=== PATIENT | male | born 1935 | race African-American/Black ===

== ENCOUNTER 2016-12-24 14:57 | Inpatient (IN) | payer MEDICARE, MEDICAID ==
[~2016-12-24] VITALS: Ht 185.4 cm; Wt 68.0 kg
[~2016-12-24 14:57] MED LIST: ACETAMINOPHEN-1 EAC1 ORAL; ADVAIR 250/501 PUFFS INH; ATORVASTATIN CA20 MG ORAL; BACTRIM DS TAB1 EAC1 ORAL; CIPROFLOXACIN500 M2 ORAL; DIAZEPAM10 MG ORAL; GABAPENTIN300 MG ORAL; LEVEMIR FL100 UNIT/1 SUBQ; LEVEMIR100 UNIT/1 SUBQ; MUPIROCIN22 GM TOPIC; OSCAL D500 MG GT; PRAVASTATIN SOD10 M1 ORAL; PRAVASTATIN SOD20 M1 ORAL; PROSCAR5 MG ORAL; SINGULAIR10 MG ORAL; TAMSULOSIN HCL0.4 MG ORAL; TRAMADOL HCL50 MG ORAL; VALIUM10 MG ORAL
[2016-12-24] MEDS ORDERED: Bacitracin Oint UD TOPIC ONE ×2 (16:45)
[2016-12-24] MEDS ORDERED: Piperacillin/Tazobactam 3.375 GM in NS 110 ML IVPB ONE (16:45)
[2016-12-24] MEDS ORDERED: Zosyn 3.375gm inj ONE (17:04)
[2016-12-24 17:36] LABS: LYMPHOCYTES % (AUTO) 28.1 % (20.0-45.0); MEAN CORPUSCULAR HGB CONC 32.6 G/DL (32.0-36.0); MEAN CORPUSCULAR VOLUME 95 FL (80-99); MEAN PLATELET VOLUME 9.2 FL (6.5-10.1); NEUTROPHILS % (AUTO) 64.7 % (45.0-75.0); PLATELET COUNT 166 K/UL (150-450); RED BLOOD COUNT 5.15 M/UL (4.70-6.10); RED CELL DISTRIBUTION WIDTH 12.3 % (11.6-14.8); WHITE BLOOD COUNT 7.3 K/UL (4.8-10.8)
[2016-12-24 17:37] LABS: BASOPHILS % (AUTO) 0.9 % (0.0-2.0); MONOCYTES % (AUTO) 5.3 % (1.0-10.0)
[2016-12-24 17:43] LABS: PROTHROMBIN TIME 10.6 SEC (9.30-11.50)
[2016-12-24 18:30] VITALS: BP 110/62
[2016-12-24 19:16] LABS: ALANINE AMINOTRANSFERASE 13 U/L (3-41); ALBUMIN/GLOBULIN RATIO 1.1 (1.0-2.7); ANION GAP 16 (5-15); ASPARTATE AMINO TRANSFERASE 20 U/L (5-40); CALCIUM 9.7 mg/dL (8.6-10.2); CARBON DIOXIDE 28 mEQ/L (20-30); CHLORIDE 94 mEQ/L (98-107); CREATININE 1.5 mg/dL (0.7-1.2); HEMOLYSIS 3; POTASSIUM 4.5 mEQ/L (3.4-4.9); SODIUM 138 mEQ/L (135-145); TOTAL PROTEIN 8.3 g/dL (6.6-8.7)
[2016-12-24 19:52] LABS: APPEARANCE,URINE SLIGHTLY CLOUDY; KETONES,URINE 1+ (NEGATIVE); LEUKOCYTE ESTERASE ,URINE NEGATIVE (NEGATIVE); NITRITE,URINE NEGATIVE (NEGATIVE); PH,URINE 6 (4.5-8.0); PROTEIN,URINE 1+ (NEGATIVE); UROBILINOGEN,URINE NORMAL MG/DL (0.0-1.0)
[2016-12-24 20:03] LABS: RBC,URINE 0 /HPF (0 - 0); SQUAMOUS EPITHELIAL CELL,UR OCCASIONAL /LPF (NONE/OCC)
[2016-12-24 20:04] LABS: BACTERIA,URINE FEW /HPF; MUCUS,URINE MODERATE /LPF (NONE/OCC)
[2016-12-24 20:29] VITALS: BP 115/68
[2016-12-24] MEDS ORDERED: LORazepam Inj 2mg/ml 1ml IV PRN (20:30)
[2016-12-24] MEDS ORDERED: Mylanta II UD 30ml ORAL PRN (20:30)
[2016-12-24] MEDS ORDERED: Zolpidem 5mg tab ORAL PRN (20:30)
[2016-12-24] MEDS ORDERED: Miralax 17gm pkt ORAL PRN (20:30)
[2016-12-24] MEDS ORDERED: Morphine Sulfate 2mg/ml Inj IVP PRN (20:30)
[2016-12-24 20:57] VITALS: BP 129/74
[2016-12-24] MEDS ORDERED: Heparin 5000 units/ml inj SUBQ SCH (21:00)
[2016-12-24] MEDS: Tamsulosin 0.4mg cap ORAL SCH (21:05)
[2016-12-24] MEDS: NovoLOG Insulin Flexpen SUBQ SCH (21:06)
[2016-12-24] MEDS: Cefepime HCl 1 GM in D5W 55 ML IV SCH (21:27)
[2016-12-24] MEDS ORDERED: Haloperidol 5mg/ml Inj IM PRN (22:15)
[2016-12-24] MEDS ORDERED: Vancomycin 1gm/D5W 275ml IVPB SCH ×2 (23:00)
--- NOTE | 2016-12-24 23:34 | Emergency Room Report ---
History of Present Illness General Chief Complaint: Lower Extremity Injury Source: Patient Present Illness HPI Patient is an 81-year-old male who presented after having increased right lower extremity pain. Patient had recently injured his right foot. A patient is a diabetic. He had not been taking any of his medications. Patient had not been having any fever. He had prior history of some dementia. The patient states primary care physician is Dr. Givens Allergies: Coded Allergies: ASPIRIN (Unverified Allergy, Severe, Rash, 05/20/16) HEPARIN (Verified Allergy, Unknown, 12/24/16) Patient History Past Medical History: see triage record, DM Reviewed Nursing Documentation: PMH: Agreed, PSxH: Agreed Nursing Documentation-PMH Past Medical History: No History, Except For Hx Cardiac Problems: Yes Hx Hypertension: Yes Hx Pacemaker: No Hx Asthma: Yes Hx COPD: No Hx Diabetes: Yes Hx Cancer: No Hx Gastrointestinal Problems: No Hx Neurological Problems: Yes Hx Cerebrovascular Accident: No Hx Dementia: Yes Hx Seizures: No Hx Memory Loss: Yes Hx Dizziness: Yes Hx Syncope: Yes Review of Systems All Other Systems: negative except mentioned in HPI Physical Exam Vital Signs Date Time Temp Pulse Resp B/P Pulse Ox O2 Delivery O2 Flow Rate FiO2 12/24/16 14:48 98.4 80 14 114/62 98 Room Air Sp02 EP Interpretation: reviewed, normal General Appearance: normal inspection, well appearing, no apparent distress, alert, GCS 15 Head: atraumatic ENT: normal ENT inspection, hearing grossly normal, normal voice Neck: normal inspection, full range of motion, supple, no bony tend Respiratory: normal inspection, lungs clear, normal breath sounds, no respiratory distress, no retraction, no wheezing Cardiovascular #1: regular rate, rhythm, no edema Gastrointestinal: normal inspection, normal bowel sounds, non tender, soft, no guarding, no hernia Genitourinary: no CVA tenderness Musculoskeletal: normal inspection, back normal, normal range of motion Neurologic: normal inspection, alert, responsive, speech normal Psychiatric: normal inspection, judgement/insight normal, mood/affect normal Skin: no rash, other - ulceration to right 2nd toe, tinea to right foot. Medical Decision Making Diagnostic Impression: Primary Impression: Uncontrolled diabetes mellitus Additional Impressions: Dementia Foot ulcer, right ER Course Patient is 81-year-old male presented after increased right foot pain. Differential diagnosis included but was not limited to fracture, contusion, vascular insufficiency, aortic aneurysm, cellulitis. Because of complexity of patient's case laboratory testing and imaging studies were ordered. The patient was noted to have a history of dementia. Blood sugar was noted to be elevated approximately 400. EKG interpreted by me shows sinus rhythm with a rate of [address] or T wave changes. The patient was given subcutaneous insulin. Patient was empirically given IV antibiotics. Right foot x-ray 3 views interpreted by me showed degenerative changes with possible fracture of the fourth phalanx. There is no evident soft tissue air. The patient was given Risperdal 2 mg because of marked agitation. He subsequently had some improvement. Dr. Arian Givens was contacted for inpatient management Labs Test 12/24/16 17:08 12/24/16 18:18 12/24/16 19:38 White Blood Count 7.3 K/UL (4.8-10.8) Red Blood Count 5.15 M/UL (4.70-6.10) Hemoglobin 16.0 G/DL (14.2-18.0) Hematocrit 49.0 % (42.0-52.0) Mean Corpuscular Volume 95 FL (80-99) Mean Corpuscular Hemoglobin 31.0 PG (27.0-31.0) Mean Corpuscular Hemoglobin Concent 32.6 G/DL (32.0-36.0) Red Cell Distribution Width 12.3 % (11.6-14.8) Platelet Count 166 K/UL (150-450) Mean Platelet Volume 9.2 FL (6.5-10.1) Neutrophils (%) (Auto) 64.7 % (45.0-75.0) Lymphocytes (%) (Auto) 28.1 % (20.0-45.0) Monocytes (%) (Auto) 5.3 % (1.0-10.0) Eosinophils (%) (Auto) 1.0 % (0.0-3.0) Basophils (%) (Auto) 0.9 % (0.0-2.0) Prothrombin Time 10.6 SEC (9.30-11.50) Prothromb Time International Ratio 1.0 (0.9-1.1) Activated Partial Thromboplast Time 25 SEC (23-33) Sodium Level 138 mEQ/L (135-145) Potassium Level 4.5 mEQ/L (3.4-4.9) Chloride Level 94 mEQ/L (98-107) Carbon Dioxide Level 28 mEQ/L (20-30) Anion Gap 16 (5-15) Blood Urea Nitrogen 21 mg/dL (7-23) Creatinine 1.5 mg/dL (0.7-1.2) Estimat Glomerular Filtration Rate mL/min (>60) Glucose Level 435 mg/dL (74-106) Calcium Level 9.7 mg/dL (8.6-10.2) Total Bilirubin 0.3 mg/dL (0.0-1.2) Aspartate Amino Transf (AST/SGOT) 20 U/L (5-40) Alanine Aminotransferase (ALT/SGPT) 13 U/L (3-41) Alkaline Phosphatase 100 U/L (40-129) Total Protein 8.3 g/dL (6.6-8.7) Albumin 4.4 g/dL (3.5-5.2) Globulin 3.9 g/dL Albumin/Globulin Ratio 1.1 (1.0-2.7) Urine Color Pale yellow Urine Appearance Slightly cloudy Urine pH 6 (4.5-8.0) Urine Specific [place] 1.010 (1.005-1.035) Urine Protein 1+ (NEGATIVE) Urine Glucose (UA) 4+ (NEGATIVE) Urine Ketones 1+ (NEGATIVE) Urine Occult Blood Negative (NEGATIVE) Urine Nitrite Negative (NEGATIVE) Urine Bilirubin Negative (NEGATIVE) Urine Urobilinogen Normal MG/DL (0.0-1.0) Urine Leukocyte Esterase Negative (NEGATIVE) Urine RBC 0 /HPF (0 - 0) Urine WBC 2-4 /HPF (0 - 0) Urine Squamous Epithelial Cells Occasional /LPF Urine Bacteria Few /HPF (NONE) Urine Mucus Moderate /LPF (NONE/OCC) Last Vital Signs Date Time Temp Pulse Resp B/P Pulse Ox O2 Delivery O2 Flow Rate FiO2 12/24/16 20:57 97.7 89 16 129/74 99 Room Air Status: improved Disposition: ADMITTED INPATIENT Condition: Stable Referrals: NOT CHOSEN IPA/,REFERRING (PCP) Ronald Gresham Dec 24, 2016 23:34
[2016-12-25 04:00] VITALS: BP 117/66
[2016-12-25] MEDS: NovoLOG Insulin Flexpen SUBQ SCH ×4 (06:08→21:35)
[2016-12-25 07:04] LABS: BASOPHILS % (AUTO) 0.8 % (0.0-2.0); EOSINOPHILS % (AUTO) 2.1 % (0.0-3.0); LYMPHOCYTES % (AUTO) 40.4 % (20.0-45.0); MEAN CORPUSCULAR HEMOGLOBIN 31.5 PG (27.0-31.0); MEAN CORPUSCULAR HGB CONC 33.5 G/DL (32.0-36.0); MEAN CORPUSCULAR VOLUME 94 FL (80-99); MEAN PLATELET VOLUME 10.8 FL (6.5-10.1); MONOCYTES % (AUTO) 7.5 % (1.0-10.0); NEUTROPHILS % (AUTO) 49.1 % (45.0-75.0); PLATELET COUNT 150 K/UL (150-450); RED BLOOD COUNT 4.24 M/UL (4.70-6.10); WHITE BLOOD COUNT 6.7 K/UL (4.8-10.8)
[2016-12-25 07:14] LABS: HEMOGLOBIN A1C 13.4 % (< 6.0)
[2016-12-25 07:28] LABS: ALANINE AMINOTRANSFERASE 9 U/L (3-41); ALBUMIN/GLOBULIN RATIO 1.1 (1.0-2.7); ANION GAP 17 (5-15); ASPARTATE AMINO TRANSFERASE 17 U/L (5-40); CALCIUM 9.2 mg/dL (8.6-10.2); CARBON DIOXIDE 25 mEQ/L (20-30); CHLORIDE 99 mEQ/L (98-107); CHOLESTEROL 208 mg/dL (< 200); CHOLESTEROL/HDL RATIO 5.1 (3.3-4.4); CREATININE 1.3 mg/dL (0.7-1.2); HEMOLYSIS 3; LDL CHOLESTEROL (CALC.) 146 mg/dL (60-99); POTASSIUM 3.7 mEQ/L (3.4-4.9); SODIUM 141 mEQ/L (135-145)
[2016-12-25 08:00] VITALS: BP 127/73
--- NOTE | 2016-12-25 10:01 | Cardiology Report ---
APPROVED REPORT EKG Measurement Heart [id number] Normal sinus rhythm Left anterior fascicular block Septal infarct, age undetermined Abnormal ECG
[2016-12-25] MEDS: Cefepime HCl 1 GM in D5W 55 ML IV SCH ×2 (10:37→21:19)
--- NOTE | 2016-12-25 11:08 | Diagnostic Imaging Report ---
Indication: Pain Comparison: None Findings: 3 views of the right foot were obtained. Hallux valgus and degenerative changes of the first MTP joint are present. Bones are osteopenic. No obvious fracture identified. Hammertoes noted. Plantar calcaneal spur noted. Impression: Degenerative changes as described above
[2016-12-25 12:00] VITALS: BP 124/75
--- NOTE | 2016-12-25 12:09 | Wound Care Consultation ---
Wound Assessment Wound Assessment : Wound Present on Admission: Yes New Wound: No Status Change of Wound: No Wound Location Body Site Modif: right Wound Location Body Site: toe - 2nd and 3rd Wound Type: traumatic injury Estrada Test: Does not Estrada Wound Thickness: Full Thickness Wound Drainage Description: Serosanguineous Wound Drainage Amount: Scant Wound Drainage Odor: None/Absent Tissue Surrounding Wound: Erythemic Wound General Appearance: Reddened Wound Comment #1 Right 2nd and 3rd toe traumatic injury with open wound. Pt diabetic and toe nails are thick and long on both feet. #2 Dry and flaky skin on both feet. Recommendation -Cleanse with saline pat dry apply Adaptic cover with 4x4 wrap with kerlix daily and PRN soiled/dislodged -Government Affairs Director consult -Turn and reposition -Keep clean and moist with A&D ointment for dryness on both feet -Optimize nutrition -Offload both heels -Assess and f/u with tetryl wringer operator or attending MD for any changes STEPHANIE BONILLA RN Dec 25, 2016 12:09
[2016-12-25] MEDS ORDERED: D5 1/2NS 1000ml IV ONE (15:00)
--- NOTE | 2016-12-25 15:12 | Consultation ---
Consult Note Consult Note ID CONSULT: Dict# [id number] Assessment/Plan ASSESSMENT: 81 y/o male with: // Right 2nd toe ulcer r/o osteomyelitis - XR: Hallux valgus and degenerative changes of the first MTP joint are present. Bones are osteopenic. No obvious fracture identified. Hammertoes noted. 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 Mass emanating exophytically from versus adjacent to posterior wall of urinary bladder, nonspecific, unchanged. Diagnostic possibilities include exophytic extension of urinary bladder mass, bladder diverticulum, adjacent adenopathy. Right renal upper pole mass apparently mildly increased in size // DM2 - HbA1c 13.4% // Medical noncompliance // Dementia // No ABX allergies // Full Code PLAN: - continue empiric IV vancomycin, cefepime d# 1 - check wound culture, ESR, CRP - monitor CBC, temperatures - monitor BMP - wound care Thanks! Will follow KANCHAN QUIGLEY Dec 25, 2016 15:12
[2016-12-25 16:00] VITALS: BP 146/77
--- NOTE | 2016-12-25 16:02 | Consultation ---
Consult Note Consult Note Patient is a poor historian. He states that he has really long toenails and does not recall the last time they were trimmed. The right 2nd toe has been painful. He does not recall how long this has been going on for. No nausea, vomiting, fevers, or chills. He does not wear shoes and only uses sandals. Assessment/Plan Assessment: - Onychogryphosis - Onycholysis of the right 2nd toe - Diabetic neuropathy - Poorly controlled diabetes Plan: - Removed the right 2nd toenail. Apply topical antibiotic ointment and bandaid for 2 weeks - Debrided the remainder of the toenails - Discussed diabetic foot care and the importance daily foot examination, pedal hygiene, and appropriate shoes - Okay to discharge from podiatry standpoint Nicolás Ibarra DPM Dec 25, 2016 16:02
--- NOTE | 2016-12-25 17:11 | History & Physical ---
History and Physical History & Physicial Dictated for Int Med-Dr Givens no. [id number]. TAMMY SAGE Dec 25, 2016 17:11
--- NOTE | 2016-12-25 17:50 | Consultation ---
History of Present Illness General Date patient seen: Dec 15, 2016 Chief Complaint: Lower Extremity Injury Referring physician: Dr Hester Reason for Consultation: Dyspnea Hx Asthma and lower extremity injury Present Illness HPI Patient is a 81 y/o gentleman with pmhx COPD heavy tobacco use, asthma, DM, HTN , a recent lower extremity injury which is worsening in swelling and pain. Patient reported difficulty with breathing the patients hospitalist asked me to evaluate. Doppler of the lower extremity has been requested to evaluate for any thrombotic event in the lower extremity in the context of multiple virchow triad risk factors including heavy tobacco smoking and recent injury. Patient will also be given breathing treatment as needed for SOB. Allergies: Coded Allergies: ASPIRIN (Unverified Allergy, Severe, Rash, 05/20/16) HEPARIN (Verified Allergy, Unknown, 12/24/16) Medication History Scheduled Atorvastatin Calcium* (Lipitor*), 5 MG ORAL BEDTIME, (Reported) Calcium Carbonate (Oyster Shell Calcium-Vit D Tab), 500 MG GT TID Diazepam* (Diazepam*), 10 MG ORAL HS, (Reported) Finasteride* (Proscar*), 5 MG ORAL DAILY Gabapentin* (Gabapentin*), 300 MG ORAL THREE TIMES A DAY, (Reported) Insulin Aspart (Novolog), SQ AC+HS, (Reported) Insulin Aspart* (Novolog*), 8 SUBQ BEFORE MEALS, (Reported) Insulin Detemir (Levemir), 40 UNITS SUBQ BEFORE BREAKFAST Insulin Detemir (Levemir), 20 SUBQ DAILY, (Reported) Montelukast Sodium* (Singulair*), 10 MG ORAL DAILY, (Reported) Montelukast Sodium* (Singulair*), 10 MG ORAL DAILY, (Reported) Pravastatin Sod* (Pravastatin Sod*), 10 MG ORAL BEDTIME, (Reported) Tamsulosin Hcl (Tamsulosin Hcl*), 0.4 MG ORAL BEDTIME Tamsulosin Hcl (Tamsulosin Hcl*), 0.4 MG ORAL BEDTIME, (Reported) Trimethoprim/Sulfamethoxazole (Bactrim Ds Tablet), 1 TAB ORAL BID, (Reported) Scheduled PRN Acetaminophen (Tylenol), 650 MG ORAL Q4HR PRN for Fever/Headache/Mild Pain, ( Reported) Acetaminophen With Codeine (T#3) (Tylenol #3 Tab*), 1 TAB ORAL Q6HR PRN for For Pain, (Reported) Al Hydroxide/mg Hydroxide (Mag-Al Plus Suspension), 30 ML GT Q4HR PRN for Constipation, (Reported) Fluticasone/Salmeterol (Advair 250-50 Diskus), 1 PUFF INH DAILY PRN for Shortness of Breath, (Reported) Lorazepam* (Ativan*), 0.5 MG ORAL Q4HR PRN for For Anxiety, (Reported) Ondansetron (Zofran), 4 MG ORAL Q6H PRN for Nausea & Vomiting, (Reported) Polyethylene Glycol 3350* (Miralax*), 17 GM ORAL DAILY PRN for Constipation, ( Reported) Zolpidem Tartrate* (Ambien*), 5 MG ORAL BEDTIME PRN for Insomnia, (Reported) Patient History Healthcare decision maker Resuscitation status Full Code Advanced Directive on File Past Medical/Surgical History Past Medical/Surgical History: (1) COPD exacerbation (2) Acute cystitis (3) Chest wall contusion (4) Altered mental status (5) Hypertension (6) Alzheimer's dementia (7) Injury of lower extremity Review of Systems Respiratory: Reports: cough, shortness of breath, wheezing Musculoskeletal: Reports: joint pain, muscle pain, muscle stiffness Skin: Reports: change in color, change in hair/nails, dryness, lesions, rash Physical Exam General Appearance: no apparent distress Lines, tubes and drains: peripheral HEENT: normocephalic, atraumatic, PERRL Neck: non-tender, normal alignment Respiratory/Chest: chest wall non-tender, decreased breath sounds, expiratory wheezing Breasts: no masses Cardiovascular/Chest: normal peripheral pulses, normal rate, regular rhythm, no JVD Abdomen: normal bowel sounds, non tender, soft, no organomegaly Genitourinary/Rectal: normal genital exam, normal rectal exam Extremities: calf tenderness, inflammation, moderate edema, pitting - right lower extremity 2nd/3rd metatarsal phalangeal digit open wound and traumatic eccymosis Skin Exam: palled, other 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, no motor/sensory deficits Last 24 Hour Vital Signs Date Time Temp Pulse Resp B/P Pulse Ox O2 Delivery O2 Flow Rate FiO2 12/25/16 16:00 97.7 75 18 146/77 96 Room Air 12/25/16 12:00 96.8 95 124/75 100 Room Air 12/25/16 08:00 96.4 98 19 127/73 99 Room Air 12/25/16 04:00 97.5 83 20 117/66 95 Room Air 12/24/16 20:57 97.7 89 16 129/74 99 Room Air 12/24/16 20:30 98.4 78 14 110/62 98 Room Air 12/24/16 20:29 98.4 76 15 115/68 99 Room Air 12/24/16 18:30 98.4 78 14 110/62 98 Room Air Intake and Output 12/24/16 12/25/16 19:00 07:00 Intake Total 110 ml Output Total 300 ml Balance -190 ml IV Total 110 ml Output Urine Total 300 ml # Voids 1 1 Laboratory Tests Test 12/24/16 18:18 12/24/16 19:38 12/25/16 05:30 Sodium Level 138 mEQ/L (135-145) 141 mEQ/L (135-145) Potassium Level 4.5 mEQ/L (3.4-4.9) 3.7 mEQ/L (3.4-4.9) Chloride Level 94 mEQ/L (98-107) L 99 mEQ/L (98-107) Carbon Dioxide Level 28 mEQ/L (20-30) 25 mEQ/L (20-30) Anion Gap 16 (5-15) H 17 (5-15) H Blood Urea Nitrogen 21 mg/dL (7-23) 22 mg/dL (7-23) Creatinine 1.5 mg/dL (0.7-1.2) H 1.3 mg/dL (0.7-1.2) H Estimat Glomerular Filtration Rate mL/min (>60) mL/min (>60) Glucose Level 435 mg/dL (74-106) H 174 mg/dL (74-106) #H Calcium Level 9.7 mg/dL (8.6-10.2) 9.2 mg/dL (8.6-10.2) Total Bilirubin 0.3 mg/dL (0.0-1.2) 0.5 mg/dL (0.0-1.2) Aspartate Amino Transf (AST/SGOT) 20 U/L (5-40) 17 U/L (5-40) Alanine Aminotransferase (ALT/SGPT) 13 U/L (3-41) 9 U/L (3-41) Alkaline Phosphatase 100 U/L (40-129) 78 U/L (40-129) Total Protein 8.3 g/dL (6.6-8.7) 7.0 g/dL (6.6-8.7) Albumin 4.4 g/dL (3.5-5.2) 3.7 g/dL (3.5-5.2) Globulin 3.9 g/dL 3.3 g/dL Albumin/Globulin Ratio 1.1 (1.0-2.7) 1.1 (1.0-2.7) Urine Color Pale yellow Urine Appearance Slightly cloudy Urine pH 6 (4.5-8.0) Urine Specific [place] 1.010 (1.005-1.035) Urine Protein 1+ (NEGATIVE) H Urine Glucose (UA) 4+ (NEGATIVE) H Urine Ketones 1+ (NEGATIVE) H Urine Occult Blood Negative (NEGATIVE) Urine Nitrite Negative (NEGATIVE) Urine Bilirubin Negative (NEGATIVE) Urine Urobilinogen Normal MG/DL (0.0-1.0) Urine Leukocyte Esterase Negative (NEGATIVE) Urine RBC 0 /HPF (0 - 0) Urine WBC 2-4 /HPF (0 - 0) Urine Squamous Epithelial Cells Occasional /LPF Urine Bacteria Few /HPF (NONE) Urine Mucus Moderate /LPF (NONE/OCC) H White Blood Count 6.7 K/UL (4.8-10.8) Red Blood Count 4.24 M/UL (4.70-6.10) L Hemoglobin 13.3 G/DL (14.2-18.0) L Hematocrit 39.8 % (42.0-52.0) L Mean Corpuscular Volume 94 FL (80-99) Mean Corpuscular Hemoglobin 31.5 PG (27.0-31.0) H Mean Corpuscular Hemoglobin Concent 33.5 G/DL (32.0-36.0) Red Cell Distribution Width 12.0 % (11.6-14.8) Platelet Count 150 K/UL (150-450) Mean Platelet Volume 10.8 FL (6.5-10.1) H Neutrophils (%) (Auto) 49.1 % (45.0-75.0) Lymphocytes (%) (Auto) 40.4 % (20.0-45.0) Monocytes (%) (Auto) 7.5 % (1.0-10.0) Eosinophils (%) (Auto) 2.1 % (0.0-3.0) Basophils (%) (Auto) 0.8 % (0.0-2.0) Hemoglobin A1c 13.4 % (< 6.0) H Triglycerides Level 103 mg/dL (< 150) Cholesterol Level 208 mg/dL (< 200) H LDL Cholesterol 146 mg/dL (60-99) H HDL Cholesterol 41 mg/dL (> 60) Cholesterol/HDL Ratio 5.1 (3.3-4.4) H Thyroid Stimulating Hormone (TSH) 2.500 uIU/mL (0.300-4.500) Height (Feet): 6 Height (Inches): 1.00 Weight (Pounds): 150 Medications Current Medications Medications (Trade) Dose Ordered Sig/Eric Route PRN Reason Start Time Stop Time Status Last Admin Dose Admin Acetaminophen (Tylenol) 650 mg Q4H PRN ORAL fever 12/24/16 20:30 01/23/17 20:29 Al Hydroxide/Mg Hydroxide (Mylanta II) 30 ml Q6H PRN ORAL dyspepsia 12/24/16 20:30 01/23/17 20:29 Atorvastatin Calcium (Lipitor) 5 mg BEDTIME ORAL 12/24/16 21:00 01/23/17 20:59 12/24/16 21:05 Cefepime HCl/ Dextrose (Maxipime/D5W) 55 ml @ 110 mls/hr Q12H IV 12/24/16 22:00 12/31/16 21:59 12/25/16 10:37 Dextrose (Dextrose 50%) STAT PRN IV Hypoglycemia 12/24/16 20:30 01/23/17 20:29 Finasteride (Proscar) 5 mg DAILY ORAL 12/25/16 09:00 01/24/17 08:59 12/25/16 10:36 Haloperidol Lactate (Haldol) 5 mg Q4H PRN IM Agitation 12/24/16 22:15 01/23/17 22:14 Insulin Aspart BEFORE MEALS AND HS SUBQ 12/24/16 21:00 01/23/17 20:59 12/25/16 16:43 Lorazepam (Ativan 2mg/ml 1ml) 0.5 mg Q4H PRN IV For Anxiety 12/24/16 20:30 12/31/16 20:29 Morphine Sulfate (Morphine Sulfate) 1 mg EVERY 4 HOURS PRN IVP For Pain 12/24/16 20:30 12/31/16 20:29 Ondansetron HCl (Zofran) 4 mg Q6H PRN IVP Nausea & Vomiting 12/24/16 20:30 01/23/17 20:29 Polyethylene Glycol (Miralax) 17 gm HSPRN PRN ORAL Constipation 12/24/16 20:30 01/23/17 20:29 Tamsulosin HCl (Flomax) 0.4 mg BEDTIME ORAL 12/24/16 21:00 01/23/17 20:59 12/24/16 21:05 Vancomycin HCl 1 ea 1 ea DAILY PRN MISC Per rx protocol 12/24/16 20:30 01/23/17 20:29 Vancomycin HCl/ Dextrose (Vancomycin/D5W) 275 ml @ 183.708 mls/hr Q24H IVPB 12/24/16 23:00 12/29/16 22:59 12/24/16 22:36 Vitamin A/Vitamin D (A & D Oint) 1 applic EVERY 12 HOURS TOPIC 12/25/16 21:00 01/24/17 20:59 Zolpidem Tartrate (Ambien) 5 mg HSPRN PRN ORAL Insomnia 12/24/16 20:30 01/23/17 20:29 Assessment/Plan Status: stable, progressing Assessment/Plan Assessment Asthma acute excacerbation COPD acute excacerbation Heavy Tobacco Use Dyspnea Right Lower extremity 2nd/3rd metatarsal phlanageal injury traumatic with open wound DM uncontrolled HTN Plan Breathing Tx as needed for SOB Doppler lower extremity Multiple risk factors for thrombosis Smoking cessation Supplemental O2 Wound care BLUE HUNTLEY Dec 25, 2016 17:50
--- NOTE | 2016-12-25 17:58 | History and Physical Report ---
DATE OF ADMISSION: 12/24/[address] Givens. CHIEF COMPLAINT: The patient is an 81-year-old -Congolese male, who presents with chief complaint of right foot pain. HISTORY OF PRESENT ILLNESS: The patient states he stubbed his toe on a boulder three days ago. The patient states he injured his toe nail. The patient states the toenail appears to have become infected. The patient has a history of diabetes. The patient presented to [facility]. The patient is admitted for cellulitis versus osteomyelitis of the right great toe. REVIEW OF SYSTEMS: Constitutional: The patient denies weight loss or weight gain. The patient denies fevers or chills. HEENT: The patient denies ear or throat pain. The patient denies headache. Cardiovascular: The patient denies palpitation or chest pain. Chest: The patient denies wheezes or shortness of breath. Abdominal: The patient denies nausea, vomiting, or constipation. Genitourinary: The patient denies dysuria or increased frequency of urination. Neuromuscular: The patient denies seizures or generalized weakness. PAST MEDICAL HISTORY: Significant for, 1. Type 2 diabetes. 2. Alzheimer's dementia. 3. Hydronephrosis of the right kidney. 4. History of bladder tumor. 5. History of benign prostatic hypertrophy. 6. Hyperlipidemia. PAST SURGICAL HISTORY: Significant for, 1. Inguinal hernia repair. 2. Transurethral resection of prostate. CURRENT MEDICATIONS: 1. Lipitor 5 mg one tablet p.o. at bedtime. 2. Calcium carbonate 500 mg one tablet p.o. three times daily. 3. Valium 10 mg one tablet p.o. at bedtime. 4. Finasteride 5 mg one tablet p.o. daily. 5. Advair 250/50 mcg one puff p.o. twice daily. 6. Gabapentin 300 mg one tablet p.o. three times daily. 7. Levemir 40 units subcutaneously q.a.m. 8. Singulair 10 mg one tablet p.o. daily. 9. Flomax 0.4 mg one tablet p.o. at bedtime. ALLERGIES: To aspirin and heparin. SOCIAL HISTORY: The patient is single and lives with his adult daughter. The patient denies current tobacco use. The patient admits to previous heavy tobacco use. The patient denies alcohol use. PHYSICAL EXAMINATION: VITAL SIGNS: Temperature 98.4, respirations 14, pulse 78, and blood pressure 110/62. GENERAL: The patient is a well-developed, well-nourished, -Congolese male, in no apparent distress. HEENT: Eyes, pupils are equal and responsive to light and accommodation. Extraocular movements are intact. NECK: Supple without lymphadenopathy. CHEST: Lungs are clear to auscultation bilaterally without wheezes or rales. CARDIOVASCULAR: Regular rhythm and rate. S1 and S2 are normal without murmurs, rubs, or gallops. ABDOMEN: Soft, nontender, and nondistended. Positive bowel sounds. No evidence of hepatosplenomegaly. Currently, no rebound or guarding noted. EXTREMITIES: Negative for clubbing, cyanosis, or edema. The right first toe is bandaged. There appears to be some discharge noted. RECTAL/GENITAL: Refused. NEUROLOGIC: Cranial nerves II through XII are grossly intact without focal deficits. Motor strength is 5/5 bilaterally. Deep tendon reflexes are 2+ plantar. LABORATORY STUDIES: WBC 7.3, hemoglobin 16, hematocrit 49, and platelets 166,000. Sodium 138, potassium 4.5, chloride 94, CO2 28, BUN 29, creatinine 1.5, and glucose elevated at 435. ASSESSMENT: This is an 81-year-old -Cong[place]ese male, 1. Right great toe cellulitis. 2. Diabetes type 2. 3. Alzheimer's dementia. 4. Benign prostatic hypertrophy. 5. Right hydronephrosis. 6. Hypercholesterolemia. TREATMENT: 1. Right great toe cellulitis. A podiatry consultation was obtained with with Dr. Swan. An x-ray of the right foot is pending. The patient may require an MRI to rule out osteomyelitis. The patient has been started empirically on vancomycin and cefepime. 2. Diabetes type 2. Continue Levemir as above. A NovoLog sliding scale has been instituted. 3. Alzheimer's dementia. 4. Benign prostatic hypertrophy, status post transurethral resection of prostate. 5. Right hydronephrosis. 6. Hypercholesterolemia. Continue Lipitor as above. Bruce Hester M.D. DR: THELMA JOB#: [id number] CC:
[2016-12-25 20:00] VITALS: BP 134/78
[2016-12-25] MEDS: Vitamin A&D Oint 2oz Tube TOPIC SCH (21:00)
[2016-12-25] MEDS: Tamsulosin 0.4mg cap ORAL SCH (21:18)
[2016-12-26] MEDS: Vancomycin 1gm/D5W 275ml IVPB SCH ×2 (00:08)
--- NOTE | 2016-12-26 03:18 | Consultation ---
DATE OF CONSULTATION: 12/25/2016 INFECTIOUS DISEASE CONSULTATION REQUESTING PHYSICIAN: Arian Givens M.D. REASON FOR CONSULTATION: Foot ulcer. HISTORY OF PRESENT ILLNESS: This is an 81-year-old uncontrolled diabetic demented male, admitted on 12/24/2016 for right foot ulcer that involved his right second toe. An x-ray shows no fracture or osteomyelitis. He is afebrile without leukocytosis. He has been started on empiric IV vancomycin and cefepime and ID now consulted to assist in management. PAST MEDICAL HISTORY: 1. Hyperlipidemia. 2. BPH. 3. Uncontrolled diabetes. 4. Dementia. 5. Peripheral arterial disease. 6. Bladder cancer. MEDICATIONS: 1. IV vancomycin day #1. 2. IV cefepime day #1. 3. Proscar. 4. Lipitor. 5. Flomax. ALLERGIES: 1. Aspirin. 2. Subcutaneous heparin. SOCIAL HISTORY: The patient is noncompliant. FAMILY HISTORY: Noncontributory. REVIEW OF SYSTEMS: Unreliable. PHYSICAL EXAMINATION: GENERAL: No apparent distress. Nontoxic appearing. VITAL SIGNS: Maximum temperature 98.4 degrees, blood pressure 127/73, heart rate 98, respiratory rate 19 and saturating 99% on room air. CARDIOVASCULAR: Regular rate and rhythm. No murmurs. PULMONARY: Clear to auscultation bilaterally. ABDOMEN: Bowel sounds present. Soft, nondistended, and nontender. EXTREMITIES: No edema. Right second toe ulcer with pustular drainage. Hammertoes and ingrown toenails. LABORATORY AND DIAGNOSTIC DATA: White blood cell count 6.7 with a normal differential, hemoglobin 13.3, platelets 150,000. Sodium 141, potassium 3.7, chloride 99, bicarbonate 25, BUN 22, and creatinine 1.3. Hemoglobin A1c 13.4%. Liver function tests within normal limits. Urinalysis negative. Microbiology, none. Imaging, 1. Right foot x-ray with hallux valgus and degenerative changes of the first metatarsophalangeal joint are present. Bones are osteopenic. No obvious fracture identified. Hammertoes noted. Plantar calcaneal spur noted. 2. On 12/25/2016, the arterial and venous Dopplers negative for DVT. Severe rest ischemia. Please refer to full report for full details. ASSESSMENT: 1. Right second toe ulcer, rule out osteomyelitis. X-ray as above. 2. Afebrile without leukocytosis. 3. Peripheral arterial disease with severe rest ischemia on arterial Doppler. 4. Chronic kidney disease, stage 3. 5. Bladder cancer. 6. Diabetes type 2 with hemoglobin A1c of 13.4%. 7. Medical noncompliance. 8. Dementia. 9. No antibiotic allergies. 10. Full Code. PLAN: 1. Continue empiric IV vancomycin and cefepime day #1. 2. Check wound culture, ESR and CRP. 3. Monitor CBC and temperatures. 4. Monitor BMP. 5. Wound care. Thank you. We will follow. Eric Fernandez M.D. DR: SERAFIN JOB#: [id number] CC: Kiearn Montejo M.D. Arash Alborzi, M.D
[2016-12-26 04:16] VITALS: BP 138/77
--- NOTE | 2016-12-26 04:58 | Consultation ---
DATE OF CONSULTATION: CONSULTING SPECIALTY: Podiatry. CONSULTING PHYSICIAN: Nicolás Ibarra D.P.M. covering for Gentry Swan D.P.M. REASON FOR CONSULTATION: Right foot ulcer. HISTORY OF PRESENT ILLNESS: This is an 81-year-old male. He is a poor historian. He states that it has been a really long since his toenails were trimmed. The right second toe has been painful. He does not recall how long this has been going on for. He has not been treating it. No reports of nausea, vomiting, fevers, or chills. PAST MEDICAL HISTORY: Diabetes, dementia, Alzheimer disease, hypertension, benign prostatic hypertrophy, and hypercholesterolemia. MEDICATIONS: Antibiotics include vancomycin and cefepime. Please refer to the chart for all medications. ALLERGIES: Aspirin and heparin. SOCIAL HISTORY: The patient denies tobacco, alcohol, or illicit drug use. FAMILY HISTORY: Noncontributory. PHYSICAL EXAMINATION: VITAL SIGNS: Temperature 97.7 degrees, pulse 89, respiratory rate 16, blood pressure 129/74, and pulse oximetry is 99% on room air. DERMATOLOGICAL: Thick, discolored, and very elongated toenails x10. Right second toenail is loosely adhered to the nail bed. There is a wound beneath toenail. No purulence or malodor is noted. Mild surrounding erythema and edema. VASCULAR: Pedal pulses are difficult to palpate. NEUROLOGIC: Decreased sensation to light touch bilaterally LABORATORY DATA: White blood cells 6.7, red blood cells 4.24, hemoglobin 13.3, hematocrit 39.8, platelets are 160,000, and neutrophils are 49.1. Sodium 141, potassium 3.7, chloride 99, CO2 75, anion gap of 17, BUN 22, and creatinine 1.3. Hemoglobin A1c is 13.4. ASSESSMENT: 1. Onychogryphosis. 2. Onycholysis of the right second toe. 3. Poorly controlled diabetes. 4. Diabetic neuropathy. PLAN: 1. Right 2nd toenail nail avulsion was performed. Apply topical antibiotic ointment and band-aid for two weeks. 2. Debrided the remainder of the toenails without complications. 3. Discussed diabetic footcare and importance. 4. Daily foot examination pedal hygiene and appropriate shoe. 5. Okay to discharge from Podiatry standpoint. Thank you for the consultation. Nicolás Ibarra DPM DR: JOHN JOB#: [id number] CC: RAUL
[2016-12-26 05:29] LABS: BASOPHILS % (AUTO) 0.9 % (0.0-2.0); EOSINOPHILS % (AUTO) 2.5 % (0.0-3.0); MEAN CORPUSCULAR HEMOGLOBIN 31.1 PG (27.0-31.0); MEAN CORPUSCULAR VOLUME 94 FL (80-99); MONOCYTES % (AUTO) 6.7 % (1.0-10.0); NEUTROPHILS % (AUTO) 48.9 % (45.0-75.0); PLATELET COUNT 155 K/UL (150-450); RED BLOOD COUNT 4.24 M/UL (4.70-6.10); RED CELL DISTRIBUTION WIDTH 11.9 % (11.6-14.8); WHITE BLOOD COUNT 6.7 K/UL (4.8-10.8)
[2016-12-26 05:48] LABS: ANION GAP 15 (5-15); CALCIUM 9.4 mg/dL (8.6-10.2); CARBON DIOXIDE 24 mEQ/L (20-30); CHLORIDE 98 mEQ/L (98-107); CREATININE 1.2 mg/dL (0.7-1.2); HEMOLYSIS 3; SODIUM 137 mEQ/L (135-145)
[2016-12-26] MEDS: NovoLOG Insulin Flexpen SUBQ SCH ×4 (06:05→21:05)
[2016-12-26 08:30] VITALS: BP 123/66
[2016-12-26] MEDS: Cefepime HCl 1 GM in D5W 55 ML IV SCH ×2 (11:08→21:03)
[2016-12-26] MEDS: Vitamin A&D Oint 2oz Tube TOPIC SCH ×2 (11:08→21:03)
[2016-12-26 13:07] VITALS: BP 107/70
--- NOTE | 2016-12-26 15:08 | Infectious Diseases Prog Note ---
Assessment/Plan Assessment/Plan ASSESSMENT: 81 y/o male with: // Right 2nd toe ulcer - WCx NGTD - SP toenail clipping 12/25 - XR: Hallux valgus and degenerative changes of the first MTP joint are present. Bones are osteopenic. No obvious fracture identified. Hammertoes noted. 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 Mass emanating exophytically from versus adjacent to posterior wall of urinary bladder, nonspecific, unchanged. Diagnostic possibilities include exophytic extension of urinary bladder mass, bladder diverticulum, adjacent adenopathy. Right renal upper pole mass apparently mildly increased in size // DM2 - HbA1c 13.4% // Medical noncompliance // Dementia // No ABX allergies // Full Code PLAN: - ok to DC on PO bactrim x7d from ID standpoint. Will continue empiric IV vancomycin, cefepime d# 2 while still inpt pending cultures - f/u wound culture - monitor CBC, temperatures - monitor BMP - wound care Subjective Allergies: Coded Allergies: ASPIRIN (Unverified Allergy, Severe, Rash, 05/20/16) HEPARIN (Verified Allergy, Unknown, 12/24/16) Subjective remains afebrile toenails cut Objective Vital Signs Last 24 Hour Vital Signs Date Time Temp Pulse Resp B/P Pulse Ox O2 Delivery O2 Flow Rate FiO2 12/26/16 13:07 98.1 20 107/70 94 Room Air 12/26/16 08:30 97.3 69 18 123/66 96 Room Air 12/26/16 04:16 97.7 82 20 138/77 95 Room Air 12/25/16 20:00 97.7 83 20 134/78 98 Room Air 12/25/16 16:00 97.7 75 18 146/77 96 Room Air Height (Feet): 6 Height (Inches): 1.00 Weight (Pounds): 150 General Appearance: no acute distress Respiratory/Chest: no respiratory distress Cardiovascular: normal rate, regular rhythm Abdomen: normal bowel sounds, soft, non tender, non distended Microbiology Date/Time Source Procedure Growth Status 2/20/17 19:45 Foot Right Gram Stain Pending Resulted 12/25/16 19:45 Foot Right Wound Culture - Preliminary NO GROWTH AFTER 24 HOURS Resulted Laboratory Tests Test 12/26/16 04:05 White Blood Count 6.7 K/UL (4.8-10.8) Red Blood Count 4.24 M/UL (4.70-6.10) L Hemoglobin 13.2 G/DL (14.2-18.0) L Hematocrit 40.0 % (42.0-52.0) L Mean Corpuscular Volume 94 FL (80-99) Mean Corpuscular Hemoglobin 31.1 PG (27.0-31.0) H Mean Corpuscular Hemoglobin Concent 33.0 G/DL (32.0-36.0) Red Cell Distribution Width 11.9 % (11.6-14.8) Platelet Count 155 K/UL (150-450) Mean Platelet Volume 10.0 FL (6.5-10.1) Neutrophils (%) (Auto) 48.9 % (45.0-75.0) Lymphocytes (%) (Auto) 41.0 % (20.0-45.0) Monocytes (%) (Auto) 6.7 % (1.0-10.0) Eosinophils (%) (Auto) 2.5 % (0.0-3.0) Basophils (%) (Auto) 0.9 % (0.0-2.0) Erythrocyte Sedimentation Rate 26 MM/HR (0-20) H Sodium Level 137 mEQ/L (135-145) Potassium Level 4.0 mEQ/L (3.4-4.9) Chloride Level 98 mEQ/L (98-107) Carbon Dioxide Level 24 mEQ/L (20-30) Anion Gap 15 (5-15) Blood Urea Nitrogen 18 mg/dL (7-23) Creatinine 1.2 mg/dL (0.7-1.2) Estimat Glomerular Filtration Rate mL/min (>60) Glucose Level 179 mg/dL (74-106) H Calcium Level 9.4 mg/dL (8.6-10.2) C-Reactive Protein, Quantitative < 0.3 mg/dL (< 0.5) Current Medications Medications (Trade) Dose Ordered Sig/Eric Route PRN Reason Start Time Stop Time Status Last Admin Dose Admin Acetaminophen (Tylenol) 650 mg Q4H PRN ORAL fever 12/24/16 20:30 01/23/17 20:29 Al Hydroxide/Mg Hydroxide (Mylanta II) 30 ml Q6H PRN ORAL dyspepsia 12/24/16 20:30 01/23/17 20:29 Atorvastatin Calcium (Lipitor) 5 mg BEDTIME ORAL 12/24/16 21:00 01/23/17 20:59 12/25/16 21:18 Cefepime HCl/ Dextrose (Maxipime/D5W) 55 ml @ 110 mls/hr Q12H IV 12/24/16 22:00 12/31/16 21:59 12/26/16 11:08 Dextrose (Dextrose 50%) STAT PRN IV Hypoglycemia 12/24/16 20:30 01/23/17 20:29 Finasteride (Proscar) 5 mg DAILY ORAL 12/25/16 09:00 01/24/17 08:59 12/26/16 11:06 Haloperidol Lactate (Haldol) 5 mg Q4H PRN IM Agitation 12/24/16 22:15 01/23/17 22:14 Insulin Aspart (NovoLOG) BEFORE MEALS AND HS SUBQ 12/24/16 21:00 01/23/17 20:59 12/26/16 12:30 Lorazepam (Ativan 2mg/ml 1ml) 0.5 mg Q4H PRN IV For Anxiety 12/24/16 20:30 12/31/16 20:29 Morphine Sulfate (Morphine Sulfate) 1 mg EVERY 4 HOURS PRN IVP For Pain 12/24/16 20:30 12/31/16 20:29 Ondansetron HCl (Zofran) 4 mg Q6H PRN IVP Nausea & Vomiting 12/24/16 20:30 01/23/17 20:29 Polyethylene Glycol (Miralax) 17 gm HSPRN PRN ORAL Constipation 12/24/16 20:30 01/23/17 20:29 Tamsulosin HCl (Flomax) 0.4 mg BEDTIME ORAL 12/24/16 21:00 01/23/17 20:59 12/25/16 21:18 Vancomycin HCl 1 ea 1 ea DAILY PRN MISC Per rx protocol 12/24/16 20:30 01/23/17 20:29 Vancomycin HCl/ Dextrose (Vancomycin/D5W) 275 ml @ 183.708 mls/hr Q24H IVPB 12/26/16 00:00 12/31/16 00:00 12/26/16 00:08 Vitamin A/Vitamin D 1 applic 1 applic EVERY 12 HOURS TOPIC 12/25/16 21:00 01/24/17 20:59 12/26/16 11:08 Zolpidem Tartrate (Ambien) 5 mg HSPRN PRN ORAL Insomnia 12/24/16 20:30 01/23/17 20:29 12/25/16 21:18 KANCHAN QUIGLEY Dec 26, 2016 15:08
--- NOTE | 2016-12-26 15:38 | Internal Med Progress Note ---
Subjective Date of Service: Dec 26, 2016 Physician Name Tammy Sage Attending Physician Arian Givens MD Current Medications Medications (Trade) Dose Ordered Sig/Eric Route PRN Reason Start Time Stop Time Status Last Admin Dose Admin Acetaminophen (Tylenol) 650 mg Q4H PRN ORAL fever 12/24/16 20:30 01/23/17 20:29 Al Hydroxide/Mg Hydroxide (Mylanta II) 30 ml Q6H PRN ORAL dyspepsia 12/24/16 20:30 01/23/17 20:29 Atorvastatin Calcium (Lipitor) 5 mg BEDTIME ORAL 12/24/16 21:00 01/23/17 20:59 12/25/16 21:18 Cefepime HCl/ Dextrose (Maxipime/D5W) 55 ml @ 110 mls/hr Q12H IV 12/24/16 22:00 12/31/16 21:59 12/26/16 11:08 Dextrose (Dextrose 50%) STAT PRN IV Hypoglycemia 12/24/16 20:30 01/23/17 20:29 Finasteride (Proscar) 5 mg DAILY ORAL 12/25/16 09:00 01/24/17 08:59 12/26/16 11:06 Haloperidol Lactate (Haldol) 5 mg Q4H PRN IM Agitation 12/24/16 22:15 01/23/17 22:14 Insulin Aspart (NovoLOG) BEFORE MEALS AND HS SUBQ 12/24/16 21:00 01/23/17 20:59 12/26/16 12:30 Lorazepam (Ativan 2mg/ml 1ml) 0.5 mg Q4H PRN IV For Anxiety 12/24/16 20:30 12/31/16 20:29 Morphine Sulfate (Morphine Sulfate) 1 mg EVERY 4 HOURS PRN IVP For Pain 12/24/16 20:30 12/31/16 20:29 Ondansetron HCl (Zofran) 4 mg Q6H PRN IVP Nausea & Vomiting 12/24/16 20:30 01/23/17 20:29 Polyethylene Glycol (Miralax) 17 gm HSPRN PRN ORAL Constipation 12/24/16 20:30 01/23/17 20:29 Tamsulosin HCl (Flomax) 0.4 mg BEDTIME ORAL 12/24/16 21:00 01/23/17 20:59 12/25/16 21:18 Vancomycin HCl 1 ea 1 ea DAILY PRN MISC Per rx protocol 12/24/16 20:30 01/23/17 20:29 Vancomycin HCl/ Dextrose (Vancomycin/D5W) 275 ml @ 183.708 mls/hr Q24H IVPB 12/26/16 00:00 12/31/16 00:00 12/26/16 00:08 Vitamin A/Vitamin D 1 applic 1 applic EVERY 12 HOURS TOPIC 12/25/16 21:00 01/24/17 20:59 12/26/16 11:08 Zolpidem Tartrate (Ambien) 5 mg HSPRN PRN ORAL Insomnia 12/24/16 20:30 01/23/17 20:29 12/25/16 21:18 Allergies: Coded Allergies: ASPIRIN (Unverified Allergy, Severe, Rash, 05/20/16) HEPARIN (Verified Allergy, Unknown, 12/24/16) ROS Limited/Unobtainable: No Constitutional: Reports: no symptoms HEENT: Reports: no symptoms Cardiovascular: Reports: no symptoms Respiratory: Reports: no symptoms Gastrointestinal/Abdominal: Reports: no symptoms Genitourinary: Reports: no symptoms Neurologic/Psychiatric: Reports: no symptoms Subjective 81 YO M admitted with left great toe cellulitis. Cover for Int Jay-Dr Givens. Objective Last Vital Signs Date Time Temp Pulse Resp B/P Pulse Ox O2 Delivery O2 Flow Rate FiO2 12/26/16 13:07 98.1 20 107/70 94 Room Air 12/26/16 08:30 69 General Appearance: WD/WN, no apparent distress, alert EENT: PERRL/EOMI, normal ENT inspection, TMs normal Neck: non-tender, normal alignment, supple, normal inspection Cardiovascular: normal peripheral pulses, normal rate, regular rhythm, no gallop/murmur, no JVD Respiratory/Chest: chest wall non-tender, lungs clear, normal breath sounds, no respiratory distress, no accessory muscle use Abdomen: normal bowel sounds, non tender, soft, no organomegaly, no mass Extremities: normal range of motion, non-tender 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7 % (1.0-10.0) Eosinophils (%) (Auto) 2.5 % (0.0-3.0) Basophils (%) (Auto) 0.9 % (0.0-2.0) Erythrocyte Sedimentation Rate 26 MM/HR (0-20) H Sodium Level 137 mEQ/L (135-145) Potassium Level 4.0 mEQ/L (3.4-4.9) Chloride Level 98 mEQ/L (98-107) Carbon Dioxide Level 24 mEQ/L (20-30) Anion Gap 15 (5-15) Blood Urea Nitrogen 18 mg/dL (7-23) Creatinine 1.2 mg/dL (0.7-1.2) Estimat Glomerular Filtration Rate mL/min (>60) Glucose Level 179 mg/dL (74-106) H Calcium Level 9.4 mg/dL (8.6-10.2) C-Reactive Protein, Quantitative < 0.3 mg/dL (< 0.5) Microbiology Date/Time Source Procedure Growth Status 12/25/16 19:45 Foot Right Gram Stain Pending Resulted 12/25/16 19:45 Foot Right Wound Culture - Preliminary NO GROWTH AFTER 24 HOURS Resulted Intake and Output 12/25/16 12/26/16 19:00 07:00 Intake Total 480 ml 330.000 ml Output Total 275 ml Balance 205 ml 330.000 ml Intake Oral 480 ml IV Total 330.000 ml Output Urine Total 275 ml # Voids 4 Assessment/Plan Problem List: (1) Hydronephrosis of right kidney (2) Cellulitis Assessment & Plan: Right great toe. Cont IV cefepime and vanco. See Podiatry note. (3) Diabetes Assessment & Plan: Cont humalog slidiing scale. (4) Alzheimer's dementia (5) BPH (benign prostatic hypertrophy) Assessment & Plan: Cont flomax (6) Hypercholesteremia Status: progressing Assessment/Plan Discharge planning: residential facility TAMMY SAGE Dec 26, 2016 15:37
[2016-12-26 16:00] VITALS: BP 112/53
[2016-12-26 20:00] VITALS: BP 115/62
[2016-12-26] MEDS: Tamsulosin 0.4mg cap ORAL SCH (21:03)
--- NOTE | 2016-12-26 22:39 | Pulmonology Progress Note ---
Assessment/Plan Assessment/Plan Assessment/Plan Status: stable, progressing Assessment/Plan Assessment Asthma acute excacerbation COPD acute excacerbation Heavy Tobacco Use Dyspnea Right Lower extremity 2nd/3rd metatarsal phlanageal injury traumatic with open wound DM uncontrolled HTN Plan Breathing Tx as needed for SOB Doppler lower extremity Multiple risk factors for thrombosis Smoking cessation Supplemental O2 Wound care Subjective ROS Limited/Unobtainable: No Respiratory: Reports: dry cough, dyspnea at rest, shortness of breath, wheezing Musculoskeletal: Reports: pain, stiffness, swelling Allergies: Coded Allergies: ASPIRIN (Unverified Allergy, Severe, Rash, 05/20/16) HEPARIN (Verified Allergy, Unknown, 12/24/16) Objective Last 24 Hour Vital Signs Date Time Temp Pulse Resp B/P Pulse Ox O2 Delivery O2 Flow Rate FiO2 12/26/16 20:00 97.9 66 20 115/62 96 Room Air 12/26/16 16:00 97.9 91 20 112/53 97 Room Air 12/26/16 13:07 98.1 20 107/70 94 Room Air 12/26/16 08:30 97.3 69 18 123/66 96 Room Air 12/26/16 04:16 97.7 82 20 138/77 95 Room Air Intake and Output 12/25/16 12/26/16 19:00 07:00 Intake Total 480 ml 330.000 ml Output Total 275 ml Balance 205 ml 330.000 ml Intake Oral 480 ml IV Total 330.000 ml Output Urine Total 275 ml # Voids 4 General Appearance: no acute distress HEENT: normocephalic, atraumatic, anicteric, PERRL Respiratory/Chest: chest wall non-tender, decreased breath sounds, accessory muscle use, rhonchi Cardiovascular: normal peripheral pulses, normal rate, regular rhythm, no JVD Abdomen: normal bowel sounds, soft, non tender, no organomegaly, non distended Genitourinary: normal external genitalia Skin: rash, lesions, ulcers Neurologic/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, no motor/sensory deficits Microbiology Date/Time Source Procedure Growth Status 12/25/16 19:45 Foot Right Gram Stain Pending Resulted 12/25/16 19:45 Foot Right Wound Culture - Preliminary NO GROWTH AFTER 24 HOURS Resulted Laboratory Tests 12/26/16 04:05: White Blood Count 6.7, Red Blood Count 4.24L, Hemoglobin 13.2L, Hematocrit 40.0L , Mean Corpuscular Volume 94, Mean Corpuscular Hemoglobin 31.1H, Mean Corpuscular Hemoglobin Concent 33.0, Red Cell Distribution Width 11.9, Platelet Count 155, Mean Platelet Volume 10.0, Neutrophils (%) (Auto) 48.9, Lymphocytes ( %) (Auto) 41.0, Monocytes (%) (Auto) 6.7, Eosinophils (%) (Auto) 2.5, Basophils (%) (Auto) 0.9, Erythrocyte Sedimentation Rate 26H, Sodium Level 137, Potassium Level 4.0, Chloride Level 98, Carbon Dioxide Level 24, Anion Gap 15, Blood Urea Nitrogen 18, Creatinine 1.2, Estimat Glomerular Filtration Rate , Glucose Level 179H, Calcium Level 9.4, C-Reactive Protein, Quantitative < 0.3 Current Medications Medications (Trade) Dose Ordered Sig/Eric Route PRN Reason Start Time Stop Time Status Last Admin Dose Admin Acetaminophen (Tylenol) 650 mg Q4H PRN ORAL fever 12/24/16 20:30 01/23/17 20:29 Al Hydroxide/Mg Hydroxide (Mylanta II) 30 ml Q6H PRN ORAL dyspepsia 12/24/16 20:30 01/23/17 20:29 Atorvastatin Calcium (Lipitor) 5 mg BEDTIME ORAL 12/24/16 21:00 01/23/17 20:59 12/26/16 21:03 Cefepime HCl/ Dextrose (Maxipime/D5W) 55 ml @ 110 mls/hr Q12H IV 12/24/16 22:00 12/31/16 21:59 12/26/16 21:03 Dextrose (Dextrose 50%) STAT PRN IV Hypoglycemia 12/24/16 20:30 01/23/17 20:29 Finasteride (Proscar) 5 mg DAILY ORAL 12/25/16 09:00 01/24/17 08:59 12/26/16 11:06 Haloperidol Lactate (Haldol) 5 mg Q4H PRN IM Agitation 12/24/16 22:15 01/23/17 22:14 12/26/16 22:05 Insulin Aspart (NovoLOG) BEFORE MEALS AND HS SUBQ 12/24/16 21:00 01/23/17 20:59 12/26/16 21:05 Lorazepam (Ativan 2mg/ml 1ml) 0.5 mg Q4H PRN IV For Anxiety 12/24/16 20:30 12/31/16 20:29 Morphine Sulfate (Morphine Sulfate) 1 mg EVERY 4 HOURS PRN IVP For Pain 12/24/16 20:30 12/31/16 20:29 Ondansetron HCl (Zofran) 4 mg Q6H PRN IVP Nausea & Vomiting 12/24/16 20:30 01/23/17 20:29 Polyethylene Glycol (Miralax) 17 gm HSPRN PRN ORAL Constipation 12/24/16 20:30 01/23/17 20:29 Tamsulosin HCl (Flomax) 0.4 mg BEDTIME ORAL 12/24/16 21:00 01/23/17 20:59 12/26/16 21:03 Vancomycin HCl 1 ea 1 ea DAILY PRN MISC Per rx protocol 12/24/16 20:30 01/23/17 20:29 Vancomycin HCl/ Dextrose (Vancomycin/D5W) 275 ml @ 183.708 mls/hr Q24H IVPB 12/26/16 00:00 12/31/16 00:00 12/26/16 00:08 Vitamin A/Vitamin D 1 applic 1 applic EVERY 12 HOURS TOPIC 12/25/16 21:00 01/24/17 20:59 12/26/16 21:03 Zolpidem Tartrate (Ambien) 5 mg HSPRN PRN ORAL Insomnia 12/24/16 20:30 01/23/17 20:29 12/25/16 21:18 BLUE HUNTLEY Dec 26, 2016 22:39
[2016-12-26 23:29] VITALS: BP 101/60
[2016-12-27] MEDS: Vancomycin 1gm/D5W 275ml IVPB SCH ×2 (00:13)
[2016-12-27 04:00] VITALS: BP 150/66
[2016-12-27] MEDS: NovoLOG Insulin Flexpen SUBQ SCH ×6 (06:09→22:31)
[2016-12-27 06:49] LABS: BASOPHILS % (AUTO) 1.2 % (0.0-2.0); EOSINOPHILS % (AUTO) 3.5 % (0.0-3.0); LYMPHOCYTES % (AUTO) 44.3 % (20.0-45.0); MEAN CORPUSCULAR HEMOGLOBIN 31.2 PG (27.0-31.0); MEAN CORPUSCULAR HGB CONC 32.3 G/DL (32.0-36.0); MEAN CORPUSCULAR VOLUME 97 FL (80-99); MEAN PLATELET VOLUME 9.9 FL (6.5-10.1); MONOCYTES % (AUTO) 8.1 % (1.0-10.0); NEUTROPHILS % (AUTO) 42.9 % (45.0-75.0); PLATELET COUNT 140 K/UL (150-450); RED BLOOD COUNT 3.78 M/UL (4.70-6.10); RED CELL DISTRIBUTION WIDTH 12.1 % (11.6-14.8); WHITE BLOOD COUNT 5.3 K/UL (4.8-10.8)
[2016-12-27 07:27] LABS: ANION GAP 12 (5-15); CALCIUM 8.8 mg/dL (8.6-10.2); CARBON DIOXIDE 26 mEQ/L (20-30); CHLORIDE 97 mEQ/L (98-107); CREATININE 1.4 mg/dL (0.7-1.2); HEMOLYSIS 3; POTASSIUM 4.6 mEQ/L (3.4-4.9); SODIUM 135 mEQ/L (135-145)
[2016-12-27 08:01] VITALS: BP 120/73
[2016-12-27] MEDS: Cefepime HCl 1 GM in D5W 55 ML IV SCH ×2 (10:08→22:20)
[2016-12-27] MEDS: Vitamin A&D Oint 2oz Tube TOPIC SCH ×2 (10:08→22:20)
[2016-12-27] MEDS: Levemir Flexpen SUBQ SCH (10:13)
[2016-12-27 12:00] VITALS: BP 144/80
--- NOTE | 2016-12-27 13:34 | Internal Med Progress Note ---
Subjective Date of Service: Dec 27, 2016 Physician Name Bruce Sage Attending Physician Arian Givens MD Current Medications Medications (Trade) Dose Ordered Sig/Eric Route PRN Reason Start Time Stop Time Status Last Admin Dose Admin Acetaminophen (Tylenol) 650 mg Q4H PRN ORAL fever 12/24/16 20:30 01/23/17 20:29 Al Hydroxide/Mg Hydroxide (Mylanta II) 30 ml Q6H PRN ORAL dyspepsia 12/24/16 20:30 01/23/17 20:29 Atorvastatin Calcium (Lipitor) 5 mg BEDTIME ORAL 12/24/16 21:00 01/23/17 20:59 12/26/16 21:03 Cefepime HCl/ Dextrose (Maxipime/D5W) 55 ml @ 110 mls/hr Q12H IV 12/24/16 22:00 12/31/16 21:59 12/27/16 10:08 Dextrose (Dextrose 50%) STAT PRN IV Hypoglycemia 12/24/16 20:30 01/23/17 20:29 Finasteride (Proscar) 5 mg DAILY ORAL 12/25/16 09:00 01/24/17 08:59 12/27/16 10:09 Haloperidol Lactate (Haldol) 5 mg Q4H PRN IM Agitation 12/24/16 22:15 01/23/17 22:14 12/26/16 22:05 Insulin Aspart (NovoLOG) BEFORE MEALS AND HS SUBQ 12/24/16 21:00 01/23/17 20:59 12/27/16 12:03 Insulin Aspart (NovoLOG) 8 units NOVOTIAC SUBQ 12/27/16 11:50 01/26/17 11:49 12/27/16 12:02 Insulin Detemir (Levemir) 20 units DAILY SUBQ 12/27/16 10:00 01/26/17 09:59 12/27/16 10:13 Lorazepam (Ativan 2mg/ml 1ml) 0.5 mg Q4H PRN IV For Anxiety 12/24/16 20:30 12/31/16 20:29 Morphine Sulfate (Morphine Sulfate) 1 mg EVERY 4 HOURS PRN IVP For Pain 12/24/16 20:30 12/31/16 20:29 Ondansetron HCl (Zofran) 4 mg Q6H PRN IVP Nausea & Vomiting 12/24/16 20:30 01/23/17 20:29 Polyethylene Glycol (Miralax) 17 gm HSPRN PRN ORAL Constipation 12/24/16 20:30 01/23/17 20:29 Tamsulosin HCl (Flomax) 0.4 mg BEDTIME ORAL 12/24/16 21:00 01/23/17 20:59 12/26/16 21:03 Vancomycin HCl 1 ea 1 ea DAILY PRN MISC Per rx protocol 12/24/16 20:30 01/23/17 20:29 Vancomycin HCl/ Dextrose (Vancomycin/D5W) 275 ml @ 183.708 mls/hr Q24H IVPB 12/26/16 00:00 12/31/16 00:00 12/27/16 00:13 Vitamin A/Vitamin D 1 applic 1 applic EVERY 12 HOURS TOPIC 12/25/16 21:00 01/24/17 20:59 12/27/16 10:08 Zolpidem Tartrate (Ambien) 5 mg HSPRN PRN ORAL Insomnia 12/24/16 20:30 01/23/17 20:29 12/25/16 21:18 Allergies: Coded Allergies: ASPIRIN (Unverified Allergy, Severe, Rash, 05/20/16) HEPARIN (Verified Allergy, Unknown, 12/24/16) ROS Limited/Unobtainable: No Constitutional: Reports: no symptoms HEENT: Reports: no symptoms Cardiovascular: Reports: no symptoms Respiratory: Reports: no symptoms Gastrointestinal/Abdominal: Reports: no symptoms Genitourinary: Reports: no symptoms Neurologic/Psychiatric: Reports: no symptoms Subjective 81 YO M admitted with right great toe cellulitis. Cover for Int Med-Dr Givens. Objective Last Vital Signs Date Time Temp Pulse Resp B/P Pulse Ox O2 Delivery O2 Flow Rate FiO2 12/27/16 12:00 97.7 84 19 144/80 94 Room Air Laboratory Tests Test 12/27/16 04:45 White Blood Count 5.3 K/UL (4.8-10.8) Red Blood Count 3.78 M/UL (4.70-6.10) L Hemoglobin 11.8 G/DL (14.2-18.0) L Hematocrit 36.6 % (42.0-52.0) L Mean Corpuscular Volume 97 FL (80-99) Mean Corpuscular Hemoglobin 31.2 PG (27.0-31.0) H Mean Corpuscular Hemoglobin Concent 32.3 G/DL (32.0-36.0) Red Cell Distribution Width 12.1 % (11.6-14.8) Platelet Count 140 K/UL (150-450) L Mean Platelet Volume 9.9 FL (6.5-10.1) Neutrophils (%) (Auto) 42.9 % (45.0-75.0) L Lymphocytes (%) (Auto) 44.3 % (20.0-45.0) Monocytes (%) (Auto) 8.1 % (1.0-10.0) Eosinophils (%) (Auto) 3.5 % (0.0-3.0) H Basophils (%) (Auto) 1.2 % (0.0-2.0) Sodium Level 135 mEQ/L (135-145) Potassium Level 4.6 mEQ/L (3.4-4.9) Chloride Level 97 mEQ/L (98-107) L Carbon Dioxide Level 26 mEQ/L (20-30) Anion Gap 12 (5-15) Blood Urea Nitrogen 26 mg/dL (7-23) H Creatinine 1.4 mg/dL (0.7-1.2) H Estimat Glomerular Filtration Rate mL/min (>60) Glucose Level 543 mg/dL (74-106) #*H Calcium Level 8.8 mg/dL (8.6-10.2) Microbiology Date/Time Source Procedure Growth Status 12/25/16 19:45 Foot Right Gram Stain - Final Resulted 12/25/16 19:45 Foot Right Wound Culture - Preliminary NO GROWTH AFTER 48 HOURS Resulted Intake and Output 12/26/16 12/27/16 19:00 07:00 Intake Total 630 ml 250 ml Output Total 1300 ml Balance 630 ml -1050 ml Intake Oral 630 ml 250 ml Output Urine Total 1300 ml # Voids 3 # Bowel Movements 1 Objective General Appearance: WD/WN, no apparent distress, alert EENT: PERRL/EOMI, normal ENT inspection, TMs normal Neck: non-tender, normal alignment, supple, normal inspection Cardiovascular: normal peripheral pulses, normal rate, regular rhythm, no gallop/murmur, no JVD Respiratory/Chest: chest wall non-tender, lungs clear, normal breath sounds, no respiratory distress, no accessory muscle use Abdomen: normal bowel sounds, non tender, soft, no organomegaly, no mass Extremities: normal range of motion, non-tender. 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 Cont IV cefepime and vanco. See Podiatry note. (3) Diabetes Assessment & Plan: Uncontrolled. Cont humalog slidiing scale and levemir. (4) Alzheimer's dementia (5) BPH (benign prostatic hypertrophy) Assessment & Plan: Cont flomax (6) Hypercholesteremia Status: progressing Assessment/Plan Discharge planning: correction facility BRUCE SAGE Dec 27, 2016 13:34
--- NOTE | 2016-12-27 14:27 | Infectious Diseases Prog Note ---
Assessment/Plan Assessment/Plan ASSESSMENT: 81 y/o male with: // Right 2nd toe ulcer - WCx NGTD - SP toenail clipping 12/25 - XR: Hallux valgus and degenerative changes of the first MTP joint are present. Bones are osteopenic. No obvious fracture identified. Hammertoes noted. 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 Mass emanating exophytically from versus adjacent to posterior wall of urinary bladder, nonspecific, unchanged. Diagnostic possibilities include exophytic extension of urinary bladder mass, bladder diverticulum, adjacent adenopathy. Right renal upper pole mass apparently mildly increased in size // DM2 - HbA1c 13.4% // Medical noncompliance // Dementia // No ABX allergies // Full Code PLAN: - ok to DC on PO bactrim x6d from ID standpoint. Will continue empiric IV vancomycin, cefepime d# 3 while still inpt pending cultures - f/u wound culture - monitor CBC, temperatures - monitor BMP - wound care Subjective Allergies: Coded Allergies: ASPIRIN (Unverified Allergy, Severe, Rash, 05/20/16) HEPARIN (Verified Allergy, Unknown, 12/24/16) Subjective remains afebrile DC planning ongoing Objective Vital Signs Last 24 Hour Vital Signs Date Time Temp Pulse Resp B/P Pulse Ox O2 Delivery O2 Flow Rate FiO2 12/27/16 12:00 97.7 84 19 144/80 94 Room Air 12/27/16 08:01 97.0 94 20 120/73 96 Room Air 12/27/16 04:00 97.0 77 18 150/66 96 Room Air 12/26/16 23:29 97.5 83 18 101/60 98 Room Air 12/26/16 20:00 97.9 66 20 115/62 96 Room Air 12/26/16 16:00 97.9 91 20 112/53 97 Room Air Height (Feet): 6 Height (Inches): 1.00 Weight (Pounds): 150 General Appearance: no acute distress Respiratory/Chest: no respiratory distress Cardiovascular: normal rate, regular rhythm Abdomen: normal bowel sounds, soft, non tender, non distended Microbiology Date/Time Source Procedure Growth Status 12/25/16 19:45 Foot Right Gram Stain - Final Resulted 12/25/16 19:45 Foot Right Wound Culture - Preliminary NO GROWTH AFTER 48 HOURS Resulted Laboratory Tests Test 12/27/16 04:45 White Blood Count 5.3 K/UL (4.8-10.8) Red Blood Count 3.78 M/UL (4.70-6.10) L Hemoglobin 11.8 G/DL (14.2-18.0) L Hematocrit 36.6 % (42.0-52.0) L Mean Corpuscular Volume 97 FL (80-99) Mean Corpuscular Hemoglobin 31.2 PG (27.0-31.0) H Mean Corpuscular Hemoglobin Concent 32.3 G/DL (32.0-36.0) Red Cell Distribution Width 12.1 % (11.6-14.8) Platelet Count 140 K/UL (150-450) L Mean Platelet Volume 9.9 FL (6.5-10.1) Neutrophils (%) (Auto) 42.9 % (45.0-75.0) L Lymphocytes (%) (Auto) 44.3 % (20.0-45.0) Monocytes (%) (Auto) 8.1 % (1.0-10.0) Eosinophils (%) (Auto) 3.5 % (0.0-3.0) H Basophils (%) (Auto) 1.2 % (0.0-2.0) Sodium Level 135 mEQ/L (135-145) Potassium Level 4.6 mEQ/L (3.4-4.9) Chloride Level 97 mEQ/L (98-107) L Carbon Dioxide Level 26 mEQ/L (20-30) Anion Gap 12 (5-15) Blood Urea Nitrogen 26 mg/dL (7-23) H Creatinine 1.4 mg/dL (0.7-1.2) H Estimat Glomerular Filtration Rate mL/min (>60) Glucose Level 543 mg/dL (74-106) #*H Calcium Level 8.8 mg/dL (8.6-10.2) Current Medications Medications (Trade) Dose Ordered Sig/Eric Route PRN Reason Start Time Stop Time Status Last Admin Dose Admin Acetaminophen (Tylenol) 650 mg Q4H PRN ORAL fever 12/24/16 20:30 01/23/17 20:29 Al Hydroxide/Mg Hydroxide (Mylanta II) 30 ml Q6H PRN ORAL dyspepsia 12/24/16 20:30 01/23/17 20:29 Atorvastatin Calcium (Lipitor) 5 mg BEDTIME ORAL 12/24/16 21:00 01/23/17 20:59 12/26/16 21:03 Cefepime HCl/ Dextrose (Maxipime/D5W) 55 ml @ 110 mls/hr Q12H IV 12/24/16 22:00 12/31/16 21:59 12/27/16 10:08 Dextrose (Dextrose 50%) STAT PRN IV Hypoglycemia 12/24/16 20:30 01/23/17 20:29 Finasteride (Proscar) 5 mg DAILY ORAL 12/25/16 09:00 01/24/17 08:59 12/27/16 10:09 Haloperidol Lactate (Haldol) 5 mg Q4H PRN IM Agitation 12/24/16 22:15 01/23/17 22:14 12/26/16 22:05 Insulin Aspart (NovoLOG) BEFORE MEALS AND HS SUBQ 12/24/16 21:00 01/23/17 20:59 12/27/16 12:03 Insulin Aspart (NovoLOG) 8 units NOVOTIAC SUBQ 12/27/16 11:50 01/26/17 11:49 12/27/16 12:02 Insulin Detemir (Levemir) 20 units DAILY SUBQ 12/27/16 10:00 01/26/17 09:59 12/27/16 10:13 Lorazepam (Ativan 2mg/ml 1ml) 0.5 mg Q4H PRN IV For Anxiety 12/24/16 20:30 12/31/16 20:29 Morphine Sulfate (Morphine Sulfate) 1 mg EVERY 4 HOURS PRN IVP For Pain 12/24/16 20:30 12/31/16 20:29 Ondansetron HCl (Zofran) 4 mg Q6H PRN IVP Nausea & Vomiting 12/24/16 20:30 01/23/17 20:29 Polyethylene Glycol (Miralax) 17 gm HSPRN PRN ORAL Constipation 12/24/16 20:30 01/23/17 20:29 Tamsulosin HCl (Flomax) 0.4 mg BEDTIME ORAL 12/24/16 21:00 01/23/17 20:59 12/26/16 21:03 Vancomycin HCl 1 ea 1 ea DAILY PRN MISC Per rx protocol 12/24/16 20:30 01/23/17 20:29 Vancomycin HCl/ Dextrose (Vancomycin/D5W) 275 ml @ 183.708 mls/hr Q24H IVPB 12/26/16 00:00 12/31/16 00:00 12/27/16 00:13 Vitamin A/Vitamin D 1 applic 1 applic EVERY 12 HOURS TOPIC 12/25/16 21:00 01/24/17 20:59 12/27/16 10:08 Zolpidem Tartrate (Ambien) 5 mg HSPRN PRN ORAL Insomnia 12/24/16 20:30 01/23/17 20:29 12/25/16 21:18 KANCHAN QUIGLEY Dec 27, 2016 14:27
[2016-12-27 16:07] VITALS: BP 139/67
[2016-12-27 20:00] VITALS: BP 136/66
--- NOTE | 2016-12-27 21:25 | Pulmonology Progress Note ---
Assessment/Plan Assessment/Plan Assessment/Plan Status: stable, progressing Assessment/Plan Assessment Asthma acute excacerbation COPD acute excacerbation Heavy Tobacco Use Dyspnea Right Lower extremity 2nd/3rd metatarsal phlanageal injury traumatic with open wound DM uncontrolled HTN Plan Breathing Tx as needed for SOB Doppler lower extremity Multiple risk factors for thrombosis Smoking cessation Supplemental O2 Wound care Subjective ROS Limited/Unobtainable: Yes Respiratory: Reports: dry cough, dyspnea at rest, wheezing Neurologic: Reports: confusion, weakness Allergies: Coded Allergies: ASPIRIN (Unverified Allergy, Severe, Rash, 05/20/16) HEPARIN (Verified Allergy, Unknown, 12/24/16) Objective Last 24 Hour Vital Signs Date Time Temp Pulse Resp B/P Pulse Ox O2 Delivery O2 Flow Rate FiO2 12/27/16 20:00 97.6 64 20 136/66 98 Room Air 12/27/16 16:07 97.7 62 20 139/67 97 Room Air 12/27/16 12:00 97.7 84 19 144/80 94 Room Air 12/27/16 08:01 97.0 94 20 120/73 96 Room Air 12/27/16 04:00 97.0 77 18 150/66 96 Room Air 12/26/16 23:29 97.5 83 18 101/60 98 Room Air Intake and Output 12/26/16 12/27/16 19:00 07:00 Intake Total 630 ml 250 ml Output Total 1300 ml Balance 630 ml -1050 ml Intake Oral 630 ml 250 ml Output Urine Total 1300 ml # Voids 3 # Bowel Movements 1 General Appearance: no acute distress HEENT: normocephalic, atraumatic, PERRL Respiratory/Chest: chest wall non-tender, decreased breath sounds, accessory muscle use, rhonchi, expiratory wheezing Cardiovascular: normal peripheral pulses, normal rate, regular rhythm, no JVD Abdomen: normal bowel sounds, soft, non tender, no organomegaly Genitourinary: normal external genitalia Extremities: no cyanosis Skin: rash, lesions 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, responsive, disoriented Microbiology Date/Time Source Procedure Growth Status 12/25/16 19:45 Foot Right Gram Stain - Final Resulted 12/25/16 19:45 Foot Right Wound Culture - Preliminary NO GROWTH AFTER 48 HOURS Resulted Laboratory Tests 12/27/16 04:45: White Blood Count 5.3, Red Blood Count 3.78L, Hemoglobin 11.8L, Hematocrit 36.6L , Mean Corpuscular Volume 97, Mean Corpuscular Hemoglobin 31.2H, Mean Corpuscular Hemoglobin Concent 32.3, Red Cell Distribution Width 12.1, Platelet Count 140L, Mean Platelet Volume 9.9, Neutrophils (%) (Auto) 42.9L, Lymphocytes (%) (Auto) 44.3, Monocytes (%) (Auto) 8.1, Eosinophils (%) (Auto) 3.5H, Basophils (%) (Auto) 1.2, Sodium Level 135, Potassium Level 4.6, Chloride Level 97L, Carbon Dioxide Level 26, Anion Gap 12, Blood Urea Nitrogen 26H, Creatinine 1.4H, Estimat Glomerular Filtration Rate , Glucose Level 543#*H, Calcium Level 8.8 Current Medications Medications (Trade) Dose Ordered Sig/Eric Route PRN Reason Start Time Stop Time Status Last Admin Dose Admin Acetaminophen (Tylenol) 650 mg Q4H PRN ORAL fever 12/24/16 20:30 01/23/17 20:29 Al Hydroxide/Mg Hydroxide (Mylanta II) 30 ml Q6H PRN ORAL dyspepsia 12/24/16 20:30 01/23/17 20:29 Atorvastatin Calcium (Lipitor) 5 mg BEDTIME ORAL 12/24/16 21:00 01/23/17 20:59 12/26/16 21:03 Cefepime HCl/ Dextrose (Maxipime/D5W) 55 ml @ 110 mls/hr Q12H IV 12/24/16 22:00 12/31/16 21:59 12/27/16 10:08 Dextrose (Dextrose 50%) STAT PRN IV Hypoglycemia 12/24/16 20:30 01/23/17 20:29 Finasteride (Proscar) 5 mg DAILY ORAL 12/25/16 09:00 01/24/17 08:59 12/27/16 10:09 Haloperidol Lactate (Haldol) 5 mg Q4H PRN IM Agitation 12/24/16 22:15 01/23/17 22:14 12/26/16 22:05 Insulin Aspart (NovoLOG) BEFORE MEALS AND HS SUBQ 12/24/16 21:00 01/23/17 20:59 12/27/16 17:07 Insulin Aspart (NovoLOG) 8 units NOVOTIAC SUBQ 12/27/16 11:50 01/26/17 11:49 12/27/16 17:03 Insulin Detemir (Levemir) 20 units DAILY SUBQ 12/27/16 10:00 01/26/17 09:59 12/27/16 10:13 Lorazepam (Ativan 2mg/ml 1ml) 0.5 mg Q4H PRN IV For Anxiety 12/24/16 20:30 12/31/16 20:29 Morphine Sulfate (Morphine Sulfate) 1 mg EVERY 4 HOURS PRN IVP For Pain 12/24/16 20:30 12/31/16 20:29 Ondansetron HCl (Zofran) 4 mg Q6H PRN IVP Nausea & Vomiting 12/24/16 20:30 01/23/17 20:29 Polyethylene Glycol (Miralax) 17 gm HSPRN PRN ORAL Constipation 12/24/16 20:30 01/23/17 20:29 Tamsulosin HCl (Flomax) 0.4 mg BEDTIME ORAL 12/24/16 21:00 01/23/17 20:59 12/26/16 21:03 Vancomycin HCl 1 ea 1 ea DAILY PRN MISC Per rx protocol 12/24/16 20:30 01/23/17 20:29 Vancomycin HCl/ Dextrose (Vancomycin/D5W) 275 ml @ 183.708 mls/hr Q24H IVPB 12/26/16 00:00 12/31/16 00:00 12/27/16 00:13 Vitamin A/Vitamin D 1 applic 1 applic EVERY 12 HOURS TOPIC 12/25/16 21:00 01/24/17 20:59 12/27/16 10:08 Zolpidem Tartrate (Ambien) 5 mg HSPRN PRN ORAL Insomnia 12/24/16 20:30 01/23/17 20:29 12/25/16 21:18 BLUE HUNTLEY Dec 27, 2016 21:25
[2016-12-27] MEDS: Tamsulosin 0.4mg cap ORAL SCH (22:19)
[2016-12-28] VITALS: BP 129/63
[2016-12-28] MEDS ORDERED: Vancomycin 1gm/D5W 275ml IVPB SCH ×4 (00:30)
[2016-12-28] MEDS ORDERED: Vancomycin 750mg/D5W 275ml IVPB SCH ×2 (01:00)
[2016-12-28 04:00] VITALS: BP 134/76
[2016-12-28] MEDS: NovoLOG Insulin Flexpen SUBQ SCH ×4 (06:17→11:43)
[2016-12-28 07:08] LABS: BASOPHILS % (AUTO) 0.9 % (0.0-2.0); EOSINOPHILS % (AUTO) 2.6 % (0.0-3.0); LYMPHOCYTES % (AUTO) 39.5 % (20.0-45.0); MEAN CORPUSCULAR HEMOGLOBIN 31.4 PG (27.0-31.0); MEAN CORPUSCULAR HGB CONC 32.9 G/DL (32.0-36.0); MEAN CORPUSCULAR VOLUME 95 FL (80-99); PLATELET COUNT 142 K/UL (150-450); RED BLOOD COUNT 3.91 M/UL (4.70-6.10); WHITE BLOOD COUNT 6.3 K/UL (4.8-10.8)
[2016-12-28 07:25] LABS: ANION GAP 16 (5-15); CALCIUM 9.5 mg/dL (8.6-10.2); CARBON DIOXIDE 27 mEQ/L (20-30); CHLORIDE 96 mEQ/L (98-107); CREATININE 1.3 mg/dL (0.7-1.2); HEMOLYSIS 3; POTASSIUM 4.2 mEQ/L (3.4-4.9); SODIUM 139 mEQ/L (135-145)
[2016-12-28] MEDS: Vitamin A&D Oint 2oz Tube TOPIC SCH (08:36)
[2016-12-28] MEDS: Levemir Flexpen SUBQ SCH (08:51)
[2016-12-28] MEDS: Cefepime HCl 1 GM in D5W 55 ML IV SCH (08:53)
[2016-12-28 09:00] VITALS: BP 132/74
[2016-12-28] MEDS ORDERED: ATORVASTATIN CA10 MG ORAL (10:42)
[2016-12-28] MEDS ORDERED: LEVEMIR100 UNIT/1 SUBQ (10:45)
[2016-12-28] MEDS ORDERED: NOVOLOG100 UNIT/5 SQ (10:47)
[2016-12-28] MEDS ORDERED: NOVOLOG100 UNIT/3 SUBQ (10:51)
[2016-12-28] MEDS ORDERED: ATIVAN0.5 MG ORAL (10:52)
[2016-12-28] MEDS ORDERED: ZOFRAN4 M1 ORAL (10:52)
[2016-12-28] MEDS ORDERED: MIRALAX17 G2 ORAL (10:53)
[2016-12-28] MEDS ORDERED: AMBIEN5 MG ORAL (10:55)
[2016-12-28] MEDS ORDERED: MYLANTA II30 ML GT (11:00)
[2016-12-28] MEDS ORDERED: TYLENOL325 MG ORAL (11:02)
[2016-12-28] MEDS ORDERED: BACTRIM-DS1 EA ORAL (12:32)
[2016-12-28] MEDS ORDERED: NS 550ML IV ONE (12:40)
--- NOTE | 2016-12-29 10:20 | Discharge Summary ---
Discharge Summary Hospital Course Date of Admission Dec 24, 2016 at 17:00 Date of Discharge Dec 28, 2016 at 12:41 Admitting Diagnosis right foot infection (needs sitter) JOSE Rodriguez is a 81 year old male who was admitted on Dec 24, 2016 at 17:00 for Right Foot Infection Hospital Course [id number] Discharge Discharge Disposition Patient was discharged to SNF/Subacute Facility(03) Discharge Diagnoses: Martha Bautista NP Dec 29, 2016 10:20
--- NOTE | 2016-12-30 01:08 | Discharge Summary 2 SIG ---
DATE OF ADMISSION: 12/24/2016 DATE OF DISCHARGE: 12/28/2016 CONSULTANTS: 1. Hanh Shelby M.D. 2. Eric Fernandez M.D. 3. Marco RiosPGood. BRIEF HOSPITAL COURSE: The patient is an 81-year-old male, who presented to ED complaining of right foot pain. He stated that he injured his toe nail and toenail appeared to become infected. He has history of diabetes mellitus. The patient was admitted for cellulitis and possible osteomyelitis of the right great toe. X-ray of the foot showed degenerative changes. No fractures; with hammertoes. Dr. Fernandez was consulted and was started on vancomycin and cefepime. Foot x-ray was negative for osteomyelitis. CRP was normal. Wound culture did not isolate any growth. Dr. Ibarra removed the right second toenail and advised wound care consisting of topical antibiotic for two weeks. He also debrided the remainder of the toenails. He was given education on diabetic foot care and importance of daily foot examination, pedal hygiene, and appropriate footwear. He was continued on his [facility] medications. Hemoglobin A1c was 13.4. Blood sugars were monitored with insulin sliding scale. Wound culture was negative. The patient was discharged [facility] to [facility]. FINAL DIAGNOSES: 1. Right toe cellulitis. 2. Right second toe ulcer status post removal of nail. 3. Status post debridement of all toenails. 4. Severe peripheral arterial disease. 5. Acute renal failure on chronic kidney disease stage 3. 6. High-grade papillary urothelial bladder cancer status post transurethral resection of bladder tumor in 2013. 7. Diabetes mellitus, out of control. 8. Medical noncompliance. 9. Dementia. 10. Benign prostatic hypertrophy. 11. Hypercholesterolemia. 12. Hydronephrosis of the right kidney. Arian Givens M.D. I have been assigned to dictate discharge summary on this account and I was not involved in the patient's management. Martha Bautista N.P. DR: LYNNE JOB#: [id number] CC: RAUL
--- NOTE | 2017-01-10 09:46 | Diagnostic Imaging Report ---
APPROVED REPORT CPT Code: 31706 Symptoms Comments: Pain RIGHT LEG: Common femoral artery waveform analysis is within normal limits at rest. Color flow duplex sonography reveals an occlusion in the mid to distal femoral artery. Reconstitution is noted distally at the level of the adductor canal. The popliteal artery and tibioperoneal trunk were patent. The posterior, and anterior arteries are also patent. Doppler tibial artery waveform analysis is monophasic, consistent with severe ischemia at rest. The dorsalis pedis tibial artery was not visualized due to bandages. LEFT LEG: Common femoral artery waveform analysis is within normal limits at rest. Color flow duplex sonography reveals an occlusion in the mid to distal femoral artery. Reconstitution is noted distally at the level of the adductor canal. The popliteal artery and tibioperoneal trunk were patent. The posterior, anterior, and dorsalis pedis tibial arteries are also patent. Doppler tibial artery waveform analysis is monophasic, consistent with moderate ischemia at rest. KEATON Rea was notified of abnormal results at 1200 hours.
--- NOTE | 2017-01-10 09:46 | Diagnostic Imaging Report ---
APPROVED REPORT CPT Code: 19398 Present Symptoms Comments: R/O DVT BILATERAL: Imaging reveals a patent deep venous system bilaterally. There is no evidence of thrombus within the femoral, popliteal or tibial segments. The greater saphenous veins are also within normal limits. Doppler indicates normal spontaneous flow within these segments.
== END 2016-12-28 12:41 | DRG 593 ==
LOC: EDBD 14:57 → EMR 16:43 → 4W 17:00 → EDBEDREQ 17:01
PROC: 0HBRXZZ Excision of Toe Nail, External Approach (ICD-10-PCS; principal; 2016-12-25)
PROC: 0HTRXZZ Resection of Toe Nail, External Approach (ICD-10-PCS; principal; 2016-12-25)
DX: L97.519 Non-pressure chronic ulcer of other part of right foot with unspecified severity (principal); N17.9 Acute kidney failure, unspecified; E11.40 Type 2 diabetes mellitus with diabetic neuropathy, unspecified; E11.65 Type 2 diabetes mellitus with hyperglycemia; N13.30 Unspecified hydronephrosis; L03.031 Cellulitis of right toe; I12.9 Hypertensive chronic kidney disease with stage 1 through stage 4 chronic kidney disease, or unspecified chronic kidney disease; C67.9 Malignant neoplasm of bladder, unspecified; N18.3 Chronic kidney disease, stage 3 (moderate); Z91.14 Patient's other noncompliance with medication regimen; Z88.6 Allergy status to analgesic agent; Z88.8 Allergy status to other drugs, medicaments and biological substances; G30.9 Alzheimer's disease, unspecified; F02.80 Dementia in other diseases classified elsewhere, unspecified severity, without behavioral disturbance, psychotic disturbance, mood disturbance, and anxiety; N40.0 Benign prostatic hyperplasia without lower urinary tract symptoms; E78.00 Pure hypercholesterolemia, unspecified; L60.2 Onychogryphosis; L60.1 Onycholysis; S99.921A Unspecified injury of right foot, initial encounter; W22.8XXA Striking against or struck by other objects, initial encounter; I73.9 Peripheral vascular disease, unspecified; M85.871 Other specified disorders of bone density and structure, right ankle and foot
CPT/HCPCS: 36415; 80048; 80053; 80061; 80202; 81001; 82962; 83036; 84443; 85025; 85610; 85651; 85730; 86140; 87070; 87205; 93005; 93925; 93970; J1815; S5561

== ENCOUNTER 2017-02-27 09:57 | Inpatient (IN) | payer MEDICARE, MEDICAID ==
[~2017-02-27] VITALS: Ht 160 cm; Wt 78.5 kg
[~2017-02-27 09:57] MED LIST changes: +AMBIEN5 MG ORAL; +ATIVAN0.5 MG ORAL; +ATORVASTATIN CA10 MG ORAL; +BACTRIM-DS1 EA ORAL; +MIRALAX17 G2 ORAL; +MYLANTA II30 ML PO; +NOVOLOG100 UNIT/3 SUBQ; +NOVOLOG100 UNIT/5 SQ; +TYLENOL325 MG ORAL; +ZOFRAN4 M1 ORAL
[2017-02-27 10:06] VITALS: BP 137/73
[2017-02-27 10:58] LABS: BASOPHILS % (AUTO) 1.2 % (0.0-2.0); EOSINOPHILS % (AUTO) 2.1 % (0.0-3.0); LYMPHOCYTES % (AUTO) 25.2 % (20.0-45.0); MEAN CORPUSCULAR HEMOGLOBIN 30.5 PG (27.0-31.0); MEAN CORPUSCULAR HGB CONC 31.2 G/DL (32.0-36.0); MEAN CORPUSCULAR VOLUME 98 FL (80-99); MEAN PLATELET VOLUME 8.8 FL (6.5-10.1); MONOCYTES % (AUTO) 4.3 % (1.0-10.0); NEUTROPHILS % (AUTO) 67.2 % (45.0-75.0); PLATELET COUNT 161 K/UL (150-450); RED BLOOD COUNT 4.71 M/UL (4.70-6.10); WHITE BLOOD COUNT 7.7 K/UL (4.8-10.8)
[2017-02-27 11:07] LABS: ALANINE AMINOTRANSFERASE 8 U/L (3-41); ALBUMIN/GLOBULIN RATIO 0.7 (1.0-2.7); ANION GAP 14 (5-15); ASPARTATE AMINO TRANSFERASE 23 U/L (5-40); CALCIUM 9.4 mg/dL (8.6-10.2); CARBON DIOXIDE 24 mEQ/L (20-30); CHLORIDE 102 mEQ/L (98-107); CREATININE 1.2 mg/dL (0.7-1.2); HEMOLYSIS 126; POTASSIUM 4.6 mEQ/L (3.4-4.9); SODIUM 140 mEQ/L (135-145); TOTAL PROTEIN 8.4 g/dL (6.6-8.7)
--- NOTE | 2017-02-27 11:30 | Emergency Room Report ---
History of Present Illness General Chief Complaint: General Complaint Source: Patient Present Illness HPI This patient is brought in by EMS. He is well-known to [facility]. His a history of dementia medication noncompliance. EMS reports they were called to his home because his daughter states he has been refusing to take his diabetes medications the patient himself has no complaints. There were no other reported complaints. The patient was leaving for home. Patient denies fever, chest pain, shortness of breath, abdominal pain or recent illness. Allergies: Coded Allergies: ASPIRIN (Unverified Allergy, Severe, Rash, 05/20/16) HEPARIN (Verified Allergy, Unknown, 12/24/16) Patient History Past Medical History: see triage record, DM, HTN, asthma, GERD, dementia, renal disease Social History: Denies: alcohol use, drug use, smoking Reviewed Nursing Documentation: PMH: Agreed, PSxH: Agreed Nursing Documentation-PMH Past Medical History: No History, Except For Hx Cardiac Problems: Yes Hx Hypertension: Yes Hx Pacemaker: No Hx Asthma: Yes Hx COPD: No Hx Diabetes: Yes Hx Cancer: No Hx Gastrointestinal Problems: No Hx Cerebrovascular Accident: No Hx Dementia: Yes Hx Seizures: No Hx Memory Loss: Yes Hx Dizziness: Yes Hx Syncope: Yes Review of Systems All Other Systems: negative except mentioned in HPI Physical Exam Vital Signs Date Time Temp Pulse Resp B/P Pulse Ox O2 Delivery O2 Flow Rate FiO2 02/27/17 09:48 98.8 72 16 137/73 99 Room Air Sp02 EP Interpretation: reviewed, normal General Appearance: no apparent distress, alert, GCS 15, non-toxic Head: normocephalic, atraumatic Eyes: bilateral eye PERRL, bilateral eye normal inspection ENT: hearing grossly normal, normal pharynx, no angioedema, normal voice Neck: full range of motion, supple/symm/no masses Respiratory: chest non-tender, lungs clear, normal breath sounds, speaking full sentences Cardiovascular #1: regular rate, rhythm, no edema Gastrointestinal: normal bowel sounds, non tender, soft, non-distended, no guarding, no rebound Rectal: deferred Musculoskeletal: gait/station normal, normal range of motion Neurologic: alert, oriented x3, responsive, motor strength/tone normal, sensory intact, speech normal Psychiatric: judgement/insight normal, mood/affect normal, no suicidal/ homicidal ideation Skin: normal color, no rash, warm/dry, well hydrated Medical Decision Making Diagnostic Impression: Primary Impression: Diabetes Additional Impression: Alzheimer's dementia ER Course Patient presents at the request of his daughter because he refuses to take his diabetes medications. Patient has no complaints. Laboratory workup is benign. The patient's blood sugar is 170. Patient is at his baseline mental status. He is able to ambulate and articulate his desires. At this time, I didn't identify an emergency medical condition. The patient does live with his daughter. The patient is discharged home at his request. The patient was taken home by the [facility]. Labs Test 02/27/17 10:43 White Blood Count 7.7 K/UL (4.8-10.8) Red Blood Count 4.71 M/UL (4.70-6.10) Hemoglobin 14.4 G/DL (14.2-18.0) Hematocrit 46.2 % (42.0-52.0) Mean Corpuscular Volume 98 FL (80-99) Mean Corpuscular Hemoglobin 30.5 PG (27.0-31.0) Mean Corpuscular Hemoglobin Concent 31.2 G/DL (32.0-36.0) Red Cell Distribution Width 13.0 % (11.6-14.8) Platelet Count 161 K/UL (150-450) Mean Platelet Volume 8.8 FL (6.5-10.1) Neutrophils (%) (Auto) 67.2 % (45.0-75.0) Lymphocytes (%) (Auto) 25.2 % (20.0-45.0) Monocytes (%) (Auto) 4.3 % (1.0-10.0) Eosinophils (%) (Auto) 2.1 % (0.0-3.0) Basophils (%) (Auto) 1.2 % (0.0-2.0) Sodium Level 140 mEQ/L (135-145) Potassium Level 4.6 mEQ/L (3.4-4.9) Chloride Level 102 mEQ/L (98-107) Carbon Dioxide Level 24 mEQ/L (20-30) Anion Gap 14 (5-15) Blood Urea Nitrogen 16 mg/dL (7-23) Creatinine 1.2 mg/dL (0.7-1.2) Estimat Glomerular Filtration Rate mL/min (>60) Glucose Level 178 mg/dL (74-106) Calcium Level 9.4 mg/dL (8.6-10.2) Total Bilirubin 0.3 mg/dL (0.0-1.2) Aspartate Amino Transf (AST/SGOT) 23 U/L (5-40) Alanine Aminotransferase (ALT/SGPT) 8 U/L (3-41) Alkaline Phosphatase 78 U/L (40-129) Total Protein 8.4 g/dL (6.6-8.7) Albumin 3.7 g/dL (3.5-5.2) Globulin 4.7 g/dL Albumin/Globulin Ratio 0.7 (1.0-2.7) Last Vital Signs Date Time Temp Pulse Resp B/P Pulse Ox O2 Delivery O2 Flow Rate FiO2 02/27/17 10:06 98.8 16 137/73 99 Room Air 02/27/17 09:48 72 Disposition: HOME, SELF-CARE Condition: Improved Referrals: Arian Givens MD (PCP) SONIYA CARO D.O. Feb 27, 2017 11:30
[2017-02-27] MEDS ORDERED: Haloperidol 5mg/ml Inj IM ONE (14:15)
[2017-02-27 14:23] VITALS: BP 139/66
[2017-02-27] MEDS ORDERED: Miralax 17gm pkt ORAL PRN (15:30)
[2017-02-27] MEDS ORDERED: Mylanta II UD 30ml ORAL PRN (15:30)
[2017-02-27] MEDS ORDERED: DuoNeb 0.5-3(2.5)mg/3ml neb HHN PRN (15:30)
[2017-02-27] MEDS ORDERED: Nitroglycerin Subl 0.4mg tab (Bottle Of 25) SL PRN (15:30)
[2017-02-27] MEDS ORDERED: LORazepam 0.5mg tab ORAL PRN (15:30)
[2017-02-27] MEDS ORDERED: Morphine Sulfate 2mg/ml Inj IVP PRN (15:30)
[2017-02-27 16:00] VITALS: BP 123/65
[2017-02-27] MEDS ORDERED: Calcium Carbonate 500mg w/Vit D 200iu tab GT SCH (18:00)
[2017-02-27] MEDS ORDERED: UNOBMED ×3 (18:40→18:42)
[2017-02-27] MEDS: NovoLOG Insulin Flexpen SUBQ SCH (21:00)
[2017-02-27] MEDS: Tamsulosin 0.4mg cap ORAL SCH (21:00)
[2017-02-28] MEDS: NovoLOG Insulin Flexpen SUBQ SCH ×4 (06:30→21:00)
[2017-02-28 08:00] VITALS: BP 124/53
[2017-02-28] MEDS: Calcium Carbonate 500mg w/Vit D 200iu tab ORAL SCH ×3 (08:41→17:47)
[2017-02-28 11:49] LABS: BASOPHILS % (AUTO) 0.6 % (0.0-2.0); EOSINOPHILS % (AUTO) 2.1 % (0.0-3.0); LYMPHOCYTES % (AUTO) 28.7 % (20.0-45.0); MEAN CORPUSCULAR HEMOGLOBIN 30.8 PG (27.0-31.0); MEAN CORPUSCULAR HGB CONC 31.7 G/DL (32.0-36.0); MEAN CORPUSCULAR VOLUME 97 FL (80-99); MEAN PLATELET VOLUME 8.9 FL (6.5-10.1); MONOCYTES % (AUTO) 6.8 % (1.0-10.0); NEUTROPHILS % (AUTO) 61.9 % (45.0-75.0); PLATELET COUNT 188 K/UL (150-450); RED BLOOD COUNT 3.73 M/UL (4.70-6.10); RED CELL DISTRIBUTION WIDTH 12.9 % (11.6-14.8); WHITE BLOOD COUNT 5.4 K/UL (4.8-10.8)
[2017-02-28 11:55] LABS: ALANINE AMINOTRANSFERASE 7 U/L (3-41); ALBUMIN/GLOBULIN RATIO 0.8 (1.0-2.7); ANION GAP 13 (5-15); ASPARTATE AMINO TRANSFERASE 20 U/L (5-40); CALCIUM 8.7 mg/dL (8.6-10.2); CARBON DIOXIDE 24 mEQ/L (20-30); CHLORIDE 103 mEQ/L (98-107); CHOLESTEROL 129 mg/dL (< 200); HEMOLYSIS 2; LDL CHOLESTEROL (CALC.) 73 mg/dL (60-99); POTASSIUM 3.7 mEQ/L (3.4-4.9); SODIUM 140 mEQ/L (135-145); TOTAL PROTEIN 6.7 g/dL (6.6-8.7)
[2017-02-28 12:00] VITALS: BP 132/71
[2017-02-28 12:09] LABS: HEMOGLOBIN A1C 8.4 % (< 6.0)
[2017-02-28 16:00] VITALS: BP 129/79
--- NOTE | 2017-02-28 17:21 | Consultation ---
History of Present Illness General Date patient seen: Feb 28, 2017 Chief Complaint: General Complaint Referring physician: Dr. Hester Reason for Consultation: Inpatinet management Present Illness HPI 81 year old male with PMHx of HTN, DM, Dementia brought in by EMS because apparently he has been refusing to take his diabetes medications the patient himself has no complaints. The daughter is unable to take care of him at home at this point. . Allergies: Coded Allergies: ASPIRIN (Unverified Allergy, Severe, Rash, 05/20/16) HEPARIN (Verified Allergy, Unknown, 12/24/16) Medication History Scheduled Atorvastatin Calcium* (Lipitor*), 5 MG ORAL BEDTIME, (Reported) Calcium Carbonate (Oyster Shell Calcium-Vit D Tab), 500 MG GT TID Diazepam* (Diazepam*), 10 MG ORAL HS, (Reported) Finasteride* (Proscar*), 5 MG ORAL DAILY Gabapentin* (Gabapentin*), 300 MG ORAL THREE TIMES A DAY, (Reported) Insulin Aspart (Novolog), SQ AC+HS, (Reported) Insulin Aspart* (Novolog*), 8 SUBQ BEFORE MEALS, (Reported) Insulin Detemir (Levemir), 40 UNITS SUBQ BEFORE BREAKFAST Insulin Detemir (Levemir), 20 SUBQ DAILY, (Reported) Montelukast Sodium* (Singulair*), 10 MG ORAL DAILY, (Reported) Montelukast Sodium* (Singulair*), 10 MG ORAL DAILY, (Reported) Pravastatin Sod* (Pravastatin Sod*), 10 MG ORAL BEDTIME, (Reported) Tamsulosin Hcl (Tamsulosin Hcl*), 0.4 MG ORAL BEDTIME Tamsulosin Hcl (Tamsulosin Hcl*), 0.4 MG ORAL BEDTIME, (Reported) Trimethoprim/Sulfamethoxazole (Bactrim Ds Tablet), 1 TAB ORAL BID, (Reported) Scheduled PRN Acetaminophen (Tylenol), 650 MG ORAL Q4HR PRN for Fever/Headache/Mild Pain, ( Reported) Acetaminophen With Codeine (T#3) (Tylenol #3 Tab*), 1 TAB ORAL Q6HR PRN for For Pain, (Reported) Al Hydroxide/mg Hydroxide (Mag-Al Plus Suspension), 30 ML GT Q4HR PRN for Constipation, (Reported) Fluticasone/Salmeterol (Advair 250-50 Diskus), 1 PUFF INH DAILY PRN for Shortness of Breath, (Reported) Lorazepam* (Ativan*), 0.5 MG ORAL Q4HR PRN for For Anxiety, (Reported) Ondansetron (Zofran), 4 MG ORAL Q6H PRN for Nausea & Vomiting, (Reported) Polyethylene Glycol 3350* (Miralax*), 17 GM ORAL DAILY PRN for Constipation, ( Reported) Zolpidem Tartrate* (Ambien*), 5 MG ORAL BEDTIME PRN for Insomnia, (Reported) Miscellaneous Medications Unable to Obtain Medications (Unable To Obtain Meds), (Reported) Patient History Healthcare decision maker Resuscitation status Full Code Advanced Directive on File Past Medical/Surgical History Past Medical/Surgical History: (1) Diabetes (2) Alzheimer's dementia (3) Hypertension Review of Systems All Other Systems: negative except mentioned in HPI Physical Exam General Appearance: WD/WN Lines, tubes and drains: peripheral HEENT: normocephalic, atraumatic Neck: non-tender, normal alignment, supple, limited range of motion Respiratory/Chest: lungs clear, normal breath sounds Cardiovascular/Chest: normal peripheral pulses, normal rate, regular rhythm Abdomen: normal bowel sounds Genitourinary/Rectal: normal genital exam, normal rectal exam Extremities: normal range of motion, non-tender Last 24 Hour Vital Signs Date Time Temp Pulse Resp B/P Pulse Ox O2 Delivery O2 Flow Rate FiO2 02/28/17 16:00 97.2 56 20 129/79 97 Room Air 02/28/17 12:00 97.7 57 20 132/71 95 Room Air 02/28/17 08:00 97.3 57 20 124/53 96 Room Air 02/27/17 20:08 98.8 73 16 123/65 100 Room Air Intake and Output 02/27/17 02/28/17 19:00 07:00 Intake Total 850 ml Balance 850 ml Intake IV Total 850 ml # Voids 2 Laboratory Tests Test 02/28/17 11:30 White Blood Count 5.4 K/UL (4.8-10.8) Red Blood Count 3.73 M/UL (4.70-6.10) L Hemoglobin 11.5 G/DL (14.2-18.0) L Hematocrit 36.2 % (42.0-52.0) L Mean Corpuscular Volume 97 FL (80-99) Mean Corpuscular Hemoglobin 30.8 PG (27.0-31.0) Mean Corpuscular Hemoglobin Concent 31.7 G/DL (32.0-36.0) L Red Cell Distribution Width 12.9 % (11.6-14.8) Platelet Count 188 K/UL (150-450) Mean Platelet Volume 8.9 FL (6.5-10.1) Neutrophils (%) (Auto) 61.9 % (45.0-75.0) Lymphocytes (%) (Auto) 28.7 % (20.0-45.0) Monocytes (%) (Auto) 6.8 % (1.0-10.0) Eosinophils (%) (Auto) 2.1 % (0.0-3.0) Basophils (%) (Auto) 0.6 % (0.0-2.0) Sodium Level 140 mEQ/L (135-145) Potassium Level 3.7 mEQ/L (3.4-4.9) Chloride Level 103 mEQ/L (98-107) Carbon Dioxide Level 24 mEQ/L (20-30) Anion Gap 13 (5-15) Blood Urea Nitrogen 11 mg/dL (7-23) Creatinine 1.0 mg/dL (0.7-1.2) Estimat Glomerular Filtration Rate mL/min (>60) Glucose Level 186 mg/dL (74-106) H Hemoglobin A1c 8.4 % (< 6.0) H Calcium Level 8.7 mg/dL (8.6-10.2) Total Bilirubin 0.3 mg/dL (0.0-1.2) Aspartate Amino Transf (AST/SGOT) 20 U/L (5-40) Alanine Aminotransferase (ALT/SGPT) 7 U/L (3-41) Alkaline Phosphatase 64 U/L (40-129) Total Protein 6.7 g/dL (6.6-8.7) Albumin 3.1 g/dL (3.5-5.2) L Globulin 3.6 g/dL Albumin/Globulin Ratio 0.8 (1.0-2.7) L Triglycerides Level 63 mg/dL (< 150) Cholesterol Level 129 mg/dL (< 200) LDL Cholesterol 73 mg/dL (60-99) HDL Cholesterol 43 mg/dL (> 60) Cholesterol/HDL Ratio 3.0 (3.3-4.4) L Thyroid Stimulating Hormone (TSH) 1.440 uIU/mL (0.300-4.500) Height (Feet): 5 Height (Inches): 3.00 Weight (Pounds): 173 Medications Current Medications Medications (Trade) Dose Ordered Sig/Eric Route PRN Reason Start Time Stop Time Status Last Admin Dose Admin Acetaminophen (Tylenol) 650 mg Q4H PRN ORAL fever 02/27/17 15:30 03/29/17 15:29 Al Hydroxide/Mg Hydroxide (Mylanta II) 30 ml Q6H PRN ORAL dyspepsia 02/27/17 15:30 03/29/17 15:29 Albuterol/ Ipratropium (DuoNeb 0.5-3(2.5)mg/3ml) 3 ml Q4H PRN HHN Shortness of Breath 02/27/17 15:30 03/04/17 15:29 Atorvastatin Calcium (Lipitor) 5 mg BEDTIME ORAL 02/27/17 21:00 03/29/17 20:59 Calcium Carbonate (OsCal D) 1 tab TID ORAL 02/28/17 09:00 03/30/17 08:59 02/28/17 13:24 Clonidine HCl (Catapres) 0.1 mg Q4H PRN ORAL sbp more than 160 02/27/17 15:30 03/29/17 15:29 Dextrose (Dextrose 50%) STAT PRN IV Hypoglycemia 02/27/17 15:30 03/29/17 15:29 Finasteride (Proscar) 5 mg DAILY ORAL 02/28/17 09:00 03/30/17 08:59 02/28/17 08:42 Gabapentin (Neurontin) 300 mg THREE TIMES A DAY ORAL 02/27/17 18:00 03/29/17 17:59 02/28/17 13:24 Insulin Aspart (NovoLOG) BEFORE MEALS AND HS SUBQ 02/27/17 21:00 03/29/17 20:59 02/28/17 13:25 Lorazepam (Ativan) 0.5 mg Q4H PRN ORAL For Anxiety 02/27/17 15:30 03/06/17 15:29 Morphine Sulfate (Morphine Sulfate) 2 mg Q4H PRN IVP severe pain 7-10 02/27/17 15:30 03/06/17 15:29 Nitroglycerin (Ntg) 0.4 mg Q5M X 3 DOSES PRN SL Prn Chest Pain 02/27/17 15:30 03/29/17 15:29 Ondansetron HCl (Zofran) 4 mg Q6H PRN IVP Nausea & Vomiting 02/27/17 15:30 03/29/17 15:29 Polyethylene Glycol (Miralax) 17 gm HSPRN PRN ORAL Constipation 02/27/17 15:30 03/29/17 15:29 Sodium Chloride (Sodium Chloride 1000ml bag) 1,000 ml @ 100 mls/hr Q10H IVLG 02/27/17 20:00 03/29/17 19:59 02/28/17 16:28 Tamsulosin HCl 0.4 mg 0.4 mg BEDTIME ORAL 02/27/17 21:00 03/29/17 20:59 Temazepam (Restoril) 15 mg HSPRN PRN ORAL Insomnia 02/27/17 15:30 03/06/17 15:29 Assessment/Plan Problem List: (1) Altered mental status ICD Codes: R41.82 - Altered mental status, unspecified SNOMED: 992874441 (2) Alzheimer's dementia ICD Codes: G30.9 - Alzheimer's disease, unspecified SNOMED: 67940811 (3) Diabetes ICD Codes: E11.9 - Type 2 diabetes mellitus without complications SNOMED: 48132746 Assessment/Plan social service consult sliding scale psych evaluation monitor bp dvt prophylaxis BLUE HUNTLEY Feb 28, 2017 17:21
--- NOTE | 2017-02-28 18:55 | History & Physical ---
History and Physical History & Physicial Dictated for Int Med-Dr Givens no. [id number]. TAMMY SAGE Feb 28, 2017 18:55
--- NOTE | 2017-02-28 20:11 | Pulmonology Progress Note ---
Assessment/Plan Problems: (1) Altered mental status (2) Hypertension (3) Diabetes (4) Alzheimer's dementia (5) Chest wall contusion Assessment/Plan sitter at bed site psych evaluation sliding Subjective ROS Limited/Unobtainable: Yes Constitutional: Reports: anorexia, fatigue Respiratory: Reports: dyspnea at rest, dyspnea on exertion, shortness of breath , wheezing Neurologic: Reports: confusion, weakness Allergies: Coded Allergies: ASPIRIN (Unverified Allergy, Severe, Rash, 05/20/16) HEPARIN (Verified Allergy, Unknown, 12/24/16) Objective Last 24 Hour Vital Signs Date Time Temp Pulse Resp B/P Pulse Ox O2 Delivery O2 Flow Rate FiO2 02/28/17 19:22 56 20 Room Air 02/28/17 16:00 97.2 56 20 129/79 97 Room Air 02/28/17 12:00 97.7 57 20 132/71 95 Room Air 02/28/17 08:00 97.3 57 20 124/53 96 Room Air 02/27/17 20:08 98.8 73 16 123/65 100 Room Air Intake and Output 02/27/17 02/28/17 19:00 07:00 Intake Total 850 ml Balance 850 ml IV Total 850 ml # Voids 2 General Appearance: no acute distress HEENT: normocephalic, atraumatic, PERRL Respiratory/Chest: chest wall non-tender, decreased breath sounds, expiratory wheezing Cardiovascular: normal peripheral pulses, normal rate, regular rhythm, no JVD Abdomen: normal bowel sounds, soft, non tender, no organomegaly, non distended , no mass Genitourinary: normal external genitalia Extremities: no cyanosis Skin: no rash, no lesions Neurologic/Psychiatric: 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 placement 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 grossly normal, responsive, disoriented Musculoskeletal: atrophy Laboratory Tests 02/28/17 11:30: White Blood Count 5.4, Red Blood Count 3.73L, Hemoglobin 11.5L, Hematocrit 36.2L , Mean Corpuscular Volume 97, Mean Corpuscular Hemoglobin 30.8, Mean Corpuscular Hemoglobin Concent 31.7L, Red Cell Distribution Width 12.9, Platelet Count 188, Mean Platelet Volume 8.9, Neutrophils (%) (Auto) 61.9, Lymphocytes (%) (Auto) 28.7, Monocytes (%) (Auto) 6.8, Eosinophils (%) (Auto) 2.1, Basophils (%) (Auto) 0.6, Sodium Level 140, Potassium Level 3.7, Chloride Level 103, Carbon Dioxide Level 24, Anion Gap 13, Blood Urea Nitrogen 11, Creatinine 1.0, Estimat Glomerular Filtration Rate , Glucose Level 186H, Hemoglobin A1c 8.4H, Calcium Level 8.7, Total Bilirubin 0.3, Aspartate Amino Transf (AST/SGOT) 20, Alanine Aminotransferase (ALT/SGPT) 7, Alkaline Phosphatase 64, Total Protein 6.7, Albumin 3.1L, Globulin 3.6, Albumin/Globulin Ratio 0.8L, Triglycerides Level 63, Cholesterol Level 129, LDL Cholesterol 73, HDL Cholesterol 43, Cholesterol/HDL Ratio 3.0L, Thyroid Stimulating Hormone (TSH ) 1.440 Current Medications Medications (Trade) Dose Ordered Sig/Eric Route PRN Reason Start Time Stop Time Status Last Admin Dose Admin Acetaminophen (Tylenol) 650 mg Q4H PRN ORAL fever 02/27/17 15:30 03/29/17 15:29 Al Hydroxide/Mg Hydroxide (Mylanta II) 30 ml Q6H PRN ORAL dyspepsia 02/27/17 15:30 03/29/17 15:29 Albuterol/ Ipratropium (DuoNeb 0.5-3(2.5)mg/3ml) 3 ml Q4H PRN HHN Shortness of Breath 02/27/17 15:30 03/04/17 15:29 Atorvastatin Calcium (Lipitor) 5 mg BEDTIME ORAL 02/27/17 21:00 03/29/17 20:59 Calcium Carbonate (OsCal D) 1 tab TID ORAL 02/28/17 09:00 03/30/17 08:59 02/28/17 17:47 Clonidine HCl (Catapres) 0.1 mg Q4H PRN ORAL sbp more than 160 02/27/17 15:30 03/29/17 15:29 Dextrose (Dextrose 50%) STAT PRN IV Hypoglycemia 02/27/17 15:30 03/29/17 15:29 Finasteride (Proscar) 5 mg DAILY ORAL 02/28/17 09:00 03/30/17 08:59 02/28/17 08:42 Gabapentin (Neurontin) 300 mg THREE TIMES A DAY ORAL 02/27/17 18:00 03/29/17 17:59 02/28/17 17:47 Insulin Aspart (NovoLOG) BEFORE MEALS AND HS SUBQ 02/27/17 21:00 03/29/17 20:59 02/28/17 13:25 Lorazepam (Ativan) 0.5 mg Q4H PRN ORAL For Anxiety 02/27/17 15:30 03/06/17 15:29 Morphine Sulfate (Morphine Sulfate) 2 mg Q4H PRN IVP severe pain 7-10 02/27/17 15:30 03/06/17 15:29 Nitroglycerin (Ntg) 0.4 mg Q5M X 3 DOSES PRN SL Prn Chest Pain 02/27/17 15:30 03/29/17 15:29 Ondansetron HCl (Zofran) 4 mg Q6H PRN IVP Nausea & Vomiting 02/27/17 15:30 03/29/17 15:29 Polyethylene Glycol (Miralax) 17 gm HSPRN PRN ORAL Constipation 02/27/17 15:30 03/29/17 15:29 Sodium Chloride (Sodium Chloride 1000ml bag) 1,000 ml @ 100 mls/hr Q10H IVLG 02/27/17 20:00 03/29/17 19:59 02/28/17 16:28 Tamsulosin HCl 0.4 mg 0.4 mg BEDTIME ORAL 02/27/17 21:00 03/29/17 20:59 Temazepam (Restoril) 15 mg HSPRN PRN ORAL Insomnia 02/27/17 15:30 03/06/17 15:29 BLUE HUNTLEY Feb 28, 2017 20:11
[2017-02-28] MEDS: Tamsulosin 0.4mg cap ORAL SCH (22:00)
--- NOTE | 2017-03-01 00:08 | History and Physical Report ---
DATE OF ADMISSION: 02/28/2017 CHIEF COMPLAINT: The patient is an 81-year-old male, presents with chief complaint of altered mental status. HISTORY OF PRESENT ILLNESS: The patient was admitted to [facility] from 12/24/2016 to 12/28/2016. The patient had a right first toe cellulitis. The patient was treated with antibiotics and discharged home with his daughter. The patient was brought in last evening to [facility]. The patient's daughter states that the patient has been refusing his medications. The patient's workup was essentially within normal limits. The patient's daughter refused to take the patient home. The patient was admitted for altered mental status and for placement purposes. PAST MEDICAL HISTORY: Significant for: 1. Right first toe cellulitis as above. 2. Type 2 diabetes. 3. Alzheimer's dementia. 4. Hydronephrosis of the right kidney. 5. History of bladder tumor. 6. History of benign prostatic hypertrophy. 7. Hypercholesterolemia. PAST SURGICAL HISTORY: 1. Significant for inguinal hernia repair. 2. Transurethral resection of the prostate. CURRENT MEDICATIONS: 1. Tylenol No. 3, one tablet p.o. q.6 h. p.r.n. pain. 2. Lipitor 10 mg one tablet p.o. at bedtime. 3. Calcium carbonate 500 mg one tablet p.o. three times daily. 4. Valium 10 mg one tablet p.o. at bedtime. 5. Proscar 5 mg one tablet p.o. daily. 6. Advair 250/50 mcg one puff twice daily. 7. Gabapentin 300 mg one tablet p.o. three times daily. 8. NovoLog sliding scale, 8 units subcutaneously before meals. 9. Levemir 20 units subcutaneously at bedtime. 10. Ativan 0.5 mg one tablet p.o. q.4 h. p.r.n. 11. Singulair 10 mg one tablet p.o. daily. 12. Flomax 0.4 mg one tablet p.o. at bedtime. 13. Ambien 5 mg one tablet p.o. at bedtime. ALLERGIES: Aspirin and heparin. SOCIAL HISTORY: The patient lives with his adult daughter. The patient denies tobacco use currently. The patient previously smoked heavily, according to the daughter. The patient denies alcohol use. REVIEW OF SYSTEMS: Unable to assess secondary to the patient's mental status. PHYSICAL EXAMINATION: VITAL SIGNS: Temperature is 98.8 degrees, respirations 16, pulse 73, and blood pressure 120/65. GENERAL: The patient is a well-developed and well-nourished male, who is nonverbal at this time. HEENT: Eyes, pupils are equal and responsive to light and accommodation. Extraocular movements are intact. NECK: Supple. No lymphadenopathy. CHEST: Lungs are clear to auscultation bilaterally without wheezes or rales. CARDIOVASCULAR: Regular rhythm and rate. S1 and S2. No murmurs, rubs, or gallops. ABDOMEN: Soft, nontender, and nondistended. Positive bowel sounds. No evidence of hepatosplenomegaly. Currently no rebound or guarding noted. EXTREMITIES: Negative for clubbing, cyanosis, or edema. RECTAL: Refused. GENITALIA: Refused. NEUROLOGIC: Cranial nerves II through XII are grossly intact without focal deficits. Motor strength is 5/5 bilaterally. Deep tendon reflexes are 2+ plantar. LABORATORY STUDIES: WBC is 7.7, hemoglobin 14.4, hematocrit 46.2, and platelets 161,000. Sodium is 140, potassium 4.6, chloride 102, CO2 24, BUN 16, creatinine 1.2, and glucose 178. ASSESSMENT: This is an 81-year-old male: 1. Altered mental status. 2. Diabetes type 2. 3. Alzheimer's dementia. 4. Hydronephrosis of right kidney. 5. Benign prostatic hypertrophy. 6. Hypercholesterolemia. 7. History of bladder tumor. TREATMENT: 1. Altered mental status. This may be secondary to urinary tract infection. Urinalysis was not performed in the emergency room. Urinalysis and culture and sensitivity pending. A chest x-ray is pending. Altered mental status may be secondary to sepsis. 2. Diabetes type 2. Continue NovoLog sliding scale and Levemir as above. 3. Alzheimer's dementia. 4. Hydronephrosis of right kidney. 5. Benign prostatic hypertrophy. Continue Flomax and Proscar as above. 6. Hypercholesterolemia. Continue Lipitor as above. Bruce Hester M.D. DR: Munir JOB#: [id number] CC:
[2017-03-01 04:00] VITALS: BP 144/76
[2017-03-01] MEDS: NovoLOG Insulin Flexpen SUBQ SCH ×4 (06:41→21:41)
[2017-03-01 07:34] LABS: BASOPHILS % (AUTO) 0.3 % (0.0-2.0); EOSINOPHILS % (AUTO) 2.1 % (0.0-3.0); LYMPHOCYTES % (AUTO) 27.8 % (20.0-45.0); MEAN CORPUSCULAR HEMOGLOBIN 31.2 PG (27.0-31.0); MEAN CORPUSCULAR VOLUME 97 FL (80-99); MEAN PLATELET VOLUME 8.8 FL (6.5-10.1); PLATELET COUNT 201 K/UL (150-450); RED BLOOD COUNT 4.06 M/UL (4.70-6.10); RED CELL DISTRIBUTION WIDTH 12.5 % (11.6-14.8); WHITE BLOOD COUNT 6.5 K/UL (4.8-10.8)
[2017-03-01 07:39] LABS: ANION GAP 14 (5-15); CALCIUM 9.3 mg/dL (8.6-10.2); CARBON DIOXIDE 25 mEQ/L (20-30); CHLORIDE 104 mEQ/L (98-107); CREATININE 1.3 mg/dL (0.7-1.2); HEMOLYSIS 1; POTASSIUM 3.9 mEQ/L (3.4-4.9); SODIUM 143 mEQ/L (135-145)
[2017-03-01 07:58] VITALS: BP 134/76
[2017-03-01] MEDS: Calcium Carbonate 500mg w/Vit D 200iu tab ORAL SCH ×3 (08:39→18:48)
[2017-03-01 11:28] VITALS: BP 144/75
--- NOTE | 2017-03-01 13:42 | Neurology Progress Note ---
Interim History Interim History ROS Limited/Unobtainable: Yes Objective Physical Exam Last Vital Signs Date Time Temp Pulse Resp B/P Pulse Ox O2 Delivery O2 Flow Rate FiO2 03/01/17 11:28 97.9 66 15 144/75 96 Room Air Laboratory Tests Test 03/01/17 05:40 White Blood Count 6.5 K/UL (4.8-10.8) Red Blood Count 4.06 M/UL (4.70-6.10) L Hemoglobin 12.7 G/DL (14.2-18.0) L Hematocrit 39.6 % (42.0-52.0) L Mean Corpuscular Volume 97 FL (80-99) Mean Corpuscular Hemoglobin 31.2 PG (27.0-31.0) H Mean Corpuscular Hemoglobin Concent 32.0 G/DL (32.0-36.0) Red Cell Distribution Width 12.5 % (11.6-14.8) Platelet Count 201 K/UL (150-450) Mean Platelet Volume 8.8 FL (6.5-10.1) Neutrophils (%) (Auto) 63.0 % (45.0-75.0) Lymphocytes (%) (Auto) 27.8 % (20.0-45.0) Monocytes (%) (Auto) 7.0 % (1.0-10.0) Eosinophils (%) (Auto) 2.1 % (0.0-3.0) Basophils (%) (Auto) 0.3 % (0.0-2.0) Sodium Level 143 mEQ/L (135-145) Potassium Level 3.9 mEQ/L (3.4-4.9) Chloride Level 104 mEQ/L (98-107) Carbon Dioxide Level 25 mEQ/L (20-30) Anion Gap 14 (5-15) Blood Urea Nitrogen 10 mg/dL (7-23) Creatinine 1.3 mg/dL (0.7-1.2) H Estimat Glomerular Filtration Rate mL/min (>60) Glucose Level 229 mg/dL (74-106) H Calcium Level 9.3 mg/dL (8.6-10.2) Impression/Recommendations Problems: (1) Alzheimer's dementia Status: unchanged Recommendations #[id number] I[facility] GOLD Mar 01, 2017 13:42
[2017-03-01] MEDS ORDERED: RisperiDONE 0.25mg tab ORAL PRN (13:45)
--- NOTE | 2017-03-01 15:03 | Pulmonology Progress Note ---
Assessment/Plan Problems: (1) Altered mental status (2) Hypertension (3) Diabetes (4) Alzheimer's dementia (5) Chest wall contusion Assessment/Plan sitter at bed site psych evaluation sliding no new complains Subjective ROS Limited/Unobtainable: No Constitutional: Reports: no symptoms HEENT: Repors: no symptoms Respiratory: Reports: no symptoms Cardiovascular: Reports: no symptoms Allergies: Coded Allergies: ASPIRIN (Unverified Allergy, Severe, Rash, 05/20/16) HEPARIN (Verified Allergy, Unknown, 12/24/16) Objective Last 24 Hour Vital Signs Date Time Temp Pulse Resp B/P Pulse Ox O2 Delivery O2 Flow Rate FiO2 03/01/17 11:28 97.9 66 15 144/75 96 Room Air 03/01/17 08:01 74 18 Room Air 03/01/17 07:58 98.6 63 14 134/76 96 Room Air 03/01/17 04:00 97.5 63 18 144/76 94 Room Air 02/28/17 19:22 56 20 Room Air 02/28/17 16:00 97.2 56 20 129/79 97 Room Air Intake and Output 02/28/17 03/01/17 19:00 07:00 Intake Total 1120 ml 1180 ml Balance 1120 ml 1180 ml Intake Oral 220 ml 480 ml IV Total 900 ml 700 ml # Voids 6 6 # Bowel Movements 1 General Appearance: WD/WN HEENT: normocephalic, atraumatic Respiratory/Chest: chest wall non-tender, normal breath sounds Cardiovascular: normal peripheral pulses, normal rate Abdomen: normal bowel sounds, soft, non tender Genitourinary: normal external genitalia Extremities: no cyanosis Skin: no rash Neurologic/Psychiatric: 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 tutor II-XII grossly normal, no motor/sensory deficits Laboratory Tests 03/01/17 05:40: White Blood Count 6.5, Red Blood Count 4.06L, Hemoglobin 12.7L, Hematocrit 39.6L , Mean Corpuscular Volume 97, Mean Corpuscular Hemoglobin 31.2H, Mean Corpuscular Hemoglobin Concent 32.0, Red Cell Distribution Width 12.5, Platelet Count 201, Mean Platelet Volume 8.8, Neutrophils (%) (Auto) 63.0, Lymphocytes (% ) (Auto) 27.8, Monocytes (%) (Auto) 7.0, Eosinophils (%) (Auto) 2.1, Basophils ( %) (Auto) 0.3, Sodium Level 143, Potassium Level 3.9, Chloride Level 104, Carbon Dioxide Level 25, Anion Gap 14, Blood Urea Nitrogen 10, Creatinine 1.3H, Estimat Glomerular Filtration Rate , Glucose Level 229H, Calcium Level 9.3 Current Medications Medications (Trade) Dose Ordered Sig/Eric Route PRN Reason Start Time Stop Time Status Last Admin Dose Admin Acetaminophen (Tylenol) 650 mg Q4H PRN ORAL fever 02/27/17 15:30 03/29/17 15:29 Al Hydroxide/Mg Hydroxide (Mylanta II) 30 ml Q6H PRN ORAL dyspepsia 02/27/17 15:30 03/29/17 15:29 Albuterol/ Ipratropium (DuoNeb 0.5-3(2.5)mg/3ml) 3 ml Q4H PRN HHN Shortness of Breath 02/27/17 15:30 03/04/17 15:29 Calcium Carbonate (OsCal D) 1 tab TID ORAL 02/28/17 09:00 03/30/17 08:59 03/01/17 12:25 Clonidine HCl (Catapres) 0.1 mg Q4H PRN ORAL sbp more than 160 02/27/17 15:30 03/29/17 15:29 Dextrose (Dextrose 50%) STAT PRN IV Hypoglycemia 02/27/17 15:30 03/29/17 15:29 Donepezil HCl (Aricept) 5 mg QHS ORAL 03/01/17 21:00 03/31/17 20:59 Finasteride (Proscar) 5 mg DAILY ORAL 02/28/17 09:00 03/30/17 08:59 03/01/17 08:39 Gabapentin (Neurontin) 300 mg THREE TIMES A DAY ORAL 02/27/17 18:00 03/29/17 17:59 03/01/17 12:25 Insulin Aspart (NovoLOG) BEFORE MEALS AND HS SUBQ 02/27/17 21:00 03/29/17 20:59 03/01/17 12:21 Nitroglycerin (Ntg) 0.4 mg Q5M X 3 DOSES PRN SL Prn Chest Pain 02/27/17 15:30 03/29/17 15:29 Ondansetron HCl (Zofran) 4 mg Q6H PRN IVP Nausea & Vomiting 02/27/17 15:30 03/29/17 15:29 Polyethylene Glycol (Miralax) 17 gm HSPRN PRN ORAL Constipation 02/27/17 15:30 03/29/17 15:29 Risperidone (RisperDAL) 0.25 mg BID PRN ORAL agitation 03/01/17 13:45 03/31/17 13:44 Sodium Chloride (Sodium Chloride 1000ml bag) 1,000 ml @ 100 mls/hr Q10H IVLG 02/27/17 20:00 03/29/17 19:59 03/01/17 12:26 Tamsulosin HCl 0.4 mg 0.4 mg BEDTIME ORAL 02/27/17 21:00 03/29/17 20:59 02/28/17 22:00 Temazepam (Restoril) 15 mg HSPRN PRN ORAL Insomnia 02/27/17 15:30 03/06/17 15:29 Valproic Acid (Depakene) 125 mg Q12HR ORAL 03/01/17 14:00 03/31/17 13:59 BLUE HUNTLEY Mar 01, 2017 15:03
[2017-03-01] MEDS: Valproic Acid 250mg/5ml Liquid ORAL SCH ×2 (15:36→21:33)
[2017-03-01 15:49] VITALS: BP 148/81
--- NOTE | 2017-03-01 15:59 | Internal Med Progress Note ---
Subjective Date of Service: Mar 01, 2017 Physician Name Bruce Sage Attending Physician Arian Givens MD Current Medications Medications (Trade) Dose Ordered Sig/Eric Route PRN Reason Start Time Stop Time Status Last Admin Dose Admin Acetaminophen (Tylenol) 650 mg Q4H PRN ORAL fever 02/27/17 15:30 03/29/17 15:29 Al Hydroxide/Mg Hydroxide (Mylanta II) 30 ml Q6H PRN ORAL dyspepsia 02/27/17 15:30 03/29/17 15:29 Albuterol/ Ipratropium (DuoNeb 0.5-3(2.5)mg/3ml) 3 ml Q4H PRN HHN Shortness of Breath 02/27/17 15:30 03/04/17 15:29 Calcium Carbonate (OsCal D) 1 tab TID ORAL 02/28/17 09:00 03/30/17 08:59 03/01/17 12:25 Clonidine HCl (Catapres) 0.1 mg Q4H PRN ORAL sbp more than 160 02/27/17 15:30 03/29/17 15:29 Dextrose (Dextrose 50%) STAT PRN IV Hypoglycemia 02/27/17 15:30 03/29/17 15:29 Donepezil HCl (Aricept) 5 mg QHS ORAL 03/01/17 21:00 03/31/17 20:59 Finasteride (Proscar) 5 mg DAILY ORAL 02/28/17 09:00 03/30/17 08:59 03/01/17 08:39 Gabapentin (Neurontin) 300 mg THREE TIMES A DAY ORAL 02/27/17 18:00 03/29/17 17:59 03/01/17 12:25 Insulin Aspart (NovoLOG) BEFORE MEALS AND HS SUBQ 02/27/17 21:00 03/29/17 20:59 03/01/17 12:21 Nitroglycerin (Ntg) 0.4 mg Q5M X 3 DOSES PRN SL Prn Chest Pain 02/27/17 15:30 03/29/17 15:29 Ondansetron HCl (Zofran) 4 mg Q6H PRN IVP Nausea & Vomiting 02/27/17 15:30 03/29/17 15:29 Polyethylene Glycol (Miralax) 17 gm HSPRN PRN ORAL Constipation 02/27/17 15:30 03/29/17 15:29 Risperidone (RisperDAL) 0.25 mg BID PRN ORAL agitation 03/01/17 13:45 03/31/17 13:44 Sodium Chloride (Sodium Chloride 1000ml bag) 1,000 ml @ 100 mls/hr Q10H IVLG 02/27/17 20:00 03/29/17 19:59 03/01/17 12:26 Tamsulosin HCl 0.4 mg 0.4 mg BEDTIME ORAL 02/27/17 21:00 03/29/17 20:59 02/28/17 22:00 Temazepam (Restoril) 15 mg HSPRN PRN ORAL Insomnia 02/27/17 15:30 03/06/17 15:29 Valproic Acid (Depakene) 125 mg Q12HR ORAL 03/01/17 14:00 03/31/17 13:59 03/01/17 15:36 Allergies: Coded Allergies: ASPIRIN (Unverified Allergy, Severe, Rash, 05/20/16) HEPARIN (Verified Allergy, Unknown, 12/24/16) ROS Limited/Unobtainable: Yes Subjective 81 YO M admitted with altered mental status. Cover for Int Med Dr Givens. Await psychiatry consult. Refusing meds Objective Last Vital Signs Date Time Temp Pulse Resp B/P Pulse Ox O2 Delivery O2 Flow Rate FiO2 03/01/17 15:49 97.5 65 15 148/81 99 Room Air Laboratory Tests Test 03/01/17 05:40 White Blood Count 6.5 K/UL (4.8-10.8) Red Blood Count 4.06 M/UL (4.70-6.10) L Hemoglobin 12.7 G/DL (14.2-18.0) L Hematocrit 39.6 % (42.0-52.0) L Mean Corpuscular Volume 97 FL (80-99) Mean Corpuscular Hemoglobin 31.2 PG (27.0-31.0) H Mean Corpuscular Hemoglobin Concent 32.0 G/DL (32.0-36.0) Red Cell Distribution Width 12.5 % (11.6-14.8) Platelet Count 201 K/UL (150-450) Mean Platelet Volume 8.8 FL (6.5-10.1) Neutrophils (%) (Auto) 63.0 % (45.0-75.0) Lymphocytes (%) (Auto) 27.8 % (20.0-45.0) Monocytes (%) (Auto) 7.0 % (1.0-10.0) Eosinophils (%) (Auto) 2.1 % (0.0-3.0) Basophils (%) (Auto) 0.3 % (0.0-2.0) Sodium Level 143 mEQ/L (135-145) Potassium Level 3.9 mEQ/L (3.4-4.9) Chloride Level 104 mEQ/L (98-107) Carbon Dioxide Level 25 mEQ/L (20-30) Anion Gap 14 (5-15) Blood Urea Nitrogen 10 mg/dL (7-23) Creatinine 1.3 mg/dL (0.7-1.2) H Estimat Glomerular Filtration Rate mL/min (>60) Glucose Level 229 mg/dL (74-106) H Calcium Level 9.3 mg/dL (8.6-10.2) Intake and Output 02/28/17 03/01/17 19:00 07:00 Intake Total 1120 ml 1180 ml Balance 1120 ml 1180 ml Intake Oral 220 ml 480 ml IV Total 900 ml 700 ml # Voids 6 6 # Bowel Movements 1 Objective General: alert, cooperative, no distress, appears stated age Head: normocephalic, without obvious abnormality, atraumatic Eyes: conjunctivae/corneas clear. PERRL, EOM's intact Throat: lips, mucosa, and tongue normal. MMM Neck: supple, symmetrical, trachea midline, and no JVD Lungs: clear to auscultation bilaterally Heart: regular rate and rhythm, S1, S2 normal, no murmur, click, rub or gallop Abdomen: soft, non-tender, non-distended, bowel sounds normal; no masses or organomegaly Extremities: extremities normal, atraumatic, no cyanosis or edema Pulses: 2+ and symmetric Skin: skin color, texture, turgor normal; no rashes or lesions Neurologic: grossly normal, no focal deficits Assessment/Plan Problem List: (1) Diabetes mellitus type II, uncontrolled Assessment & Plan: Continue novolog sliding scale. (2) Altered mental status Assessment & Plan: acute encephalopathy vs psychosis (3) Alzheimer's dementia Assessment & Plan: Cont aricept. (4) BPH (benign prostatic hypertrophy) Assessment & Plan: Cont flomax (5) Hydronephrosis of right kidney (6) Hypercholesteremia (7) Psychosis Assessment & Plan: Continue depakote and risperdal. Refusing meds. Await Psych consult. Status: not improved BRUCE SAGE Mar 01, 2017 15:59
--- NOTE | 2017-03-01 19:38 | Consultation ---
DATE OF CONSULTATION: 03/01/2017 NEUROLOGICAL CONSULTATION CONSULTING PHYSICIAN: Norberto Gautam M.D. REQUESTING PHYSICIAN: Arian Givens M.D. HISTORY OF PRESENT ILLNESS: The patient is an 81-year-old man, seen in neurological consultation to evaluate a progressive mental status changes. The patient was initially brought to this hospital due to medication noncompliance especially diabetic treatment. The patient also described being unable to keep at home, he would get out of the home with a risk of getting lost. Upon arrival to the hospital, his vital signs were stable. Blood pressure 137/72 and temperature 98.3 degrees. His initial laboratory work included normal CBC studies, chemistry panel was unremarkable except blood sugar 178, normal TSH, unremarkable lipid panel, and hemoglobin A1C 8.4. 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 Arterial duplex of lower extremities described an occlusion of right mid to distal femoral artery and a plaque occlusion in mid to distal femoral arteries. His venous duplex of both lower extremities revealed patent deep vein system bilaterally. Since admission till present, there was no evidence of improvement noted. The patient is stable. His family at this time refused to take him back due to difficulty taking care of him at home. technical services assistant was requested and neuro consult was requested to evaluate and to properly place this patient. Following current admission, the patient's treatment included Tylenol, Lipitor, calcium, Valium 10 mg at bedtime, Proscar, Advair, gabapentin 300 mg t.i.d., insulin, Ativan p.r.n., Singulair, Zofran, MiraLAX, atorvastatin 10 mg at bedtime, tamsulosin, and zolpidem. PAST MEDICAL HISTORY: The patient has a history of benign prostatic hypertrophy, kidney hydronephrosis, recurrent urinary tract infection, cystitis, decreased hearing, type 2 diabetes, Alzheimer dementia, bladder tumor, hyperlipidemia, status post transurethral resection of prostate, and history of inguinal hernia repair. ALLERGIES: Aspirin and heparin. SOCIAL HISTORY: The patient lives with his adult daughter. He was previously a resident. Previously, heavy smoker, but no alcohol and no drug abuse. No smoking lately. REVIEW OF SYMPTOMS: This was limited due to the patient's status, who was denying having pain or discomfort. PHYSICAL EXAMINATION: GENERAL: This is a well-developed and well-nourished man, not in acute distress, sitting in a chair. VITAL SIGNS: His vital signs now are stable. He is afebrile. Blood pressure 144/75. HEENT: Head normocephalic. There is no evidence of trauma. Eyes, ears, and throat are clear. MUSCULOSKELETAL: Unremarkable. No deformities. Peripheral pulses 1+ symmetric. MENTAL STATUS: The patient is alert and oriented to his name, but not age. He gives incomplete address. He is a very poor historian. He was able to recall 0/3 words in 1 and 10 minutes. Poor serial 7. Unable to name the present of [place] current. During examination, the patient is easily getting angry and somewhat aggressive when examined his reflexes. MOTOR EXAMINATION: Normal muscle tone. Able to lift arms and legs against the gravity. Deep tendon reflexes 2+ bilaterally and symmetric. Plantar responses flexor. No pathological responses. SENSORY EXAM: Withdrawing to pin all limbs. Gait, reportedly stable. He was ambulating with some assistance to the bathroom and back. He is urinary incontinent, now with the pampers. Good appetite. IMPRESSION: 1. Senile dementia, probably vascular component, progressive. 2. Diabetes type 2, insulin dependent. 3. Hyperlipidemia. 4. . DISCUSSION: The patient presents with advanced form of dementia, probably senile, but in presence of extensive cerebrovascular disease with multiple lacunar strokes, vascular component is also noted. The patient is maintained on polypharmacy, which may contribute to behavioral abnormalities, special use of benzodiazepines, which will be discontinued. The patient has a normal liver function. I will be able to place the patient on Depakote 125 mg b.i.d., takes him off statins, but continue with a mild sedation, and start on Aricept 5 mg daily. The patient will need a supervised environment as he presents with some danger to himself by getting lost and especially confused. The patient is prone to have sundown confusions as well. We will maintain on p.r.n. Risperdal 0.5 mg at bedtime as necessary. Thank you for allowing me to see this interesting patient in neurological consultation. Norberto Gabby Gautam DR: FRANCISCO JOB#: [id number] CC:
[2017-03-01 20:00] VITALS: BP 133/66
[2017-03-01] MEDS: Tamsulosin 0.4mg cap ORAL SCH (21:33)
[2017-03-01] MEDS: Donepezil 5mg Tab ORAL SCH (21:34)
[2017-03-02 04:00] VITALS: BP 144/76
[2017-03-02] MEDS: NovoLOG Insulin Flexpen SUBQ SCH ×4 (06:27→22:42)
[2017-03-02 07:27] LABS: BASOPHILS % (AUTO) 0.4 % (0.0-2.0); EOSINOPHILS % (AUTO) 2.5 % (0.0-3.0); LYMPHOCYTES % (AUTO) 30.4 % (20.0-45.0); MEAN CORPUSCULAR HEMOGLOBIN 30.8 PG (27.0-31.0); MEAN CORPUSCULAR HGB CONC 32.3 G/DL (32.0-36.0); MEAN CORPUSCULAR VOLUME 96 FL (80-99); MEAN PLATELET VOLUME 8.4 FL (6.5-10.1); MONOCYTES % (AUTO) 8.1 % (1.0-10.0); NEUTROPHILS % (AUTO) 58.6 % (45.0-75.0); PLATELET COUNT 165 K/UL (150-450); RED BLOOD COUNT 3.43 M/UL (4.70-6.10); RED CELL DISTRIBUTION WIDTH 12.3 % (11.6-14.8); WHITE BLOOD COUNT 6.1 K/UL (4.8-10.8)
[2017-03-02 07:50] VITALS: BP 144/78
--- NOTE | 2017-03-02 07:53 | Pulmonology Progress Note ---
Assessment/Plan Assessment/Plan ASSESSMENT AMS 2 to Acute encephalopathy on chronic dementia Alzheimer dementia with behavioral changes DM OOC HTN BPH Noncompliance Anemia PLAN OF CARE MS floor IVF psych eval SS for placement BP management with Clonidine prn, monitor closely, may need routine anti-HTN BS management with SS of insulin, [id number] not at goal DVT prophylaxis O2 HHN prn Pain management bowel regimen neuro eval noted continue Aricept , added Depakote - per neuro mild sedation prn, Risperdal prn sitter at bedside for safety monitor HH, if further trend down, anemia workup need placement case discussed and evaluated by supervising physician Subjective Allergies: Coded Allergies: ASPIRIN (Unverified Allergy, Severe, Rash, 05/20/16) HEPARIN (Verified Allergy, Unknown, 12/24/16) Subjective denies chest pain, SOB, appears to be confused no signs of respiratory distress, on RA pulse ox stable Objective Last 24 Hour Vital Signs Date Time Temp Pulse Resp B/P Pulse Ox O2 Delivery O2 Flow Rate FiO2 03/02/17 04:00 98.4 75 20 144/76 96 Room Air 03/01/17 20:00 98.1 71 20 133/66 97 Room Air 03/01/17 19:47 65 18 Room Air 03/01/17 15:49 97.5 65 15 148/81 99 Room Air 03/01/17 11:28 97.9 66 15 144/75 96 Room Air 03/01/17 08:01 74 18 Room Air 03/01/17 07:58 98.6 63 14 134/76 96 Room Air Intake and Output 03/01/17 03/02/17 19:00 07:00 Intake Total 1300 ml 1000 ml Balance 1300 ml 1000 ml Intake Oral 1300 ml 1000 ml # Voids 3 4 # Bowel Movements 1 General Appearance: no acute distress, other - awake, alert, responsive, confused and forgetful HEENT: normocephalic, atraumatic, anicteric, mucous membranes moist Respiratory/Chest: lungs clear - with moderate air entry , no respiratory distress, no accessory muscle use Cardiovascular: normal rate, regular rhythm, no JVD Abdomen: normal bowel sounds, soft, non tender, non distended Genitourinary: normal external genitalia Extremities: no edema, pedal pulses normal Skin: other - multiple brown color lesions over the back Neurologic/Psychiatric: alert, oriented x 3 - confused Musculoskeletal: normal muscle bulk Laboratory Tests 03/02/17 05:55: White Blood Count 6.1, Red Blood Count 3.43L, Hemoglobin 10.6L, Hematocrit 32.8L , Mean Corpuscular Volume 96, Mean Corpuscular Hemoglobin 30.8, Mean Corpuscular Hemoglobin Concent 32.3, Red Cell Distribution Width 12.3, Platelet Count 165, Mean Platelet Volume 8.4, Neutrophils (%) (Auto) 58.6, Lymphocytes (% ) (Auto) 30.4, Monocytes (%) (Auto) 8.1, Eosinophils (%) (Auto) 2.5, Basophils ( %) (Auto) 0.4, Sodium Level [Pending], Potassium Level [Pending], Chloride Level [Pending], Carbon Dioxide Level [Pending], Blood Urea Nitrogen [Pending], Creatinine [Pending], Estimat Glomerular Filtration Rate [Pending], Glucose Level [Pending], Calcium Level [Pending] Current Medications Medications (Trade) Dose Ordered Sig/Eric Route PRN Reason Start Time Stop Time Status Last Admin Dose Admin Acetaminophen (Tylenol) 650 mg Q4H PRN ORAL fever 02/27/17 15:30 03/29/17 15:29 Al Hydroxide/Mg Hydroxide (Mylanta II) 30 ml Q6H PRN ORAL dyspepsia 02/27/17 15:30 03/29/17 15:29 Albuterol/ Ipratropium (DuoNeb 0.5-3(2.5)mg/3ml) 3 ml Q4H PRN HHN Shortness of Breath 02/27/17 15:30 03/04/17 15:29 Calcium Carbonate (OsCal D) 1 tab TID ORAL 02/28/17 09:00 03/30/17 08:59 03/01/17 18:48 Clonidine HCl (Catapres) 0.1 mg Q4H PRN ORAL sbp more than 160 02/27/17 15:30 03/29/17 15:29 Dextrose (Dextrose 50%) STAT PRN IV Hypoglycemia 02/27/17 15:30 03/29/17 15:29 Donepezil HCl (Aricept) 5 mg QHS ORAL 03/01/17 21:00 03/31/17 20:59 03/01/17 21:34 Finasteride (Proscar) 5 mg DAILY ORAL 02/28/17 09:00 03/30/17 08:59 03/01/17 08:39 Gabapentin (Neurontin) 300 mg THREE TIMES A DAY ORAL 02/27/17 18:00 03/29/17 17:59 03/01/17 18:45 Insulin Aspart (NovoLOG) BEFORE MEALS AND HS SUBQ 02/27/17 21:00 03/29/17 20:59 03/02/17 06:27 Nitroglycerin (Ntg) 0.4 mg Q5M X 3 DOSES PRN SL Prn Chest Pain 02/27/17 15:30 03/29/17 15:29 Ondansetron HCl (Zofran) 4 mg Q6H PRN IVP Nausea & Vomiting 02/27/17 15:30 03/29/17 15:29 Polyethylene Glycol (Miralax) 17 gm HSPRN PRN ORAL Constipation 02/27/17 15:30 03/29/17 15:29 Risperidone (RisperDAL) 0.25 mg BID PRN ORAL agitation 03/01/17 13:45 03/31/17 13:44 Tamsulosin HCl (Flomax) 0.4 mg BEDTIME ORAL 02/27/17 21:00 03/29/17 20:59 03/01/17 21:33 Temazepam (Restoril) 15 mg HSPRN PRN ORAL Insomnia 02/27/17 15:30 03/06/17 15:29 Valproic Acid (Depakene) 125 mg Q12HR ORAL 03/01/17 14:00 03/31/17 13:59 03/01/17 21:33 Xander RobisonDiamante del castillo NP Mar 02, 2017 07:53
[2017-03-02 08:32] LABS: ANION GAP 16 (5-15); CALCIUM 8.8 mg/dL (8.6-10.2); CARBON DIOXIDE 24 mEQ/L (20-30); CHLORIDE 99 mEQ/L (98-107); CREATININE 1.2 mg/dL (0.7-1.2); HEMOLYSIS 1; POTASSIUM 3.8 mEQ/L (3.4-4.9); SODIUM 139 mEQ/L (135-145)
[2017-03-02] MEDS: Valproic Acid 250mg/5ml Liquid ORAL SCH ×2 (09:46→20:51)
[2017-03-02] MEDS: Calcium Carbonate 500mg w/Vit D 200iu tab ORAL SCH ×3 (09:46→17:23)
[2017-03-02 11:34] VITALS: BP 150/84
[2017-03-02 15:38] VITALS: BP 158/75
--- NOTE | 2017-03-02 17:23 | Internal Med Progress Note ---
Subjective Date of Service: Mar 02, 2017 Physician Name Burce Sage Attending Physician Arian Givens MD Current Medications Medications (Trade) Dose Ordered Sig/Eric Route PRN Reason Start Time Stop Time Status Last Admin Dose Admin Acetaminophen (Tylenol) 650 mg Q4H PRN ORAL fever 02/27/17 15:30 03/29/17 15:29 Al Hydroxide/Mg Hydroxide (Mylanta II) 30 ml Q6H PRN ORAL dyspepsia 02/27/17 15:30 03/29/17 15:29 Albuterol/ Ipratropium (DuoNeb 0.5-3(2.5)mg/3ml) 3 ml Q4H PRN HHN Shortness of Breath 02/27/17 15:30 03/04/17 15:29 Calcium Carbonate (OsCal D) 1 tab TID ORAL 02/28/17 09:00 03/30/17 08:59 03/02/17 12:31 Clonidine HCl (Catapres) 0.1 mg Q4H PRN ORAL sbp more than 160 02/27/17 15:30 03/29/17 15:29 Dextrose (Dextrose 50%) STAT PRN IV Hypoglycemia 02/27/17 15:30 03/29/17 15:29 Donepezil HCl (Aricept) 5 mg QHS ORAL 03/01/17 21:00 03/31/17 20:59 03/01/17 21:34 Finasteride (Proscar) 5 mg DAILY ORAL 02/28/17 09:00 03/30/17 08:59 03/02/17 09:46 Gabapentin (Neurontin) 300 mg THREE TIMES A DAY ORAL 02/27/17 18:00 03/29/17 17:59 03/02/17 12:29 Insulin Aspart (NovoLOG) BEFORE MEALS AND HS SUBQ 02/27/17 21:00 03/29/17 20:59 03/02/17 12:30 Nitroglycerin (Ntg) 0.4 mg Q5M X 3 DOSES PRN SL Prn Chest Pain 02/27/17 15:30 03/29/17 15:29 Ondansetron HCl (Zofran) 4 mg Q6H PRN IVP Nausea & Vomiting 02/27/17 15:30 03/29/17 15:29 Polyethylene Glycol (Miralax) 17 gm HSPRN PRN ORAL Constipation 4/25/17 15:30 03/29/17 15:29 Risperidone (RisperDAL) 0.25 mg BID PRN ORAL agitation 03/01/17 13:45 03/31/17 13:44 Tamsulosin HCl (Flomax) 0.4 mg BEDTIME ORAL 02/27/17 21:00 03/29/17 20:59 03/01/17 21:33 Temazepam (Restoril) 15 mg HSPRN PRN ORAL Insomnia 02/27/17 15:30 03/06/17 15:29 Valproic Acid (Depakene) 125 mg Q12HR ORAL 03/01/17 14:00 03/31/17 13:59 03/02/17 09:46 Allergies: Coded Allergies: ASPIRIN (Unverified Allergy, Severe, Rash, 05/20/16) HEPARIN (Verified Allergy, Unknown, 12/24/16) ROS Limited/Unobtainable: Yes Subjective 81 YO M admitted with altered mental status. Cover for Int Med Dr Givens. Await psychiatry consult. Refusing meds Objective Last Vital Signs Date Time Temp Pulse Resp B/P Pulse Ox O2 Delivery O2 Flow Rate FiO2 03/02/17 15:38 97.3 65 23 158/75 97 Room Air Laboratory Tests Test 03/02/17 05:55 White Blood Count 6.1 K/UL (4.8-10.8) Red Blood Count 3.43 M/UL (4.70-6.10) L Hemoglobin 10.6 G/DL (14.2-18.0) L Hematocrit 32.8 % (42.0-52.0) L Mean Corpuscular Volume 96 FL (80-99) Mean Corpuscular Hemoglobin 30.8 PG (27.0-31.0) Mean Corpuscular Hemoglobin Concent 32.3 G/DL (32.0-36.0) Red Cell Distribution Width 12.3 % (11.6-14.8) Platelet Count 165 K/UL (150-450) Mean Platelet Volume 8.4 FL (6.5-10.1) Neutrophils (%) (Auto) 58.6 % (45.0-75.0) Lymphocytes (%) (Auto) 30.4 % (20.0-45.0) Monocytes (%) (Auto) 8.1 % (1.0-10.0) Eosinophils (%) (Auto) 2.5 % (0.0-3.0) Basophils (%) (Auto) 0.4 % (0.0-2.0) Sodium Level 139 mEQ/L (135-145) Potassium Level 3.8 mEQ/L (3.4-4.9) Chloride Level 99 mEQ/L (98-107) Carbon Dioxide Level 24 mEQ/L (20-30) Anion Gap 16 (5-15) H Blood Urea Nitrogen 11 mg/dL (7-23) Creatinine 1.2 mg/dL (0.7-1.2) Estimat Glomerular Filtration Rate mL/min (>60) Glucose Level 251 mg/dL (74-106) H Calcium Level 8.8 mg/dL (8.6-10.2) Microbiology Date/Time Source Procedure Growth Status 03/01/17 05:00 Urine,Clean Catch Urine Culture - Preliminary NO GROWTH AFTER 24 HOURS Resulted Intake and Output 03/01/17 03/02/17 19:00 07:00 Intake Total 1300 ml 1000 ml Balance 1300 ml 1000 ml Intake Oral 1300 ml 1000 ml # Voids 3 4 # Bowel Movements 1 Objective General: alert, cooperative, no distress, appears stated age Head: normocephalic, without obvious abnormality, atraumatic Eyes: conjunctivae/corneas clear. PERRL, EOM's intact Throat: lips, mucosa, and tongue normal. MMM Neck: supple, symmetrical, trachea midline, and no JVD Lungs: clear to auscultation bilaterally Heart: regular rate and rhythm, S1, S2 normal, no murmur, click, rub or gallop Abdomen: soft, non-tender, non-distended, bowel sounds normal; no masses or organomegaly Extremities: extremities normal, atraumatic, no cyanosis or edema Pulses: 2+ and symmetric Skin: skin color, texture, turgor normal; no rashes or lesions Neurologic: grossly normal, no focal deficits Assessment/Plan Problem List: (1) Diabetes mellitus type II, uncontrolled Assessment & Plan: Continue novolog sliding scale. (2) Altered mental status Assessment & Plan: acute encephalopathy vs psychosis (3) Alzheimer's dementia Assessment & Plan: See neuro note. Cont aricept. (4) BPH (benign prostatic hypertrophy) Assessment & Plan: Cont flomax (5) Hydronephrosis of right kidney (6) Hypercholesteremia (7) Psychosis Assessment & Plan: Continue depakote and risperdal. Refusing meds. Await Psych consult. Status: progressing BRUCE SAGE Mar 02, 2017 17:23
[2017-03-02 19:06] LABS: APPEARANCE,URINE CLEAR; KETONES,URINE NEGATIVE (NEGATIVE); LEUKOCYTE ESTERASE ,URINE NEGATIVE (NEGATIVE); NITRITE,URINE NEGATIVE (NEGATIVE); PH,URINE 6.5 (4.5-8.0); PROTEIN,URINE NEGATIVE (NEGATIVE); UROBILINOGEN,URINE NORMAL MG/DL (0.0-1.0)
[2017-03-02 20:00] VITALS: BP 131/64
[2017-03-02] MEDS: Donepezil 5mg Tab ORAL SCH (20:51)
[2017-03-02] MEDS: Tamsulosin 0.4mg cap ORAL SCH (20:51)
[2017-03-03 00:23] VITALS: BP 145/78
[2017-03-03 04:30] VITALS: BP 135/70
[2017-03-03] MEDS: NovoLOG Insulin Flexpen SUBQ SCH ×4 (07:02→20:54)
[2017-03-03 08:00] VITALS: BP 150/72
[2017-03-03 08:10] LABS: BASOPHILS % (AUTO) 0.5 % (0.0-2.0); EOSINOPHILS % (AUTO) 3.4 % (0.0-3.0); LYMPHOCYTES % (AUTO) 43.9 % (20.0-45.0); MEAN CORPUSCULAR HEMOGLOBIN 30.8 PG (27.0-31.0); MEAN CORPUSCULAR HGB CONC 32.2 G/DL (32.0-36.0); MEAN CORPUSCULAR VOLUME 95 FL (80-99); MONOCYTES % (AUTO) 8.1 % (1.0-10.0); NEUTROPHILS % (AUTO) 44.1 % (45.0-75.0); PLATELET COUNT 177 K/UL (150-450); RED CELL DISTRIBUTION WIDTH 12.5 % (11.6-14.8); WHITE BLOOD COUNT 4.8 K/UL (4.8-10.8)
[2017-03-03 08:35] LABS: ANION GAP 14 (5-15); CALCIUM 9.7 mg/dL (8.6-10.2); CARBON DIOXIDE 26 mEQ/L (20-30); CHLORIDE 104 mEQ/L (98-107); CREATININE 1.1 mg/dL (0.7-1.2); HEMOLYSIS 1; SODIUM 144 mEQ/L (135-145)
--- NOTE | 2017-03-03 09:27 | General Progress Note ---
Assessment/Plan Problem List: (1) Altered mental status ICD Codes: R41.82 - Altered mental status, unspecified SNOMED: 907193011 (2) Hypertension ICD Codes: I10 - Essential (primary) hypertension SNOMED: 77840616 (3) Diabetes mellitus type II, uncontrolled ICD Codes: E11.65 - Type 2 diabetes mellitus with hyperglycemia SNOMED: 39880967, 743285497 (4) Hypercholesteremia ICD Codes: E78.0 - Pure hypercholesterolemia SNOMED: 24770789 Assessment/Plan glucose values are stable w/o Levemir continue Novolog sliding scale ac / hs Subjective ROS Limited/Unobtainable: Yes Allergies: Coded Allergies: ASPIRIN (Unverified Allergy, Severe, Rash, 05/20/16) HEPARIN (Verified Allergy, Unknown, 12/24/16) Subjective admitted with AMS glucose values are stable sitter at bedside Objective Last 24 Hour Vital Signs Date Time Temp Pulse Resp B/P Pulse Ox O2 Delivery O2 Flow Rate FiO2 03/03/17 08:00 97.9 69 21 150/72 96 Room Air 03/03/17 04:30 97.5 72 18 135/70 98 Room Air 03/03/17 00:23 97.7 63 18 145/78 98 Room Air 03/02/17 20:00 97.5 75 18 131/64 98 Room Air 03/02/17 18:46 60 18 Room Air 03/02/17 15:38 97.3 65 23 158/75 97 Room Air 03/02/17 11:34 97.9 63 21 150/84 95 Room Air Intake and Output 03/02/17 03/03/17 19:00 07:00 Intake Total 960 ml 100 ml Balance 960 ml 100 ml Intake Oral 960 ml Other 100 ml # Voids 1 5 # Bowel Movements 1 Laboratory Tests 03/02/17 17:50: Urine Color Pale yellow, Urine Appearance Clear, Urine pH 6.5, Urine Specific [place] 1.010, Urine Protein Negative, Urine Glucose (UA) 4+H, Urine Ketones Negative, Urine Occult Blood Negative, Urine Nitrite Negative, Urine Bilirubin Negative, Urine Urobilinogen Normal, Urine Leukocyte Esterase Negative 03/03/17 06:34: White Blood Count 4.8, Red Blood Count 3.70L, Hemoglobin 11.4L, Hematocrit 35.3L , Mean Corpuscular Volume 95, Mean Corpuscular Hemoglobin 30.8, Mean Corpuscular Hemoglobin Concent 32.2, Red Cell Distribution Width 12.5, Platelet Count 177, Mean Platelet Volume 8.0, Neutrophils (%) (Auto) 44.1L, Lymphocytes ( %) (Auto) 43.9, Monocytes (%) (Auto) 8.1, Eosinophils (%) (Auto) 3.4H, Basophils (%) (Auto) 0.5, Sodium Level 144, Potassium Level 4.0, Chloride Level 104, Carbon Dioxide Level 26, Anion Gap 14, Blood Urea Nitrogen 9, Creatinine 1.1, Estimat Glomerular Filtration Rate , Glucose Level 200H, Calcium Level 9.7 Height (Feet): 5 Height (Inches): 3.00 Weight (Pounds): 173 General Appearance: no apparent distress Neck: normal alignment Cardiovascular: normal rate Respiratory/Chest: lungs clear Abdomen: normal bowel sounds Edema: no edema noted Arm (L), no edema noted Arm (R), no edema noted Leg (L), no edema noted Leg (R), no edema noted Pedal (L), no edema noted Pedal (R), no edema noted Generalized Objective Current Medications Medications (Trade) Dose Ordered Sig/Eric Route PRN Reason Start Time Stop Time Status Last Admin Dose Admin Acetaminophen (Tylenol) 650 mg Q4H PRN ORAL fever 02/27/17 15:30 03/29/17 15:29 Al Hydroxide/Mg Hydroxide (Mylanta II) 30 ml Q6H PRN ORAL dyspepsia 02/27/17 15:30 03/29/17 15:29 Albuterol/ Ipratropium (DuoNeb 0.5-3(2.5)mg/3ml) 3 ml Q4H PRN HHN Shortness of Breath 02/27/17 15:30 03/04/17 15:29 Calcium Carbonate (OsCal D) 1 tab TID ORAL 02/28/17 09:00 03/30/17 08:59 03/02/17 17:23 Clonidine HCl (Catapres) 0.1 mg Q4H PRN ORAL sbp more than 160 02/27/17 15:30 03/29/17 15:29 Dextrose (Dextrose 50%) STAT PRN IV Hypoglycemia 02/27/17 15:30 03/29/17 15:29 Donepezil HCl (Aricept) 5 mg QHS ORAL 03/01/17 21:00 03/31/17 20:59 03/02/17 20:51 Finasteride (Proscar) 5 mg DAILY ORAL 02/28/17 09:00 03/30/17 08:59 03/02/17 09:46 Gabapentin (Neurontin) 300 mg THREE TIMES A DAY ORAL 02/27/17 18:00 03/29/17 17:59 03/02/17 17:23 Insulin Aspart (NovoLOG) BEFORE MEALS AND HS SUBQ 02/27/17 21:00 03/29/17 20:59 03/03/17 07:02 Nitroglycerin (Ntg) 0.4 mg Q5M X 3 DOSES PRN SL Prn Chest Pain 02/27/17 15:30 03/29/17 15:29 Ondansetron HCl (Zofran) 4 mg Q6H PRN IVP Nausea & Vomiting 02/27/17 15:30 03/29/17 15:29 Polyethylene Glycol (Miralax) 17 gm HSPRN PRN ORAL Constipation 02/27/17 15:30 03/29/17 15:29 Risperidone (RisperDAL) 1 mg BEDTIME ORAL 03/02/17 21:00 04/01/17 20:59 03/02/17 20:51 Tamsulosin HCl (Flomax) 0.4 mg BEDTIME ORAL 02/27/17 21:00 03/29/17 20:59 03/02/17 20:51 Temazepam (Restoril) 15 mg HSPRN PRN ORAL Insomnia 02/27/17 15:30 03/06/17 15:29 Valproic Acid (Depakene) 125 mg Q12HR ORAL 03/01/17 14:00 03/31/17 13:59 03/02/17 20:51 Item Value Date Time Bedside Blood Glucose 197 mg/dl H 03/03/17 0702 Bedside Blood Glucose 197 mg/dl H 03/03/17 0650 Bedside Blood Glucose 157 mg/dl H 03/02/17 2242 Bedside Blood Glucose 227 mg/dl H 03/02/17 1724 Bedside Blood Glucose 191 mg/dl H 03/02/17 1230 FRANCISCO COOPER Mar 03, 2017 09:27
[2017-03-03] MEDS: Valproic Acid 250mg/5ml Liquid ORAL SCH ×2 (09:31→20:52)
[2017-03-03] MEDS: Calcium Carbonate 500mg w/Vit D 200iu tab ORAL SCH ×3 (09:31→17:52)
[2017-03-03] MEDS ORDERED: NS 275ml ONE (09:46)
[2017-03-03] MEDS ORDERED: Tubing IV Secondary IV ONE (09:46)
--- NOTE | 2017-03-03 10:40 | Pulmonology Progress Note ---
Assessment/Plan Assessment/Plan ASSESSMENT AMS 2 to Acute encephalopathy on chronic dementia Alzheimer dementia with behavioral changes DM OOC HTN BPH Noncompliance Anemia PLAN OF CARE MS floor IVF psych eval SS for placement BP management with Clonidine prn, monitor closely, may need routine anti-HTN BS management with SS of insulin, [id number] not at goal endo consult appreciated DVT prophylaxis O2 HHN prn Pain management bowel regimen neuro eval noted continue Aricept , added Depakote - per neuro mild sedation prn, Risperdal prn sitter at bedside for safety monitor HH, if further trend down, anemia workup need placement case discussed and evaluated by supervising physician Subjective Allergies: Coded Allergies: ASPIRIN (Unverified Allergy, Severe, Rash, 05/20/16) HEPARIN (Verified Allergy, Unknown, 12/24/16) Subjective denies chest pain, SOB, appears to be confused no signs of respiratory distress, on RA pulse ox stable sitter at the bedside Objective Last 24 Hour Vital Signs Date Time Temp Pulse Resp B/P Pulse Ox O2 Delivery O2 Flow Rate FiO2 03/03/17 08:00 97.9 69 21 150/72 96 Room Air 03/03/17 04:30 97.5 72 18 135/70 98 Room Air 03/03/17 00:23 97.7 63 18 145/78 98 Room Air 03/02/17 20:00 97.5 75 18 131/64 98 Room Air 03/02/17 18:46 60 18 Room Air 03/02/17 15:38 97.3 65 23 158/75 97 Room Air 03/02/17 11:34 97.9 63 21 150/84 95 Room Air Intake and Output 03/02/17 03/03/17 19:00 07:00 Intake Total 960 ml 100 ml Balance 960 ml 100 ml Intake Oral 960 ml Other 100 ml # Voids 1 5 # Bowel Movements 1 Objective General Appearance: no acute distress, other - awake, alert, responsive, confused and forgetful HEENT: normocephalic, atraumatic, anicteric, mucous membranes moist Respiratory/Chest: lungs clear - with moderate air entry , no respiratory distress, no accessory muscle use Cardiovascular: normal rate, regular rhythm, no JVD Abdomen: normal bowel sounds, soft, non tender, non distended Genitourinary: normal external genitalia Extremities: no edema, pedal pulses normal Skin: other - multiple brown color lesions over the back Neurologic/Psychiatric: alert, oriented x 3 - confused Microbiology Date/Time Source Procedure Growth Status 03/01/17 05:00 Urine,Clean Catch Urine Culture - Final NO GROWTH AFTER 48 HOURS Complete Laboratory Tests 03/02/17 17:50: Urine Color Pale yellow, Urine Appearance Clear, Urine pH 6.5, Urine Specific [place] 1.010, Urine Protein Negative, Urine Glucose (UA) 4+H, Urine Ketones Negative, Urine Occult Blood Negative, Urine Nitrite Negative, Urine Bilirubin Negative, Urine Urobilinogen Normal, Urine Leukocyte Esterase Negative 03/03/17 06:34: White Blood Count 4.8, Red Blood Count 3.70L, Hemoglobin 11.4L, Hematocrit 35.3L , Mean Corpuscular Volume 95, Mean Corpuscular Hemoglobin 30.8, Mean Corpuscular Hemoglobin Concent 32.2, Red Cell Distribution Width 12.5, Platelet Count 177, Mean Platelet Volume 8.0, Neutrophils (%) (Auto) 44.1L, Lymphocytes ( %) (Auto) 43.9, Monocytes (%) (Auto) 8.1, Eosinophils (%) (Auto) 3.4H, Basophils (%) (Auto) 0.5, Sodium Level 144, Potassium Level 4.0, Chloride Level 104, Carbon Dioxide Level 26, Anion Gap 14, Blood Urea Nitrogen 9, Creatinine 1.1, Estimat Glomerular Filtration Rate , Glucose Level 200H, Calcium Level 9.7 Current Medications Medications (Trade) Dose Ordered Sig/Eric Route PRN Reason Start Time Stop Time Status Last Admin Dose Admin Acetaminophen (Tylenol) 650 mg Q4H PRN ORAL fever 02/27/17 15:30 03/29/17 15:29 Al Hydroxide/Mg Hydroxide (Mylanta II) 30 ml Q6H PRN ORAL dyspepsia 02/27/17 15:30 03/29/17 15:29 Albuterol/ Ipratropium (DuoNeb 0.5-3(2.5)mg/3ml) 3 ml Q4H PRN HHN Shortness of Breath 02/27/17 15:30 03/04/17 15:29 Calcium Carbonate (OsCal D) 1 tab TID ORAL 02/28/17 09:00 03/30/17 08:59 4/29/17 09:31 Clonidine HCl (Catapres) 0.1 mg Q4H PRN ORAL sbp more than 160 02/27/17 15:30 03/29/17 15:29 Dextrose (Dextrose 50%) STAT PRN IV Hypoglycemia 02/27/17 15:30 03/29/17 15:29 Donepezil HCl (Aricept) 5 mg QHS ORAL 03/01/17 21:00 03/31/17 20:59 03/02/17 20:51 Finasteride (Proscar) 5 mg DAILY ORAL 02/28/17 09:00 03/30/17 08:59 03/03/17 09:31 Gabapentin (Neurontin) 300 mg THREE TIMES A DAY ORAL 02/27/17 18:00 03/29/17 17:59 03/03/17 09:31 Insulin Aspart (NovoLOG) BEFORE MEALS AND HS SUBQ 02/27/17 21:00 03/29/17 20:59 03/03/17 07:02 Nitroglycerin (Ntg) 0.4 mg Q5M X 3 DOSES PRN SL Prn Chest Pain 02/27/17 15:30 03/29/17 15:29 Ondansetron HCl (Zofran) 4 mg Q6H PRN IVP Nausea & Vomiting 02/27/17 15:30 03/29/17 15:29 Polyethylene Glycol (Miralax) 17 gm HSPRN PRN ORAL Constipation 02/27/17 15:30 03/29/17 15:29 Risperidone (RisperDAL) 1 mg BEDTIME ORAL 03/02/17 21:00 04/01/17 20:59 03/02/17 20:51 Tamsulosin HCl (Flomax) 0.4 mg BEDTIME ORAL 02/27/17 21:00 03/29/17 20:59 03/02/17 20:51 Temazepam (Restoril) 15 mg HSPRN PRN ORAL Insomnia 02/27/17 15:30 03/06/17 15:29 Valproic Acid (Depakene) 125 mg Q12HR ORAL 03/01/17 14:00 03/31/17 13:59 03/03/17 09:31 Xander RobisonDiamante del castillo NP Mar 03, 2017 10:40
[2017-03-03 11:41] VITALS: BP 151/81
[2017-03-03 15:40] VITALS: BP 145/70
--- NOTE | 2017-03-03 17:16 | Internal Med Progress Note ---
Subjective Date of Service: Mar 03, 2017 Physician Name Bruce Sage Attending Physician Arian Givens MD Current Medications Medications (Trade) Dose Ordered Sig/Eric Route PRN Reason Start Time Stop Time Status Last Admin Dose Admin Acetaminophen (Tylenol) 650 mg Q4H PRN ORAL fever 02/27/17 15:30 03/29/17 15:29 Al Hydroxide/Mg Hydroxide (Mylanta II) 30 ml Q6H PRN ORAL dyspepsia 02/27/17 15:30 03/29/17 15:29 Albuterol/ Ipratropium (DuoNeb 0.5-3(2.5)mg/3ml) 3 ml Q4H PRN HHN Shortness of Breath 02/27/17 15:30 03/04/17 15:29 Calcium Carbonate (OsCal D) 1 tab TID ORAL 02/28/17 09:00 03/30/17 08:59 03/03/17 13:46 Clonidine HCl (Catapres) 0.1 mg Q4H PRN ORAL sbp more than 160 02/27/17 15:30 03/29/17 15:29 Dextrose (Dextrose 50%) STAT PRN IV Hypoglycemia 02/27/17 15:30 03/29/17 15:29 Donepezil HCl (Aricept) 5 mg QHS ORAL 03/01/17 21:00 03/31/17 20:59 03/02/17 20:51 Finasteride (Proscar) 5 mg DAILY ORAL 02/28/17 09:00 03/30/17 08:59 03/03/17 09:31 Gabapentin (Neurontin) 300 mg THREE TIMES A DAY ORAL 02/27/17 18:00 03/29/17 17:59 03/03/17 13:46 Insulin Aspart (NovoLOG) BEFORE MEALS AND HS SUBQ 02/27/17 21:00 03/29/17 20:59 03/03/17 16:45 Nitroglycerin (Ntg) 0.4 mg Q5M X 3 DOSES PRN SL Prn Chest Pain 02/27/17 15:30 03/29/17 15:29 Ondansetron HCl (Zofran) 4 mg Q6H PRN IVP Nausea & Vomiting 02/27/17 15:30 03/29/17 15:29 Polyethylene Glycol (Miralax) 17 gm HSPRN PRN ORAL Constipation 4/25/17 15:30 03/29/17 15:29 Risperidone (RisperDAL) 1 mg BEDTIME ORAL 03/02/17 21:00 04/01/17 20:59 03/02/17 20:51 Tamsulosin HCl (Flomax) 0.4 mg BEDTIME ORAL 02/27/17 21:00 03/29/17 20:59 03/02/17 20:51 Temazepam (Restoril) 15 mg HSPRN PRN ORAL Insomnia 02/27/17 15:30 03/06/17 15:29 Valproic Acid (Depakene) 125 mg Q12HR ORAL 03/01/17 14:00 03/31/17 13:59 03/03/17 09:31 Allergies: Coded Allergies: ASPIRIN (Unverified Allergy, Severe, Rash, 05/20/16) HEPARIN (Verified Allergy, Unknown, 12/24/16) ROS Limited/Unobtainable: No Constitutional: Reports: no symptoms HEENT: Reports: no symptoms Cardiovascular: Reports: no symptoms Respiratory: Reports: no symptoms Gastrointestinal/Abdominal: Reports: no symptoms Genitourinary: Reports: no symptoms Neurologic/Psychiatric: Reports: no symptoms Subjective 81 YO M admitted with altered mental status. Cover for Int Med Dr Givens. Await psychiatry consult. Refusing meds. Accepted at [facility] Objective Last Vital Signs Date Time Temp Pulse Resp B/P Pulse Ox O2 Delivery O2 Flow Rate FiO2 03/03/17 15:40 98.6 70 22 145/70 95 Room Air Laboratory Tests Test 03/02/17 17:50 03/03/17 06:34 Urine Color Pale yellow Urine Appearance Clear Urine pH 6.5 (4.5-8.0) Urine Specific [place] 1.010 (1.005-1.035) Urine Protein Negative (NEGATIVE) Urine Glucose (UA) 4+ (NEGATIVE) H Urine Ketones Negative (NEGATIVE) Urine Occult Blood Negative (NEGATIVE) Urine Nitrite Negative (NEGATIVE) Urine Bilirubin Negative (NEGATIVE) Urine Urobilinogen Normal MG/DL (0.0-1.0) Urine Leukocyte Esterase Negative (NEGATIVE) White Blood Count 4.8 K/UL (4.8-10.8) Red Blood Count 3.70 M/UL (4.70-6.10) L Hemoglobin 11.4 G/DL (14.2-18.0) L Hematocrit 35.3 % (42.0-52.0) L Mean Corpuscular Volume 95 FL (80-99) Mean Corpuscular Hemoglobin 30.8 PG (27.0-31.0) Mean Corpuscular Hemoglobin Concent 32.2 G/DL (32.0-36.0) Red Cell Distribution Width 12.5 % (11.6-14.8) Platelet Count 177 K/UL (150-450) Mean Platelet Volume 8.0 FL (6.5-10.1) Neutrophils (%) (Auto) 44.1 % (45.0-75.0) L Lymphocytes (%) (Auto) 43.9 % (20.0-45.0) Monocytes (%) (Auto) 8.1 % (1.0-10.0) Eosinophils (%) (Auto) 3.4 % (0.0-3.0) H Basophils (%) (Auto) 0.5 % (0.0-2.0) Sodium Level 144 mEQ/L (135-145) Potassium Level 4.0 mEQ/L (3.4-4.9) Chloride Level 104 mEQ/L (98-107) Carbon Dioxide Level 26 mEQ/L (20-30) Anion Gap 14 (5-15) Blood Urea Nitrogen 9 mg/dL (7-23) Creatinine 1.1 mg/dL (0.7-1.2) Estimat Glomerular Filtration Rate mL/min (>60) Glucose Level 200 mg/dL (74-106) H Calcium Level 9.7 mg/dL (8.6-10.2) Microbiology Date/Time Source Procedure Growth Status 03/01/17 05:00 Urine,Clean Catch Urine Culture - Final NO GROWTH AFTER 48 HOURS Complete Intake and Output 03/02/17 03/03/17 19:00 07:00 Intake Total 960 ml 100 ml Balance 960 ml 100 ml Intake Oral 960 ml Other 100 ml # Voids 1 5 # Bowel Movements 1 Objective General: alert, cooperative, no distress, appears stated age Head: normocephalic, without obvious abnormality, atraumatic Eyes: conjunctivae/corneas clear. PERRL, EOM's intact Throat: lips, mucosa, and tongue normal. MMM Neck: supple, symmetrical, trachea midline, and no JVD Lungs: clear to auscultation bilaterally Heart: regular rate and rhythm, S1, S2 normal, no murmur, click, rub or gallop Abdomen: soft, non-tender, non-distended, bowel sounds normal; no masses or organomegaly Extremities: extremities normal, atraumatic, no cyanosis or edema Pulses: 2+ and symmetric Skin: skin color, texture, turgor normal; no rashes or lesions Neurologic: grossly normal, no focal deficits Assessment/Plan Problem List: (1) Diabetes mellitus type II, uncontrolled Assessment & Plan: See endocrinology note. Continue novolog sliding scale. (2) Altered mental status Assessment & Plan: acute encephalopathy vs psychosis (3) Alzheimer's dementia Assessment & Plan: See neuro note. Cont aricept. (4) BPH (benign prostatic hypertrophy) Assessment & Plan: Cont flomax (5) Hydronephrosis of right kidney (6) Hypercholesteremia (7) Psychosis Assessment & Plan: Continue depakote and risperdal. Refusing meds. Await Psych consult. Status: progressing BRUCE SAGE Mar 03, 2017 17:16
[2017-03-03 20:00] VITALS: BP 158/83
[2017-03-03] MEDS: Tamsulosin 0.4mg cap ORAL SCH (20:53)
[2017-03-03] MEDS: Donepezil 5mg Tab ORAL SCH (20:53)
--- NOTE | 2017-03-03 22:48 | Progress Note ---
DATE: 03/03/2017 SUBJECTIVE: The patient's mental condition is unchanged since previous encounter. He continues to be slightly sedated today. Continues to be illogical and uncooperative with examination specifically when I ask for the date and time. Compliant with medication. MENTAL STATUS EXAMINATION: The patient is alert and oriented times self. Mood is irritable. Affect is constricted. Congruent mood. Thought process is tangential. Thought content, positive for delusions. Memory concentration and attention is impaired. Insight and judgement is impaired. ASSESSMENT: 1. Dementia. 2. Psychosis. PLAN: 1. The patient will be continued on risperidone. 2. Provide the patient with supportive therapy and reality orientation. Shantel Le M.D. DR: RODOLFO JOB#: [id number] CC:
--- NOTE | 2017-03-04 01:18 | Consultation ---
DATE OF CONSULTATION: HISTORY OF PRESENT ILLNESS: This is an 81-year-old male with a history of dementia and multiple medical problems, who has been admitted to the hospital for medical stabilization. Psychiatry was consulted. The patient was agitated and uncooperative. During the evaluation, the patient was uncooperative with antidepressant. He was paranoid. He stated that he is not "crazy" to speak to me. PAST PSYCHIATRIC HISTORY: He has been treated with antipsychotics in the past and diagnosed with dementia. PAST MEDICAL HISTORY: Significant for acute renal failure, hematuria, diabetes mellitus, hypercholesterolemia, BPH, hypertension, COPD, cystitis, cellulitis and UTI. ALLERGIES: To aspirin and heparin. SUBSTANCE ABUSE HISTORY: No history of illicit drug use or alcohol. SOCIAL HISTORY: The patient lives with daughter. He used to be a smoker. MENTAL STATUS EXAMINATION: Alert and oriented times self. Mood is irritable. Affect is constricted. Congruent mood. Thought process is tangential. Thought content, positive for paranoid ideation. Cognition is impaired. Insight and judgement is impaired. ASSESSMENT: Hartsel I Psychotic disorder and dementia. Hartsel II Deferred. Hart[place] III As above. Hart[place] IV Low Hartsel V Global assessment of functioning is 20. PLAN: 1. We will start the patient on risperidone 1 mg p.o. q.h.s. 2. Provide the patient with supportive therapy and reality orientation. Shantel Le M.D. DR: RODOLFO JOB#: [id number] CC:
[2017-03-04] MEDS: NovoLOG Insulin Flexpen SUBQ SCH ×3 (06:11→17:25)
[2017-03-04 08:00] VITALS: BP 154/69
[2017-03-04 08:00] LABS: BASOPHILS % (AUTO) 0.5 % (0.0-2.0); LYMPHOCYTES % (AUTO) 34.6 % (20.0-45.0); MEAN CORPUSCULAR HEMOGLOBIN 31.1 PG (27.0-31.0); MEAN CORPUSCULAR HGB CONC 32.6 G/DL (32.0-36.0); MEAN CORPUSCULAR VOLUME 96 FL (80-99); MEAN PLATELET VOLUME 8.2 FL (6.5-10.1); MONOCYTES % (AUTO) 7.5 % (1.0-10.0); NEUTROPHILS % (AUTO) 55.4 % (45.0-75.0); PLATELET COUNT 199 K/UL (150-450); RED BLOOD COUNT 4.21 M/UL (4.70-6.10); RED CELL DISTRIBUTION WIDTH 12.5 % (11.6-14.8); WHITE BLOOD COUNT 6.8 K/UL (4.8-10.8)
[2017-03-04 08:04] LABS: ANION GAP 15 (5-15); CALCIUM 10.1 mg/dL (8.6-10.2); CARBON DIOXIDE 29 mEQ/L (20-30); CHLORIDE 96 mEQ/L (98-107); CREATININE 1.2 mg/dL (0.7-1.2); HEMOLYSIS 1; POTASSIUM 3.6 mEQ/L (3.4-4.9); SODIUM 140 mEQ/L (135-145)
--- NOTE | 2017-03-04 08:54 | General Progress Note ---
Assessment/Plan Problem List: (1) Altered mental status ICD Codes: R41.82 - Altered mental status, unspecified SNOMED: 291726708 (2) Hypertension ICD Codes: I10 - Essential (primary) hypertension SNOMED: 13267703 (3) Diabetes mellitus type II, uncontrolled ICD Codes: E11.65 - Type 2 diabetes mellitus with hyperglycemia SNOMED: 46098945, 942708458 (4) Hypercholesteremia ICD Codes: E78.0 - Pure hypercholesterolemia SNOMED: 88916394 Assessment/Plan meal time glucose is elevated add Starlix 60 mg ac tid continue Novolog sliding scale ac / hs Subjective ROS Limited/Unobtainable: Yes Allergies: Coded Allergies: ASPIRIN (Unverified Allergy, Severe, Rash, 05/20/16) HEPARIN (Verified Allergy, Unknown, 12/24/16) Subjective events noted Objective Last 24 Hour Vital Signs Date Time Temp Pulse Resp B/P Pulse Ox O2 Delivery O2 Flow Rate FiO2 03/03/17 20:00 97.2 74 20 158/83 97 Room Air 03/03/17 19:30 70 18 Room Air 21 03/03/17 15:40 98.6 70 22 145/70 95 Room Air 03/03/17 12:00 76 18 Room Air 03/03/17 11:41 97.7 76 24 151/81 96 Room Air Intake and Output 03/03/17 03/04/17 19:00 07:00 Intake Total 960 ml 260 ml Balance 960 ml 260 ml Intake Oral 960 ml 260 ml # Voids 6 1 Laboratory Tests 03/04/17 06:50: White Blood Count 6.8, Red Blood Count 4.21L, Hemoglobin 13.1L, Hematocrit 40.2L , Mean Corpuscular Volume 96, Mean Corpuscular Hemoglobin 31.1H, Mean Corpuscular Hemoglobin Concent 32.6, Red Cell Distribution Width 12.5, Platelet Count 199, Mean Platelet Volume 8.2, Neutrophils (%) (Auto) 55.4, Lymphocytes (% ) (Auto) 34.6, Monocytes (%) (Auto) 7.5, Eosinophils (%) (Auto) 2.0, Basophils ( %) (Auto) 0.5, Sodium Level 140, Potassium Level 3.6, Chloride Level 96L, Carbon Dioxide Level 29, Anion Gap 15, Blood Urea Nitrogen 14, Creatinine 1.2, Estimat Glomerular Filtration Rate , Glucose Level 199H, Calcium Level 10.1 Height (Feet): 5 Height (Inches): 3.00 Weight (Pounds): 173 General Appearance: no apparent distress Neck: non-tender Cardiovascular: normal peripheral pulses Respiratory/Chest: chest wall non-tender Abdomen: normal bowel sounds Objective Current Medications Medications (Trade) Dose Ordered Sig/Eric Route PRN Reason Start Time Stop Time Status Last Admin Dose Admin Acetaminophen (Tylenol) 650 mg Q4H PRN ORAL fever 02/27/17 15:30 03/29/17 15:29 Al Hydroxide/Mg Hydroxide (Mylanta II) 30 ml Q6H PRN ORAL dyspepsia 02/27/17 15:30 03/29/17 15:29 Albuterol/ Ipratropium (DuoNeb 0.5-3(2.5)mg/3ml) 3 ml Q4H PRN HHN Shortness of Breath 02/27/17 15:30 03/04/17 15:29 Calcium Carbonate (OsCal D) 1 tab TID ORAL 02/28/17 09:00 03/30/17 08:59 03/03/17 17:52 Clonidine HCl (Catapres) 0.1 mg Q4H PRN ORAL sbp more than 160 02/27/17 15:30 03/29/17 15:29 Dextrose (Dextrose 50%) STAT PRN IV Hypoglycemia 02/27/17 15:30 03/29/17 15:29 Donepezil HCl (Aricept) 5 mg QHS ORAL 03/01/17 21:00 03/31/17 20:59 03/03/17 20:53 Finasteride (Proscar) 5 mg DAILY ORAL 02/28/17 09:00 03/30/17 08:59 03/03/17 09:31 Gabapentin (Neurontin) 300 mg THREE TIMES A DAY ORAL 02/27/17 18:00 03/29/17 17:59 03/03/17 17:52 Insulin Aspart (NovoLOG) BEFORE MEALS AND HS SUBQ 02/27/17 21:00 03/29/17 20:59 03/04/17 06:11 Nitroglycerin (Ntg) 0.4 mg Q5M X 3 DOSES PRN SL Prn Chest Pain 02/27/17 15:30 03/29/17 15:29 Ondansetron HCl (Zofran) 4 mg Q6H PRN IVP Nausea & Vomiting 02/27/17 15:30 03/29/17 15:29 Polyethylene Glycol (Miralax) 17 gm HSPRN PRN ORAL Constipation 02/27/17 15:30 03/29/17 15:29 Risperidone (RisperDAL) 1 mg BEDTIME ORAL 03/02/17 21:00 04/01/17 20:59 03/03/17 20:52 Tamsulosin HCl (Flomax) 0.4 mg BEDTIME ORAL 02/27/17 21:00 03/29/17 20:59 03/03/17 20:53 Temazepam (Restoril) 15 mg HSPRN PRN ORAL Insomnia 02/27/17 15:30 03/06/17 15:29 Valproic Acid (Depakene) 125 mg Q12HR ORAL 03/01/17 14:00 03/31/17 13:59 03/03/17 20:52 Item Value Date Time Bedside Blood Glucose 136 mg/dl H 03/04/17 0630 Bedside Blood Glucose 146 mg/dl H 03/03/17 2100 Bedside Blood Glucose 272 mg/dl H 03/03/17 1645 Bedside Blood Glucose 291 mg/dl H 03/03/17 1218 Bedside Blood Glucose 197 mg/dl H 03/03/17 0702 FRANCISCO COOPER Mar 04, 2017 08:54
[2017-03-04] MEDS: Calcium Carbonate 500mg w/Vit D 200iu tab ORAL SCH ×3 (09:30→17:22)
[2017-03-04] MEDS: Valproic Acid 250mg/5ml Liquid ORAL SCH (09:31)
[2017-03-04 12:27] VITALS: BP 159/90
--- NOTE | 2017-03-04 13:17 | Pulmonology Progress Note ---
Assessment/Plan Assessment/Plan ASSESSMENT AMS 2 to Acute encephalopathy on chronic dementia Alzheimer dementia with behavioral changes DM OOC HTN BPH Noncompliance Anemia PLAN OF CARE MS floor IVF psych eval SS for placement BP management with Clonidine prn, monitor closely, may need routine anti-HTN BS management with SS of insulin, CiV5s-3.4 not at goal endo consult appreciated DVT prophylaxis O2 HHN prn Pain management bowel regimen neuro eval noted continue Aricept , added Depakote - per neuro mild sedation prn, Risperdal prn sitter at bedside for safety monitor HH, if further trend down, anemia workup need placement m ready for dc when placement found and secured case discussed and evaluated by supervising physician Subjective Allergies: Coded Allergies: ASPIRIN (Unverified Allergy, Severe, Rash, 05/20/16) HEPARIN (Verified Allergy, Unknown, 12/24/16) Subjective denies chest pain, SOB, confused no signs of respiratory distress, on RA pulse ox stable sitter at the bedside Objective Last 24 Hour Vital Signs Date Time Temp Pulse Resp B/P Pulse Ox O2 Delivery O2 Flow Rate FiO2 03/04/17 12:27 97.5 101 20 159/90 99 Room Air 03/04/17 08:00 97.2 70 15 154/69 95 Nasal Cannula 03/04/17 07:05 62 18 Room Air 03/03/17 20:00 97.2 74 20 158/83 97 Room Air 03/03/17 19:30 70 18 Room Air 21 03/03/17 15:40 98.6 70 22 145/70 95 Room Air Intake and Output 03/03/17 03/04/17 19:00 07:00 Intake Total 960 ml 260 ml Balance 960 ml 260 ml Intake Oral 960 ml 260 ml # Voids 6 1 Objective General Appearance: no acute distress, other - awake, alert, responsive, confused and forgetful HEENT: normocephalic, atraumatic, anicteric, mucous membranes moist Respiratory/Chest: lungs clear - with moderate air entry , no respiratory distress, no accessory muscle use Cardiovascular: normal rate, regular rhythm, no JVD Abdomen: normal bowel sounds, soft, non tender, non distended Genitourinary: normal external genitalia Extremities: no edema, pedal pulses normal Skin: other - multiple brown color lesions over the back Neurologic/Psychiatric: alert, oriented x 3 - confused Laboratory Tests 03/04/17 06:50: White Blood Count 6.8, Red Blood Count 4.21L, Hemoglobin 13.1L, Hematocrit 40.2L , Mean Corpuscular Volume 96, Mean Corpuscular Hemoglobin 31.1H, Mean Corpuscular Hemoglobin Concent 32.6, Red Cell Distribution Width 12.5, Platelet Count 199, Mean Platelet Volume 8.2, Neutrophils (%) (Auto) 55.4, Lymphocytes (% ) (Auto) 34.6, Monocytes (%) (Auto) 7.5, Eosinophils (%) (Auto) 2.0, Basophils ( %) (Auto) 0.5, Sodium Level 140, Potassium Level 3.6, Chloride Level 96L, Carbon Dioxide Level 29, Anion Gap 15, Blood Urea Nitrogen 14, Creatinine 1.2, Estimat Glomerular Filtration Rate , Glucose Level 199H, Calcium Level 10.1 Current Medications Medications (Trade) Dose Ordered Sig/Eric Route PRN Reason Start Time Stop Time Status Last Admin Dose Admin Acetaminophen (Tylenol) 650 mg Q4H PRN ORAL fever 02/27/17 15:30 03/29/17 15:29 Al Hydroxide/Mg Hydroxide (Mylanta II) 30 ml Q6H PRN ORAL dyspepsia 02/27/17 15:30 03/29/17 15:29 Albuterol/ Ipratropium (DuoNeb 0.5-3(2.5)mg/3ml) 3 ml Q4H PRN HHN Shortness of Breath 02/27/17 15:30 03/04/17 15:29 Calcium Carbonate (OsCal D) 1 tab TID ORAL 02/28/17 09:00 03/30/17 08:59 03/04/17 12:40 Clonidine HCl (Catapres) 0.1 mg Q4H PRN ORAL sbp more than 160 02/27/17 15:30 03/29/17 15:29 Dextrose (Dextrose 50%) STAT PRN IV Hypoglycemia 02/27/17 15:30 03/29/17 15:29 Donepezil HCl (Aricept) 5 mg QHS ORAL 03/01/17 21:00 03/31/17 20:59 03/03/17 20:53 Finasteride (Proscar) 5 mg DAILY ORAL 02/28/17 09:00 03/30/17 08:59 03/04/17 09:30 Gabapentin (Neurontin) 300 mg THREE TIMES A DAY ORAL 02/27/17 18:00 03/29/17 17:59 03/04/17 12:40 Insulin Aspart (NovoLOG) BEFORE MEALS AND HS SUBQ 02/27/17 21:00 03/29/17 20:59 03/04/17 12:44 Nitroglycerin (Ntg) 0.4 mg Q5M X 3 DOSES PRN SL Prn Chest Pain 02/27/17 15:30 03/29/17 15:29 Ondansetron HCl (Zofran) 4 mg Q6H PRN IVP Nausea & Vomiting 02/27/17 15:30 03/29/17 15:29 Polyethylene Glycol (Miralax) 17 gm HSPRN PRN ORAL Constipation 02/27/17 15:30 03/29/17 15:29 Risperidone (RisperDAL) 1 mg BEDTIME ORAL 03/02/17 21:00 04/01/17 20:59 03/03/17 20:52 Tamsulosin HCl (Flomax) 0.4 mg BEDTIME ORAL 02/27/17 21:00 03/29/17 20:59 03/03/17 20:53 Temazepam (Restoril) 15 mg HSPRN PRN ORAL Insomnia 02/27/17 15:30 03/06/17 15:29 Valproic Acid (Depakene) 125 mg Q12HR ORAL 03/01/17 14:00 03/31/17 13:59 03/04/17 09:31 Xander BailonWmchealth)Diamante NP Mar 04, 2017 13:17
--- NOTE | 2017-03-04 14:20 | Internal Med Progress Note ---
Subjective Date of Service: Mar 04, 2017 Physician Name Bruce Sage Attending Physician Arian Givens MD Current Medications Medications (Trade) Dose Ordered Sig/Eric Route PRN Reason Start Time Stop Time Status Last Admin Dose Admin Acetaminophen (Tylenol) 650 mg Q4H PRN ORAL fever 02/27/17 15:30 03/29/17 15:29 Al Hydroxide/Mg Hydroxide (Mylanta II) 30 ml Q6H PRN ORAL dyspepsia 02/27/17 15:30 03/29/17 15:29 Albuterol/ Ipratropium (DuoNeb 0.5-3(2.5)mg/3ml) 3 ml Q4H PRN HHN Shortness of Breath 02/27/17 15:30 03/04/17 15:29 Calcium Carbonate (OsCal D) 1 tab TID ORAL 02/28/17 09:00 03/30/17 08:59 03/04/17 12:40 Clonidine HCl (Catapres) 0.1 mg Q4H PRN ORAL sbp more than 160 02/27/17 15:30 03/29/17 15:29 Dextrose (Dextrose 50%) STAT PRN IV Hypoglycemia 02/27/17 15:30 03/29/17 15:29 Donepezil HCl (Aricept) 5 mg QHS ORAL 03/01/17 21:00 03/31/17 20:59 03/03/17 20:53 Finasteride (Proscar) 5 mg DAILY ORAL 02/28/17 09:00 03/30/17 08:59 03/04/17 09:30 Gabapentin (Neurontin) 300 mg THREE TIMES A DAY ORAL 02/27/17 18:00 03/29/17 17:59 03/04/17 12:40 Insulin Aspart (NovoLOG) BEFORE MEALS AND HS SUBQ 02/27/17 21:00 03/29/17 20:59 03/04/17 12:44 Nitroglycerin (Ntg) 0.4 mg Q5M X 3 DOSES PRN SL Prn Chest Pain 02/27/17 15:30 03/29/17 15:29 Ondansetron HCl (Zofran) 4 mg Q6H PRN IVP Nausea & Vomiting 02/27/17 15:30 03/29/17 15:29 Polyethylene Glycol (Miralax) 17 gm HSPRN PRN ORAL Constipation 4/25/17 15:30 03/29/17 15:29 Risperidone (RisperDAL) 1 mg BEDTIME ORAL 03/02/17 21:00 04/01/17 20:59 03/03/17 20:52 Tamsulosin HCl (Flomax) 0.4 mg BEDTIME ORAL 02/27/17 21:00 03/29/17 20:59 03/03/17 20:53 Temazepam (Restoril) 15 mg HSPRN PRN ORAL Insomnia 02/27/17 15:30 03/06/17 15:29 Valproic Acid (Depakene) 125 mg Q12HR ORAL 03/01/17 14:00 03/31/17 13:59 03/04/17 09:31 Allergies: Coded Allergies: ASPIRIN (Unverified Allergy, Severe, Rash, 05/20/16) HEPARIN (Verified Allergy, Unknown, 12/24/16) ROS Limited/Unobtainable: No Constitutional: Reports: no symptoms HEENT: Reports: no symptoms Cardiovascular: Reports: no symptoms Respiratory: Reports: no symptoms Gastrointestinal/Abdominal: Reports: no symptoms Genitourinary: Reports: no symptoms Neurologic/Psychiatric: Reports: no symptoms Subjective 81 YO M admitted with altered mental status. Cover for Int Med Dr Givens. Refusing meds. [facility] Objective Last Vital Signs Date Time Temp Pulse Resp B/P Pulse Ox O2 Delivery O2 Flow Rate FiO2 03/04/17 12:27 97.5 101 20 159/90 99 Room Air 03/03/17 19:30 21 Laboratory Tests Test 03/04/17 06:50 White Blood Count 6.8 K/UL (4.8-10.8) Red Blood Count 4.21 M/UL (4.70-6.10) L Hemoglobin 13.1 G/DL (14.2-18.0) L Hematocrit 40.2 % (42.0-52.0) L Mean Corpuscular Volume 96 FL (80-99) Mean Corpuscular Hemoglobin 31.1 PG (27.0-31.0) H Mean Corpuscular Hemoglobin Concent 32.6 G/DL (32.0-36.0) Red Cell Distribution Width 12.5 % (11.6-14.8) Platelet Count 199 K/UL (150-450) Mean Platelet Volume 8.2 FL (6.5-10.1) Neutrophils (%) (Auto) 55.4 % (45.0-75.0) Lymphocytes (%) (Auto) 34.6 % (20.0-45.0) Monocytes (%) (Auto) 7.5 % (1.0-10.0) Eosinophils (%) (Auto) 2.0 % (0.0-3.0) Basophils (%) (Auto) 0.5 % (0.0-2.0) Sodium Level 140 mEQ/L (135-145) Potassium Level 3.6 mEQ/L (3.4-4.9) Chloride Level 96 mEQ/L (98-107) L Carbon Dioxide Level 29 mEQ/L (20-30) Anion Gap 15 (5-15) Blood Urea Nitrogen 14 mg/dL (7-23) Creatinine 1.2 mg/dL (0.7-1.2) Estimat Glomerular Filtration Rate mL/min (>60) Glucose Level 199 mg/dL (74-106) H Calcium Level 10.1 mg/dL (8.6-10.2) Intake and Output 03/03/17 03/04/17 19:00 07:00 Intake Total 960 ml 260 ml Balance 960 ml 260 ml Intake Oral 960 ml 260 ml # Voids 6 1 Objective General: alert, cooperative, no distress, appears stated age Head: normocephalic, without obvious abnormality, atraumatic Eyes: conjunctivae/corneas clear. PERRL, EOM's intact Throat: lips, mucosa, and tongue normal. MMM Neck: supple, symmetrical, trachea midline, and no JVD Lungs: clear to auscultation bilaterally Heart: regular rate and rhythm, S1, S2 normal, no murmur, click, rub or gallop Abdomen: soft, non-tender, non-distended, bowel sounds normal; no masses or organomegaly Extremities: extremities normal, atraumatic, no cyanosis or edema Pulses: 2+ and symmetric Skin: skin color, texture, turgor normal; no rashes or lesions Neurologic: grossly normal, no focal deficits Assessment/Plan Problem List: (1) Diabetes mellitus type II, uncontrolled Assessment & Plan: See endocrinology note. Continue novolog sliding scale. (2) Altered mental status Assessment & Plan: acute encephalopathy vs psychosis (3) Alzheimer's dementia Assessment & Plan: See neuro note. Cont aricept. (4) BPH (benign prostatic hypertrophy) Assessment & Plan: Cont flomax (5) Hydronephrosis of right kidney (6) Hypercholesteremia (7) Psychosis Assessment & Plan: Continue depakote and risperdal. Refusing meds. Await Psych consult. Status: progressing BRUCE SAGE Mar 04, 2017 14:20
[2017-03-04 15:22] VITALS: BP 111/69
[2017-03-04] MEDS ORDERED: DUONEB 0.5-3(2.53 ML HHN (15:34)
[2017-03-04] MEDS ORDERED: NITROGLYCERIN0.4 MG SL (15:35)
[2017-03-04] MEDS ORDERED: RISPERDAL1 MG PO (15:36)
[2017-03-04] MEDS ORDERED: TEMAZEPAM15 MG ORAL (15:37)
[2017-03-04] MEDS ORDERED: VALPROIC ACID250 MG PO (15:37)
[2017-03-04] MEDS ORDERED: CATAPRES0.1 MG ORAL (15:38)
[2017-03-04] MEDS ORDERED: DONEPEZIL HCL5 MG ORAL (15:40)
[2017-03-04] MEDS ORDERED: STARLIX60 MG ORAL (15:46)
--- NOTE | 2017-03-06 12:47 | Discharge Summary ---
Discharge Summary Hospital Course Date of Admission Feb 27, 2017 at 14:19 Date of Discharge Mar 04, 2017 at 19:00 Admitting Diagnosis gravely disabled HPI Al Rodriguez is a 81 year old male who was admitted on Feb 27, 2017 at 14:19 for General complaint Hospital Course dc summary #[id number] Discharge Medications Continued Medications: Acetaminophen (Tylenol) 325 Mg Tablet 650 MG ORAL Q4HR PRN for Fever/Headache/Mild Pain, #30 TAB 0 Refills Al Hydroxide/mg Hydroxide (Mag-Al Plus Suspension) 30 Ml Oral.susp 30 ML PO Q4HR PRN for Constipation, ML Calcium Carbonate (Oyster Shell Calcium-Vit D Tab) 500 Mg Tab 500 MG GT TID, #30 TAB Clonidine Hcl* (Catapres*) 0.1 Mg Tablet 0.1 MG ORAL EVERY 4 HOURS PRN for For High Blood Pressure, TAB Donepezil Hcl* (Donepezil Hcl*) 5 Mg Tablet 5 MG ORAL QHS, TAB Finasteride* (Proscar*) 5 Mg Tablet 5 MG ORAL DAILY, #30 TAB 0 Refills Gabapentin* (Gabapentin*) 300 Mg Capsule 300 MG ORAL THREE TIMES A DAY, CAP 0 Refills Insulin Aspart (Novolog) 100 Unit/1 Ml Vial SQ AC+HS Ipratropium/Albuterol Sulfate (DuoNeb 0.5-3(2.5)mg/3ml) 3 Ml Ampul.neb 3 ML HHN Q4HR PRN for Shortness of Breath, EA Nateglinide* (Starlix*) 60 Mg Tablet 60 MG ORAL THREE TIMES A DAY, TAB Ondansetron (Zofran) 4 Mg Tablet 4 MG ORAL Q6H PRN for Nausea & Vomiting, TAB Polyethylene Glycol 3350* (Miralax*) 17 Gm Powd.pack 17 GM ORAL DAILY PRN for Constipation, PACKET Risperidone* (Risperdal*) 1 Mg Tablet 1 MG PO QHS, TAB Tamsulosin Hcl (Tamsulosin Hcl*) 0.4 Mg Cap.er.24h 0.4 MG ORAL BEDTIME for 30 Days, CAP Temazepam (Temazepam*) 15 Mg Capsule 15 MG ORAL BEDTIME PRN for Per rx protocol, #30 CAP 0 Refills Valproic Acid (Valproic Acid) 250 Mg Capsule 125 MG PO Q12HR, CAP Discharge Condition Upon Discharge: stable Discharge Disposition Patient was discharged to SNF Discharge Diagnoses: Terrell ([facility]),Diamante OTERO March 06, 2017 12:47
--- NOTE | 2017-03-07 03:48 | Discharge Summary 2 SIG ---
DATE OF ADMISSION: 02/27/2017 DATE OF DISCHARGE: 03/04/2017 REASON FOR ADMISSION: 81-year-old male was brought to emergency room by paramedics. The patient has a history of underlying Alzheimer dementia and noncompliance with his medication. According to it applications analyst report, the daughter stated that she was refusing to take his diabetes medication, unable to take care for himself, and noncompliant. The patient denied fever, chest pain, shortness of breath, abdominal pain, or recent illness. Workup in the emergency room revealed stable vital signs. No leukocytosis. Hemoglobin and hematocrit were stable. Electrolytes stable. The daughter was refusing to take the patient back home. The patient is gravely disabled. He had severe dementia and unable to care for himself. The patient was confused and easily agitated. Given that the patient did not have any safe place to go and the daughter refused to let him come home, the patient was admitted for social reasons to be placed in the facility. ADMITTING DIAGNOSES: 1. Altered mental status secondary to acute on chronic encephalopathy. 2. Progressive Alzheimer dementia. 3. Diabetes mellitus type 2. 4. Hypertension. HOSPITAL COURSE: The patient was admitted to Med/Surg floor. The patient started on the IV fluids. Psychiatric evaluation and Neurology evaluation were requested. Acute altered mental status likely secondary to acute on chronic encephalopathy. According to neurologist, the patient had progressive senile dementia likely with some vascular component. The patient started on Aricept and Depakote as per Neurology. Psychiatry seen and evaluated the patient. The patient was started on risperidone as needed. Psychiatrist recommended to provide support and reality orientation. According to neurologist, the patient needs supervised environment. Patient with danger to himself due to severe dementia and high likelihood of getting lost if left alone. Sitter provided while the patient was in the hospital. Blood pressure was managed with clonidine on as-needed basis, was stable. Blood sugar was managed with sliding scale of insulin. Hemoglobin A1c -8.4 is not at goal , probably likely to noncompliance. Circular Saw Operator followed the patient. Started the patient on Starlix in addition to sliding scale of insulin. DVT prophylaxis provided. Supplemental oxygen and pulmonary toilet provided as needed. Pulse oximetry stable on the room air. The bowel regimen instituted. Pain management provided. Hemoglobin and hematocrit remained on the baseline, no trend down. No evidence of urinary retention, continue present regimen for BPH. Placement was found and secured at the senior care facility. The patient was stable for discharge. Social service filed papers with adult protective services regarding daughter refusal to take her father back home. DISCHARGE DIAGNOSES: 1. Altered mental status secondary to acute encephalopathy and chronic dementia. 2. Alzheimer dementia with behavioral changes. 3. Diabetes mellitus, out of control , type 2. 4. Hypertension. 5. Benign prostatic hypertrophy. 6. Noncompliance. 7. Anemia. DISCHARGE MEDICATIONS: See medication reconciliation list. DISCHARGE INSTRUCTIONS: [facility] . Follow up with medical doctor at the facility. Arian Givens M.D. [facility]Long [facility] HospitalM[facility] N.PEd DR: Jared JOB#: [id number] CC: RAUL
== END 2017-03-04 19:00 | DRG 56 ==
LOC: EDBD 09:57 → EMR 10:09 → 4E 14:19 → EDBEDREQ 20:28 → 4E 20:38
DX: G30.8 Other Alzheimer's disease (principal); G93.40 Encephalopathy, unspecified; E11.65 Type 2 diabetes mellitus with hyperglycemia; F02.81 Dementia in other diseases classified elsewhere, unspecified severity, with behavioral disturbance; J45.901 Unspecified asthma with (acute) exacerbation; N13.30 Unspecified hydronephrosis; J98.11 Atelectasis; D64.9 Anemia, unspecified; N40.0 Benign prostatic hyperplasia without lower urinary tract symptoms; E78.00 Pure hypercholesterolemia, unspecified; Z91.14 Patient's other noncompliance with medication regimen; G30.1 Alzheimer's disease with late onset; I10 Essential (primary) hypertension
CPT/HCPCS: 36415; 80048; 80053; 80061; 81003; 82962; 83036; 84443; 85025; 87086; 94664; J1815; J7620

== ENCOUNTER 2017-09-11 00:04 | Inpatient (IN) | payer MEDICARE, MEDICAID ==
[~2017-09-11] VITALS: Ht 177.8 cm; Wt 61.2 kg
[2017-09-11] VITALS (7 sets, daily range): BP systolic 101–119; BP diastolic 53–100
[~2017-09-11 00:04] MED LIST changes: +CATAPRES0.1 MG ORAL; +DONEPEZIL HCL5 MG ORAL; +DUONEB 0.5-3(2.53 ML HHN; +NITROGLYCERIN0.4 MG SL; +RISPERDAL1 MG PO; +STARLIX60 MG ORAL; +TEMAZEPAM15 MG ORAL; +UNOBMED; +VALPROIC ACID250 MG PO
[2017-09-11 00:47] LABS: BASOPHILS % (AUTO) 0.7 % (0.0-2.0); EOSINOPHILS % (AUTO) 0.2 % (0.0-3.0); LYMPHOCYTES % (AUTO) 11.3 % (20.0-45.0); MEAN CORPUSCULAR HGB CONC 32.1 G/DL (32.0-36.0); MEAN CORPUSCULAR VOLUME 97 FL (80-99); MEAN PLATELET VOLUME 7.6 FL (6.5-10.1); MONOCYTES % (AUTO) 9.6 % (1.0-10.0); NEUTROPHILS % (AUTO) 78.1 % (45.0-75.0); PLATELET COUNT 225 K/UL (150-450); RED CELL DISTRIBUTION WIDTH 12.7 % (11.6-14.8); WHITE BLOOD COUNT 9.8 K/UL (4.8-10.8)
[2017-09-11 01:02] LABS: ALANINE AMINOTRANSFERASE 20 U/L (12-78); ALBUMIN/GLOBULIN RATIO 0.6 (1.0-2.7); ANION GAP 11 mmol/L (5-15); ASPARTATE AMINO TRANSFERASE 73 U/L (15-37); CARBON DIOXIDE 30 MMOL/L (21-32); CHLORIDE 103 MMOL/L (98-107); CREATININE 2.3 MG/DL (0.55-1.30); LIPASE 54 U/L (73-393); POTASSIUM 3.1 MMOL/L (3.5-5.1); SODIUM 144 MMOL/L (136-145); TOTAL PROTEIN 8.1 G/DL (6.4-8.2)
[2017-09-11 01:07] LABS: APPEARANCE,URINE CLEAR; KETONES,URINE NEGATIVE (NEGATIVE); LEUKOCYTE ESTERASE ,URINE NEGATIVE (NEGATIVE); NITRITE,URINE NEGATIVE (NEGATIVE); PH,URINE 5 (4.5-8.0); PROTEIN,URINE 2+ (NEGATIVE); UROBILINOGEN,URINE NORMAL MG/DL (0.0-1.0)
[2017-09-11 01:23] LABS: BACTERIA,URINE FEW /HPF; ICTOTEST NEGATIVE; SQUAMOUS EPITHELIAL CELL,UR FEW /LPF (NONE/OCC); WBC,URINE 0-2 /HPF (0 - 0)
[2017-09-11 01:24] LABS: AMORPHOUS SEDIMENT,UR MANY /LPF
[2017-09-11] MEDS ORDERED: Dextrose 10%/0.9% SOD CHL 1,000 ML IV SCH (02:00)
--- NOTE | 2017-09-11 02:25 | Emergency Room Report ---
History of Present Illness General Chief Complaint: Altered Level of Consciousness Source: Patient, Family Member Present Illness HPI Is an 82-year-old male with a history insulin-dependent diabetes, taking liver mirror in the morning. He presents with chief complaint altered mental status with low blood sugar. Per his , he's been eating small amount of food but keep vomiting. His been ongoing for 2 days. No diarrhea. She appear to be complaining of abdominal pain in the lower caught that area. No fever or chills. No chest pain. Since his been back from the [facility] in May she is noted that he's been losing weight. Loss about 20 pounds. Allergies: Coded Allergies: ASPIRIN (Unverified Allergy, Severe, Rash, 05/20/16) HEPARIN (Verified Allergy, Unknown, 12/24/16) Patient History Past Medical History: see triage record, old chart reviewed, DM, dementia Past Surgical History: other Pertinent Family History: none Social History: Denies: smoking Immunizations: other Reviewed Nursing Documentation: PMH: Agreed, PSxH: Agreed Nursing Documentation-PMH Hx Cardiac Problems: Yes Hx Hypertension: Yes Hx Pacemaker: No Hx Asthma: Yes Hx COPD: No Hx Diabetes: Yes Hx Gastrointestinal Problems: Yes Hx Neurological Problems: Yes Hx Cerebrovascular Accident: No Hx Dementia: Yes Hx Seizures: No Hx Memory Loss: Yes Hx Dizziness: Yes Hx Syncope: Yes Review of Systems Constitutional: Reports: weakness Eye: Denies: eye pain, blurred vision ENT: Denies: ear pain, nose congestion, throat swelling Respiratory: Denies: cough, shortness of breath Cardiovascular: Denies: chest pain, palpitations Gastrointestinal: Denies: abdominal pain, diarrhea, nausea, vomiting Musculoskeletal: Denies: back pain, joint pain Skin: Denies: rash Neurological: Denies: headache, numbness Endocrine: Denies: increased thirst, increased urine Hematologic/Lymphatic: Denies: easy bruising All Other Systems: negative except mentioned in HPI Physical Exam Vital Signs Date Time Temp Pulse Resp B/P (MAP) Pulse Ox O2 Delivery O2 Flow Rate FiO2 09/10/17 23:54 98.6 98 18 142/88 99 Room Air vitals normal Sp02 EP Interpretation: reviewed, normal General Appearance: no apparent distress, alert, thin Head: normocephalic, atraumatic Eyes: bilateral eye PERRL, bilateral eye EOMI ENT: hearing grossly normal, normal pharynx Neck: full range of motion, supple, no meningismus Respiratory: chest non-tender, lungs clear, normal breath sounds Cardiovascular #1: regular rate, rhythm, no murmur Gastrointestinal: normal bowel sounds, no mass, no organomegaly, no bruit, non- distended, tenderness - Lower quadrants Musculoskeletal: back normal, gait/station normal, normal range of motion Psychiatric: mood/affect normal Skin: warm/dry Medical Decision Making Diagnostic Impression: Primary Impression: ARF (acute renal failure) Qualified Codes: N17.9 - Acute kidney failure, unspecified Additional Impressions: Hypoglycemia due to insulin SBO (small bowel obstruction) Dehydration Pelvic mass in male Proteinuria Qualified Codes: R80.9 - Proteinuria, unspecified ER Course Patient presents with hypoglycemia do to long-acting insulin. He is unable to eat because of small bowel obstruction causing vomiting. He received D50 here and placed on D10 normal saline drip. Creatinine is elevated compared to last time he was here. His weight loss is concerning for neoplastic process. Neoplastic process the cause of his obstruction also. Patient will be emitted for further workup. Lab Results Impression labs with elevated BUN/creatinine EKG Diagnostic Results Rate: normal Rhythm: NSR ST Segments: no acute changes Rhythm Strip Diag. Results Rhythm Strip Time: 02:24 EP Interpretation: yes Rate: 85 Rhythm: NSR, no PVC's, no ectopy CT/MRI/US Diagnostic Results CT/MRI/US Diagnostic Results : Imaging Test Ordered: CT abdomen and pelvis Impression Read by radiologist. Small bowel obstruction. Unknown physician to multiple soft tissue density throughout the peritoneal cavity and omentum. Suspicious for metastatic disease. Last Vital Signs Date Time Temp Pulse Resp B/P (MAP) Pulse Ox O2 Delivery O2 Flow Rate FiO2 09/11/17 00:28 98.6 109 16 101/68 97 Room Air Status: improved Disposition: ADMITTED INPATIENT Condition: Serious Referrals: Arian Givens MD (PCP) KUSHAL MCKEON M.D. Sep 11, 2017 02:25
[2017-09-11] MEDS ORDERED: Mylanta II UD 30ml ORAL PRN (05:45)
[2017-09-11] MEDS ORDERED: LORazepam Inj 2mg/ml 1ml IV PRN (05:45)
[2017-09-11] MEDS ORDERED: Zolpidem 5mg tab ORAL PRN (05:45)
[2017-09-11] MEDS ORDERED: Miralax 17gm pkt ORAL PRN (05:45)
[2017-09-11] MEDS ORDERED: D5 1/2NS w/KCl 20mEq 1,000 ML IV SCH (06:00)
[2017-09-11] MEDS: NovoLOG Insulin Flexpen SUBQ SCH ×4 (07:30→23:50)
--- NOTE | 2017-09-11 09:11 | Diagnostic Imaging Report ---
Indication: Abdominal pain Technique: Continuous helical transaxial imaging of the abdomen and pelvis was obtained from the lung bases to the pubic symphysis. No intravenous contrast was administered. Coronal 2-D reformats were also obtained. Total Dose length Product (DLP): [address] Dose Index Volume (CTDIvol): 0.15, 13.68 mGy Comparison: 05/30/15 Findings: Multiple, moderately dilated loops of small bowel are demonstrated within the abdomen suspicious for bowel obstruction. Difficult to identify a transition. There is no free air. There is small amount of free fluid. The omentum is diffusely abnormal with areas of masslike nodularity and adenopathy. Retroperitoneal adenopathy also noted. Findings are suspicious for carcinomatosis. Exam is limited in that there was no oral or excuse contrast given. Reticular densities are demonstrated at the lung bases consistent with atelectasis. Solid organ evaluation is significantly limited on this study. There is the suggestion of a cyst in the upper pole the right kidney measuring about 2 cm. There is no hydronephrosis. There is no adrenal mass. No splenomegaly seen. The gallbladder is grossly unremarkable. There is moderate retention of fecal material within the colon. There is a approximately a 4.5 cm fusiform aneurysm of the lower the bones are diffusely osteopenic. Moderate degenerative changes of the lumbar spine are demonstrated. Bilateral pars interarticularis defects demonstrated at L5. Moderate facet hypertrophy noted. Grade 1 anterolisthesis L4 on 5 noted. Moderate disc disease at this level. Impression: A moderately distended small bowel. No obvious transition identified. However the findings are suspicious for bowel obstruction. Evaluation is limited on this study done without IV or oral contrast. Suspicion of carcinomatosis with omental nodularity and lymphadenopathy in the mesentery and retroperitoneum. Basilar atelectasis Moderate stool retention. 4.5 cm fusiform aneurysm of the abdominal aorta. Spondylosis and degenerative changes of lumbar spine. L5 spondylolysis. Grade 1 spondylolisthesis L5 on S1. Renal hypodensity on the right. Cyst versus solid lesion. [facility] has communicated the preliminary results to the Emergency Department. Their findings are largely concordant with this report. The CT scanner at [facility] is accredited by the [employer] [place] [employer] and the scans are performed using dose optimization techniques as appropriate to a performed exam including Automatic Exposure control.
--- NOTE | 2017-09-11 09:43 | Consultation ---
History of Present Illness General Date patient seen: Sep 11, 2017 Chief Complaint: Altered Level of Consciousness Reason for Consultation: inpatient management Present Illness HPI 82-year-old male with a history of prostate cancer, dementia insulin-dependent diabetes presented with chief complaint altered mental status with low blood sugar. He has been eating small amount of food but keep vomiting for 2 days. He appeared to be complaining of abdominal pain in the lower caught that area. He christian been losing weight about [address] of abdomen showed SBO with "carcinomatosis with omental nodularity and lymphadenopathy in the mesentery and retroperitoneum." Pt was found to be in renal failure and admitted to telemetry for further evaluation. Allergies: Coded Allergies: ASPIRIN (Unverified Allergy, Severe, Rash, 05/20/16) HEPARIN (Verified Allergy, Unknown, 12/24/16) Medication History Scheduled Atorvastatin Calcium* (Lipitor*), 5 MG ORAL BEDTIME, (Reported) Calcium Carbonate (Oyster Shell Calcium-Vit D Tab), 500 MG GT TID Diazepam* (Diazepam*), 10 MG ORAL HS, (Reported) Donepezil Hcl* (Donepezil Hcl*), 5 MG ORAL QHS, (Reported) Finasteride* (Proscar*), 5 MG ORAL DAILY Gabapentin* (Gabapentin*), 300 MG ORAL THREE TIMES A DAY, (Reported) Insulin Aspart (Novolog), SQ AC+HS, (Reported) Insulin Aspart* (Novolog*), 8 SUBQ BEFORE MEALS, (Reported) Insulin Detemir (Levemir), 40 UNITS SUBQ BEFORE BREAKFAST Insulin Detemir (Levemir), 20 SUBQ DAILY, (Reported) Montelukast Sodium* (Singulair*), 10 MG ORAL DAILY, (Reported) Montelukast Sodium* (Singulair*), 10 MG ORAL DAILY, (Reported) Nateglinide* (Starlix*), 60 MG ORAL THREE TIMES A DAY, (Reported) Pravastatin Sod* (Pravastatin Sod*), 10 MG ORAL BEDTIME, (Reported) Risperidone* (Risperdal*), 1 MG PO QHS, (Reported) Tamsulosin Hcl (Tamsulosin Hcl*), 0.4 MG ORAL BEDTIME Tamsulosin Hcl (Tamsulosin Hcl*), 0.4 MG ORAL BEDTIME, (Reported) Trimethoprim/Sulfamethoxazole (Bactrim Ds Tablet), 1 TAB ORAL BID, (Reported) Valproic Acid (Valproic Acid), 125 MG PO Q12HR, (Reported) Scheduled PRN Acetaminophen (Tylenol), 650 MG ORAL Q4HR PRN for Fever/Headache/Mild Pain, ( Reported) Acetaminophen With Codeine (T#3) (Tylenol #3 Tab*), 1 TAB ORAL Q6HR PRN for For Pain, (Reported) Al Hydroxide/mg Hydroxide (Mag-Al Plus Suspension), 30 ML PO Q4HR PRN for Constipation, (Reported) Clonidine Hcl* (Catapres*), 0.1 MG ORAL EVERY 4 HOURS PRN for For High Blood Pressure, (Reported) Fluticasone/Salmeterol (Advair 250-50 Diskus), 1 PUFF INH DAILY PRN for Shortness of Breath, (Reported) Ipratropium/Albuterol Sulfate (DuoNeb 0.5-3(2.5)mg/3ml), 3 ML HHN Q4HR PRN for Shortness of Breath, (Reported) Lorazepam* (Ativan*), 0.5 MG ORAL Q4HR PRN for For Anxiety, (Reported) Ondansetron (Zofran), 4 MG ORAL Q6H PRN for Nausea & Vomiting, (Reported) Polyethylene Glycol 3350* (Miralax*), 17 GM ORAL DAILY PRN for Constipation, ( Reported) Temazepam (Temazepam*), 15 MG ORAL BEDTIME PRN for Per rx protocol, (Reported) Zolpidem Tartrate* (Ambien*), 5 MG ORAL BEDTIME PRN for Insomnia, (Reported) Miscellaneous Medications Nitroglycerin (Nitroglycerin), 0.4 MG SL, (Reported) Unable to Obtain Medications (Unable To Obtain Meds), (Reported) Patient History Healthcare decision maker Resuscitation status Full Code Advanced Directive on File Past Medical/Surgical History Past Medical/Surgical History: (1) Diabetes mellitus type II, uncontrolled (2) BPH (benign prostatic hypertrophy) (3) Diabetes (4) Alzheimer's dementia Review of Systems All Other Systems: negative except mentioned in HPI Physical Exam General Appearance: cachetic Lines, tubes and drains: peripheral HEENT: normocephalic, atraumatic Neck: non-tender, normal alignment Respiratory/Chest: chest wall non-tender, lungs clear Cardiovascular/Chest: normal peripheral pulses, normal rate Abdomen: normal bowel sounds, non tender Genitourinary/Rectal: normal genital exam Last 24 Hour Vital Signs Date Time Temp Pulse Resp B/P (MAP) Pulse Ox O2 Delivery O2 Flow Rate FiO2 09/11/17 08:41 97.0 95 20 103/53 100 Room Air 09/11/17 04:00 100 09/11/17 03:45 98.0 97 20 116/71 98 Room Air 09/11/17 03:28 98.6 106 16 112/100 97 Room Air 09/11/17 03:01 98.6 106 16 112/100 97 Room Air 09/11/17 00:28 98.6 109 16 101/68 97 Room Air 09/10/17 23:54 98.6 98 18 142/88 99 Room Air Laboratory Tests Test 09/11/17 00:15 09/11/17 00:51 White Blood Count 9.8 K/UL (4.8-10.8) Red Blood Count 4.20 M/UL (4.70-6.10) L Hemoglobin 13.0 G/DL (14.2-18.0) L Hematocrit 40.5 % (42.0-52.0) L Mean Corpuscular Volume 97 FL (80-99) Mean Corpuscular Hemoglobin 31.0 PG (27.0-31.0) Mean Corpuscular Hemoglobin Concent 32.1 G/DL (32.0-36.0) Red Cell Distribution Width 12.7 % (11.6-14.8) Platelet Count 225 K/UL (150-450) Mean Platelet Volume 7.6 FL (6.5-10.1) Neutrophils (%) (Auto) 78.1 % (45.0-75.0) H Lymphocytes (%) (Auto) 11.3 % (20.0-45.0) L Monocytes (%) (Auto) 9.6 % (1.0-10.0) Eosinophils (%) (Auto) 0.2 % (0.0-3.0) Basophils (%) (Auto) 0.7 % (0.0-2.0) Sodium Level 144 MMOL/L (136-145) Potassium Level 3.1 MMOL/L (3.5-5.1) L Chloride Level 103 MMOL/L (98-107) Carbon Dioxide Level 30 MMOL/L (21-32) Anion Gap 11 mmol/L (5-15) Blood Urea Nitrogen 66 mg/dL (7-18) H Creatinine 2.3 MG/DL (0.55-1.30) H Estimat Glomerular Filtration Rate mL/min (>60) Glucose Level 116 MG/DL (74-106) H Calcium Level 9.0 MG/DL (8.5-10.1) Total Bilirubin 0.3 MG/DL (0.2-1.0) Aspartate Amino Transf (AST/SGOT) 73 U/L (15-37) H Alanine Aminotransferase (ALT/SGPT) 20 U/L (12-78) Alkaline Phosphatase 101 U/L (46-116) Total Protein 8.1 G/DL (6.4-8.2) Albumin 3.0 G/DL (3.4-5.0) L Globulin 5.1 g/dL Albumin/Globulin Ratio 0.6 (1.0-2.7) L Lipase 54 U/L (73-393) L Urine Color Yellow Urine Appearance Clear Urine pH 5 (4.5-8.0) Urine Specific [place] 1.020 (1.005-1.035) Urine Protein 2+ (NEGATIVE) H Urine Glucose (UA) Negative (NEGATIVE) Urine Ketones Negative (NEGATIVE) Urine Occult Blood 2+ (NEGATIVE) H Urine Nitrite Negative (NEGATIVE) Urine Bilirubin 1+ (NEGATIVE) H Urine Ictotest Negative Urine Urobilinogen Normal MG/DL (0.0-1.0) Urine Leukocyte Esterase Negative (NEGATIVE) Urine RBC 2-4 /HPF (0 - 0) H Urine WBC 0-2 /HPF (0 - 0) Urine Squamous Epithelial Cells Few /LPF (NONE/OCC) Urine Amorphous Sediment Many /LPF (NONE) H Urine Bacteria Few /HPF (NONE) Height (Feet): 5 Height (Inches): 10.00 Weight (Pounds): 135 Medications Current Medications Medications (Trade) Dose Ordered Sig/Eric Route PRN Reason Start Time Stop Time Status Last Admin Dose Admin Acetaminophen (Tylenol) 650 mg Q4H PRN ORAL fever 09/11/17 05:45 10/11/17 05:44 Al Hydroxide/Mg Hydroxide (Mylanta II) 30 ml Q6H PRN ORAL dyspepsia 09/11/17 05:45 10/11/17 05:44 Atorvastatin Calcium (Lipitor) 5 mg BEDTIME ORAL 09/11/17 21:00 10/11/17 20:59 Clonidine HCl (Catapres) 0.1 mg EVERY 4 HOURS PRN ORAL For High Blood Pressure 09/11/17 05:45 10/11/17 05:44 Dextrose 1,000 ml @ 100 mls/hr Q10H IV 09/11/17 09:30 10/11/17 09:29 Dextrose (Dextrose 50%) STAT PRN IV Hypoglycemia 09/11/17 05:45 10/11/17 05:44 09/11/17 07:47 Donepezil HCl (Aricept) 5 mg QHS ORAL 09/11/17 21:00 10/11/17 20:59 Finasteride (Proscar) 5 mg DAILY ORAL 09/11/17 09:00 10/11/17 08:59 Insulin Aspart (NovoLOG) BEFORE MEALS AND HS SUBQ 09/11/17 06:30 10/11/17 06:29 Lorazepam (Ativan 2mg/ml 1ml) 0.5 mg Q4H PRN IV For Anxiety 09/11/17 05:45 09/18/17 05:44 Ondansetron HCl (Zofran) 4 mg Q6H PRN IVP Nausea & Vomiting 09/11/17 05:45 10/11/17 05:44 Polyethylene Glycol (Miralax) 17 gm HSPRN PRN ORAL Constipation 09/11/17 05:45 10/11/17 05:44 Risperidone (RisperDAL) 1 mg QHS ORAL 09/11/17 21:00 10/11/17 20:59 Tamsulosin HCl (Flomax) 0.4 mg BEDTIME ORAL 09/11/17 21:00 10/11/17 20:59 Valproic Acid (Depakene) 125 mg Q12HR ORAL 09/11/17 09:00 10/11/17 08:59 UNV Zolpidem Tartrate (Ambien) 5 mg HSPRN PRN ORAL Insomnia 09/11/17 05:45 09/18/17 05:44 Assessment/Plan Problem List: (1) Acute encephalopathy ICD Codes: G93.40 - Encephalopathy, unspecified SNOMED: 9421100 (2) Small bowel obstruction ICD Codes: K56.609 - Unspecified intestinal obstruction, unspecified as to partial versus complete obstruction SNOMED: 015956218 (3) 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
[2017-09-11] MEDS: Dextrose 10% 1,000 ML IV SCH ×3 (10:09→19:30)
[2017-09-11 10:17] LABS: LACTATE DEHYDROGENASE 607 U/L (81-234)
[2017-09-11 10:18] LABS: URIC ACID 10.1 MG/DL (2.6-7.2)
--- NOTE | 2017-09-11 10:48 | Diagnostic Imaging Report ---
Indication: Abdominal pain Comparison: None Single view of the abdomen obtained Findings: There are dilated loops of small bowel demonstrated throughout the abdomen. There is a nasogastric tube which is in good position. Impression: Nasogastric tube in the position Please refer to the CT report
[2017-09-11 10:59] LABS: INR 1.2 (0.9-1.1); PROTHROMBIN TIME 12.3 SEC (9.30-11.50)
[2017-09-11 11:06] LABS: BAND NEUTROPHILS % (MANUAL) 10 % (0-8); BASOPHILS % (MANUAL) 0 % (0-2); EOSINOPHILS % (MANUAL) 1 % (0-3); LYMPHOCYTES % (MANUAL) 10 % (20-45); NEUTROPHILS % (MANUAL) 70 % (45-75); PLATELET ESTIMATE ADEQUATE; PLATELET MORPHOLOGY NORMAL; TOTAL CELLS COUNTED 100
--- NOTE | 2017-09-11 11:06 | GI Initial Consult Note ---
Katerin Main N.PEd 09/11/17 1106: History of Present Illness General Date patient seen: Sep 11, 2017 Time patient seen: 11:04 Reason for Hospitalization: Altered Level of Consciousness Referring physician: JANESSA WASHBURN Reason for Consultation: VOMITING Present Illness HPI Is an 82-year-old male with a history insulin-dependent diabetes, taking liver mirror in the morning. He presents with chief complaint altered mental status with low blood sugar. Per his , he's been eating small amount of food but keep vomiting. His been ongoing for 2 days. No diarrhea. She appear to be complaining of abdominal pain in the lower caught that area. No fever or chills. No chest pain. Since his been back from the alf in May she is noted that he's been losing weight. Loss about 20 pounds. GI consulted for vomiting. HPI as noted above. ROS limited, pt seen on floor awake alert NAD with no active s/sx of N/V/D. Pt had NGT, self extubated and calm at this time. Patient presents today with possible SBO, suspicion of carcinomatosis in the mesentery and retroperitoneum, and mod stool retention via CT AP. 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 Unknown history of endoscopic/colonoscopy. Home Meds Active Scripts Calcium Carbonate (Oyster Shell Calcium-Vit D Tab) 500 Mg Tab, 500 MG GT TID, # 30 TAB Prov:NATHALIE MOTTA M.D. 10/07/14 Tamsulosin Hcl (TAMSULOSIN HCL*) 0.4 Mg Cap.er.24h, 0.4 MG ORAL BEDTIME for 30 Days, CAP Prov:NATHALIE MOTTA M.D. 10/07/14 Insulin Detemir (LEVEMIR) 100 Unit/1 Ml Vial, 40 UNITS SUBQ BEFORE BREAKFAST, # 30 VIAL Prov:NATHALIE MOTTA M.D. 10/07/14 Finasteride* (PROSCAR*) 5 Mg Tablet, 5 MG ORAL DAILY, #30 TAB 0 Refills Prov:NATHALIE MOTTA M.D. 10/07/14 Reported Medications Nateglinide* (STARLIX*) 60 Mg Tablet, 60 MG ORAL THREE TIMES A DAY, TAB 03/04/17 Donepezil Hcl* (DONEPEZIL HCL*) 5 Mg Tablet, 5 MG ORAL QHS, TAB 03/04/17 Clonidine Hcl* (CATAPRES*) 0.1 Mg Tablet, 0.1 MG ORAL EVERY 4 HOURS Y for For High Blood Pressure, TAB 03/04/17 Valproic Acid (VALPROIC ACID) 250 Mg Capsule, 125 MG PO Q12HR, CAP 03/04/17 Temazepam (TEMAZEPAM*) 15 Mg Capsule, 15 MG ORAL BEDTIME Y for Per rx protocol, #30 CAP 0 Refills 03/04/17 Risperidone* (RISPERDAL*) 1 Mg Tablet, 1 MG PO QHS, TAB 03/04/17 Nitroglycerin (NITROGLYCERIN) 0.4 Mg Tab.subl, 0.4 MG SL, TAB 03/04/17 Ipratropium/Albuterol Sulfate (DuoNeb 0.5-3(2.5)mg/3ml) 3 Ml Ampul.neb, 3 ML HHN Q4HR Y for Shortness of Breath, EA 03/04/17 Unable to Obtain Medications (UNABLE TO OBTAIN MEDS) 1 Ea Ea 02/27/17 Trimethoprim/Sulfamethoxazole (Bactrim Ds Tablet) 1 Each Tablet, 1 TAB ORAL BID for 6 Days, TAB 12/28/16 Acetaminophen (Tylenol) 325 Mg Tablet, 650 MG ORAL Q4HR Y for Fever/Headache/ Mild Pain, #30 TAB 0 Refills 12/28/16 Al Hydroxide/mg Hydroxide (Mag-Al Plus Suspension) 30 Ml Oral.susp, 30 ML PO Q4HR Y for Constipation, ML 12/28/16 Zolpidem Tartrate* (AMBIEN*) 5 Mg Tablet, 5 MG ORAL BEDTIME Y for Insomnia, TAB 12/28/16 Polyethylene Glycol 3350* (MIRALAX*) 17 Gm Powd.pack, 17 GM ORAL DAILY Y for Constipation, PACKET 12/28/16 Ondansetron (Zofran) 4 Mg Tablet, 4 MG ORAL Q6H Y for Nausea & Vomiting, TAB 12/28/16 Lorazepam* (ATIVAN*) 0.5 Mg Tablet, 0.5 MG ORAL Q4HR Y for For Anxiety, TAB 12/28/16 Insulin Aspart* (NOVOLOG*) 100 Unit/1 Ml Insuln.pen, 8 SUBQ BEFORE MEALS, #1 EA 0 Refills 12/28/16 Insulin Aspart (NOVOLOG) 100 Unit/1 Ml Vial, SQ AC+HS 12/28/16 Insulin Detemir (LEVEMIR) 100 Unit/1 Ml Vial, 20 SUBQ DAILY, VIAL 12/28/16 Atorvastatin Calcium* (LIPITOR*) 10 Mg Tablet, 5 MG ORAL BEDTIME, TAB 12/28/16 Tamsulosin Hcl (TAMSULOSIN HCL*) 0.4 Mg Cap.er.24h, 0.4 MG ORAL BEDTIME, CAP 05/20/16 Montelukast Sodium* (SINGULAIR*) 10 Mg Tablet, 10 MG ORAL DAILY, TAB 05/20/16 Acetaminophen With Codeine (T#3) (TYLENOL #3 TAB*) Y Tab, 1 TAB ORAL Q6HR Y for For Pain, TAB 05/20/16 Diazepam* (DIAZEPAM*) 10 Mg Tablet, 10 MG ORAL HS, TAB 0 Refills 09/20/15 Fluticasone/Salmeterol (Advair 250-50 Diskus) 1 Puffs Puffs, 1 PUFF INH DAILY Y for Shortness of Breath, EA 02/21/14 Montelukast Sodium* (SINGULAIR*) 10 Mg Tablet, 10 MG ORAL DAILY, TAB 02/21/14 Gabapentin* (GABAPENTIN*) 300 Mg Capsule, 300 MG ORAL THREE TIMES A DAY, CAP 0 Refills 02/21/14 Pravastatin Sod* (PRAVASTATIN SOD*) 20 Mg Tablet, 10 MG ORAL BEDTIME, TAB 02/21/14 Med list reviewed/reconciled: Yes Allergies: Coded Allergies: ASPIRIN (Unverified Allergy, Severe, Rash, 05/20/16) HEPARIN (Verified Allergy, Unknown, 12/24/16) Patient History Limited by: medical condition History Provided By: Medical Record PMH Narrative Past Medical History: see triage record, old chart reviewed, DM, dementia Past Surgical History: other Pertinent Family History: none Social History: Denies: smoking Immunizations: other Reviewed Nursing Documentation: PMH: Agreed, PSxH: Agreed Nursing Documentation-PMH Hx Cardiac Problems: Yes Hx Hypertension: Yes Hx Pacemaker: No Hx Asthma: Yes Hx COPD: No Hx Diabetes: Yes Hx Gastrointestinal Problems: Yes Hx Neurological Problems: Yes Hx Cerebrovascular Accident: No Hx Dementia: Yes Hx Seizures: No Hx Memory Loss: Yes Hx Dizziness: Yes Hx Syncope: Yes Review of Systems All Other Systems: limited Physical Exam Vital Signs Date Time Temp Pulse Resp B/P (MAP) Pulse Ox O2 Delivery O2 Flow Rate FiO2 09/10/17 23:54 98.6 98 18 142/88 99 Room Air Sp02 EP Interpretation: reviewed, normal Labs Laboratory Tests Test 09/11/17 00:15 09/11/17 00:51 09/11/17 09:00 09/11/17 10:25 White Blood Count 9.8 K/UL (4.8-10.8) Red Blood Count 4.20 M/UL (4.70-6.10) L Hemoglobin 13.0 G/DL (14.2-18.0) L Hematocrit 40.5 % (42.0-52.0) L Mean Corpuscular Volume 97 FL (80-99) Mean Corpuscular Hemoglobin 31.0 PG (27.0-31.0) Mean Corpuscular Hemoglobin Concent 32.1 G/DL (32.0-36.0) Red Cell Distribution Width 12.7 % (11.6-14.8) Platelet Count 225 K/UL (150-450) Mean Platelet Volume 7.6 FL (6.5-10.1) Neutrophils (%) (Auto) 78.1 % (45.0-75.0) H Lymphocytes (%) (Auto) 11.3 % (20.0-45.0) L Monocytes (%) (Auto) 9.6 % (1.0-10.0) Eosinophils (%) (Auto) 0.2 % (0.0-3.0) Basophils (%) (Auto) 0.7 % (0.0-2.0) Neutrophils % (Manual) Pending Lymphocytes % (Manual) Pending Platelet Estimate Pending Platelet Morphology Pending Sodium Level 144 MMOL/L (136-145) Potassium Level 3.1 MMOL/L (3.5-5.1) L Chloride Level 103 MMOL/L (98-107) Carbon Dioxide Level 30 MMOL/L (21-32) Anion Gap 11 mmol/L (5-15) Blood Urea Nitrogen 66 mg/dL (7-18) H Creatinine 2.3 MG/DL (0.55-1.30) H Estimat Glomerular Filtration Rate mL/min (>60) Glucose Level 116 MG/DL (74-106) H Calcium Level 9.0 MG/DL (8.5-10.1) Total Bilirubin 0.3 MG/DL (0.2-1.0) Aspartate Amino Transf (AST/SGOT) 73 U/L (15-37) H Alanine Aminotransferase (ALT/SGPT) 20 U/L (12-78) Alkaline Phosphatase 101 U/L (46-116) Total Protein 8.1 G/DL (6.4-8.2) Albumin 3.0 G/DL (3.4-5.0) L Globulin 5.1 g/dL Albumin/Globulin Ratio 0.6 (1.0-2.7) L Lipase 54 U/L (73-393) L Urine Color Yellow Urine Appearance Clear Urine pH 5 (4.5-8.0) Urine Specific [place] 1.020 (1.005-1.035) Urine Protein 2+ (NEGATIVE) H Urine Glucose (UA) Negative (NEGATIVE) Urine Ketones Negative (NEGATIVE) Urine Occult Blood 2+ (NEGATIVE) H Urine Nitrite Negative (NEGATIVE) Urine Bilirubin 1+ (NEGATIVE) H Urine Ictotest Negative Urine Urobilinogen Normal MG/DL (0.0-1.0) Urine Leukocyte Esterase Negative (NEGATIVE) Urine RBC 2-4 /HPF (0 - 0) H Urine WBC 0-2 /HPF (0 - 0) Urine Squamous Epithelial Cells Few /LPF (NONE/OCC) Urine Amorphous Sediment Many /LPF (NONE) H Urine Bacteria Few /HPF (NONE) Erythrocyte Sedimentation Rate Pending Reticulocyte Count Pending Uric Acid 10.1 MG/DL (2.6-7.2) H Iron Level Pending Unsaturated Iron Binding Pending Lactate Dehydrogenase 607 U/L (81-234) H Total Creatine Kinase 348 U/L (26-308) H Vitamin B12 Level Pending Folate Pending Prothrombin Time 12.3 SEC (9.30-11.50) H Prothromb Time International Ratio 1.2 (0.9-1.1) H Activated Partial Thromboplast Time 30 SEC (23-33) Free Prostate Specific Antigen Pending Percent Free Prostate Specific Ag Pending Prostate Specific Antigen Total Pending General Appearance: alert, thin Head: normocephalic EENT: PERRL/EOMI, normal ENT inspection Neck: supple Respiratory: normal breath sounds, no respiratory distress Cardiovascular: normal rate Gastrointestinal: normal inspection, non tender, soft, non-distended, other - hypoactive Rectal: deferred Genitourinary: deferred Neurologic: alert, responsive Skin: normal inspection, normal color, no rash, warm/dry, palpation normal, well hydrated Lymphatic: normal inspection, no adenopathy Current Medications Current Medications Medications (Trade) Dose Ordered Sig/Eric Route PRN Reason Start Time Stop Time Status Last Admin Dose Admin Acetaminophen (Tylenol) 650 mg Q4H PRN ORAL fever 09/11/17 05:45 10/11/17 05:44 Al Hydroxide/Mg Hydroxide (Mylanta II) 30 ml Q6H PRN ORAL dyspepsia 09/11/17 05:45 10/11/17 05:44 Atorvastatin Calcium (Lipitor) 5 mg BEDTIME ORAL 09/11/17 21:00 10/11/17 20:59 Clonidine HCl (Catapres) 0.1 mg EVERY 4 HOURS PRN ORAL For High Blood Pressure 09/11/17 05:45 10/11/17 05:44 Dextrose 1,000 ml @ 100 mls/hr Q10H IV 09/11/17 09:30 10/11/17 09:29 09/11/17 10:09 Dextrose (Dextrose 50%) STAT PRN IV Hypoglycemia 09/11/17 05:45 10/11/17 05:44 09/11/17 07:47 Donepezil HCl (Aricept) 5 mg QHS ORAL 09/11/17 21:00 10/11/17 20:59 Finasteride (Proscar) 5 mg DAILY ORAL 09/11/17 09:00 10/11/17 08:59 Insulin Aspart (NovoLOG) BEFORE MEALS AND HS SUBQ 09/11/17 06:30 10/11/17 06:29 Lorazepam (Ativan 2mg/ml 1ml) 0.5 mg Q4H PRN IV For Anxiety 09/11/17 05:45 09/18/17 05:44 Ondansetron HCl (Zofran) 4 mg Q6H PRN IVP Nausea & Vomiting 09/11/17 05:45 10/11/17 05:44 Polyethylene Glycol (Miralax) 17 gm HSPRN PRN ORAL Constipation 09/11/17 05:45 10/11/17 05:44 Risperidone (RisperDAL) 1 mg QHS ORAL 09/11/17 21:00 10/11/17 20:59 Tamsulosin HCl (Flomax) 0.4 mg BEDTIME ORAL 09/11/17 21:00 10/11/17 20:59 Valproic Acid (Depakene) 125 mg Q12HR ORAL 09/11/17 09:00 10/11/17 08:59 UNV Zolpidem Tartrate (Ambien) 5 mg HSPRN PRN ORAL Insomnia 09/11/17 05:45 09/18/17 05:44 GI: Plan Problems: (1) Small bowel obstruction (2) 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 Roberts. Thank you for this patient referral, we will follow. JOSE ROBERTS 09/14/17 1005: History of Present Illness General Reason for Hospitalization: Altered Level of Consciousness Present Illness Home Meds Active Scripts Calcium Carbonate (Oyster Shell Calcium-Vit D Tab) 500 Mg Tab, 500 MG GT TID, # 30 TAB Prov:NATHALIE MOTTA M.D. 10/07/14 Tamsulosin Hcl (TAMSULOSIN HCL*) 0.4 Mg Cap.er.24h, 0.4 MG ORAL BEDTIME for 30 Days, CAP Prov:NATHALIE MOTTA M.D. 10/07/14 Insulin Detemir (LEVEMIR) 100 Unit/1 Ml Vial, 40 UNITS SUBQ BEFORE BREAKFAST, # 30 VIAL Prov:NATHALIE MOTTA M.D. 10/07/14 Finasteride* (PROSCAR*) 5 Mg Tablet, 5 MG ORAL DAILY, #30 TAB 0 Refills Prov:NATHALIE MOTTA M.D. 10/07/14 Reported Medications Nateglinide* (STARLIX*) 60 Mg Tablet, 60 MG ORAL THREE TIMES A DAY, TAB 4/30/17 Donepezil Hcl* (DONEPEZIL HCL*) 5 Mg Tablet, 5 MG ORAL QHS, TAB 03/04/17 Clonidine Hcl* (CATAPRES*) 0.1 Mg Tablet, 0.1 MG ORAL EVERY 4 HOURS Y for For High Blood Pressure, TAB 03/04/17 Valproic Acid (VALPROIC ACID) 250 Mg Capsule, 125 MG PO Q12HR, CAP 03/04/17 Temazepam (TEMAZEPAM*) 15 Mg Capsule, 15 MG ORAL BEDTIME Y for Per rx protocol, #30 CAP 0 Refills 03/04/17 Risperidone* (RISPERDAL*) 1 Mg Tablet, 1 MG PO QHS, TAB 03/04/17 Nitroglycerin (NITROGLYCERIN) 0.4 Mg Tab.subl, 0.4 MG SL, TAB 03/04/17 Ipratropium/Albuterol Sulfate (DuoNeb 0.5-3(2.5)mg/3ml) 3 Ml Ampul.neb, 3 ML HHN Q4HR Y for Shortness of Breath, EA 03/04/17 Unable to Obtain Medications (UNABLE TO OBTAIN MEDS) 1 Ea Ea 02/27/17 Trimethoprim/Sulfamethoxazole (Bactrim Ds Tablet) 1 Each Tablet, 1 TAB ORAL BID for 6 Days, TAB 12/28/16 Acetaminophen (Tylenol) 325 Mg Tablet, 650 MG ORAL Q4HR Y for Fever/Headache/ Mild Pain, #30 TAB 0 Refills 12/28/16 Al Hydroxide/mg Hydroxide (Mag-Al Plus Suspension) 30 Ml Oral.susp, 30 ML PO Q4HR Y for Constipation, ML 12/28/16 Zolpidem Tartrate* (AMBIEN*) 5 Mg Tablet, 5 MG ORAL BEDTIME Y for Insomnia, TAB 12/28/16 Polyethylene Glycol 3350* (MIRALAX*) 17 Gm Powd.pack, 17 GM ORAL DAILY Y for Constipation, PACKET 12/28/16 Ondansetron (Zofran) 4 Mg Tablet, 4 MG ORAL Q6H Y for Nausea & Vomiting, TAB 12/28/16 Lorazepam* (ATIVAN*) 0.5 Mg Tablet, 0.5 MG ORAL Q4HR Y for For Anxiety, TAB 12/28/16 Insulin Aspart* (NOVOLOG*) 100 Unit/1 Ml Insuln.pen, 8 SUBQ BEFORE MEALS, #1 EA 0 Refills 12/28/16 Insulin Aspart (NOVOLOG) 100 Unit/1 Ml Vial, SQ AC+HS 12/28/16 Insulin Detemir (LEVEMIR) 100 Unit/1 Ml Vial, 20 SUBQ DAILY, VIAL 12/28/16 Atorvastatin Calcium* (LIPITOR*) 10 Mg Tablet, 5 MG ORAL BEDTIME, TAB 12/28/16 Tamsulosin Hcl (TAMSULOSIN HCL*) 0.4 Mg Cap.er.24h, 0.4 MG ORAL BEDTIME, CAP 05/20/16 Montelukast Sodium* (SINGULAIR*) 10 Mg Tablet, 10 MG ORAL DAILY, TAB 05/20/16 Acetaminophen With Codeine (T#3) (TYLENOL #3 TAB*) Y Tab, 1 TAB ORAL Q6HR Y for For Pain, TAB 05/20/16 Diazepam* (DIAZEPAM*) 10 Mg Tablet, 10 MG ORAL HS, TAB 0 Refills 09/20/15 Fluticasone/Salmeterol (Advair 250-50 Diskus) 1 Puffs Puffs, 1 PUFF INH DAILY Y for Shortness of Breath, EA 02/21/14 Montelukast Sodium* (SINGULAIR*) 10 Mg Tablet, 10 MG ORAL DAILY, TAB 02/21/14 Gabapentin* (GABAPENTIN*) 300 Mg Capsule, 300 MG ORAL THREE TIMES A DAY, CAP 0 Refills 02/21/14 Pravastatin Sod* (PRAVASTATIN SOD*) 20 Mg Tablet, 10 MG ORAL BEDTIME, TAB 02/21/14 Allergies: Coded Allergies: ASPIRIN (Unverified Allergy, Severe, Rash, 05/20/16) HEPARIN (Verified Allergy, Unknown, 12/24/16) GI: Plan Plan The patient was seen and examined at bedside and all new and available data was reviewed in the patients chart. I agree with the above findings, impression and plan. (Patient seen earlier today. Signature stamp does not reflect patient encounter time.). - MD Etelvina Campo,[facility] Jose N.PEd Sep 11, 2017 11:06 JOSE ROBERTS Sep 14, 2017 10:05
--- NOTE | 2017-09-11 11:06 | Wound Care Consultation ---
Wound Assessment Wound Assessment #1: Wound Number: 1 Wound Present on Admission: Yes New Wound: No Status Change of Wound: No Wound Location Body Site Modif: right, lateral Wound Location Body Site: heel Wound Type: scar - full thickness scar tissue , seems to have history of wound at site. Estrada Test: Does not Estrada Wound Thickness: Full Thickness Wound Length: 3.0 Wound Width: 4.0 Percent of Wound Braddock/Red: 100 Other Colors Identified: right heel noted 4.0cmx4.0cm brown hyperpigmentation. Wound Drainage Amount: None Wound Drainage Odor: None/Absent Tissue Surrounding Wound: Intact - with red and brown hyperpigmentation. Wound Assessment #2: Wound Number: 2 Wound Present on Admission: Yes New Wound: No Status Change of Wound: No Wound Location Body Site Modif: right, medial Wound Location Body Site: knee Wound Type: other - redness Estrada Test: Does not Estrada Wound Length: 3.0 Wound Width: 3.0 Percent of Wound Braddock/Red: 100 Wound Drainage Amount: None Wound Drainage Odor: None/Absent Tissue Surrounding Wound: Erythemic Wound General Appearance: Reddened Wound Assessment #3: Wound Number: 3 Wound Present on Admission: Yes New Wound: No Status Change of Wound: No Wound Location Body Site Modif: right Wound Location Body Site: elbow Wound Type: pressure ulcer Estrada Test: Does not Estrada Pressure Ulcer Stage: II Wound Thickness: Partial Thickness Wound Length: 1.0 Wound Width: 1.0 Wound Depth: 0.1 Percent of Wound Braddock/Red: 100 Wound Drainage Description: Serosanguineous Wound Drainage Amount: Moderate Wound Drainage Odor: None/Absent Tissue Surrounding Wound: Erythemic Wound General Appearance: Reddened, Draining Wound Assessment #4: Wound Number: 4 Wound Present on Admission: Yes New Wound: No Status Change of Wound: No Wound Location Body Site Modif: mid Wound Location Body Site: sacral Wound Type: pressure ulcer Estrada Test: Does not Estrada Pressure Ulcer Stage: II - with full thickness scar tissue to surrounding area. Wound Thickness: Partial Thickness Wound Length: 3.0 Wound Width: 1.0 Wound Depth: 0.1 Percent of Wound Braddock/Red: 100 Other Colors Identified: surrounding tissue noted aminata in color. Wound Drainage Amount: None Wound Drainage Odor: None/Absent Tissue Surrounding Wound: Macerated - erythemic Wound General Appearance: Reddened Wound Assessment #5: Wound Number: 5 Wound Present on Admission: Yes New Wound: No Status Change of Wound: No Wound Location Body Site: sacral Wound Type: pressure ulcer Estrada Test: Does not Estrada Pressure Ulcer Stage: Deep Tissue Injury - suspected Wound Thickness: Full Thickness Wound Length: 8.0 Wound Width: 8.0 Wound Depth: utd Percent of Wound Purple/Maroon: 100 Wound Drainage Amount: None Wound Drainage Odor: None/Absent Tissue Surrounding Wound: Erythemic Wound General Appearance: Reddened - maroon Wound Assessment #6: Wound Number: 6 Wound Present on Admission: Yes New Wound: No Status Change of Wound: No Wound Location Body Site Modif: left, dorsal - aspect Wound Location Body Site: foot Wound Type: pressure ulcer Estrada Test: Does not Estrada Pressure Ulcer Stage: Deep Tissue Injury Wound Thickness: Full Thickness Wound Length: 1.0 Wound Width: 2.5 Wound Depth: utd Percent of Wound Purple/Maroon: 100 Wound Drainage Amount: None Wound Drainage Odor: None/Absent Tissue Surrounding Wound: Erythemic Wound General Appearance: Reddened Wound Assessment #7: Wound Number: 7 Wound Present on Admission: Yes New Wound: No Status Change of Wound: No Wound Location Body Site Modif: left, lateral Wound Location Body Site: malleolus/ankle Wound Type: pressure ulcer Estrada Test: Does not Estrada Pressure Ulcer Stage: Deep Tissue Injury - suspected. Wound Thickness: Full Thickness Wound Length: 1.0 Wound Width: 1.0 Wound Depth: utd Percent of Wound Purple/Maroon: 100 Wound Drainage Amount: None Wound Drainage Odor: None/Absent Tissue Surrounding Wound: Erythemic Wound General Appearance: Reddened Wound Assessment #8: Wound Number: 8 Wound Present on Admission: Yes New Wound: No Status Change of Wound: No Wound Location Body Site Modif: left Wound Location Body Site: heel Wound Type: pressure ulcer Estrada Test: Does not Estrada Pressure Ulcer Stage: Deep Tissue Injury - suspected Wound Thickness: Full Thickness Wound Length: 4.0 Wound Width: 4.0 Wound Depth: utd Percent of Wound Braddock/Red: 50 Percent of Wound Purple/Maroon: 50 Wound Drainage Amount: None Wound Drainage Odor: None/Absent Tissue Surrounding Wound: Erythemic Wound General Appearance: Reddened Wound Comment #1 Right lateral heel full thickness scar tissue, surrounding tissue to heel brown hyperpigmentation in color. #2 Right medial knee redness. #3 Right elbow stage 2 pressure ulcer. #4 Mid Sacral pressure ulcer appearing stage 2 , surrounding skin with full thickness scar tissue,possible history of deeper wound. #5 Sacral Deep tissue injury. #6 Left Dorsal Aspect of foot Deep tissue injury. #7 Left lateral malleolus Deep tissue injury. #8 Left heel Suspected Deep tissue injury. Recommendation. -Local wound care as ordered. -Turn and reposition. -Keep clean and dry. -Optimize nutrition. -Avoid shear and friction. -Offload heels and feet. -Apply heel protectors. -Apply Low air loss SPR mattress for wound and skin management. -Assess and notify for any changes of condition. DWAYNE LUCERO Sep 11, 2017 11:06
[2017-09-11 11:07] LABS: IRON 38 ug/dL (50-175); TOTAL IRON BINDING CAPACITY 186 ug/dL (250-450)
[2017-09-11 11:08] LABS: ERYTHROCYTE SEDIMENTATION RATE 67 MM/HR (0-30)
[2017-09-11] MEDS ORDERED: Fleet's Mineral Oil Enema RECTAL ONE (11:30)
[2017-09-11 11:36] LABS: RETICULOCYTE COUNT 0.8 % (0.0-2.0)
[2017-09-11 11:39] LABS: PATH BLOOD SMEAR/OMC SENT TO PATHOLOGIST
[2017-09-11] MEDS: Valproic Acid 250mg/5ml Liquid ORAL SCH ×2 (12:00→21:17)
--- NOTE | 2017-09-11 13:56 | Consultation ---
History of Present Illness General Date patient seen: Sep 11, 2017 Chief Complaint: Altered Level of Consciousness Referring physician: JANESSA WASHBURN Reason for Consultation: VOMITING Present Illness HPI 82 year old male with history of metastatic bladder cancer diagnosed in 2013 after cystoscopy for hematuria. presented recently with low blood surgery, fatigue, nausea and emesis. on admission had CT scan in ED which demonstrated dilated small bowel loops without transition point and densities concerning for carcinomatosis. surgery called to evaluate. patient had NG tube in ED which he later pulled out. no significant output from NG tube reported from time it was in. patient is somewhat cooperative but at times decides he does not want to speak or communicate. he is a very very poor historian and states that everything with him is great. cannot recall last BM or flatus. denies abdominal pain. denies nausea or emesis. Allergies: Coded Allergies: ASPIRIN (Unverified Allergy, Severe, Rash, 05/20/16) HEPARIN (Verified Allergy, Unknown, 12/24/16) Medication History Scheduled Atorvastatin Calcium* (Lipitor*), 5 MG ORAL BEDTIME, (Reported) Calcium Carbonate (Oyster Shell Calcium-Vit D Tab), 500 MG GT TID Diazepam* (Diazepam*), 10 MG ORAL HS, (Reported) Donepezil Hcl* (Donepezil Hcl*), 5 MG ORAL QHS, (Reported) Finasteride* (Proscar*), 5 MG ORAL DAILY Gabapentin* (Gabapentin*), 300 MG ORAL THREE TIMES A DAY, (Reported) Insulin Aspart (Novolog), SQ AC+HS, (Reported) Insulin Aspart* (Novolog*), 8 SUBQ BEFORE MEALS, (Reported) Insulin Detemir (Levemir), 40 UNITS SUBQ BEFORE BREAKFAST Insulin Detemir (Levemir), 20 SUBQ DAILY, (Reported) Montelukast Sodium* (Singulair*), 10 MG ORAL DAILY, (Reported) Montelukast Sodium* (Singulair*), 10 MG ORAL DAILY, (Reported) Nateglinide* (Starlix*), 60 MG ORAL THREE TIMES A DAY, (Reported) Pravastatin Sod* (Pravastatin Sod*), 10 MG ORAL BEDTIME, (Reported) Risperidone* (Risperdal*), 1 MG PO QHS, (Reported) Tamsulosin Hcl (Tamsulosin Hcl*), 0.4 MG ORAL BEDTIME Tamsulosin Hcl (Tamsulosin Hcl*), 0.4 MG ORAL BEDTIME, (Reported) Trimethoprim/Sulfamethoxazole (Bactrim Ds Tablet), 1 TAB ORAL BID, (Reported) Valproic Acid (Valproic Acid), 125 MG PO Q12HR, (Reported) Scheduled PRN Acetaminophen (Tylenol), 650 MG ORAL Q4HR PRN for Fever/Headache/Mild Pain, ( Reported) Acetaminophen With Codeine (T#3) (Tylenol #3 Tab*), 1 TAB ORAL Q6HR PRN for For Pain, (Reported) Al Hydroxide/mg Hydroxide (Mag-Al Plus Suspension), 30 ML PO Q4HR PRN for Constipation, (Reported) Clonidine Hcl* (Catapres*), 0.1 MG ORAL EVERY 4 HOURS PRN for For High Blood Pressure, (Reported) Fluticasone/Salmeterol (Advair 250-50 Diskus), 1 PUFF INH DAILY PRN for Shortness of Breath, (Reported) Ipratropium/Albuterol Sulfate (DuoNeb 0.5-3(2.5)mg/3ml), 3 ML HHN Q4HR PRN for Shortness of Breath, (Reported) Lorazepam* (Ativan*), 0.5 MG ORAL Q4HR PRN for For Anxiety, (Reported) Ondansetron (Zofran), 4 MG ORAL Q6H PRN for Nausea & Vomiting, (Reported) Polyethylene Glycol 3350* (Miralax*), 17 GM ORAL DAILY PRN for Constipation, ( Reported) Temazepam (Temazepam*), 15 MG ORAL BEDTIME PRN for Per rx protocol, (Reported) Zolpidem Tartrate* (Ambien*), 5 MG ORAL BEDTIME PRN for Insomnia, (Reported) Miscellaneous Medications Nitroglycerin (Nitroglycerin), 0.4 MG SL, (Reported) Unable to Obtain Medications (Unable To Obtain Meds), (Reported) Patient History Limited by: medical condition History Provided By: Medical Record Healthcare decision maker Resuscitation status Full Code Advanced Directive on File Past Medical/Surgical History Past Medical/Surgical History: (1) Hematuria (2) Dizziness (3) Hematuria (4) ARF (acute renal failure) (5) Diabetes with ulcer of heel (6) Encephalopathy (7) Bladder tumor (8) UTI (urinary tract infection) (9) Injury of lower extremity (10) Cellulitis (11) Acute cystitis (12) COPD exacerbation (13) Altered mental status (14) Hypertension (15) Chest wall contusion (16) Hypercholesteremia (17) Hydronephrosis of right kidney (18) Psychosis (19) Dehydration (20) Proteinuria (21) SBO (small bowel obstruction) (22) Pelvic mass in male (23) BPH (benign prostatic hypertrophy) (24) Diabetes (25) Diabetes mellitus type II, uncontrolled (26) Alzheimer's dementia (27) ARF (acute renal failure) (28) Acute encephalopathy (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 (30) Small bowel obstruction (31) ARF (acute renal failure) (32) Hypoglycemia due to insulin Review of Systems All Other Systems: negative except mentioned in HPI ROS Narrative n/a Physical Exam General Appearance: no apparent distress, alert Lines, tubes and drains: peripheral HEENT: mucous membranes moist Neck: normal inspection Respiratory/Chest: normal breath sounds, no respiratory distress, no accessory muscle use Cardiovascular/Chest: normal peripheral pulses, normal rate, regular rhythm Abdomen: normal bowel sounds, non tender, soft, distended Genitourinary/Rectal: other - patient refused rectal exam Extremities: normal inspection Skin Exam: normal pigmentation Neurologic: alert, responsive Last 24 Hour Vital Signs Date Time Temp Pulse Resp B/P (MAP) Pulse Ox O2 Delivery O2 Flow Rate FiO2 09/11/17 12:00 100 09/11/17 11:57 97.0 92 20 116/63 99 Room Air 09/11/17 08:41 97.0 95 20 103/53 100 Room Air 09/11/17 04:00 100 09/11/17 03:45 98.0 97 20 116/71 98 Room Air 09/11/17 03:28 98.6 106 16 112/100 97 Room Air 09/11/17 03:01 98.6 106 16 112/100 97 Room Air 09/11/17 00:28 98.6 109 16 101/68 97 Room Air 09/10/17 23:54 98.6 98 18 142/88 99 Room Air Laboratory Tests Test 09/11/17 00:15 09/11/17 00:51 09/11/17 09:00 09/11/17 10:25 White Blood Count 9.8 K/UL (4.8-10.8) Red Blood Count 4.20 M/UL (4.70-6.10) L Hemoglobin 13.0 G/DL (14.2-18.0) L Hematocrit 40.5 % (42.0-52.0) L Mean Corpuscular Volume 97 FL (80-99) Mean Corpuscular Hemoglobin 31.0 PG (27.0-31.0) Mean Corpuscular Hemoglobin Concent 32.1 G/DL (32.0-36.0) Red Cell Distribution Width 12.7 % (11.6-14.8) Platelet Count 225 K/UL (150-450) Mean Platelet Volume 7.6 FL (6.5-10.1) Neutrophils (%) (Auto) 78.1 % (45.0-75.0) H Lymphocytes (%) (Auto) 11.3 % (20.0-45.0) L Monocytes (%) (Auto) 9.6 % (1.0-10.0) Eosinophils (%) (Auto) 0.2 % (0.0-3.0) Basophils (%) (Auto) 0.7 % (0.0-2.0) Differential Total Cells Counted 100 Neutrophils % (Manual) 70 % (45-75) Lymphocytes % (Manual) 10 % (20-45) L Monocytes % (Manual) 9 % (1-10) Eosinophils % (Manual) 1 % (0-3) Basophils % (Manual) 0 % (0-2) Band Neutrophils 10 % (0-8) H Platelet Estimate Adequate Platelet Morphology Normal Red Blood Cell Morphology Normal Sodium Level 144 MMOL/L (136-145) Potassium Level 3.1 MMOL/L (3.5-5.1) L Chloride Level 103 MMOL/L (98-107) Carbon Dioxide Level 30 MMOL/L (21-32) Anion Gap 11 mmol/L (5-15) Blood Urea Nitrogen 66 mg/dL (7-18) H Creatinine 2.3 MG/DL (0.55-1.30) H Estimat Glomerular Filtration Rate mL/min (>60) Glucose Level 116 MG/DL (74-106) H Calcium Level 9.0 MG/DL (8.5-10.1) Total Bilirubin 0.3 MG/DL (0.2-1.0) Aspartate Amino Transf (AST/SGOT) 73 U/L (15-37) H Alanine Aminotransferase (ALT/SGPT) 20 U/L (12-78) Alkaline Phosphatase 101 U/L (46-116) Total Protein 8.1 G/DL (6.4-8.2) Albumin 3.0 G/DL (3.4-5.0) L Globulin 5.1 g/dL Albumin/Globulin Ratio 0.6 (1.0-2.7) L Lipase 54 U/L (73-393) L Urine Color Yellow Urine Appearance Clear Urine pH 5 (4.5-8.0) Urine Specific [place] 1.020 (1.005-1.035) Urine Protein 2+ (NEGATIVE) H Urine Glucose (UA) Negative (NEGATIVE) Urine Ketones Negative (NEGATIVE) Urine Occult Blood 2+ (NEGATIVE) H Urine Nitrite Negative (NEGATIVE) Urine Bilirubin 1+ (NEGATIVE) H Urine Ictotest Negative Urine Urobilinogen Normal MG/DL (0.0-1.0) Urine Leukocyte Esterase Negative (NEGATIVE) Urine RBC 2-4 /HPF (0 - 0) H Urine WBC 0-2 /HPF (0 - 0) Urine Squamous Epithelial Cells Few /LPF (NONE/OCC) Urine Amorphous Sediment Many /LPF (NONE) H Urine Bacteria Few /HPF (NONE) Erythrocyte Sedimentation Rate 67 MM/HR (0-30) H Reticulocyte Count 0.8 % (0.0-2.0) Uric Acid 10.1 MG/DL (2.6-7.2) H Iron Level 38 ug/dL (50-175) L Total Iron Binding Capacity 186 ug/dL (250-450) L Percent Iron Saturation 20 % (15-50) Unsaturated Iron Binding 148 ug/dL (112-346) Lactate Dehydrogenase 607 U/L (81-234) H Total Creatine Kinase 348 U/L (26-308) H Vitamin B12 Level 493 PG/ML (193-986) Folate 19.0 NG/ML (3.1-17.5) H Prothrombin Time 12.3 SEC (9.30-11.50) H Prothromb Time International Ratio 1.2 (0.9-1.1) H Activated Partial Thromboplast Time 30 SEC (23-33) Free Prostate Specific Antigen Pending Percent Free Prostate Specific Ag Pending Prostate Specific Antigen Total Pending Height (Feet): 5 Height (Inches): 10.00 Weight (Pounds): 135 Medications Current Medications Medications (Trade) Dose Ordered Sig/Eric Route PRN Reason Start Time Stop Time Status Last Admin Dose Admin Acetaminophen (Tylenol) 650 mg Q4H PRN ORAL fever 09/11/17 05:45 10/11/17 05:44 Al Hydroxide/Mg Hydroxide (Mylanta II) 30 ml Q6H PRN ORAL dyspepsia 09/11/17 05:45 10/11/17 05:44 Atorvastatin Calcium (Lipitor) 5 mg BEDTIME ORAL 09/11/17 21:00 10/11/17 20:59 Clonidine HCl (Catapres) 0.1 mg EVERY 4 HOURS PRN ORAL For High Blood Pressure 09/11/17 05:45 10/11/17 05:44 Dextrose 1,000 ml @ 100 mls/hr Q10H IV 09/11/17 09:30 10/11/17 09:29 09/11/17 10:09 Dextrose (Dextrose 50%) STAT PRN IV Hypoglycemia 09/11/17 05:45 10/11/17 05:44 09/11/17 13:35 Donepezil HCl (Aricept) 5 mg QHS ORAL 09/11/17 21:00 10/11/17 20:59 Finasteride (Proscar) 5 mg DAILY ORAL 09/11/17 09:00 10/11/17 08:59 Insulin Aspart (NovoLOG) BEFORE MEALS AND HS SUBQ 09/11/17 06:30 10/11/17 06:29 Lorazepam (Ativan 2mg/ml 1ml) 0.5 mg Q4H PRN IV For Anxiety 09/11/17 05:45 09/18/17 05:44 Ondansetron HCl (Zofran) 4 mg Q6H PRN IVP Nausea & Vomiting 09/11/17 05:45 10/11/17 05:44 Polyethylene Glycol (Miralax) 17 gm HSPRN PRN ORAL Constipation 09/11/17 05:45 10/11/17 05:44 Risperidone (RisperDAL) 1 mg QHS ORAL 09/11/17 21:00 10/11/17 20:59 Tamsulosin HCl (Flomax) 0.4 mg BEDTIME ORAL 09/11/17 21:00 10/11/17 20:59 Valproic Acid (Depakene) 125 mg Q12HR ORAL 09/11/17 12:00 10/11/17 11:59 Zolpidem Tartrate (Ambien) 5 mg HSPRN PRN ORAL Insomnia 09/11/17 05:45 09/18/17 05:44 Assessment/Plan Problem List: (1) Small bowel obstruction Assessment & Plan: 82M with metastatic bladder cancer and possible carcinomatosis with possible sbo. CT demonstrates dilated bowel loops but no transition point. on ct colon full of stool. on exam distended but non tender. rectal exam refused. -NPO for now -IV fluids -can hold off on NG tube for now given patient removed, no significant output when in, and denies nausea. -given enema for now. -will monitor for now. CT findings noted but given no transition point may just be baseline. no acute surgery planned. if condition worsens may need surgery but if does have metastatic bladder cancer might consider hospice. -AM KUAdama. ICD Codes: K56.609 - Unspecified intestinal obstruction, unspecified as to partial versus complete obstruction SNOMED: [id number] Status: stable Juan Hernández Sep 11, 2017 13:56
[2017-09-11] MEDS ORDERED: Fleet's Enema 133ml RECTAL ONE (14:00)
[2017-09-11] MEDS: SandoSTATIN 50mcg Inj SUBQ SCH ×2 (14:16→21:30)
--- NOTE | 2017-09-11 15:24 | Consultation ---
Consult Note Consult Note 82 year old male with history of metastatic bladder cancer diagnosed in 2013 after cystoscopy for hematuria. presented recently with low blood surgery, fatigue, nausea and emesis. on admission had CT scan in ED which demonstrated dilated small bowel loops without transition point and densities concerning for carcinomatosis. surgery called to evaluate. patient had NG tube in ED which he later pulled out. no significant output from NG tube reported from time it was in. patient is somewhat cooperative but at times decides he does not want to speak or communicate. he is a very very poor historian and states that everything with him is great. cannot recall last BM or flatus. denies abdominal pain. denies nausea or emesis. Allergies: Coded Allergies: ASPIRIN (Unverified Allergy, Severe, Rash, 05/20/16) HEPARIN (Verified Allergy, Unknown, 12/24/16) Hx Cardiac Problems: Yes Hx Hypertension: Yes Hx Asthma: Yes Hx Diabetes: Yes Hx Gastrointestinal Problems: Yes Hx Neurological Problems: Yes Hx Dementia: Yes Hx Memory Loss: Yes Hx Dizziness: Yes Hx Syncope: Yes examined- data reviewed- Assessment/Plan ARF (acute renal failure) Dehydration Hypoglycemia due to insulin SBO (small bowel obstruction) Pelvic mass prostate ca with mets Proteinuria Encephalopathy DM OBS Plan; hydrate- avoid nephrotoxics monitor renal parameters- Keep BP under check per consultants GEE LORENZO Sep 11, 2017 15:24
--- NOTE | 2017-09-11 16:36 | Cardiology Report ---
APPROVED REPORT EKG Measurement Heart [id number] ID [id number] Normal sinus rhythm Left anterior fascicular block Septal infarct, age undetermined Abnormal ECG
[2017-09-11] MEDS: Tamsulosin 0.4mg cap ORAL SCH (17:33)
--- NOTE | 2017-09-11 18:56 | History & Physical ---
History and Physical History & Physicial Dictated for Int Med-Dr Givens no. [id number]. TAMMY SAGE Sep 11, 2017 18:56
[2017-09-11] MEDS ORDERED: Tamsulosin 0.4mg cap ORAL SCH (21:00)
[2017-09-11] MEDS: Donepezil 5mg Tab ORAL SCH (21:17)
--- NOTE | 2017-09-11 21:45 | History and Physical Report ---
DATE OF ADMISSION: 09/11/2017 CHIEF COMPLAINT: The patient is an 82-year-old male, who presents with chief complaint of nausea, vomiting, and abdominal pain. HISTORY OF PRESENT ILLNESS: The patient himself is a poor historian. Much of the history and physical is taken from the patient's chart. The patient was admitted to [facility] in February 2017. According to the patient's , the patient began to experience nausea and vomiting approximately two days ago. The patient has decreased p.o. intake. The patient was complaining of abdominal pain. The patient has lost 20 pounds in the last 3 months. The patient presented to [place] emergency room. The patient was found to have dilated loops of bowel consistent with small bowel obstruction. The patient is admitted for possible small bowel obstruction. PAST MEDICAL HISTORY: Significant for: 1. History of cellulitis of the right first toe. 2. Diabetes type 2. 3. Alzheimer's dementia. 4. Hydronephrosis of the right kidney. 5. History of metastatic bladder cancer in 2013. 6. History of benign prostatic hypertrophy. 7. Hypercholesterolemia. PAST SURGICAL HISTORY: Significant for: 1. Inguinal hernia repair. 2. Transurethral resection of prostate. CURRENT MEDICATIONS: 1. Lipitor 10 mg one tablet p.o. at bedtime. 2. Calcium carbonate 500 mg one tablet p.o. 3 times daily. 3. Clonidine 0.1 mg one tablet p.o. q.4 h. p.r.n. 4. Valium 10 mg one tablet p.o. q.6 h. p.r.n. 5. Aricept 5 mg one tablet p.o. at bedtime. 6. Proscar 5 mg one tablet p.o. daily. 7. Advair 250/50 one puff p.o. twice daily. 8. Gabapentin 300 mg one tablet p.o. 3 times daily. 9. NovoLog sliding scale. 10. Levemir 40 units subcutaneously every morning. 11. DuoNeb p.r.n. 12. Singular 10 mg one tablet p.o. daily. 13. Starlix 60 mg one tablet p.o. 3 times daily. 14. Pravastatin 20 mg one tablet p.o. at bedtime. 15. Risperdal 1 mg one tablet p.o. at bedtime. 16. Flomax 0.4 mg one tablet p.o. at bedtime. 17. Depakote 125 mg one tablet p.o. q.12 h. ALLERGIES: To aspirin and heparin. SOCIAL HISTORY: The patient lives at home with his daughter. The patient previously was a heavy smoker, however, quit recently. The patient denies tobacco use. The patient denies alcohol use. REVIEW OF SYSTEMS: Unable to assess, secondary to patient's mental status. PHYSICAL EXAMINATION: VITAL SIGNS: Temperature 98.0, respirations 20, pulse 97, and blood pressure 116/79. GENERAL: The patient is a well-developed, well-nourished, thin-appearing male, in no apparent distress. HEENT: Eyes, pupils are equal and responsive to light and accommodation. Extraocular movements are intact. NECK: Supple without lymphadenopathy. CHEST: Lungs are clear to auscultation bilaterally without wheezes or rales. CARDIOVASCULAR: Regular rhythm and rate. S1 and S2 normal without murmurs, rubs, or gallops. ABDOMEN: Soft, distended with decreased bowel sounds. There is increased tympany to percussion. There is no rebound or guarding noted. EXTREMITIES: Negative for clubbing, cyanosis, or edema. RECTAL: Refused. GENITAL: Refused. NEUROLOGIC: Cranial nerves II to XII are grossly intact without focal deficits. Motor strength is 5/5 bilaterally. Deep tendon reflexes are 2+ plantar. LABORATORY STUDIES: WBC 9.8, hemoglobin 13.3, hematocrit 40.5, and platelets 225,000. Sodium 144, potassium decreased to 3.1, chloride 103, CO2 30, BUN 66, creatinine 0.3, and glucose 116. ASSESSMENT: This is an 82-year-old male: 1. Abdominal pain. 2. Nausea with vomiting. 3. Weight loss. 4. Altered mental status. 5. Diabetes type 2. 6. Alzheimer's dementia. 7. Renal failure. 8. Benign prostatic hypertrophy. 9. Hypercholesteremia. 10. History of bladder tumor with metastases. TREATMENT: 1. Small bowel obstruction. A General Surgery consultation has been obtained with Dr. Hernández. A Gastroenterology consultation has been obtained with Dr. Koko Clark. We will follow recommendations of gastrointestinal and General surgery as above. 2. Diabetes type 2. The patient has been placed on a regular insulin sliding scale. 3. Alzheimer's dementia. 4. Renal failure. A Nephrology consultation has been obtained with Dr. Mckeon. The patient is currently receiving intravenous fluids. Renal failure may be secondary to dehydration. 5. Hypokalemia. The patient is currently receiving potassium replacement. 6. Benign prostatic hypertrophy. 7. Hypercholesterolemia. 8. History of bladder cancer with metastases. 9. Chronic obstructive pulmonary disease. A Pulmonary consultation has been obtained with Dr. Shelby. Bruce Hester M.D. DR: HECTOR JOB#: [id number] CC:
[2017-09-12 00:07] VITALS: BP 112/60
[2017-09-12] MEDS: Dextrose 10% 1,000 ML IV SCH ×4 (02:25→23:59)
[2017-09-12 04:07] VITALS: BP 103/54
[2017-09-12] MEDS: SandoSTATIN 50mcg Inj SUBQ SCH ×2 (06:01→15:03)
[2017-09-12] MEDS: NovoLOG Insulin Flexpen SUBQ SCH ×3 (06:02→18:31)
[2017-09-12 07:20] LABS: BASOPHILS % (AUTO) 0.6 % (0.0-2.0); LYMPHOCYTES % (AUTO) 15.6 % (20.0-45.0); MEAN CORPUSCULAR HGB CONC 34.6 G/DL (32.0-36.0); MEAN CORPUSCULAR VOLUME 93 FL (80-99); MEAN PLATELET VOLUME 7.5 FL (6.5-10.1); MONOCYTES % (AUTO) 8.7 % (1.0-10.0); PLATELET COUNT 161 K/UL (150-450); RED BLOOD COUNT 3.68 M/UL (4.70-6.10); RED CELL DISTRIBUTION WIDTH 13.5 % (11.6-14.8)
--- NOTE | 2017-09-12 07:32 | Consultation ---
DATE OF CONSULTATION: 09/11/2017 HEMATOLOGY/ONCOLOGY CONSULTATION REFERRING PHYSICIAN: Hanh Shelby M.D. REASON FOR CONSULTATION: Evaluation of bladder cancer and treatment options. IDENTIFYING DATA: Dear Dr. Shelby, The patient is a pleasant 82-year-old male with past medical history significant for bladder cancer metastatic in 2013, cystoscopy completed, history of hematuria, presents with low blood pressure, fatigue, as well as emesis. CAT scan showed small bowel loops without transition and density concerning for carcinomatosis. Surgery called to evaluate. The patient had an NG-tube in ED that he pulled out. The patient is uncooperative, does have dementia, is a poor historian. Does not recall receiving chemotherapy, metastatic cancer. Hematology service consulted for evaluation and treatment. PAST MEDICAL HISTORY: Hematuria, LAKESHA, diabetes mellitus, encephalopathy, bladder cancer, cellulitis, and acute cystitis. PAST SURGICAL HISTORY: Notes were reviewed. MEDICATIONS: Calcium, , Neurontin, pravastatin, tamsulosin, and valproic acid. ALLERGIES: Aspirin and heparin. REVIEW OF SYSTEMS: Difficult to obtain, the patient is a poor historian with dementia. PHYSICAL EXAMINATION: GENERAL: No acute distress. VITAL SIGNS: Reviewed. PULMONARY: Decreased breath sounds. CARDIOVASCULAR: Regular rate. No S3 or S4. ABDOMEN: Soft, nontender, and nondistended. EXTREMITIES: A 1+ edema. LABORATORY AND DIAGNOSTIC DATA: BUN 66 and creatinine 2.3. Uric acid 10.1. Iron of 38, TIBC 186, percent saturation 20. Total bilirubin 0.3, AST of 72, and ALT of 20. . PSA pending. INR is 1.2. ASSESSMENT AND RECOMMENDATION: 1. Bladder cancer, status post resection, at this time appears to have carcinomatosis and is likely if the patient does have bladder tumor recurrence. The patient is a very poor candidate for chemotherapy. We recommend to obtain PSA. PSA is pending at this time. 2. Prostate cancer, given the patient is status post transurethral prostate resection and if the patient has prostate cancer we would not recommend further chemotherapy. 3. Given severe dementia may benefit from potential hospice evaluation. Given poor performance status, he is currently bedridden. 4. Anemia, very mild, secondary to chronic disease. ESR is elevated. 5. Coagulopathy, secondary to involvement of the liver. 6. Carcinomatosis, again need to obtain tumor makers and tumor recurrence, elevated prostate, or bladder cancer. 7. . 8. /constipation. 9. Acute kidney injury. Continue to closely monitor. Nephrology evaluation. Tumor markers are pending. I appreciate surgical recommendation as well as GI recommendation. 10. 05:44 appears to have metastatic bladder cancer, again may consider hospice/palliative care. 11. Continue to closely monitor. Thank you for the consultation. Bradley Gaines M.D. DR: MALISSA JOB#: [id number] CC:
[2017-09-12 07:48] VITALS: BP 105/57
[2017-09-12 07:59] LABS: CRP QUANT 15.9 mg/dL (0.00-0.90); MAGNESIUM 1.8 MG/DL (1.8-2.4); PHOSPHORUS 2.4 MG/DL (2.5-4.9)
[2017-09-12 08:08] LABS: PSA % FREE 14.7 % (.); PSA FREE 0.5 ng/mL; PSA TOTAL 3.4 ng/mL (0.0-4.0)
[2017-09-12 08:09] LABS: ALANINE AMINOTRANSFERASE 17 U/L (12-78); ALBUMIN/GLOBULIN RATIO 0.6 (1.0-2.7); ANION GAP 10 mmol/L (5-15); ASPARTATE AMINO TRANSFERASE 45 U/L (15-37); CALCIUM 7.7 MG/DL (8.5-10.1); CARBON DIOXIDE 24 MMOL/L (21-32); CHLORIDE 104 MMOL/L (98-107); CHOLESTEROL 101 MG/DL (< 200); CHOLESTEROL/HDL RATIO 6.7 (3.3-4.4); CREATININE 1.5 MG/DL (0.55-1.30); POTASSIUM 3.6 MMOL/L (3.5-5.1); SODIUM 138 MMOL/L (136-145); TOTAL PROTEIN 6.6 G/DL (6.4-8.2)
[2017-09-12] MEDS: Valproic Acid 250mg/5ml Liquid ORAL SCH ×2 (10:13→21:28)
[2017-09-12] MEDS: Tamsulosin 0.4mg cap ORAL SCH ×2 (10:13→18:32)
--- NOTE | 2017-09-12 10:20 | General Progress Note ---
Progress Note Progress Note Surgery: patient seen and examined at bedside. no acute events. doing well. states he feels better today. no pain. no n/v/f/c. had multiple BM last night. on exam today abdomen soft, nt/nd, bs+ seems to have opened up. sbo resolving. -start clear liquid diet trail today. will follow. thank you Juan Hernández Sep 12, 2017 10:20
[2017-09-12] MEDS ORDERED: Potassium Phosphate 20 MM in NS 275 ML IV ONE (11:00)
--- NOTE | 2017-09-12 11:04 | GI Progress Note ---
Assessment/Plan Problems: (1) Bladder tumor ICD Codes: D49.4 - Neoplasm of unspecified behavior of bladder SNOMED: 511596919 (2) Altered mental status ICD Codes: R41.82 - Altered mental status, unspecified SNOMED: 539910485 (3) Small bowel obstruction ICD Codes: K56.609 - Unspecified intestinal obstruction, unspecified as to partial versus complete obstruction SNOMED: 243367060 (4) Diabetes mellitus type II, uncontrolled ICD Codes: E11.65 - Type 2 diabetes mellitus with hyperglycemia SNOMED: 83522564, 663614438 (5) Dehydration ICD Codes: E86.0 - Dehydration SNOMED: 11117628, 040742965 (6) Acute encephalopathy ICD Codes: G93.40 - Encephalopathy, unspecified SNOMED: 6847478 (7) 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 Clark. Assessment/Plan multiple BM's last night OB stool negative fu surgical / oncology recs >> trial SBO resolving, trial CLD trial of non operative management NPO + IVFs bowel decompression >> defer NGT pain mgmt serial monitoring repeat imaging prn abx fu labs Subjective Gastrointestinal/Abdominal: Reports: no symptoms Subjective limited Objective Last 24 Hour Vital Signs Date Time Temp Pulse Resp B/P (MAP) Pulse Ox O2 Delivery O2 Flow Rate FiO2 09/12/17 07:48 97.7 83 20 105/57 98 Room Air 09/12/17 04:07 97.7 86 20 103/54 94 Room Air 09/12/17 04:00 88 09/12/17 00:07 97.0 91 20 112/60 96 Room Air 09/12/17 00:00 83 09/11/17 20:33 97.3 82 20 114/64 95 Room Air 09/11/17 20:00 82 09/11/17 16:14 97.0 81 18 119/66 97 Room Air 09/11/17 16:00 84 09/11/17 12:00 94 09/11/17 11:57 97.0 92 20 116/63 99 Room Air Laboratory Tests Test 09/11/17 16:30 09/12/17 06:55 Stool Occult Blood Negative (NEGATIVE) White Blood Count 8.0 K/UL (4.8-10.8) Red Blood Count 3.68 M/UL (4.70-6.10) L Hemoglobin 11.8 G/DL (14.2-18.0) L Hematocrit 34.1 % (42.0-52.0) L Mean Corpuscular Volume 93 FL (80-99) Mean Corpuscular Hemoglobin 32.0 PG (27.0-31.0) H Mean Corpuscular Hemoglobin Concent 34.6 G/DL (32.0-36.0) Red Cell Distribution Width 13.5 % (11.6-14.8) Platelet Count 161 K/UL (150-450) Mean Platelet Volume 7.5 FL (6.5-10.1) Neutrophils (%) (Auto) 74.0 % (45.0-75.0) Lymphocytes (%) (Auto) 15.6 % (20.0-45.0) L Monocytes (%) (Auto) 8.7 % (1.0-10.0) Eosinophils (%) (Auto) 1.0 % (0.0-3.0) Basophils (%) (Auto) 0.6 % (0.0-2.0) Sodium Level 138 MMOL/L (136-145) Potassium Level 3.6 MMOL/L (3.5-5.1) Chloride Level 104 MMOL/L (98-107) Carbon Dioxide Level 24 MMOL/L (21-32) Anion Gap 10 mmol/L (5-15) Blood Urea Nitrogen 32 mg/dL (7-18) H Creatinine 1.5 MG/DL (0.55-1.30) H Estimat Glomerular Filtration Rate mL/min (>60) Glucose Level 194 MG/DL (74-106) H Uric Acid 8.0 MG/DL (2.6-7.2) H Calcium Level 7.7 MG/DL (8.5-10.1) L Phosphorus Level 2.4 MG/DL (2.5-4.9) L Magnesium Level 1.8 MG/DL (1.8-2.4) Total Bilirubin 0.3 MG/DL (0.2-1.0) Aspartate Amino Transf (AST/SGOT) 45 U/L (15-37) H Alanine Aminotransferase (ALT/SGPT) 17 U/L (12-78) Alkaline Phosphatase 80 U/L (46-116) C-Reactive Protein, Quantitative 15.9 mg/dL (0.00-0.90) H Pro-B-Type Natriuretic Peptide 387 pg/mL (0-125) H Total Protein 6.6 G/DL (6.4-8.2) Albumin 2.4 G/DL (3.4-5.0) L Globulin 4.2 g/dL Albumin/Globulin Ratio 0.6 (1.0-2.7) L Triglycerides Level 104 MG/DL (0-200) Cholesterol Level 101 MG/DL (< 200) LDL Cholesterol 61 mg/dL (<100) HDL Cholesterol 15 MG/DL (40-60) L Cholesterol/HDL Ratio 6.7 (3.3-4.4) H Height (Feet): 5 Height (Inches): 10.00 Weight (Pounds): 135 General Appearance: no apparent distress, alert, thin Cardiovascular: normal rate Respiratory/Chest: normal breath sounds, no respiratory distress Abdominal Exam: normal bowel sounds, non tender, soft Extremities: non-tender Katerin Main N.PEd Sep 12, 2017 11:04
[2017-09-12 11:21] VITALS: BP_SYST 111; BP_SYST 154; BP_DIAS 62; BP_DIAS 70
--- NOTE | 2017-09-12 13:15 | Cardiac Electrophysiology PN ---
Subjective Subjective Cardiology consult dictated. [id number] LAFB, HTN Objective Last 24 Hour Vital Signs Date Time Temp Pulse Resp B/P (MAP) Pulse Ox O2 Delivery O2 Flow Rate FiO2 09/12/17 12:00 84 09/12/17 11:21 97.9 85 20 154/62 99 Room Air 09/12/17 08:00 85 09/12/17 07:48 97.7 83 20 105/57 98 Room Air 09/12/17 04:07 97.7 86 20 103/54 94 Room Air 09/12/17 04:00 88 09/12/17 00:07 97.0 91 20 112/60 96 Room Air 09/12/17 00:00 83 09/11/17 20:33 97.3 82 20 114/64 95 Room Air 09/11/17 20:00 82 09/11/17 16:14 97.0 81 18 119/66 97 Room Air 09/11/17 16:00 84 Intake and Output 09/12/17 09/13/17 19:00 07:00 Intake Total 350 ml Balance 350 ml Intake Oral 350 ml Laboratory Tests Test 09/11/17 16:30 09/12/17 06:55 Stool Occult Blood Negative (NEGATIVE) White Blood Count 8.0 K/UL (4.8-10.8) Red Blood Count 3.68 M/UL (4.70-6.10) L Hemoglobin 11.8 G/DL (14.2-18.0) L Hematocrit 34.1 % (42.0-52.0) L Mean Corpuscular Volume 93 FL (80-99) Mean Corpuscular Hemoglobin 32.0 PG (27.0-31.0) H Mean Corpuscular Hemoglobin Concent 34.6 G/DL (32.0-36.0) Red Cell Distribution Width 13.5 % (11.6-14.8) Platelet Count 161 K/UL (150-450) Mean Platelet Volume 7.5 FL (6.5-10.1) Neutrophils (%) (Auto) 74.0 % (45.0-75.0) Lymphocytes (%) (Auto) 15.6 % (20.0-45.0) L Monocytes (%) (Auto) 8.7 % (1.0-10.0) Eosinophils (%) (Auto) 1.0 % (0.0-3.0) Basophils (%) (Auto) 0.6 % (0.0-2.0) Sodium Level 138 MMOL/L (136-145) Potassium Level 3.6 MMOL/L (3.5-5.1) Chloride Level 104 MMOL/L (98-107) Carbon Dioxide Level 24 MMOL/L (21-32) Anion Gap 10 mmol/L (5-15) Blood Urea Nitrogen 32 mg/dL (7-18) H Creatinine 1.5 MG/DL (0.55-1.30) H Estimat Glomerular Filtration Rate mL/min (>60) Glucose Level 194 MG/DL (74-106) H Uric Acid 8.0 MG/DL (2.6-7.2) H Calcium Level 7.7 MG/DL (8.5-10.1) L Phosphorus Level 2.4 MG/DL (2.5-4.9) L Magnesium Level 1.8 MG/DL (1.8-2.4) Total Bilirubin 0.3 MG/DL (0.2-1.0) Aspartate Amino Transf (AST/SGOT) 45 U/L (15-37) H Alanine Aminotransferase (ALT/SGPT) 17 U/L (12-78) Alkaline Phosphatase 80 U/L (46-116) C-Reactive Protein, Quantitative 15.9 mg/dL (0.00-0.90) H Pro-B-Type Natriuretic Peptide 387 pg/mL (0-125) H Total Protein 6.6 G/DL (6.4-8.2) Albumin 2.4 G/DL (3.4-5.0) L Globulin 4.2 g/dL Albumin/Globulin Ratio 0.6 (1.0-2.7) L Triglycerides Level 104 MG/DL (0-200) Cholesterol Level 101 MG/DL (< 200) LDL Cholesterol 61 mg/dL (<100) HDL Cholesterol 15 MG/DL (40-60) L Cholesterol/HDL Ratio 6.7 (3.3-4.4) H Microbiology Date/Time Source Procedure Growth Status 09/11/17 23:45 Elbow Right Gram Stain - Final Resulted 09/11/17 23:45 Elbow Right Wound Culture Pending Resulted ARIANA MARTIN Sep 12, 2017 13:15
--- NOTE | 2017-09-12 13:44 | Internal Med Progress Note ---
Subjective Date of Service: Sep 12, 2017 Physician Name Bruce Sage Attending Physician Arian Givens MD Current Medications Medications (Trade) Dose Ordered Sig/Eric Route PRN Reason Start Time Stop Time Status Last Admin Dose Admin Acetaminophen (Tylenol) 650 mg Q4H PRN ORAL fever 09/11/17 05:45 10/11/17 05:44 Clonidine HCl (Catapres) 0.1 mg EVERY 4 HOURS PRN ORAL For High Blood Pressure 09/11/17 05:45 10/11/17 05:44 Dextrose 1,000 ml @ 100 mls/hr Q10H IV 09/11/17 09:30 10/11/17 09:29 09/12/17 02:25 Dextrose (Dextrose 50%) STAT PRN IV Hypoglycemia 09/11/17 05:45 10/11/17 05:44 09/11/17 13:35 Donepezil HCl (Aricept) 5 mg QHS ORAL 09/11/17 21:00 10/11/17 20:59 09/11/17 21:17 Finasteride (Proscar) 5 mg DAILY ORAL 09/11/17 09:00 10/11/17 08:59 09/12/17 10:14 Insulin Aspart (NovoLOG) Q6HR SUBQ 09/12/17 00:00 10/11/17 06:29 09/12/17 06:02 Lansoprazole (Prevacid) 30 mg DAILY ORAL 09/12/17 09:00 10/12/17 08:59 09/12/17 10:13 Lorazepam (Ativan 2mg/ml 1ml) 0.5 mg Q4H PRN IV For Anxiety 09/11/17 05:45 09/18/17 05:44 Octreotide Acetate (SandoSTATIN) 50 mcg Q8HR SUBQ 09/11/17 15:00 10/11/17 14:59 09/12/17 06:01 Ondansetron HCl (Zofran) 4 mg Q6H PRN IVP Nausea & Vomiting 09/11/17 05:45 10/11/17 05:44 Polyethylene Glycol (Miralax) 17 gm HSPRN PRN ORAL Constipation 09/11/17 05:45 10/11/17 05:44 Potassium Phosphate 20 mm/ Sodium Chloride 281.6667 ml @ 46.944 m... ONCE ONCE IV 09/12/17 11:00 09/12/17 16:59 09/12/17 10:22 Risperidone (RisperDAL) 1 mg QHS ORAL 09/11/17 21:00 10/11/17 20:59 09/11/17 21:17 Tamsulosin HCl (Flomax) 0.4 mg BID ORAL 09/11/17 18:00 10/11/17 20:59 09/12/17 10:13 Valproic Acid (Depakene) 125 mg Q12HR ORAL 09/11/17 12:00 10/11/17 11:59 09/12/17 10:13 Zolpidem Tartrate (Ambien) 5 mg HSPRN PRN ORAL Insomnia 09/11/17 05:45 09/18/17 05:44 Allergies: Coded Allergies: ASPIRIN (Unverified Allergy, Severe, Rash, 05/20/16) HEPARIN (Verified Allergy, Unknown, 12/24/16) ROS Limited/Unobtainable: Yes Subjective 82 YO M admitted with hypoglycemia, nausea and vomiting; now small bowel obstruction. Carcinomatosis probably due to previous bladder cancer. Cover for Int Med-Dr Givens. Objective Last Vital Signs Date Time Temp Pulse Resp B/P (MAP) Pulse Ox O2 Delivery O2 Flow Rate FiO2 09/12/17 12:00 84 09/12/17 11:21 97.9 20 154/62 99 Room Air General Appearance: mild distress, lethargic, thin EENT: PERRL/EOMI, normal ENT inspection Neck: non-tender, normal alignment, supple, normal inspection Cardiovascular: normal peripheral pulses, normal rate, regular rhythm, no gallop/murmur, no JVD Respiratory/Chest: chest wall non-tender, lungs clear, normal breath sounds, no respiratory distress, no accessory muscle use Abdomen: normal bowel sounds, non tender, soft, no organomegaly, no mass Neurologic: laser engineer II-XII grossly normal, no motor/sensory deficits Skin: normal pigmentation, warm/dry Laboratory Tests Test 09/11/17 16:30 09/12/17 06:55 Stool Occult Blood Negative (NEGATIVE) White Blood Count 8.0 K/UL (4.8-10.8) Red Blood Count 3.68 M/UL (4.70-6.10) L Hemoglobin 11.8 G/DL (14.2-18.0) L Hematocrit 34.1 % (42.0-52.0) L Mean Corpuscular Volume 93 FL (80-99) Mean Corpuscular Hemoglobin 32.0 PG (27.0-31.0) H Mean Corpuscular Hemoglobin Concent 34.6 G/DL (32.0-36.0) Red Cell Distribution Width 13.5 % (11.6-14.8) Platelet Count 161 K/UL (150-450) Mean Platelet Volume 7.5 FL (6.5-10.1) Neutrophils (%) (Auto) 74.0 % (45.0-75.0) Lymphocytes (%) (Auto) 15.6 % (20.0-45.0) L Monocytes (%) (Auto) 8.7 % (1.0-10.0) Eosinophils (%) (Auto) 1.0 % (0.0-3.0) Basophils (%) (Auto) 0.6 % (0.0-2.0) Sodium Level 138 MMOL/L (136-145) Potassium Level 3.6 MMOL/L (3.5-5.1) Chloride Level 104 MMOL/L (98-107) Carbon Dioxide Level 24 MMOL/L (21-32) Anion Gap 10 mmol/L (5-15) Blood Urea Nitrogen 32 mg/dL (7-18) H Creatinine 1.5 MG/DL (0.55-1.30) H Estimat Glomerular Filtration Rate mL/min (>60) Glucose Level 194 MG/DL (74-106) H Uric Acid 8.0 MG/DL (2.6-7.2) H Calcium Level 7.7 MG/DL (8.5-10.1) L Phosphorus Level 2.4 MG/DL (2.5-4.9) L Magnesium Level 1.8 MG/DL (1.8-2.4) Total Bilirubin 0.3 MG/DL (0.2-1.0) Aspartate Amino Transf (AST/SGOT) 45 U/L (15-37) H Alanine Aminotransferase (ALT/SGPT) 17 U/L (12-78) Alkaline Phosphatase 80 U/L (46-116) C-Reactive Protein, Quantitative 15.9 mg/dL (0.00-0.90) H Pro-B-Type Natriuretic Peptide 387 pg/mL (0-125) H Total Protein 6.6 G/DL (6.4-8.2) Albumin 2.4 G/DL (3.4-5.0) L Globulin 4.2 g/dL Albumin/Globulin Ratio 0.6 (1.0-2.7) L Triglycerides Level 104 MG/DL (0-200) Cholesterol Level 101 MG/DL (< 200) LDL Cholesterol 61 mg/dL (<100) HDL Cholesterol 15 MG/DL (40-60) L Cholesterol/HDL Ratio 6.7 (3.3-4.4) H Microbiology Date/Time Source Procedure Growth Status 09/11/17 23:45 Elbow Right Gram Stain - Final Resulted 09/11/17 23:45 Elbow Right Wound Culture Pending Resulted Intake and Output 09/12/17 09/13/17 19:00 07:00 Intake Total 350 ml Balance 350 ml Intake Oral 350 ml Assessment/Plan Problem List: (1) Abdominal pain (2) Carcinomatosis Assessment & Plan: Probably reoccurrence of bladder cancer. See onc note. (3) Hypoglycemia (4) Nausea & vomiting (5) SBO (small bowel obstruction) Assessment & Plan: Non surgical-see surgery note (6) Diabetes mellitus type II, uncontrolled Assessment & Plan: Continue novolog sliding scale. (7) ARF (acute renal failure) (8) COPD exacerbation (9) BPH (benign prostatic hypertrophy) Assessment & Plan: Cont proscar Status: unchanged BRUCE SAGE Sep 12, 2017 13:44
--- NOTE | 2017-09-12 14:49 | Diagnostic Imaging Report ---
Indication: Abdominal pain Comparison: 09/11/17 Single view of the abdomen obtained Findings: Multiple dilated loops of small bowel and demonstrated. There is suggestion of some improvement in the degree of dilatation compared to last exam. A nasogastric tube has been removed. Impression: Some improvement in degree of small bowel distention still moderate
--- NOTE | 2017-09-12 14:50 | Pulmonology Progress Note ---
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 She agreed and will sign the consent papers Subjective Interval Events: feeling better, Allergies: Coded Allergies: ASPIRIN (Unverified Allergy, Severe, Rash, 05/20/16) HEPARIN (Verified Allergy, Unknown, 12/24/16) Objective Last 24 Hour Vital Signs Date Time Temp Pulse Resp B/P (MAP) Pulse Ox O2 Delivery O2 Flow Rate FiO2 09/12/17 12:00 84 09/12/17 11:21 97.9 85 20 154/62 99 Room Air 09/12/17 08:00 85 09/12/17 07:48 97.7 83 20 105/57 98 Room Air 09/12/17 04:07 97.7 86 20 103/54 94 Room Air 09/12/17 04:00 88 09/12/17 00:07 97.0 91 20 112/60 96 Room Air 09/12/17 00:00 83 09/11/17 20:33 97.3 82 20 114/64 95 Room Air 09/11/17 20:00 82 09/11/17 16:14 97.0 81 18 119/66 97 Room Air 09/11/17 16:00 84 Intake and Output 09/12/17 09/13/17 19:00 07:00 Intake Total 350 ml Balance 350 ml Intake Oral 350 ml # Voids 2 General Appearance: cachetic HEENT: normocephalic, atraumatic Respiratory/Chest: chest wall non-tender, lungs clear Cardiovascular: normal peripheral pulses, normal rate Abdomen: normal bowel sounds, no organomegaly Genitourinary: normal external genitalia Extremities: no cyanosis Skin: no rash Neurologic/Psychiatric: computed tomography technologist II-XII grossly normal, no motor/sensory deficits Microbiology Date/Time Source Procedure Growth Status 09/11/17 23:45 Elbow Right Gram Stain - Final Resulted 09/11/17 23:45 Elbow Right Wound Culture Pending Resulted Laboratory Tests 09/11/17 16:30: Stool Occult Blood Negative 09/12/17 06:55: White Blood Count 8.0, Red Blood Count 3.68L, Hemoglobin 11.8L, Hematocrit 34.1L , Mean Corpuscular Volume 93, Mean Corpuscular Hemoglobin 32.0H, Mean Corpuscular Hemoglobin Concent 34.6, Red Cell Distribution Width 13.5, Platelet Count 161, Mean Platelet Volume 7.5, Neutrophils (%) (Auto) 74.0, Lymphocytes (% ) (Auto) 15.6L, Monocytes (%) (Auto) 8.7, Eosinophils (%) (Auto) 1.0, Basophils (%) (Auto) 0.6, Erythrocyte Sedimentation Rate [Pending], Sodium Level 138, Potassium Level 3.6, Chloride Level 104, Carbon Dioxide Level 24, Anion Gap 10, Blood Urea Nitrogen 32H, Creatinine 1.5H, Estimat Glomerular Filtration Rate , Glucose Level 194H, Uric Acid 8.0H, Calcium Level 7.7L, Phosphorus Level 2.4L, Magnesium Level 1.8, Total Bilirubin 0.3, Aspartate Amino Transf (AST/SGOT) 45H , Alanine Aminotransferase (ALT/SGPT) 17, Alkaline Phosphatase 80, C-Reactive Protein, Quantitative 15.9H, Pro-B-Type Natriuretic Peptide 387H, Total Protein 6.6, Albumin 2.4L, Globulin 4.2, Albumin/Globulin Ratio 0.6L, Triglycerides Level 104, Cholesterol Level 101, LDL Cholesterol 61, HDL Cholesterol 15L, Cholesterol/HDL Ratio 6.7H Current Medications Medications (Trade) Dose Ordered Sig/Eric Route PRN Reason Start Time Stop Time Status Last Admin Dose Admin Acetaminophen (Tylenol) 650 mg Q4H PRN ORAL fever 09/11/17 05:45 10/11/17 05:44 Clonidine HCl (Catapres) 0.1 mg EVERY 4 HOURS PRN ORAL For High Blood Pressure 09/11/17 05:45 10/11/17 05:44 Dextrose 1,000 ml @ 100 mls/hr Q10H IV 09/11/17 09:30 10/11/17 09:29 09/12/17 02:25 Dextrose (Dextrose 50%) STAT PRN IV Hypoglycemia 09/11/17 05:45 10/11/17 05:44 09/11/17 13:35 Donepezil HCl (Aricept) 5 mg QHS ORAL 09/11/17 21:00 10/11/17 20:59 09/11/17 21:17 Finasteride (Proscar) 5 mg DAILY ORAL 09/11/17 09:00 10/11/17 08:59 09/12/17 10:14 Insulin Aspart (NovoLOG) Q6HR SUBQ 09/12/17 00:00 10/11/17 06:29 09/12/17 06:02 Lansoprazole (Prevacid) 30 mg DAILY ORAL 09/12/17 09:00 10/12/17 08:59 09/12/17 10:13 Lorazepam (Ativan 2mg/ml 1ml) 0.5 mg Q4H PRN IV For Anxiety 09/11/17 05:45 09/18/17 05:44 Octreotide Acetate (SandoSTATIN) 50 mcg Q8HR SUBQ 09/11/17 15:00 10/11/17 14:59 09/12/17 06:01 Ondansetron HCl (Zofran) 4 mg Q6H PRN IVP Nausea & Vomiting 09/11/17 05:45 10/11/17 05:44 Polyethylene Glycol (Miralax) 17 gm HSPRN PRN ORAL Constipation 09/11/17 05:45 10/11/17 05:44 Potassium Phosphate 20 mm/ Sodium Chloride 281.6667 ml @ 46.944 m... ONCE ONCE IV 09/12/17 11:00 09/12/17 16:59 09/12/17 10:22 Risperidone (RisperDAL) 1 mg QHS ORAL 09/11/17 21:00 10/11/17 20:59 09/11/17 21:17 Tamsulosin HCl (Flomax) 0.4 mg BID ORAL 09/11/17 18:00 10/11/17 20:59 09/12/17 10:13 Valproic Acid (Depakene) 125 mg Q12HR ORAL 09/11/17 12:00 10/11/17 11:59 09/12/17 10:13 Zolpidem Tartrate (Ambien) 5 mg HSPRN PRN ORAL Insomnia 09/11/17 05:45 09/18/17 05:44 BLUE HUNTLEY Sep 12, 2017 14:50
[2017-09-12 15:22] VITALS: BP 113/61
--- NOTE | 2017-09-12 15:31 | Nephrology Progress Note ---
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 (4) SBO (small bowel obstruction) Assessment ARF (acute renal failure) Dehydration Hypoglycemia due to insulin SBO (small bowel obstruction) Pelvic mass prostate ca with mets Proteinuria Encephalopathy DM OBS Plan Plan; hydrate- avoid nephrotoxics monitor renal parameters- Keep BP under check per consultants Subjective ROS Limited/Unobtainable: No Constitutional: Reports: malaise, weakness Objective Objective Last 24 Hour Vital Signs Date Time Temp Pulse Resp B/P (MAP) Pulse Ox O2 Delivery O2 Flow Rate FiO2 09/12/17 15:22 97.9 90 20 113/61 98 Room Air 09/12/17 12:00 84 09/12/17 11:21 97.9 85 20 154/62 99 Room Air 09/12/17 08:00 85 09/12/17 07:48 97.7 83 20 105/57 98 Room Air 09/12/17 04:07 97.7 86 20 103/54 94 Room Air 09/12/17 04:00 88 09/12/17 00:07 97.0 91 20 112/60 96 Room Air 09/12/17 00:00 83 09/11/17 20:33 97.3 82 20 114/64 95 Room Air 09/11/17 20:00 82 09/11/17 16:14 97.0 81 18 119/66 97 Room Air 09/11/17 16:00 84 Intake and Output 09/12/17 09/13/17 19:00 07:00 Intake Total 584.720 ml Balance 584.720 ml Intake Oral 350 ml IV Total 234.720 ml # Voids 2 Laboratory Tests 09/11/17 16:30: Stool Occult Blood Negative 09/12/17 06:55: White Blood Count 8.0, Red Blood Count 3.68L, Hemoglobin 11.8L, Hematocrit 34.1L , Mean Corpuscular Volume 93, Mean Corpuscular Hemoglobin 32.0H, Mean Corpuscular Hemoglobin Concent 34.6, Red Cell Distribution Width 13.5, Platelet Count 161, Mean Platelet Volume 7.5, Neutrophils (%) (Auto) 74.0, Lymphocytes (% ) (Auto) 15.6L, Monocytes (%) (Auto) 8.7, Eosinophils (%) (Auto) 1.0, Basophils (%) (Auto) 0.6, Erythrocyte Sedimentation Rate [Pending], Sodium Level 138, Potassium Level 3.6, Chloride Level 104, Carbon Dioxide Level 24, Anion Gap 10, Blood Urea Nitrogen 32H, Creatinine 1.5H, Estimat Glomerular Filtration Rate , Glucose Level 194H, Uric Acid 8.0H, Calcium Level 7.7L, Phosphorus Level 2.4L, Magnesium Level 1.8, Total Bilirubin 0.3, Aspartate Amino Transf (AST/SGOT) 45H , Alanine Aminotransferase (ALT/SGPT) 17, Alkaline Phosphatase 80, C-Reactive Protein, Quantitative 15.9H, Pro-B-Type Natriuretic Peptide 387H, Total Protein 6.6, Albumin 2.4L, Globulin 4.2, Albumin/Globulin Ratio 0.6L, Triglycerides Level 104, Cholesterol Level 101, LDL Cholesterol 61, HDL Cholesterol 15L, Cholesterol/HDL Ratio 6.7H Height (Feet): 5 Height (Inches): 10.00 Weight (Pounds): 135 General Appearance: no apparent distress, lethargic, confused Cardiovascular: tachycardia Respiratory/Chest: decreased breath sounds Abdomen: soft Objective no other changes in PE GEE LORENZO Sep 12, 2017 15:31
--- NOTE | 2017-09-12 19:45 | Consultation ---
DATE OF CONSULTATION: 09/12/2017 CARDIOLOGY CONSULTATION CONSULTING PHYSICIAN: Jamie Juárez M.D. REASON FOR CONSULTATION: Hypertension in a patient with left anterior fascicular block. HISTORY OF PRESENT ILLNESS: The patient is a very pleasant 82-year-old gentleman with history of hypertension, type 2 diabetes, right first toe cellulitis, and Alzheimer's dementia as well as hyperlipidemia, history of metastatic bladder cancer in 2013, who was brought to the emergency room for nausea and vomiting of two days duration as well as poor p.o. intake. The patient also had lost 20 pounds over the last 2 months. The patient also was also found to have dilated loops of bowel consistent with small bowel obstruction. He was admitted for further evaluation. His EKG was suggestive of left anterior fascicular block and a Cardiology consultation was obtained for further evaluation. PAST MEDICAL HISTORY: As mentioned above. SOCIAL HISTORY: He does not smoke or drink alcohol. Lives at home with his daughter. He used to be a heavy smoker in the past. FAMILY HISTORY: Noncontributory. REVIEW OF SYSTEMS: Review of systems was negative other than what was mentioned in the history of present illness. PHYSICAL EXAMINATION: VITAL SIGNS: Blood pressure is 154/62, pulse 85, respirations 20, and temperature 97.9. HEAD AND NECK: Showed no JVD. LUNGS: Clear. CARDIOVASCULAR: Shows regular S1 and S2 with no gallop or murmur. ABDOMEN: Soft. EXTREMITIES: No pitting edema. LABORATORY DATA: Show white count of 8, hemoglobin 11.8, hematocrit 34.1, and platelet 161. Sodium 138, potassium 3.6, BUN of 30, creatinine 1.5, and glucose of 194. LDH is 6.9. ASSESSMENT AND PLAN: 1. Left anterior fascicular block. The patient denies any syncope. There was no advanced heart block on telemetry. The patient is off of any AV delaney blocking agents. We will however get an echocardiogram to evaluate for ejection fraction and wall motion abnormality. 2. Hypertension. The patient is on as needed clonidine. 3. Diabetes. 4. History of seizures. 5. Bladder tumor. 6. Small bowel obstruction. Further evaluation by Dr. Clark. 7. followup by Surgery and Oncology. Thank you very much, Dr. Shelby, for allowing me to participate in the care of this patient. Please do not hesitate to contact me for any questions regarding my evaluation. Jamie Juárez M.D. DR: LEATHA JOB#: [id number] CC:
[2017-09-12 20:49] VITALS: BP 126/62
[2017-09-12] MEDS ORDERED: NovoLOG Insulin Flexpen SUBQ SCH (21:00)
[2017-09-12] MEDS: Donepezil 5mg Tab ORAL SCH (21:28)
--- NOTE | 2017-09-12 23:14 | General Progress Note ---
Assessment/Plan Assessment/Plan ASSESSMENT AND RECOMMENDATION: 1. Bladder cancer, status post resection, at this time appears to have carcinomatosis. The patient is a very poor candidate for chemotherapy. 2. Prostate cancer, given the patient is status post transurethral prostate resection and if the patient has prostate cancer we would not recommend further chemotherapy. 4. Anemia, very mild, secondary to chronic disease. ESR is elevated. 5. Coagulopathy Subjective Constitutional: Reports: malaise, weakness Respiratory: Reports: cough Hematologic/Lymphatic: Reports: anemia Allergies: Coded Allergies: ASPIRIN (Unverified Allergy, Severe, Rash, 05/20/16) HEPARIN (Verified Allergy, Unknown, 12/24/16) All Systems: reviewed and negative except above Objective Last 24 Hour Vital Signs Date Time Temp Pulse Resp B/P (MAP) Pulse Ox O2 Delivery O2 Flow Rate FiO2 09/12/17 20:49 96.4 94 18 126/62 76 Room Air 09/12/17 15:22 97.9 90 20 113/61 98 Room Air 09/12/17 12:00 84 09/12/17 11:21 97.9 85 20 154/62 99 Room Air 09/12/17 08:00 85 09/12/17 07:48 97.7 83 20 105/57 98 Room Air 09/12/17 04:07 97.7 86 20 103/54 94 Room Air 09/12/17 04:00 88 09/12/17 00:07 97.0 91 20 112/60 96 Room Air 09/12/17 00:00 83 Intake and Output 09/12/17 09/13/17 19:00 07:00 Intake Total 784.720 ml 300 ml Balance 784.720 ml 300 ml Intake Oral 350 ml IV Total 434.720 ml 300 ml # Voids 3 Laboratory Tests 09/12/17 06:55: White Blood Count 8.0, Red Blood Count 3.68L, Hemoglobin 11.8L, Hematocrit 34.1L , Mean Corpuscular Volume 93, Mean Corpuscular Hemoglobin 32.0H, Mean Corpuscular Hemoglobin Concent 34.6, Red Cell Distribution Width 13.5, Platelet Count 161, Mean Platelet Volume 7.5, Neutrophils (%) (Auto) 74.0, Lymphocytes (% ) (Auto) 15.6L, Monocytes (%) (Auto) 8.7, Eosinophils (%) (Auto) 1.0, Basophils (%) (Auto) 0.6, Erythrocyte Sedimentation Rate 44H, Sodium Level 138, Potassium Level 3.6, Chloride Level 104, Carbon Dioxide Level 24, Anion Gap 10, Blood Urea Nitrogen 32H, Creatinine 1.5H, Estimat Glomerular Filtration Rate , Glucose Level 194H, Uric Acid 8.0H, Calcium Level 7.7L, Phosphorus Level 2.4L, Magnesium Level 1.8, Total Bilirubin 0.3, Aspartate Amino Transf (AST/SGOT) 45H , Alanine Aminotransferase (ALT/SGPT) 17, Alkaline Phosphatase 80, C-Reactive Protein, Quantitative 15.9H, Pro-B-Type Natriuretic Peptide 387H, Total Protein 6.6, Albumin 2.4L, Globulin 4.2, Albumin/Globulin Ratio 0.6L, Triglycerides Level 104, Cholesterol Level 101, LDL Cholesterol 61, HDL Cholesterol 15L, Cholesterol/HDL Ratio 6.7H Height (Feet): 5 Height (Inches): 10.00 Weight (Pounds): 135 General Appearance: no apparent distress EENT: normal ENT inspection Neck: normal alignment Extremities: normal range of motion 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
[2017-09-13] VITALS (7 sets, daily range): BP systolic 89–121; BP diastolic 43–74
[2017-09-13] MEDS: NovoLOG Insulin Flexpen SUBQ SCH ×5 (01:20→21:41)
[2017-09-13] MEDS ORDERED: LORazepam Inj 2mg/ml 1ml IV PRN (01:45)
[2017-09-13] MEDS: Dextrose 10% 1,000 ML IV SCH ×3 (04:49→16:11)
[2017-09-13] MEDS ORDERED: Zolpidem 5mg tab ORAL PRN (05:45)
[2017-09-13] MEDS ORDERED: Miralax 17gm pkt ORAL PRN (05:45)
[2017-09-13 07:07] LABS: BASOPHILS % (AUTO) 0.8 % (0.0-2.0); EOSINOPHILS % (AUTO) 1.1 % (0.0-3.0); LYMPHOCYTES % (AUTO) 14.2 % (20.0-45.0); MEAN CORPUSCULAR HEMOGLOBIN 30.3 PG (27.0-31.0); MEAN CORPUSCULAR VOLUME 98 FL (80-99); MEAN PLATELET VOLUME 6.7 FL (6.5-10.1); MONOCYTES % (AUTO) 9.6 % (1.0-10.0); NEUTROPHILS % (AUTO) 74.4 % (45.0-75.0); PLATELET COUNT 152 K/UL (150-450); RED BLOOD COUNT 3.64 M/UL (4.70-6.10); RED CELL DISTRIBUTION WIDTH 12.6 % (11.6-14.8); WHITE BLOOD COUNT 10.6 K/UL (4.8-10.8)
[2017-09-13 07:14] LABS: ANION GAP 6 mmol/L (5-15); CALCIUM 8.1 MG/DL (8.5-10.1); CARBON DIOXIDE 27 MMOL/L (21-32); CHLORIDE 103 MMOL/L (98-107); CREATININE 1.4 MG/DL (0.55-1.30); POTASSIUM 4.6 MMOL/L (3.5-5.1); SODIUM 136 MMOL/L (136-145); THYROID STIMULATING HORMONE 1.036 uiU/mL (0.360-3.740)
--- NOTE | 2017-09-13 08:16 | General Progress Note ---
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 ICD Codes: C61 - Malignant neoplasm of prostate; C78.6 - Secondary malignant neoplasm of retroperitoneum and peritoneum SNOMED: 73912730, 17701843 (5) ARF (acute renal failure) ICD Codes: N17.9 - Acute kidney failure, unspecified SNOMED: 90232804 (6) Alzheimer's dementia ICD Codes: G30.9 - Alzheimer's disease, unspecified SNOMED: 46913808 Assessment/Plan hypoglycemia improving octreotide DC'ed continue BG monitoring Subjective Allergies: Coded Allergies: ASPIRIN (Unverified Allergy, Severe, Rash, 05/20/16) HEPARIN (Verified Allergy, Unknown, 12/24/16) All Systems: reviewed and negative except above Subjective events noted Objective Last 24 Hour Vital Signs Date Time Temp Pulse Resp B/P (MAP) Pulse Ox O2 Delivery O2 Flow Rate FiO2 09/13/17 04:00 98.2 57 20 119/67 97 Room Air 09/13/17 00:00 97.7 90 18 101/55 97 Room Air 09/12/17 20:49 96.4 94 18 126/62 76 Room Air 09/12/17 15:22 97.9 90 20 113/61 98 Room Air 09/12/17 12:00 84 09/12/17 11:21 97.9 85 20 154/62 99 Room Air Laboratory Tests 09/13/17 06:05: White Blood Count 10.6, Red Blood Count 3.64L, Hemoglobin 11.1L, Hematocrit 35.6L, Mean Corpuscular Volume 98, Mean Corpuscular Hemoglobin 30.3, Mean Corpuscular Hemoglobin Concent 31.0L, Red Cell Distribution Width 12.6, Platelet Count 152, Mean Platelet Volume 6.7, Neutrophils (%) (Auto) 74.4, Lymphocytes (%) (Auto) 14.2L, Monocytes (%) (Auto) 9.6, Eosinophils (%) (Auto) 1.1, Basophils (%) (Auto) 0.8, Sodium Level 136, Potassium Level 4.6, Chloride Level 103, Carbon Dioxide Level 27, Anion Gap 6, Blood Urea Nitrogen 21H, Creatinine 1.4H, Estimat Glomerular Filtration Rate , Glucose Level 192H, Calcium Level 8.1L, Thyroid Stimulating Hormone (TSH) 1.036, Free Thyroxine 1.12 Height (Feet): 5 Height (Inches): 10.00 Weight (Pounds): 135 General Appearance: no apparent distress EENT: pale conjunctivae Cardiovascular: normal rate Respiratory/Chest: decreased breath sounds Abdomen: hypoactive bowel sounds Pelvis: normal external exam Edema: 1+ Arm (L), 1+ Arm (R), 1+ Leg (L), 1+ Leg (R), 1+ Pedal (L), 1+ Pedal ( R), 1+ Generalized Objective Current Medications Medications (Trade) Dose Ordered Sig/Eric Route PRN Reason Start Time Stop Time Status Last Admin Dose Admin Acetaminophen (Tylenol) 650 mg Q4H PRN ORAL fever 09/13/17 01:45 10/11/17 05:44 Clonidine HCl (Catapres) 0.1 mg EVERY 4 HOURS PRN ORAL For High Blood Pressure>160 09/13/17 01:00 10/11/17 05:44 Dextrose 1,000 ml @ 100 mls/hr Q10H IV 09/12/17 23:00 10/11/17 09:29 09/13/17 04:50 Dextrose (Dextrose 50%) STAT PRN IV Hypoglycemia 09/13/17 05:45 10/11/17 05:44 Donepezil HCl (Aricept) 5 mg QHS ORAL 09/13/17 21:00 10/11/17 20:59 Finasteride (Proscar) 5 mg DAILY ORAL 09/13/17 09:00 10/11/17 08:59 Gabapentin (Neurontin) 300 mg TID@0900,1500,2100 ORAL 09/13/17 09:00 10/13/17 08:59 Insulin Aspart (NovoLOG) AC+HS SUBQ 09/13/17 06:30 10/11/17 06:29 09/13/17 06:26 Lorazepam (Ativan 2mg/ml 1ml) 0.5 mg Q4H PRN IV For Anxiety 09/13/17 01:45 09/18/17 05:44 Ondansetron HCl (Zofran) 4 mg Q6H PRN IVP Nausea & Vomiting 09/12/17 23:45 10/11/17 05:44 Pantoprazole (Protonix) 40 mg DAILY@0730 ORAL 09/13/17 07:30 10/13/17 07:29 09/13/17 06:32 Polyethylene Glycol (Miralax) 17 gm HSPRN PRN ORAL Constipation 09/13/17 05:45 10/11/17 05:44 Risperidone (RisperDAL) 1 mg QHS ORAL 09/13/17 21:00 10/11/17 20:59 Tamsulosin HCl (Flomax) 0.4 mg BID@0900,2100 ORAL 09/13/17 09:00 10/13/17 08:59 Valproic Acid (Depakene) 125 mg Q12HR ORAL 09/13/17 09:00 10/11/17 11:59 Zolpidem Tartrate (Ambien) 5 mg HSPRN PRN ORAL Insomnia 09/13/17 05:45 09/18/17 05:44 Item Value Date Time Bedside Blood Glucose 155 mg/dl H 09/13/17 0626 Bedside Blood Glucose 210 mg/dl H 09/12/17 2146 Bedside Blood Glucose 333 mg/dl H 09/12/17 1831 Bedside Blood Glucose 83 mg/dl 09/12/17 1112 Bedside Blood Glucose 209 mg/dl H 09/12/17 0602 Bedside Blood Glucose 184 mg/dl H 09/12/17 0000 FRANCISCO COOPER Sep 13, 2017 08:16
[2017-09-13] MEDS: Tamsulosin 0.4mg cap ORAL SCH ×2 (09:18→21:39)
[2017-09-13] MEDS: Valproic Acid 250mg/5ml Liquid ORAL SCH ×2 (09:18→21:40)
--- NOTE | 2017-09-13 11:11 | GI Progress Note ---
Assessment/Plan Problems: (1) Bladder tumor ICD Codes: D49.4 - Neoplasm of unspecified behavior of bladder SNOMED: 250980182 (2) Altered mental status ICD Codes: R41.82 - Altered mental status, unspecified SNOMED: 977598635 (3) Small bowel obstruction ICD Codes: K56.609 - Unspecified intestinal obstruction, unspecified as to partial versus complete obstruction SNOMED: 987508561 (4) Diabetes mellitus type II, uncontrolled ICD Codes: E11.65 - Type 2 diabetes mellitus with hyperglycemia SNOMED: 61017268, 961115887 (5) Dehydration ICD Codes: E86.0 - Dehydration SNOMED: 46568004, 956651230 (6) Acute encephalopathy ICD Codes: G93.40 - Encephalopathy, unspecified SNOMED: 3004303 (7) 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 Clark. Assessment/Plan multiple BM's last night OB stool negative adv to soft diet pain mgmt serial monitoring repeat imaging prn abx fu labs Subjective Subjective ready to go home denies any pain Objective Last 24 Hour Vital Signs Date Time Temp Pulse Resp B/P (MAP) Pulse Ox O2 Delivery O2 Flow Rate FiO2 09/13/17 08:00 97.3 95 20 89/43 96 Room Air 09/13/17 04:00 98.2 57 20 119/67 97 Room Air 09/13/17 00:00 97.7 90 18 101/55 97 Room Air 09/12/17 20:49 96.4 94 18 126/62 76 Room Air 09/12/17 15:22 97.9 90 20 113/61 98 Room Air 09/12/17 12:00 84 09/12/17 11:21 97.9 85 20 154/62 99 Room Air Intake and Output 09/13/17 09/14/17 19:00 07:00 Intake Total 300 ml Balance 300 ml IV Total 300 ml Laboratory Tests Test 09/13/17 06:05 White Blood Count 10.6 K/UL (4.8-10.8) Red Blood Count 3.64 M/UL (4.70-6.10) L Hemoglobin 11.1 G/DL (14.2-18.0) L Hematocrit 35.6 % (42.0-52.0) L Mean Corpuscular Volume 98 FL (80-99) Mean Corpuscular Hemoglobin 30.3 PG (27.0-31.0) Mean Corpuscular Hemoglobin Concent 31.0 G/DL (32.0-36.0) L Red Cell Distribution Width 12.6 % (11.6-14.8) Platelet Count 152 K/UL (150-450) Mean Platelet Volume 6.7 FL (6.5-10.1) Neutrophils (%) (Auto) 74.4 % (45.0-75.0) Lymphocytes (%) (Auto) 14.2 % (20.0-45.0) L Monocytes (%) (Auto) 9.6 % (1.0-10.0) Eosinophils (%) (Auto) 1.1 % (0.0-3.0) Basophils (%) (Auto) 0.8 % (0.0-2.0) Sodium Level 136 MMOL/L (136-145) Potassium Level 4.6 MMOL/L (3.5-5.1) Chloride Level 103 MMOL/L (98-107) Carbon Dioxide Level 27 MMOL/L (21-32) Anion Gap 6 mmol/L (5-15) Blood Urea Nitrogen 21 mg/dL (7-18) H Creatinine 1.4 MG/DL (0.55-1.30) H Estimat Glomerular Filtration Rate mL/min (>60) Glucose Level 192 MG/DL (74-106) H Calcium Level 8.1 MG/DL (8.5-10.1) L Thyroid Stimulating Hormone (TSH) 1.036 uiU/mL (0.360-3.740) Free Thyroxine 1.12 NG/DL (0.10-1.46) Height (Feet): 5 Height (Inches): 10.00 Weight (Pounds): 135 General Appearance: WD/WN, no apparent distress, alert, thin Cardiovascular: normal rate Respiratory/Chest: normal breath sounds, no respiratory distress Abdominal Exam: normal bowel sounds, non tender, soft Extremities: non-tender Katerin Main N.P. Sep 13, 2017 11:11
--- NOTE | 2017-09-13 11:24 | General Progress Note ---
Progress Note Progress Note Surgery: no acute events. doing well. no complaint. tolerating clears. passing flatus. +BM. no n/v/f/c. abdomen soft, nt/nd, bs+ afebrile, HD stable, labs okay sbo seems to have resolved! -advance to full liquids today Juan Hernández Sep 13, 2017 11:24
--- NOTE | 2017-09-13 15:42 | Cardiac Electrophysiology PN ---
Assessment/Plan Assessment/Plan 1. Left anterior fascicular block. No syncope or advanced heart block on telemetry. Keep off of any AV delaney blocking agents. Echocardiogram pending 2. Hypertension. The patient is on as needed clonidine. 3. Diabetes. 4. History of seizures. 5. Bladder tumor. 6. Small bowel obstruction. Further evaluation by Dr. Clark. DAYANA RN Subjective Subjective Comfortable in NAD. Transferred to [facility]. Objective Last 24 Hour Vital Signs Date Time Temp Pulse Resp B/P (MAP) Pulse Ox O2 Delivery O2 Flow Rate FiO2 09/13/17 12:00 98.2 98 20 89/65 100 Room Air 09/13/17 08:00 97.3 95 20 89/43 96 Room Air 09/13/17 04:00 98.2 57 20 119/67 97 Room Air 09/13/17 00:00 97.7 90 18 101/55 97 Room Air 09/12/17 20:49 96.4 94 18 126/62 76 Room Air Intake and Output 09/13/17 09/14/17 19:00 07:00 Intake Total 800 ml Balance 800 ml IV Total 800 ml Laboratory Tests Test 09/13/17 06:05 White Blood Count 10.6 K/UL (4.8-10.8) Red Blood Count 3.64 M/UL (4.70-6.10) L Hemoglobin 11.1 G/DL (14.2-18.0) L Hematocrit 35.6 % (42.0-52.0) L Mean Corpuscular Volume 98 FL (80-99) Mean Corpuscular Hemoglobin 30.3 PG (27.0-31.0) Mean Corpuscular Hemoglobin Concent 31.0 G/DL (32.0-36.0) L Red Cell Distribution Width 12.6 % (11.6-14.8) Platelet Count 152 K/UL (150-450) Mean Platelet Volume 6.7 FL (6.5-10.1) Neutrophils (%) (Auto) 74.4 % (45.0-75.0) Lymphocytes (%) (Auto) 14.2 % (20.0-45.0) L Monocytes (%) (Auto) 9.6 % (1.0-10.0) Eosinophils (%) (Auto) 1.1 % (0.0-3.0) Basophils (%) (Auto) 0.8 % (0.0-2.0) Sodium Level 136 MMOL/L (136-145) Potassium Level 4.6 MMOL/L (3.5-5.1) Chloride Level 103 MMOL/L (98-107) Carbon Dioxide Level 27 MMOL/L (21-32) Anion Gap 6 mmol/L (5-15) Blood Urea Nitrogen 21 mg/dL (7-18) H Creatinine 1.4 MG/DL (0.55-1.30) H Estimat Glomerular Filtration Rate mL/min (>60) Glucose Level 192 MG/DL (74-106) H Calcium Level 8.1 MG/DL (8.5-10.1) L Thyroid Stimulating Hormone (TSH) 1.036 uiU/mL (0.360-3.740) Free Thyroxine 1.12 NG/DL (0.10-1.46) Microbiology Date/Time Source Procedure Growth Status 09/11/17 23:45 Elbow Right Gram Stain - Final Resulted 09/11/17 23:45 Elbow Right Wound Culture - Preliminary NO GROWTH AFTER 24 HOURS Resulted Objective HEAD AND NECK: Showed no JVD. LUNGS: Clear. CARDIOVASCULAR: Shows regular S1 and S2 with no gallop or murmur. ABDOMEN: Soft. EXTREMITIES: No pitting edema. ARIANA MARTIN Sep 13, 2017 15:42
--- NOTE | 2017-09-13 15:50 | General Progress Note ---
Assessment/Plan Assessment/Plan ASSESSMENT AND RECOMMENDATION: 1. Bladder cancer, status post resection, at this time appears to have carcinomatosis. The patient is a very poor candidate for chemotherapy. 2. History of prostate cancer, given the patient is status post transurethral prostate resection. 4. Anemia, very mild, secondary to chronic disease. ESR is elevated. 5. Coagulopathy Subjective Constitutional: Reports: no symptoms HEENT: Reports: no symptoms Cardiovascular: Reports: no symptoms Respiratory: Reports: no symptoms Gastrointestinal/Abdominal: Reports: no symptoms Genitourinary: Reports: no symptoms Neurologic/Psychiatric: Reports: no symptoms Endocrine: Reports: no symptoms Hematologic/Lymphatic: Reports: no symptoms Allergies: Coded Allergies: ASPIRIN (Unverified Allergy, Severe, Rash, 05/20/16) HEPARIN (Verified Allergy, Unknown, 12/24/16) Subjective confused Objective Last 24 Hour Vital Signs Date Time Temp Pulse Resp B/P (MAP) Pulse Ox O2 Delivery O2 Flow Rate FiO2 09/13/17 12:00 98.2 98 20 89/65 100 Room Air 09/13/17 08:00 97.3 95 20 89/43 96 Room Air 09/13/17 04:00 98.2 57 20 119/67 97 Room Air 09/13/17 00:00 97.7 90 18 101/55 97 Room Air 09/12/17 20:49 96.4 94 18 126/62 76 Room Air Intake and Output 09/13/17 09/14/17 19:00 07:00 Intake Total 800 ml Balance 800 ml IV Total 800 ml Laboratory Tests 09/13/17 06:05: White Blood Count 10.6, Red Blood Count 3.64L, Hemoglobin 11.1L, Hematocrit 35.6L, Mean Corpuscular Volume 98, Mean Corpuscular Hemoglobin 30.3, Mean Corpuscular Hemoglobin Concent 31.0L, Red Cell Distribution Width 12.6, Platelet Count 152, Mean Platelet Volume 6.7, Neutrophils (%) (Auto) 74.4, Lymphocytes (%) (Auto) 14.2L, Monocytes (%) (Auto) 9.6, Eosinophils (%) (Auto) 1.1, Basophils (%) (Auto) 0.8, Sodium Level 136, Potassium Level 4.6, Chloride Level 103, Carbon Dioxide Level 27, Anion Gap 6, Blood Urea Nitrogen 21H, Creatinine 1.4H, Estimat Glomerular Filtration Rate , Glucose Level 192H, Calcium Level 8.1L, Thyroid Stimulating Hormone (TSH) 1.036, Free Thyroxine 1.12 Height (Feet): 5 Height (Inches): 10.00 Weight (Pounds): 135 General Appearance: no apparent distress EENT: PERRL/EOMI Neck: normal alignment Respiratory/Chest: chest wall non-tender Extremities: non-tender Bradley Gaines Sep 13, 2017 15:50
--- NOTE | 2017-09-13 16:00 | Nephrology Progress Note ---
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 (4) SBO (small bowel obstruction) Assessment ARF (acute renal failure) Dehydration- resolving- BP low but asymptomatic Hypoglycemia due to insulin SBO (small bowel obstruction) Pelvic mass prostate ca with mets Proteinuria Encephalopathy DM OBS Plan Plan; IV Albumin hydrate- avoid nephrotoxics monitor renal parameters- Keep BP under check per consultants Subjective ROS Limited/Unobtainable: No Constitutional: Reports: other - stronger Objective Objective Last 24 Hour Vital Signs Date Time Temp Pulse Resp B/P (MAP) Pulse Ox O2 Delivery O2 Flow Rate FiO2 09/13/17 12:00 98.2 98 20 89/65 100 Room Air 09/13/17 08:00 97.3 95 20 89/43 96 Room Air 09/13/17 04:00 98.2 57 20 119/67 97 Room Air 09/13/17 00:00 97.7 90 18 101/55 97 Room Air 09/12/17 20:49 96.4 94 18 126/62 76 Room Air Intake and Output 09/13/17 09/14/17 19:00 07:00 Intake Total 800 ml Balance 800 ml IV Total 800 ml Laboratory Tests 09/13/17 06:05: White Blood Count 10.6, Red Blood Count 3.64L, Hemoglobin 11.1L, Hematocrit 35.6L, Mean Corpuscular Volume 98, Mean Corpuscular Hemoglobin 30.3, Mean Corpuscular Hemoglobin Concent 31.0L, Red Cell Distribution Width 12.6, Platelet Count 152, Mean Platelet Volume 6.7, Neutrophils (%) (Auto) 74.4, Lymphocytes (%) (Auto) 14.2L, Monocytes (%) (Auto) 9.6, Eosinophils (%) (Auto) 1.1, Basophils (%) (Auto) 0.8, Sodium Level 136, Potassium Level 4.6, Chloride Level 103, Carbon Dioxide Level 27, Anion Gap 6, Blood Urea Nitrogen 21H, Creatinine 1.4H, Estimat Glomerular Filtration Rate , Glucose Level 192H, Calcium Level 8.1L, Thyroid Stimulating Hormone (TSH) 1.036, Free Thyroxine 1.12 Height (Feet): 5 Height (Inches): 10.00 Weight (Pounds): 135 General Appearance: no apparent distress Cardiovascular: tachycardia Respiratory/Chest: decreased breath sounds Abdomen: soft Objective no other changes in PE GEE LORENZO Sep 13, 2017 16:00
[2017-09-13] MEDS: Albumin Human 5% 250ml IV ONE ×2 (17:00→17:35)
--- NOTE | 2017-09-13 18:35 | Pulmonology Progress Note ---
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 She agreed and will sign the consent papers taked again to the daughter, she wants to meet me before discharge.home with hospice Subjective ROS Limited/Unobtainable: No Constitutional: Reports: no symptoms HEENT: Repors: no symptoms Respiratory: Reports: no symptoms Allergies: Coded Allergies: ASPIRIN (Unverified Allergy, Severe, Rash, 05/20/16) HEPARIN (Verified Allergy, Unknown, 12/24/16) Objective Last 24 Hour Vital Signs Date Time Temp Pulse Resp B/P (MAP) Pulse Ox O2 Delivery O2 Flow Rate FiO2 09/13/17 16:14 98.4 90 20 118/74 96 Room Air 09/13/17 12:00 98.2 98 20 89/65 100 Room Air 09/13/17 08:00 97.3 95 20 89/43 96 Room Air 09/13/17 04:00 98.2 57 20 119/67 97 Room Air 09/13/17 00:00 97.7 90 18 101/55 97 Room Air 09/12/17 20:49 96.4 94 18 126/62 76 Room Air Intake and Output 09/13/17 09/14/17 19:00 07:00 Intake Total 1280 ml Balance 1280 ml Intake Oral 480 ml IV Total 800 ml # Voids 2 Objective Lines, tubes and drains: peripheral, HEENT: normocephalic, anicteric Neck: non-tender, normal alignment Respiratory/Chest: chest wall non-tender, lungs clear Cardiovascular/Chest: normal rate, regular rhythm Abdomen: non tender, soft Genitourinary/Rectal: normal genital exam, normal rectal exam Extremities: normal range of motion, non-pitting General Appearance: WD/WN, cachetic HEENT: normocephalic Microbiology Date/Time Source Procedure Growth Status 09/11/17 23:45 Elbow Right Gram Stain - Final Resulted 09/11/17 23:45 Elbow Right Wound Culture - Preliminary NO GROWTH AFTER 24 HOURS Resulted Laboratory Tests 09/13/17 06:05: White Blood Count 10.6, Red Blood Count 3.64L, Hemoglobin 11.1L, Hematocrit 35.6L, Mean Corpuscular Volume 98, Mean Corpuscular Hemoglobin 30.3, Mean Corpuscular Hemoglobin Concent 31.0L, Red Cell Distribution Width 12.6, Platelet Count 152, Mean Platelet Volume 6.7, Neutrophils (%) (Auto) 74.4, Lymphocytes (%) (Auto) 14.2L, Monocytes (%) (Auto) 9.6, Eosinophils (%) (Auto) 1.1, Basophils (%) (Auto) 0.8, Sodium Level 136, Potassium Level 4.6, Chloride Level 103, Carbon Dioxide Level 27, Anion Gap 6, Blood Urea Nitrogen 21H, Creatinine 1.4H, Estimat Glomerular Filtration Rate , Glucose Level 192H, Calcium Level 8.1L, Thyroid Stimulating Hormone (TSH) 1.036, Free Thyroxine 1.12 Current Medications Medications (Trade) Dose Ordered Sig/Eric Route PRN Reason Start Time Stop Time Status Last Admin Dose Admin Acetaminophen (Tylenol) 650 mg Q4H PRN ORAL fever 09/13/17 01:45 10/11/17 05:44 Dextrose 1,000 ml @ 100 mls/hr Q10H IV 09/12/17 23:00 10/11/17 09:29 09/13/17 16:11 Dextrose (Dextrose 50%) STAT PRN IV Hypoglycemia 09/13/17 05:45 10/11/17 05:44 Donepezil HCl (Aricept) 5 mg QHS ORAL 09/13/17 21:00 10/11/17 20:59 Finasteride (Proscar) 5 mg DAILY ORAL 09/13/17 09:00 10/11/17 08:59 09/13/17 09:18 Gabapentin (Neurontin) 300 mg TID@0900,1500,2100 ORAL 09/13/17 09:00 10/13/17 08:59 09/13/17 15:36 Insulin Aspart (NovoLOG) AC+HS SUBQ 09/13/17 06:30 10/11/17 06:29 09/13/17 17:35 Lorazepam (Ativan 2mg/ml 1ml) 0.5 mg Q4H PRN IV For Anxiety 09/13/17 01:45 09/18/17 05:44 Ondansetron HCl (Zofran) 4 mg Q6H PRN IVP Nausea & Vomiting 09/12/17 23:45 10/11/17 05:44 Pantoprazole (Protonix) 40 mg DAILY@0730 ORAL 09/13/17 07:30 10/13/17 07:29 09/13/17 06:32 Polyethylene Glycol (Miralax) 17 gm HSPRN PRN ORAL Constipation 09/13/17 05:45 10/11/17 05:44 Risperidone (RisperDAL) 1 mg QHS ORAL 09/13/17 21:00 10/11/17 20:59 Tamsulosin HCl (Flomax) 0.4 mg BID@0900,2100 ORAL 09/13/17 09:00 10/13/17 08:59 09/13/17 09:18 Valproic Acid (Depakene) 125 mg Q12HR ORAL 09/13/17 09:00 10/11/17 11:59 09/13/17 09:18 Zolpidem Tartrate (Ambien) 5 mg HSPRN PRN ORAL Insomnia 09/13/17 05:45 09/18/17 05:44 BLUE HUNTLEY Sep 13, 2017 18:35
--- NOTE | 2017-09-13 19:20 | Internal Med Progress Note ---
Subjective Date of Service: Sep 13, 2017 Physician Name Bruce Sage Attending Physician Arian Givens MD Current Medications Medications (Trade) Dose Ordered Sig/Eric Route PRN Reason Start Time Stop Time Status Last Admin Dose Admin Acetaminophen (Tylenol) 650 mg Q4H PRN ORAL fever 09/13/17 01:45 10/11/17 05:44 Albumin Human 250 ml @ 125 mls/hr ONCE IV 09/13/17 19:00 09/13/17 20:59 09/13/17 18:53 Dextrose 1,000 ml @ 100 mls/hr Q10H IV 09/12/17 23:00 10/11/17 09:29 09/13/17 16:11 Dextrose (Dextrose 50%) STAT PRN IV Hypoglycemia 09/13/17 05:45 10/11/17 05:44 Donepezil HCl (Aricept) 5 mg QHS ORAL 09/13/17 21:00 10/11/17 20:59 Finasteride (Proscar) 5 mg DAILY ORAL 09/13/17 09:00 10/11/17 08:59 09/13/17 09:18 Gabapentin (Neurontin) 300 mg TID@0900,1500,2100 ORAL 09/13/17 09:00 10/13/17 08:59 09/13/17 15:36 Insulin Aspart (NovoLOG) AC+HS SUBQ 09/13/17 06:30 10/11/17 06:29 09/13/17 17:35 Lorazepam (Ativan 2mg/ml 1ml) 0.5 mg Q4H PRN IV For Anxiety 09/13/17 01:45 09/18/17 05:44 Ondansetron HCl (Zofran) 4 mg Q6H PRN IVP Nausea & Vomiting 09/12/17 23:45 10/11/17 05:44 Pantoprazole (Protonix) 40 mg DAILY@0730 ORAL 09/13/17 07:30 10/13/17 07:29 09/13/17 06:32 Polyethylene Glycol (Miralax) 17 gm HSPRN PRN ORAL Constipation 09/13/17 05:45 10/11/17 05:44 Risperidone (RisperDAL) 1 mg QHS ORAL 09/13/17 21:00 10/11/17 20:59 Tamsulosin HCl (Flomax) 0.4 mg BID@0900,2100 ORAL 09/13/17 09:00 10/13/17 08:59 09/13/17 09:18 Valproic Acid (Depakene) 125 mg Q12HR ORAL 09/13/17 09:00 10/11/17 11:59 09/13/17 09:18 Zolpidem Tartrate (Ambien) 5 mg HSPRN PRN ORAL Insomnia 09/13/17 05:45 09/18/17 05:44 Allergies: Coded Allergies: ASPIRIN (Unverified Allergy, Severe, Rash, 05/20/16) HEPARIN (Verified Allergy, Unknown, 12/24/16) ROS Limited/Unobtainable: No Constitutional: Reports: no symptoms HEENT: Reports: no symptoms Cardiovascular: Reports: no symptoms Respiratory: Reports: no symptoms Gastrointestinal/Abdominal: Reports: no symptoms Genitourinary: Reports: no symptoms Neurologic/Psychiatric: Reports: no symptoms Subjective 82 YO M admitted with hypoglycemia, nausea and vomiting; now small bowel obstruction. Carcinomatosis probably due to previous prostate cancer. Cover for Int Med-Dr Givens. Objective Last Vital Signs Date Time Temp Pulse Resp B/P (MAP) Pulse Ox O2 Delivery O2 Flow Rate FiO2 09/13/17 16:14 98.4 90 20 118/74 96 Room Air Laboratory Tests Test 09/13/17 06:05 White Blood Count 10.6 K/UL (4.8-10.8) Red Blood Count 3.64 M/UL (4.70-6.10) L Hemoglobin 11.1 G/DL (14.2-18.0) L Hematocrit 35.6 % (42.0-52.0) L Mean Corpuscular Volume 98 FL (80-99) Mean Corpuscular Hemoglobin 30.3 PG (27.0-31.0) Mean Corpuscular Hemoglobin Concent 31.0 G/DL (32.0-36.0) L Red Cell Distribution Width 12.6 % (11.6-14.8) Platelet Count 152 K/UL (150-450) Mean Platelet Volume 6.7 FL (6.5-10.1) Neutrophils (%) (Auto) 74.4 % (45.0-75.0) Lymphocytes (%) (Auto) 14.2 % (20.0-45.0) L Monocytes (%) (Auto) 9.6 % (1.0-10.0) Eosinophils (%) (Auto) 1.1 % (0.0-3.0) Basophils (%) (Auto) 0.8 % (0.0-2.0) Sodium Level 136 MMOL/L (136-145) Potassium Level 4.6 MMOL/L (3.5-5.1) Chloride Level 103 MMOL/L (98-107) Carbon Dioxide Level 27 MMOL/L (21-32) Anion Gap 6 mmol/L (5-15) Blood Urea Nitrogen 21 mg/dL (7-18) H Creatinine 1.4 MG/DL (0.55-1.30) H Estimat Glomerular Filtration Rate mL/min (>60) Glucose Level 192 MG/DL (74-106) H Calcium Level 8.1 MG/DL (8.5-10.1) L Thyroid Stimulating Hormone (TSH) 1.036 uiU/mL (0.360-3.740) Free Thyroxine 1.12 NG/DL (0.10-1.46) Microbiology Date/Time Source Procedure Growth Status 09/11/17 23:45 Elbow Right Gram Stain - Final Resulted 09/11/17 23:45 Elbow Right Wound Culture - Preliminary NO GROWTH AFTER 24 HOURS Resulted Intake and Output 09/13/17 09/14/17 19:00 07:00 Intake Total 1600 ml Balance 1600 ml Intake Oral 600 ml IV Total 1000 ml # Voids 4 Objective General Appearance: mild distress, lethargic, thin EENT: PERRL/EOMI, normal ENT inspection Neck: non-tender, normal alignment, supple, normal inspection Cardiovascular: normal peripheral pulses, normal rate, regular rhythm, no gallop/murmur, no JVD Respiratory/Chest: chest wall non-tender, lungs clear, normal breath sounds, no respiratory distress, no accessory muscle use Abdomen: normal bowel sounds, non tender, soft, no organomegaly, no mass 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 See onc note. (3) Hypoglycemia (4) Nausea & vomiting (5) SBO (small bowel obstruction) Assessment & Plan: Non surgical-see surgery note (6) Diabetes mellitus type II, uncontrolled Assessment & Plan: Continue novolog sliding scale. (7) ARF (acute renal failure) (8) COPD exacerbation (9) BPH (benign prostatic hypertrophy) Assessment & Plan: Cont proscar Status: stable Assessment/Plan See pulmonary note concerning comfort care BRUCE SAGE Sep 13, 2017 19:20
[2017-09-13] MEDS ORDERED: Donepezil 5mg Tab ORAL SCH (21:00)
[2017-09-14] MEDS: Dextrose 10% 1,000 ML IV SCH ×2 (02:59→15:03)
[2017-09-14 04:00] VITALS: BP 105/58
[2017-09-14] MEDS: NovoLOG Insulin Flexpen SUBQ SCH ×3 (06:21→17:06)
[2017-09-14 07:09] LABS: ANION GAP 8 mmol/L (5-15); CALCIUM 7.9 MG/DL (8.5-10.1); CARBON DIOXIDE 23 MMOL/L (21-32); CHLORIDE 103 MMOL/L (98-107); CREATININE 1.3 MG/DL (0.55-1.30); POTASSIUM 3.6 MMOL/L (3.5-5.1); SODIUM 134 MMOL/L (136-145)
[2017-09-14 07:53] LABS: BASOPHILS % (AUTO) 0.6 % (0.0-2.0); EOSINOPHILS % (AUTO) 0.7 % (0.0-3.0); LYMPHOCYTES % (AUTO) 16.6 % (20.0-45.0); MEAN CORPUSCULAR HGB CONC 30.7 G/DL (32.0-36.0); MEAN CORPUSCULAR VOLUME 97 FL (80-99); MEAN PLATELET VOLUME 7.2 FL (6.5-10.1); MONOCYTES % (AUTO) 6.8 % (1.0-10.0); NEUTROPHILS % (AUTO) 75.3 % (45.0-75.0); PLATELET COUNT 136 K/UL (150-450); RED BLOOD COUNT 3.49 M/UL (4.70-6.10); RED CELL DISTRIBUTION WIDTH 12.7 % (11.6-14.8)
[2017-09-14 08:16] VITALS: BP 131/73
[2017-09-14] MEDS: Tamsulosin 0.4mg cap ORAL SCH (09:09)
[2017-09-14] MEDS: Valproic Acid 250mg/5ml Liquid ORAL SCH (09:10)
[2017-09-14] MEDS ORDERED: Tubing IV Secondary IV ONE ×2 (11:03→18:44)
[2017-09-14 12:00] VITALS: BP 140/64
--- NOTE | 2017-09-14 12:38 | Cardiology Report ---
APPROVED REPORT EXAM: Two-dimensional and M-mode echocardiogram with Doppler and color Doppler. INDICATION LEFT VENTRICULAR FUNCTION M-Mode DIMENSIONS IVSd1.4 (0.7-1.1cm)Left Atrium (MM)2.3 (1.6-4.0cm) LVDd3.7 (3.5-5.6cm)Aortic Root2.6 (2.0-3.7cm) PWd1.4 (0.7-1.1cm)Aortic Cusp Exc.1.9 (1.5-2.0cm) IVSs2.1 cm LVDs2.3 (2.5-4.0cm) PWs1.6 cm Other Information Technically limited study due to patient's position. Normal left ventricular chamber size, systolic function and wall motion to extent visualized. Left ventricular ejection fraction estimated to be 60-65%. Mild left ventricular hypertrophy. No evidence of pericardial effusion All other cardiac chamber sizes are within normal limits. Pulmonic valve not well visualized. Normal tricuspid valve structure. Subcostal views are not obtainable. A color flow and spectral Doppler study was performed and revealed: No aortic regurgitation. Trace mitral regurgitation . Mitral diastolic velocities suggest reduced left ventricular relaxation c/w mild LV diastolic dysfunction (Grade I). Trace tricuspid regurgitation. Tricuspid systolic velocities suggests peak right ventricular systolic pressure of 25 mmHg.
--- NOTE | 2017-09-14 13:00 | Cardiac Electrophysiology PN ---
Assessment/Plan Assessment/Plan 1. Left anterior fascicular block. No syncope or advanced heart block. Now Off telemetry. Keep off of any AV delaney blocking agents. Echocardiogram EF 60% 2. Hypertension. On prn clonidine. 3. Diabetes. 4. History of seizures. 5. Bladder tumor. 6. Small bowel obstruction. Further evaluation by Dr. Clark. DAYANA RN Subjective Subjective Comfortable in NAD. Sleeping all day per RN. Objective Last 24 Hour Vital Signs Date Time Temp Pulse Resp B/P (MAP) Pulse Ox O2 Delivery O2 Flow Rate FiO2 09/14/17 12:00 97.6 72 20 140/64 99 Room Air 09/14/17 08:16 98.4 85 20 131/73 95 Room Air 09/14/17 04:00 97.5 85 20 105/58 96 Room Air 09/13/17 23:15 97.9 78 20 117/64 96 Room Air 09/13/17 19:23 97.9 93 20 121/69 93 Room Air 09/13/17 16:14 98.4 90 20 118/74 96 Room Air Intake and Output 09/14/17 09/15/17 19:00 07:00 # Voids 1 # Bowel Movements 1 Laboratory Tests Test 09/14/17 06:15 White Blood Count 10.0 K/UL (4.8-10.8) Red Blood Count 3.49 M/UL (4.70-6.10) L Hemoglobin 10.5 G/DL (14.2-18.0) L Hematocrit 34.0 % (42.0-52.0) L Mean Corpuscular Volume 97 FL (80-99) Mean Corpuscular Hemoglobin 30.0 PG (27.0-31.0) Mean Corpuscular Hemoglobin Concent 30.7 G/DL (32.0-36.0) L Red Cell Distribution Width 12.7 % (11.6-14.8) Platelet Count 136 K/UL (150-450) L Mean Platelet Volume 7.2 FL (6.5-10.1) Neutrophils (%) (Auto) 75.3 % (45.0-75.0) H Lymphocytes (%) (Auto) 16.6 % (20.0-45.0) L Monocytes (%) (Auto) 6.8 % (1.0-10.0) Eosinophils (%) (Auto) 0.7 % (0.0-3.0) Basophils (%) (Auto) 0.6 % (0.0-2.0) Sodium Level 134 MMOL/L (136-145) L Potassium Level 3.6 MMOL/L (3.5-5.1) Chloride Level 103 MMOL/L (98-107) Carbon Dioxide Level 23 MMOL/L (21-32) Anion Gap 8 mmol/L (5-15) Blood Urea Nitrogen 14 mg/dL (7-18) Creatinine 1.3 MG/DL (0.55-1.30) Estimat Glomerular Filtration Rate mL/min (>60) Glucose Level 208 MG/DL (74-106) H Calcium Level 7.9 MG/DL (8.5-10.1) L Microbiology Date/Time Source Procedure Growth Status 09/11/17 23:45 Elbow Right Gram Stain - Final Resulted 09/11/17 23:45 Elbow Right Wound Culture - Preliminary NO GROWTH AFTER 72 HOURS Resulted Objective HEAD AND NECK:No JVD. LUNGS: Clear. CARDIOVASCULAR: Regular S1 and S2 with no gallop or murmur. ABDOMEN: Soft. EXTREMITIES: No pitting edema. ARIANA MARTIN Sep 14, 2017 13:00
--- NOTE | 2017-09-14 14:10 | Diagnostic Imaging Report ---
APPROVED REPORT CPT Code: 26424 Risk Factors History of lower extremity PAD: Comments Prior arterial duplex study done 12/25/2016. RIGHT LEG: Common femoral artery waveform analysis is within normal limits at rest. Color flow duplex sonography reveals an occluded superficial femoral artery. The popliteal artery is also occluded. Trace reconstitution is seen at the proximal popliteal artery. The tibioperoneal trunk was not visualized. The posterior tibial, peroneal and dorsalis pedis arteries are also occluded. The anterior tibial artery is severely stenosed. Doppler waveform analysis is monophasic, consistent with critical ischemia at rest. LEFT LEG: Common femoral artery waveform analysis is within normal limits at rest. Color flow duplex sonography reveals an occlusion in the proximal superficial to distal superficial femoral artery. Reconstitution is shown distally at the level of the adductor canal. The popliteal artery and tibioperoneal trunk are patent. The dorsalis pedis, posterior and anterior tibial, and peroneal arteries are also patent. Doppler waveform analysis is monophasic, consistent with moderate to severe ischemia at rest. KEATON Talbert was notified of abnormal results at 21:30 hours.
--- NOTE | 2017-09-14 14:11 | Diagnostic Imaging Report ---
APPROVED REPORT CPT Code: 17913 Present Symptoms Lower Extremity Pain: Comments: Prior venous duplex done 12/25/2016. RIGHT LEG: Venous imaging reveals a patent deep venous system. There is no evidence of acute thrombus within the femoral, popliteal or tibial segments. 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 The greater saphenous vein is within normal limits. Doppler indicates normal spontaneous flow within these segments. LEFT LEG: Venous imaging reveals a patent deep venous system. There is no evidence of thrombus within the femoral, popliteal or tibial segments. There is evidence of constricted flow (monophasic) in the external iliac and proximal common femoral vein. The greater saphenous vein is within normal limits. Doppler indicates normal spontaneous flow within these segments. Incidental finding of lower extremity arteries: Right side stenosis, thrombus and occlusion in the femoral and popliteal arteries. Left side stenosis, thrombus and partial occlusion in the femoral artery. KEATON Talbert was informed of incidental findings at 21:45 hrs.
--- NOTE | 2017-09-14 14:28 | Nephrology Progress Note ---
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 (4) SBO (small bowel obstruction) Assessment ARF (acute renal failure)- renal parameters normalized Dehydration- resolving- BP low but asymptomatic Hypoglycemia due to insulin SBO (small bowel obstruction) Pelvic mass prostate ca with mets Proteinuria Encephalopathy DM OBS Plan Plan; hydrate- avoid nephrotoxics monitor renal parameters- Keep BP under check per consultants Subjective ROS Limited/Unobtainable: No Objective Objective Last 24 Hour Vital Signs Date Time Temp Pulse Resp B/P (MAP) Pulse Ox O2 Delivery O2 Flow Rate FiO2 09/14/17 12:00 97.6 72 20 140/64 99 Room Air 09/14/17 08:16 98.4 85 20 131/73 95 Room Air 09/14/17 04:00 97.5 85 20 105/58 96 Room Air 09/13/17 23:15 97.9 78 20 117/64 96 Room Air 09/13/17 19:23 97.9 93 20 121/69 93 Room Air 09/13/17 16:14 98.4 90 20 118/74 96 Room Air Intake and Output 09/14/17 09/15/17 19:00 07:00 Intake Total 120 ml Balance 120 ml Intake Oral 120 ml # Voids 1 # Bowel Movements 1 Laboratory Tests 09/14/17 06:15: White Blood Count 10.0, Red Blood Count 3.49L, Hemoglobin 10.5L, Hematocrit 34.0L, Mean Corpuscular Volume 97, Mean Corpuscular Hemoglobin 30.0, Mean Corpuscular Hemoglobin Concent 30.7L, Red Cell Distribution Width 12.7, Platelet Count 136L, Mean Platelet Volume 7.2, Neutrophils (%) (Auto) 75.3H, Lymphocytes (%) (Auto) 16.6L, Monocytes (%) (Auto) 6.8, Eosinophils (%) (Auto) 0.7, Basophils (%) (Auto) 0.6, Sodium Level 134L, Potassium Level 3.6, Chloride Level 103, Carbon Dioxide Level 23, Anion Gap 8, Blood Urea Nitrogen 14, Creatinine 1.3, Estimat Glomerular Filtration Rate , Glucose Level 208H, Calcium Level 7.9L Height (Feet): 5 Height (Inches): 10.00 Weight (Pounds): 135 General Appearance: no apparent distress Objective no other changes in PE GEE LORENZO Sep 14, 2017 14:28
--- NOTE | 2017-09-14 14:42 | GI Progress Note ---
Assessment/Plan Problems: (1) Bladder tumor ICD Codes: D49.4 - Neoplasm of unspecified behavior of bladder SNOMED: 362536029 (2) Altered mental status ICD Codes: R41.82 - Altered mental status, unspecified SNOMED: 163747490 (3) Small bowel obstruction ICD Codes: K56.609 - Unspecified intestinal obstruction, unspecified as to partial versus complete obstruction SNOMED: 051299251 (4) Diabetes mellitus type II, uncontrolled ICD Codes: E11.65 - Type 2 diabetes mellitus with hyperglycemia SNOMED: 81825334, 101325714 (5) Dehydration ICD Codes: E86.0 - Dehydration SNOMED: 82016584, 037662429 (6) Acute encephalopathy ICD Codes: G93.40 - Encephalopathy, unspecified SNOMED: 5605126 (7) 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 Clark. Assessment/Plan multiple BM's last night, SBO resolved OB stool negative anemia 2/2 kidney disease adv to soft diet push PO, 1:1 feeder, consider marinol pain mgmt cont bowel regime abx fu labs The patient was seen and examined at bedside and all new and available data was reviewed in the patients chart. I agree with the above findings, impression and plan. (Patient seen earlier today. Signature stamp does not reflect patient encounter time.). - Iqra Clark MD Subjective Subjective ready to go home denies any pain Objective Last 24 Hour Vital Signs Date Time Temp Pulse Resp B/P (MAP) Pulse Ox O2 Delivery O2 Flow Rate FiO2 09/14/17 12:00 97.6 72 20 140/64 99 Room Air 09/14/17 08:16 98.4 85 20 131/73 95 Room Air 09/14/17 04:00 97.5 85 20 105/58 96 Room Air 09/13/17 23:15 97.9 78 20 117/64 96 Room Air 09/13/17 19:23 97.9 93 20 121/69 93 Room Air 09/13/17 16:14 98.4 90 20 118/74 96 Room Air Intake and Output 09/14/17 09/15/17 19:00 07:00 Intake Total 120 ml Balance 120 ml Intake Oral 120 ml # Voids 1 # Bowel Movements 1 Laboratory Tests Test 09/14/17 06:15 White Blood Count 10.0 K/UL (4.8-10.8) Red Blood Count 3.49 M/UL (4.70-6.10) L Hemoglobin 10.5 G/DL (14.2-18.0) L Hematocrit 34.0 % (42.0-52.0) L Mean Corpuscular Volume 97 FL (80-99) Mean Corpuscular Hemoglobin 30.0 PG (27.0-31.0) Mean Corpuscular Hemoglobin Concent 30.7 G/DL (32.0-36.0) L Red Cell Distribution Width 12.7 % (11.6-14.8) Platelet Count 136 K/UL (150-450) L Mean Platelet Volume 7.2 FL (6.5-10.1) Neutrophils (%) (Auto) 75.3 % (45.0-75.0) H Lymphocytes (%) (Auto) 16.6 % (20.0-45.0) L Monocytes (%) (Auto) 6.8 % (1.0-10.0) Eosinophils (%) (Auto) 0.7 % (0.0-3.0) Basophils (%) (Auto) 0.6 % (0.0-2.0) Sodium Level 134 MMOL/L (136-145) L Potassium Level 3.6 MMOL/L (3.5-5.1) Chloride Level 103 MMOL/L (98-107) Carbon Dioxide Level 23 MMOL/L (21-32) Anion Gap 8 mmol/L (5-15) Blood Urea Nitrogen 14 mg/dL (7-18) Creatinine 1.3 MG/DL (0.55-1.30) Estimat Glomerular Filtration Rate mL/min (>60) Glucose Level 208 MG/DL (74-106) H Calcium Level 7.9 MG/DL (8.5-10.1) L Height (Feet): 5 Height (Inches): 10.00 Weight (Pounds): 135 General Appearance: WD/WN, no apparent distress, alert Cardiovascular: normal rate Respiratory/Chest: normal breath sounds, no respiratory distress Abdominal Exam: normal bowel sounds, non tender, soft Extremities: normal range of motion, non-tender Katerin Main N.P. Sep 14, 2017 14:42 JOSE CLARK Sep 18, 2017 14:15
--- NOTE | 2017-09-14 14:48 | Pulmonology Progress Note ---
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 Subjective ROS Limited/Unobtainable: No Constitutional: Reports: no symptoms HEENT: Repors: no symptoms Respiratory: Reports: no symptoms Allergies: Coded Allergies: ASPIRIN (Unverified Allergy, Severe, Rash, 05/20/16) HEPARIN (Verified Allergy, Unknown, 12/24/16) Objective Last 24 Hour Vital Signs Date Time Temp Pulse Resp B/P (MAP) Pulse Ox O2 Delivery O2 Flow Rate FiO2 09/14/17 12:00 97.6 72 20 140/64 99 Room Air 09/14/17 08:16 98.4 85 20 131/73 95 Room Air 09/14/17 04:00 97.5 85 20 105/58 96 Room Air 09/13/17 23:15 97.9 78 20 117/64 96 Room Air 09/13/17 19:23 97.9 93 20 121/69 93 Room Air 09/13/17 16:14 98.4 90 20 118/74 96 Room Air Intake and Output 09/14/17 09/15/17 19:00 07:00 Intake Total 120 ml Balance 120 ml Intake Oral 120 ml # Voids 1 # Bowel Movements 1 Objective Lines, tubes and drains: peripheral, HEENT: normocephalic, anicteric Neck: non-tender, normal alignment Respiratory/Chest: chest wall non-tender, lungs clear Cardiovascular/Chest: normal rate, regular rhythm Abdomen: non tender, soft Genitourinary/Rectal: normal genital exam, normal rectal exam Extremities: normal range of motion, non-pitting Microbiology Date/Time Source Procedure Growth Status 09/11/17 23:45 Elbow Right Gram Stain - Final Resulted 09/11/17 23:45 Elbow Right Wound Culture - Preliminary NO GROWTH AFTER 72 HOURS Resulted Laboratory Tests 09/14/17 06:15: White Blood Count 10.0, Red Blood Count 3.49L, Hemoglobin 10.5L, Hematocrit 34.0L, Mean Corpuscular Volume 97, Mean Corpuscular Hemoglobin 30.0, Mean Corpuscular Hemoglobin Concent 30.7L, Red Cell Distribution Width 12.7, Platelet Count 136L, Mean Platelet Volume 7.2, Neutrophils (%) (Auto) 75.3H, Lymphocytes (%) (Auto) 16.6L, Monocytes (%) (Auto) 6.8, Eosinophils (%) (Auto) 0.7, Basophils (%) (Auto) 0.6, Sodium Level 134L, Potassium Level 3.6, Chloride Level 103, Carbon Dioxide Level 23, Anion Gap 8, Blood Urea Nitrogen 14, Creatinine 1.3, Estimat Glomerular Filtration Rate , Glucose Level 208H, Calcium Level 7.9L Current Medications Medications (Trade) Dose Ordered Sig/Eric Route PRN Reason Start Time Stop Time Status Last Admin Dose Admin Acetaminophen (Tylenol) 650 mg Q4H PRN ORAL fever 09/13/17 01:45 10/11/17 05:44 Dextrose 1,000 ml @ 100 mls/hr Q10H IV 09/12/17 23:00 10/11/17 09:29 09/14/17 02:59 Dextrose (Dextrose 50%) STAT PRN IV Hypoglycemia 09/13/17 05:45 10/11/17 05:44 Donepezil HCl (Aricept) 5 mg QHS ORAL 09/13/17 21:00 10/11/17 20:59 09/13/17 21:39 Finasteride (Proscar) 5 mg DAILY ORAL 09/13/17 09:00 10/11/17 08:59 09/14/17 09:10 Gabapentin (Neurontin) 300 mg TID@0900,1500,2100 ORAL 09/13/17 09:00 10/13/17 08:59 09/14/17 09:09 Insulin Aspart (NovoLOG) AC+HS SUBQ 09/13/17 06:30 10/11/17 06:29 09/14/17 11:45 Lorazepam (Ativan 2mg/ml 1ml) 0.5 mg Q4H PRN IV For Anxiety 09/13/17 01:45 09/18/17 05:44 Ondansetron HCl (Zofran) 4 mg Q6H PRN IVP Nausea & Vomiting 09/12/17 23:45 10/11/17 05:44 Pantoprazole (Protonix) 40 mg DAILY@0730 ORAL 09/13/17 07:30 10/13/17 07:29 09/14/17 06:18 Polyethylene Glycol (Miralax) 17 gm HSPRN PRN ORAL Constipation 09/13/17 05:45 10/11/17 05:44 Risperidone (RisperDAL) 1 mg QHS ORAL 09/13/17 21:00 10/11/17 20:59 09/13/17 21:39 Tamsulosin HCl (Flomax) 0.4 mg BID@0900,2100 ORAL 09/13/17 09:00 10/13/17 08:59 09/14/17 09:09 Valproic Acid (Depakene) 125 mg Q12HR ORAL 09/13/17 09:00 10/11/17 11:59 09/14/17 09:10 Zolpidem Tartrate (Ambien) 5 mg HSPRN PRN ORAL Insomnia 09/13/17 05:45 09/18/17 05:44 BLUE HUNTLEY Sep 14, 2017 14:48
--- NOTE | 2017-09-14 15:06 | General Progress Note ---
Progress Note Progress Note surgery: no acute events. doing well. comfortable. no pain. no n/v/f/c. tolerating diet. +flatus, +BM afebrile, HD stable, labs okay abd soft, nt/nd, bs+ -advance to soft regular diet Juan Hernández Sep 14, 2017 15:06
[2017-09-14 15:47] VITALS: BP 113/54
--- NOTE | 2017-09-14 16:37 | General Progress Note ---
Assessment/Plan Assessment/Plan ASSESSMENT AND RECOMMENDATION: 1. Bladder cancer, status post resection, at this time appears to have carcinomatosis. The patient is a very poor candidate for chemotherapy. 2. History of prostate cancer, given the patient is status post transurethral prostate resection. 4. Anemia, very mild, secondary to chronic disease.. Continue to watch counts 5. Coagulopathy 6. SBO, has resolved, The patient has had multiple bm's Subjective Allergies: Coded Allergies: ASPIRIN (Unverified Allergy, Severe, Rash, 05/20/16) HEPARIN (Verified Allergy, Unknown, 12/24/16) All Systems: reviewed and negative except above Subjective no events overnight, no hematochezia Objective Last 24 Hour Vital Signs Date Time Temp Pulse Resp B/P (MAP) Pulse Ox O2 Delivery O2 Flow Rate FiO2 09/14/17 15:47 98.0 69 20 113/54 96 Room Air 09/14/17 12:00 97.6 72 20 140/64 99 Room Air 09/14/17 08:16 98.4 85 20 131/73 95 Room Air 09/14/17 04:00 97.5 85 20 105/58 96 Room Air 09/13/17 23:15 97.9 78 20 117/64 96 Room Air 09/13/17 19:23 97.9 93 20 121/69 93 Room Air Intake and Output 09/14/17 09/15/17 19:00 07:00 Intake Total 820 ml Balance 820 ml Intake Oral 120 ml IV Total 700 ml # Voids 1 # Bowel Movements 1 Laboratory Tests 09/14/17 06:15: White Blood Count 10.0, Red Blood Count 3.49L, Hemoglobin 10.5L, Hematocrit 34.0L, Mean Corpuscular Volume 97, Mean Corpuscular Hemoglobin 30.0, Mean Corpuscular Hemoglobin Concent 30.7L, Red Cell Distribution Width 12.7, Platelet Count 136L, Mean Platelet Volume 7.2, Neutrophils (%) (Auto) 75.3H, Lymphocytes (%) (Auto) 16.6L, Monocytes (%) (Auto) 6.8, Eosinophils (%) (Auto) 0.7, Basophils (%) (Auto) 0.6, Sodium Level 134L, Potassium Level 3.6, Chloride Level 103, Carbon Dioxide Level 23, Anion Gap 8, Blood Urea Nitrogen 14, Creatinine 1.3, Estimat Glomerular Filtration Rate , Glucose Level 208H, Calcium Level 7.9L Height (Feet): 5 Height (Inches): 10.00 Weight (Pounds): 135 General Appearance: no apparent distress EENT: normal ENT inspection Neck: normal alignment Cardiovascular: normal peripheral pulses Respiratory/Chest: decreased breath sounds Extremities: non-tender Skin: normal pigmentation Bradley Gaines Sep 14, 2017 16:37
[2017-09-14] MEDS ORDERED: PANTOPRAZOLE SO20 MG ORAL (17:53)
--- NOTE | 2017-09-14 22:59 | Discharge Summary ---
Discharge Summary Hospital Course Date of Admission Sep 11, 2017 at 01:54 Date of Discharge Sep 14, 2017 at 18:45 Admitting Diagnosis hypoglemia, renal insufficiency HPI Al Rodriguez is a 82 year old male who was admitted on Sep 11, 2017 at 01:54 for Hypoglemia,Renal Insufficiency Hospital Course The patient was seen and examined at bedside and all new and available data was reviewed in the patients chart. Date Time Temp Pulse Resp B/P (MAP) Pulse Ox O2 Delivery O2 Flow Rate FiO2 09/14/17 15:47 98.0 69 20 113/54 96 Room Air 09/14/17 12:00 97.6 72 20 140/64 99 Room Air 09/14/17 08:16 98.4 85 20 131/73 95 Room Air 09/14/17 04:00 97.5 85 20 105/58 96 Room Air 09/13/17 23:15 97.9 78 20 117/64 96 Room Air General: No acute distress, awake and alert HEENT: NCAT, sclera anicteric, PERRL, EOMI. Neck: Supple, no significant jugular venous distention, Lungs: fair inspiratory effort, clear to auscultation bilaterally, no Wheeze or Rales. Heart: Regular rate and rhythm, normal S1/S2, no murmurs Abdomen: soft, nontender, nondistended. Normoactive bowel sounds. / Rectal: Refused and deferred. Extremities: No Cyanosis , clubbing or edema. Neuro: A&O x 3, Able to move all extremities Skin: warm, no rashes or lesions (Patient was seen earlier today. Signature timestamp does not reflect patient encounter time) Arian Givens MD Discharge Discharge Disposition Patient was discharged to SNF/Subacute Facility(03) Discharge Diagnoses: Arian Givens MD Sep 14, 2017 22:59
--- NOTE | 2017-09-16 03:30 | Discharge Summary ---
DATE OF ADMISSION: 09/11/2017 DATE OF DISCHARGE: 09/14/2017 BRIEF HISTORY AND HOSPITAL COURSE: This is an 82-year-old very unfortunate gentleman with past medical history significant for cellulitis of the right foot first toe, history of diabetes type 2, Alzheimer dementia, history of hydronephrosis of the right kidney, metastatic bladder cancer, BPH, and dyslipidemia, who was presented to the hospital after there was noted to be nausea, vomiting, and abdominal pain. Shortly after initial evaluation, the patient was noted to have dilated loops of the bowel complicated with small bowel obstruction and subsequently the patient was admitted to the hospital. Throughout the hospital course, the patient was followed by Dr. Hernández from General Surgery, Dr. Vianney Clark from Gastroenterology, Dr. Mckeon from Nephrology, Dr. Juárez from Cardiology, Dr. Bradley Gaines from Hematology/ Oncology and for further evaluation. The patient was able to tolerate the p.o. intake. His laboratories gradually improved and then subsequently was discharged back to the nursing facility to be followed as an outpatient. FINAL DIAGNOSES: 1. Small bowel obstruction, resolved. 2. Coagulopathy. 3. Anemia secondary to anemia of chronic disease. 4. History of prostate cancer, status post transurethral resection of prostate. 5. Bladder cancer, status post resection, at this time appear to be with carcinomatosis and poor candidate for chemotherapy. 6. The patient also has a history of left anterior fascicular block. 7. Hypertension. 8. Diabetes type 2. MEDICATIONS ON DISCHARGE: Continue discharge medication list. ACTIVITY: As tolerated. DIET: Diabetic diet as tolerated. We will follow up the laboratory as well as blood glucose level at the nursing facility. Arian Givens M.D. DR: GONZALEZ JOB#: [id number] CC:
[2017-09-17 11:27] LABS: OTHERS PATHOLOGIST COMMENT
== END 2017-09-14 18:45 | DRG 374 ==
LOC: EDBD 00:04 → EMR 00:18 → EDBEDREQ 01:11 → EDBEDREQSVC 01:48 → EDBEDREQTM 01:48 → 2E 01:54 → EDBEDREQ 02:52 → 2E 05:57 → 4E 09-12 22:15
DX: C78.6 Secondary malignant neoplasm of retroperitoneum and peritoneum (principal); G93.40 Encephalopathy, unspecified; K56.609 Unspecified intestinal obstruction, unspecified as to partial versus complete obstruction; N17.9 Acute kidney failure, unspecified; E11.649 Type 2 diabetes mellitus with hypoglycemia without coma; D68.9 Coagulation defect, unspecified; E11.22 Type 2 diabetes mellitus with diabetic chronic kidney disease; C67.9 Malignant neoplasm of bladder, unspecified; J44.1 Chronic obstructive pulmonary disease with (acute) exacerbation; G30.9 Alzheimer's disease, unspecified; F02.80 Dementia in other diseases classified elsewhere, unspecified severity, without behavioral disturbance, psychotic disturbance, mood disturbance, and anxiety; E86.0 Dehydration; R80.9 Proteinuria, unspecified; E78.00 Pure hypercholesterolemia, unspecified; N40.0 Benign prostatic hyperplasia without lower urinary tract symptoms; E87.6 Hypokalemia; I44.4 Left anterior fascicular block; Z87.891 Personal history of nicotine dependence; Z85.46 Personal history of malignant neoplasm of prostate; Z79.4 Long term (current) use of insulin; T38.3X5A Adverse effect of insulin and oral hypoglycemic [antidiabetic] drugs, initial encounter; Y92.019 Unspecified place in single-family (private) house as the place of occurrence of the external cause; I12.9 Hypertensive chronic kidney disease with stage 1 through stage 4 chronic kidney disease, or unspecified chronic kidney disease; N18.9 Chronic kidney disease, unspecified; D63.1 Anemia in chronic kidney disease; Z88.6 Allergy status to analgesic agent; Z88.8 Allergy status to other drugs, medicaments and biological substances
CPT/HCPCS: 36415; 74000; 74020; 74176; 76775; 80048; 80053; 80061; 81003; 82270; 82550; 82607; 82746; 82962; 83540; 83550; 83615; 83690; 83735; 83880; 84100; 84153; 84154; 84439; 84443; 84550; 85007; 85025; 85044; 85060; 85610; 85651; 85730; 86140; 87070; 87205; 93005; 93306; 93925; 93970; 99285; J1815

== ENCOUNTER 2017-10-03 16:36 | Inpatient (IN) | payer MEDICARE, MEDICAID ==
[~2017-10-03] VITALS: Ht 170.2 cm; Wt 77.1 kg
[~2017-10-03 16:36] MED LIST changes: +PANTOPRAZOLE SO20 MG ORAL
--- NOTE | 2017-10-03 17:16 | Emergency Room Report ---
History of Present Illness General Chief Complaint: General Complaint Source: Patient, Medical Record, EMS, PMD Present Illness HPI 82-year-old male, history dementia, coming from [facility], presenting with possible small bowel obstruction. assisted states that patient had an x- ray done which showed possible bowel obstruction. Currently patient's abdomen is distended, he has dementia, does not know why he is here. He is currently denying any nausea or vomiting. Unknown last bowel movement or passing of gas. Unknown surgical history Allergies: Coded Allergies: ASPIRIN (Unverified Allergy, Severe, Rash, 05/20/16) HEPARIN (Verified Allergy, Unknown, 12/24/16) Patient History Past Medical History: see triage record Past Surgical History: none Pertinent Family History: none Reviewed Nursing Documentation: PMH: Agreed, PSxH: Agreed Nursing Documentation-PMH Hx Cardiac Problems: Yes Hx Hypertension: Yes Hx Pacemaker: No Hx Asthma: Yes Hx COPD: Yes Hx Diabetes: Yes Hx Cancer: No - prostate problem Hx Gastrointestinal Problems: Yes Hx Neurological Problems: Yes Hx Cerebrovascular Accident: No Hx Dementia: Yes Hx Alzheimer's Disease: Yes Hx Seizures: No Hx Memory Loss: Yes Hx Dizziness: Yes Hx Syncope: Yes Hx Weakness: Yes Review of Systems All Other Systems: limited - dementia Physical Exam Vital Signs Date Time Temp Pulse Resp B/P (MAP) Pulse Ox O2 Delivery O2 Flow Rate FiO2 10/03/17 16:32 98.4 108 20 100/66 92 Room Air Sp02 EP Interpretation: reviewed, normal General Appearance: well appearing, no apparent distress, non-toxic Head: normocephalic, atraumatic Eyes: bilateral eye normal inspection, bilateral eye PERRL, bilateral eye EOMI ENT: normal ENT inspection, normal pharynx, normal voice, moist mucus membranes Neck: normal inspection, full range of motion, supple Respiratory: normal inspection, lungs clear, normal breath sounds, no respiratory distress, no retraction, no wheezing, speaking full sentences, chest symmetrical Cardiovascular #1: normal inspection, regular rate, rhythm, normal capillary refill Cardiovascular #2: 2+ radial (R), 2+ radial (L) Gastrointestinal: other - +distended abdomen, hypoactive b/s, nontender Musculoskeletal: normal inspection, back normal, normal range of motion, non- tender Neurologic: other - aox1, moves all ext on commands Psychiatric: other - dementia Skin: normal inspection, normal color, no rash, warm/dry, well hydrated, normal turgor Medical Decision Making Diagnostic Impression: Primary Impression: Small bowel obstruction ER Course 82-year-old male sent from [facility] for possible small bowel obstruction Currently patient is denying any symptoms, however has dementia Differential Diagnosis: Gastritis, gastroenteritis, cholecystitis, appendicitis, diverticulitis, SBO, mesenteric ischemia, UTI/pyelo Plan: Basic labs, ua, ekg CT abdopelvis ER course: Patient has remained HD stable during ED stay. has remained NPO with exception of oral contrast +IVF given +SBO on CT Dr Hernández from Surgery made aware of patient Disposition: Patient will be admitted to med surg. Discussed with hospitalist Dr Givens who has accepted pt for admission Please note that this Emergency Department Report was dictated using [employer] car driver technology software, occasionally this can lead to erroneous entry secondary to interpretation by the dictation equipment EKG Diagnostic Results EP Interpretation: Yes Rate tachycardic Rhythm: NSR ST Segments: T wave inversion 1 in aVL ASA given to patient: No Rhythm Strip EP Interpretation: Yes Rate: 100 Rhythm: NSR, no PVCs, no ectopy Laboratory Tests Test 10/03/17 17:00 White Blood Count 6.5 K/UL (4.8-10.8) Red Blood Count 3.89 M/UL (4.70-6.10) L Hemoglobin 12.0 G/DL (14.2-18.0) L Hematocrit 37.2 % (42.0-52.0) L Mean Corpuscular Volume 96 FL (80-99) Mean Corpuscular Hemoglobin 30.9 PG (27.0-31.0) Mean Corpuscular Hemoglobin Concent 32.3 G/DL (32.0-36.0) Red Cell Distribution Width 13.5 % (11.6-14.8) Platelet Count 276 K/UL (150-450) Mean Platelet Volume 6.1 FL (6.5-10.1) L Neutrophils (%) (Auto) 69.1 % (45.0-75.0) Lymphocytes (%) (Auto) 20.5 % (20.0-45.0) Monocytes (%) (Auto) 9.6 % (1.0-10.0) Eosinophils (%) (Auto) 0.2 % (0.0-3.0) Basophils (%) (Auto) 0.7 % (0.0-2.0) Prothrombin Time 17.6 SEC (9.30-11.50) H Prothrombin Time INR 1.7 (0.9-1.1) H PTT 33 SEC (23-33) Sodium Level 140 MMOL/L (136-145) Potassium Level 3.9 MMOL/L (3.5-5.1) Chloride Level 104 MMOL/L (98-107) Carbon Dioxide Level 29 MMOL/L (21-32) Anion Gap 8 mmol/L (5-15) Blood Urea Nitrogen 29 mg/dL (7-18) H Creatinine 1.2 MG/DL (0.55-1.30) Estimate Glomerular Filtration Rate mL/min (>60) Glucose Level 139 MG/DL (74-106) H Calcium Level 7.9 MG/DL (8.5-10.1) L Total Bilirubin 0.4 MG/DL (0.2-1.0) Aspartate Amino Transferase (AST) 43 U/L (15-37) H Alanine Aminotransferase (ALT) 16 U/L (12-78) Alkaline Phosphatase 124 U/L (46-116) H Total Protein 7.2 G/DL (6.4-8.2) Albumin 2.0 G/DL (3.4-5.0) L Globulin 5.2 g/dL Albumin/Globulin Ratio 0.4 (1.0-2.7) L Lipase 34 U/L (73-393) L CT/MRI/US Diagnostic Results CT/MRI/US Diagnostic Results : Imaging Test Ordered: CT abdo pelvis Impression CT ABDOMEN & PELVIS With Contrast: Comparison 09/11/2017 SBO, transition point near ileocecal junction. No pneumatosis or free air. Masslike thickening near ileocecal junction concerning for neoplasm. Omental and peritoneal carcinomatosis. Small ascites. Colonic diverticulosis, no definite diverticulitis. Appendix not identified. Small hepatic hypodensities, cannot exclude metastasis. Nonspecific retroperitoneal and mesenteric lymph nodes. Atherosclerosis. 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 No rupture. No hydronephrosis. Bibasilar mild atelectasis/infiltrates. Possible small nodular lung densities, followup per final report. STAT RAD Last Vital Signs Date Time Temp Pulse Resp B/P (MAP) Pulse Ox O2 Delivery O2 Flow Rate FiO2 11/29/17 16:32 98.4 108 20 100/66 92 Room Air Disposition: ADMITTED INPATIENT Condition: Serious Jaret Pruitt M.D. Oct 03, 2017 17:16
[2017-10-03 17:26] LABS: ANION GAP 8 mmol/L (5-15); BASOPHILS % (AUTO) 0.7 % (0.0-2.0); CALCIUM 7.9 MG/DL (8.5-10.1); CARBON DIOXIDE 29 MMOL/L (21-32); CHLORIDE 104 MMOL/L (98-107); CREATININE 1.2 MG/DL (0.55-1.30); EOSINOPHILS % (AUTO) 0.2 % (0.0-3.0); LYMPHOCYTES % (AUTO) 20.5 % (20.0-45.0); MEAN CORPUSCULAR HEMOGLOBIN 30.9 PG (27.0-31.0); MEAN CORPUSCULAR HGB CONC 32.3 G/DL (32.0-36.0); MEAN CORPUSCULAR VOLUME 96 FL (80-99); MEAN PLATELET VOLUME 6.1 FL (6.5-10.1); MONOCYTES % (AUTO) 9.6 % (1.0-10.0); NEUTROPHILS % (AUTO) 69.1 % (45.0-75.0); PLATELET COUNT 276 K/UL (150-450); POTASSIUM 3.9 MMOL/L (3.5-5.1); RED BLOOD COUNT 3.89 M/UL (4.70-6.10); RED CELL DISTRIBUTION WIDTH 13.5 % (11.6-14.8); SODIUM 140 MMOL/L (136-145); WHITE BLOOD COUNT 6.5 K/UL (4.8-10.8)
[2017-10-03 17:30] LABS: ALANINE AMINOTRANSFERASE 16 U/L (12-78); ALBUMIN/GLOBULIN RATIO 0.4 (1.0-2.7); ASPARTATE AMINO TRANSFERASE 43 U/L (15-37); LIPASE 34 U/L (73-393); TOTAL PROTEIN 7.2 G/DL (6.4-8.2)
[2017-10-03] MEDS ORDERED: BREO ELLIPTA 11 EACH IH (17:33)
[2017-10-03 17:36] LABS: INR 1.7 (0.9-1.1); PROTHROMBIN TIME 17.6 SEC (9.30-11.50)
[2017-10-03 20:00] VITALS: BP 131/66
--- NOTE | 2017-10-03 20:17 | General Progress Note ---
Progress Note Progress Note surgery: full consult to follow. in short, Mr. Rodriguez is well known to me. I first met him on 09/11/17 when I was consulted for similar symptoms. Please refer to my prior note for detail. He has metastatic bladder cancer with multiple tumor implants in abdomen and carcinomatosis. He presents today after KUB at nursing facility noted SBO. Unsure if nausea or emesis but patient denies. unaware of last BM or flatus. on exam is more distended and firm than prior. When discussing history and care he does recall who I am but does not recall our prior conversations and discussions about his metastatic cancer. Currently states that he is okay and wants to be comfortable. SBO from metastatic tumor -NPO -IV fluids -NG tube decompression -will follow exam. will hopefully open up with return of bowel function. If does not will need hospice care and end of life as his advanced tumor does not allow for surgical/operative intervention. thank you for allowing me to participate in Al Rodriguez's care. Juan Hernández Oct 03, 2017 20:17
[2017-10-03] MEDS ORDERED: Miralax 17gm pkt ORAL PRN (21:15)
[2017-10-03] MEDS ORDERED: Morphine Sulfate 2mg/ml Inj IVP PRN (21:15)
[2017-10-03] MEDS ORDERED: Nitroglycerin Subl 0.4mg tab SL PRN (21:15)
[2017-10-03] MEDS ORDERED: Mylanta II UD 30ml ORAL PRN (21:15)
[2017-10-03] MEDS ORDERED: D5 1/2NS w/KCl 20mEq 1,000 ML IV SCH (21:30)
[2017-10-03 21:50] VITALS: BP 120/77
[2017-10-03] MEDS ORDERED: Sodium Chloride 500ML 550 ML IV SCH (22:30)
[2017-10-03] MEDS ORDERED: Valproic Acid 250mg/5ml Liquid GT SCH (22:30)
[2017-10-04] VITALS (7 sets, daily range): BP systolic 105–122; BP diastolic 66–76
[2017-10-04] MEDS: Valproic Acid 250mg/5ml Liquid GT SCH ×3 (01:27→21:19)
[2017-10-04] MEDS: Sodium Chloride 500ML 550 ML IV SCH ×3 (01:28→22:36)
[2017-10-04] MEDS: NovoLOG Insulin Flexpen SUBQ SCH ×4 (06:23→21:27)
--- NOTE | 2017-10-04 09:20 | Diagnostic Imaging Report ---
Clinical Indication: Abdominal pain and distention Technique: Patient apparently ingested some oral contrast. IV administration nonionic contrast. Venous phase spiral acquisition obtained through the abdomen and pelvis. Multiplanar reconstructions were generated. Total dose length product 647 mGycm. CTDIvol(s) 11 mGy. Dose reduction achieved using automated exposure control Comparison: 09/11/2017 Findings: There appears to be enhancing tumor occupying much of the ascending colon. Is also suggestion of infiltration of the pericolonic fat and tumor implants within the mesenteric fat adjacent to the distal ascending colon and hepatic flexure. Tumor may also involve the terminal ileum. There is evidence of tumor implants within the right upper quadrant peritoneal space lateral to the tip of the right hepatic lobe. There is diffuse marked dilatation of small bowel, which is distended and fluid-filled. The distention appears to extend to the level of the terminal ileum. There is also gastric distention. The ingested contrast does not appear to have exited the stomach. There is extensive colonic diverticulosis. No definite evidence of diverticulitis. Free intraperitoneal fluid is seen in the pelvis and around the dome of the liver and surrounding the spleen. No free intraperitoneal air is evident. The distal esophagus is unremarkable. There is a complex aneurysm of the infrarenal abdominal aorta, which is fusiform proximally, with more focal saccular dilatation distally. This measures 4.5 cm transverse by 4.4 cm AP, demonstrates considerable mural thrombus. This extends to the level of the aortic bifurcation. The common iliac arteries are ectatic but not frankly aneurysmal. The liver is diffusely hypoattenuating. There are several nodules within the liver which are not clearly cystic, largest in segment 8 measuring 12 mm diameter. The gallbladder does not demonstrate gallstones, but the gallbladder wall does appear edematous. Its appearance is also evident on the previous study. No biliary ductal dilatation. The pancreas is atrophic. The spleen is unremarkable. The adrenals are unremarkable. The right kidney demonstrates a 2 cm upper pole cyst. Both kidneys demonstrate subcentimeter low-attenuation lesions which are too small to characterize. There is retroperitoneal lymphadenopathy, with nodes measuring up to 2.3 cm in diameter. This is also evident previously. No pelvic mass or adenopathy demonstrated. There is mild edema of the subcutaneous fat diffusely. This is also evident previously. The lung bases demonstrate cystic spaces or bullae and posterior dependent atelectasis and possibly consolidation. Motion artifact limits assessment of the lung bases. There are questionably small subpleural nodules in the right middle and lower lobes and in the lingula. The bones demonstrate degenerative spondylosis changes. There is bilateral L4 spondylolysis, grade 1-2 L4 on L5 spondylolisthesis, and extensive degenerative change of the L4-5 disc again demonstrated. Impression: Evidence of extensive tumor in the right lower quadrant and right upper quadrant, suspect ascending colon carcinoma. This may also involve the terminal ileum High-grade small bowel obstruction, level of obstruction at the terminal ileum, presumably secondary to the above Evidence of peritoneal and mesenteric carcinomatosis. 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 Subcentimeter low-attenuation renal lesions, too small to characterize, most likely benign simple cysts. No further followup necessary Other findings as noted, including degenerative spondylosis This agrees with the preliminary interpretation provided overnight by [facility] teleradiology service. The CT scanner at [facility] is accredited by the [employer] and the scans are performed using protocols designed to limit radiation exposure to as low as reasonably achievable to attain images of sufficient resolution adequate for diagnostic evaluation.
--- NOTE | 2017-10-04 10:36 | GI Initial Consult Note ---
Main,Katerin Allenoi NEdPEd 10/04/17 1036: History of Present Illness General Date patient seen: Oct 04, 2017 Time patient seen: 10:23 Reason for Hospitalization: General Complaint Referring physician: JANESSA WASHBURN Reason for Consultation: SBO Present Illness HPI 82-year-old male, history dementia, coming from alf, presenting with possible small bowel obstruction. [facility] states that patient had an x- ray done which showed possible bowel obstruction. Currently patient's abdomen is distended, he has dementia, does not know why he is here. He is currently denying any nausea or vomiting. Unknown last bowel movement or passing of gas. Unknown surgical history. GI consulted for r/o SBO. HPI as noted above. Pt a recent admission approximately one month ago with similar condition here to r/o SBO. 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 This may also involve the terminal ileum. High-grade small bowel obstruction, level of obstruction at the terminal ileum, presumably secondary to the above. Evidence of peritoneal and mesenteric carcinomatosis. Multiple liver lesions, suspicious for metastases Ascites, likely secondary to the above. 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 Unknown history of endoscopic/colonoscopy. Patient seen today agitated with reports of line pulling. Patient is unable to recall if he is passing gas or having bowell movements. Home Meds Active Scripts Calcium Carbonate (Oyster Shell Calcium-Vit D Tab) 500 Mg Tab, 500 MG GT TID, # 30 TAB Prov:NATHALIE MOTTA M.D. 10/07/14 Tamsulosin Hcl (TAMSULOSIN HCL*) 0.4 Mg Cap.er.24h, 0.4 MG ORAL BEDTIME for 30 Days, CAP Prov:NATHALIE MOTTA M.D. 10/07/14 Insulin Detemir (LEVEMIR) 100 Unit/1 Ml Vial, 40 UNITS SUBQ BEFORE BREAKFAST, # 30 VIAL Prov:NATHALIE MOTTA M.D. 10/07/14 Finasteride* (PROSCAR*) 5 Mg Tablet, 5 MG ORAL DAILY, #30 TAB 0 Refills Prov:NATHALIE MOTTA M.D. 10/07/14 Reported Medications Fluticasone/Vilanterol (Breo Ellipta 100-25 Mcg INH) 1 Each Blst.w.dev, 1 EACH IH, EACH 10/03/17 Pantoprazole (PANTOPRAZOLE) 20 Mg Tablet.dr, 40 MG ORAL DAILY, #10 TAB 0 Refills 09/14/17 Nateglinide* (STARLIX*) 60 Mg Tablet, 60 MG ORAL THREE TIMES A DAY, TAB 03/04/17 Donepezil Hcl* (DONEPEZIL HCL*) 5 Mg Tablet, 5 MG ORAL QHS, TAB 03/04/17 Clonidine Hcl* (CATAPRES*) 0.1 Mg Tablet, 0.1 MG ORAL EVERY 4 HOURS Y for For High Blood Pressure, TAB 03/04/17 Valproic Acid (VALPROIC ACID) 250 Mg Capsule, 125 MG PO Q12HR, CAP 03/04/17 Temazepam (TEMAZEPAM*) 15 Mg Capsule, 15 MG ORAL BEDTIME Y for Per rx protocol, #30 CAP 0 Refills 03/04/17 Risperidone* (RISPERDAL*) 1 Mg Tablet, 1 MG PO QHS, TAB 03/04/17 Nitroglycerin (NITROGLYCERIN) 0.4 Mg Tab.subl, 0.4 MG SL, TAB 03/04/17 Ipratropium/Albuterol Sulfate (DuoNeb 0.5-3(2.5)mg/3ml) 3 Ml Ampul.neb, 3 ML HHN Q4HR Y for Shortness of Breath, EA 03/04/17 Unable to Obtain Medications (UNABLE TO OBTAIN MEDS) 1 Ea Ea 02/27/17 Trimethoprim/Sulfamethoxazole (Bactrim Ds Tablet) 1 Each Tablet, 1 TAB ORAL BID for 6 Days, TAB 12/28/16 Acetaminophen (Tylenol) 325 Mg Tablet, 650 MG ORAL Q4HR Y for Fever/Headache/ Mild Pain, #30 TAB 0 Refills 12/28/16 Al Hydroxide/mg Hydroxide (Mag-Al Plus Suspension) 30 Ml Oral.susp, 30 ML PO Q4HR Y for Constipation, ML 12/28/16 Zolpidem Tartrate* (AMBIEN*) 5 Mg Tablet, 5 MG ORAL BEDTIME Y for Insomnia, TAB 12/28/16 Polyethylene Glycol 3350* (MIRALAX*) 17 Gm Powd.pack, 17 GM ORAL DAILY Y for Constipation, PACKET 12/28/16 Ondansetron (Zofran) 4 Mg Tablet, 4 MG ORAL Q6H Y for Nausea & Vomiting, TAB 12/28/16 Lorazepam* (ATIVAN*) 0.5 Mg Tablet, 0.5 MG ORAL Q4HR Y for For Anxiety, TAB 12/28/16 Insulin Aspart* (NOVOLOG*) 100 Unit/1 Ml Insuln.pen, 8 SUBQ BEFORE MEALS, #1 EA 0 Refills 12/28/16 Insulin Aspart (NOVOLOG) 100 Unit/1 Ml Vial, SQ AC+HS 12/28/16 Insulin Detemir (LEVEMIR) 100 Unit/1 Ml Vial, 20 SUBQ DAILY, VIAL 12/28/16 Atorvastatin Calcium* (LIPITOR*) 10 Mg Tablet, 10 MG ORAL BEDTIME, TAB 12/28/16 Tamsulosin Hcl (TAMSULOSIN HCL*) 0.4 Mg Cap.er.24h, 0.4 MG ORAL BEDTIME, CAP 05/20/16 Montelukast Sodium* (SINGULAIR*) 10 Mg Tablet, 10 MG ORAL DAILY, TAB 05/20/16 Acetaminophen With Codeine (T#3) (TYLENOL #3 TAB*) Y Tab, 1 TAB ORAL Q6HR Y for For Pain, TAB 05/20/16 Diazepam* (DIAZEPAM*) 10 Mg Tablet, 5 MG ORAL HS, TAB 0 Refills 09/20/15 Fluticasone/Salmeterol (Advair 250-50 Diskus) 1 Puffs Puffs, 1 PUFF INH DAILY Y for Shortness of Breath, EA 02/21/14 Montelukast Sodium* (SINGULAIR*) 10 Mg Tablet, 10 MG ORAL DAILY, TAB 02/21/14 Gabapentin* (GABAPENTIN*) 300 Mg Capsule, 300 MG ORAL THREE TIMES A DAY, CAP 0 Refills 02/21/14 Pravastatin Sod* (PRAVASTATIN SOD*) 20 Mg Tablet, 10 MG ORAL BEDTIME, TAB 02/21/14 Med list reviewed/reconciled: Yes Allergies: Coded Allergies: ASPIRIN (Unverified Allergy, Severe, Rash, 05/20/16) HEPARIN (Verified Allergy, Unknown, 12/24/16) Patient History Limited by: medical condition History Provided By: Medical Record PMH Narrative Past Medical History: see triage record Past Surgical History: none Pertinent Family History: none Reviewed Nursing Documentation: PMH: Agreed, PSxH: Agreed Nursing Documentation-PMH Hx Cardiac Problems: Yes Hx Hypertension: Yes Hx Pacemaker: No Hx Asthma: Yes Hx COPD: Yes Hx Diabetes: Yes Hx Cancer: No - prostate problem Hx Gastrointestinal Problems: Yes Hx Neurological Problems: Yes Hx Cerebrovascular Accident: No Hx Dementia: Yes Hx Alzheimer's Disease: Yes Hx Seizures: No Hx Memory Loss: Yes Hx Dizziness: Yes Hx Syncope: Yes Hx Weakness: Yes Review of Systems All Other Systems: negative except mentioned in HPI Physical Exam Vital Signs Date Time Temp Pulse Resp B/P (MAP) Pulse Ox O2 Delivery O2 Flow Rate FiO2 10/03/17 16:32 98.4 108 20 100/66 92 Room Air Sp02 EP Interpretation: reviewed, normal Labs Laboratory Tests Test 10/03/17 17:00 White Blood Count 6.5 K/UL (4.8-10.8) Red Blood Count 3.89 M/UL (4.70-6.10) L Hemoglobin 12.0 G/DL (14.2-18.0) L Hematocrit 37.2 % (42.0-52.0) L Mean Corpuscular Volume 96 FL (80-99) Mean Corpuscular Hemoglobin 30.9 PG (27.0-31.0) Mean Corpuscular Hemoglobin Concent 32.3 G/DL (32.0-36.0) Red Cell Distribution Width 13.5 % (11.6-14.8) Platelet Count 276 K/UL (150-450) Mean Platelet Volume 6.1 FL (6.5-10.1) L Neutrophils (%) (Auto) 69.1 % (45.0-75.0) Lymphocytes (%) (Auto) 20.5 % (20.0-45.0) Monocytes (%) (Auto) 9.6 % (1.0-10.0) Eosinophils (%) (Auto) 0.2 % (0.0-3.0) Basophils (%) (Auto) 0.7 % (0.0-2.0) Prothrombin Time 17.6 SEC (9.30-11.50) H Prothromb Time International Ratio 1.7 (0.9-1.1) H Activated Partial Thromboplast Time 33 SEC (23-33) Sodium Level 140 MMOL/L (136-145) Potassium Level 3.9 MMOL/L (3.5-5.1) Chloride Level 104 MMOL/L (98-107) Carbon Dioxide Level 29 MMOL/L (21-32) Anion Gap 8 mmol/L (5-15) Blood Urea Nitrogen 29 mg/dL (7-18) H Creatinine 1.2 MG/DL (0.55-1.30) Estimat Glomerular Filtration Rate mL/min (>60) Glucose Level 139 MG/DL (74-106) H Calcium Level 7.9 MG/DL (8.5-10.1) L Total Bilirubin 0.4 MG/DL (0.2-1.0) Aspartate Amino Transf (AST/SGOT) 43 U/L (15-37) H Alanine Aminotransferase (ALT/SGPT) 16 U/L (12-78) Alkaline Phosphatase 124 U/L (46-116) H Total Protein 7.2 G/DL (6.4-8.2) Albumin 2.0 G/DL (3.4-5.0) L Globulin 5.2 g/dL Albumin/Globulin Ratio 0.4 (1.0-2.7) L Lipase 34 U/L (73-393) L General Appearance: no apparent distress, alert, other - periods of agitation and confusion Head: normocephalic EENT: PERRL/EOMI, normal ENT inspection Neck: supple Respiratory: normal breath sounds, no respiratory distress Cardiovascular: normal rate Gastrointestinal: normal inspection, non tender, soft, normal bowel sounds, non -distended, distended Rectal: deferred Genitourinary: deferred Neurologic: alert, responsive Psychiatric: normal inspection, judgement/insight normal, memory normal Skin: normal inspection, normal color, no rash, warm/dry, palpation normal, well hydrated Lymphatic: normal inspection, no adenopathy Current Medications Current Medications Medications (Trade) Dose Ordered Sig/Eric Route PRN Reason Start Time Stop Time Status Last Admin Dose Admin Acetaminophen (Tylenol) 650 mg Q4H PRN ORAL fever 10/03/17 21:15 11/02/17 21:14 Al Hydroxide/Mg Hydroxide (Mylanta II) 30 ml Q6H PRN ORAL dyspepsia 10/03/17 21:15 11/02/17 21:14 Dextrose (Dextrose 50%) STAT PRN IV Hypoglycemia 10/03/17 21:15 11/02/17 21:14 Diphenhydramine HCl (Benadryl) 25 mg Q6H PRN ORAL Itching/Pruritis 10/03/17 21:15 11/02/17 21:14 Gabapentin (Neurontin) 300 mg THREE TIMES A DAY ORAL 10/04/17 09:00 11/03/17 08:59 10/04/17 08:45 Insulin Aspart (NovoLOG) BEFORE MEALS AND HS SUBQ 10/04/17 06:30 11/03/17 06:29 10/04/17 06:23 Morphine Sulfate (Morphine Sulfate) 2 mg Q4H PRN IVP severe Pain (Pain Scale 7-10) 10/03/17 21:15 10/10/17 21:14 Nitroglycerin (Ntg) 0.4 mg Q5M X 3 DOSES PRN SL Prn Chest Pain 10/03/17 21:15 11/02/17 21:14 Ondansetron HCl (Zofran) 4 mg Q6H PRN IVP Nausea & Vomiting 10/03/17 21:15 11/02/17 21:14 Polyethylene Glycol (Miralax) 17 gm HSPRN PRN ORAL Constipation 10/03/17 21:15 11/02/17 21:14 Risperidone (RisperDAL) 1 mg QHS ORAL 10/04/17 22:30 11/03/17 22:29 Sodium Chloride 550 ml @ 50 mls/hr Q11H IV 10/04/17 01:30 11/03/17 01:29 10/04/17 01:28 Tamsulosin HCl (Flomax) 0.4 mg BEDTIME ORAL 10/04/17 22:30 11/03/17 22:29 Temazepam (Restoril) 15 mg HSPRN PRN ORAL Insomnia 10/03/17 21:15 10/10/17 21:14 Valproic Acid (Depakene) 125 mg Q12HR GT 10/04/17 01:30 11/03/17 01:29 10/04/17 08:44 GI: Plan Problems: (1) Small bowel obstruction (2) Abdominal pain (3) Nausea & vomiting (4) Carcinomatosis (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 SBO from metastatic tumor fu surgical recs >> no intervention, recommend hospice care non operative management NPO + IVFs bowel decompression >> NGT to LIS pain mgmt serial monitoring repeat imaging prn abx fleets mineral prn restraints fu labs Discussed with Dr. Roberts. Thank you for this patient referral, we will follow. HIPOLITOENRIQUEPakoSTEPHEND 10/05/17 1029: History of Present Illness General Reason for Hospitalization: General Complaint Present Illness Home Meds Active Scripts Calcium Carbonate (Oyster Shell Calcium-Vit D Tab) 500 Mg Tab, 500 MG GT TID, # 30 TAB Prov:NATHALIE MOTTA M.D. 10/07/14 Tamsulosin Hcl (TAMSULOSIN HCL*) 0.4 Mg Cap.er.24h, 0.4 MG ORAL BEDTIME for 30 Days, CAP Prov:NATHALIE MOTTA M.D. 10/07/14 Insulin Detemir (LEVEMIR) 100 Unit/1 Ml Vial, 40 UNITS SUBQ BEFORE BREAKFAST, # 30 VIAL Prov:NATHALIE MOTTA M.D. 10/07/14 Finasteride* (PROSCAR*) 5 Mg Tablet, 5 MG ORAL DAILY, #30 TAB 0 Refills Prov:NATHALIE MOTTA M.D. 10/07/14 Reported Medications Fluticasone/Vilanterol (Breo Ellipta 100-25 Mcg INH) 1 Each Blst.w.dev, 1 EACH IH, EACH 10/03/17 Pantoprazole (PANTOPRAZOLE) 20 Mg Tablet.dr, 40 MG ORAL DAILY, #10 TAB 0 Refills 09/14/17 Nateglinide* (STARLIX*) 60 Mg Tablet, 60 MG ORAL THREE TIMES A DAY, TAB 03/04/17 Donepezil Hcl* (DONEPEZIL HCL*) 5 Mg Tablet, 5 MG ORAL QHS, TAB 03/04/17 Clonidine Hcl* (CATAPRES*) 0.1 Mg Tablet, 0.1 MG ORAL EVERY 4 HOURS Y for For High Blood Pressure, TAB 03/04/17 Valproic Acid (VALPROIC ACID) 250 Mg Capsule, 125 MG PO Q12HR, CAP 03/04/17 Temazepam (TEMAZEPAM*) 15 Mg Capsule, 15 MG ORAL BEDTIME Y for Per rx protocol, #30 CAP 0 Refills 03/04/17 Risperidone* (RISPERDAL*) 1 Mg Tablet, 1 MG PO QHS, TAB 03/04/17 Nitroglycerin (NITROGLYCERIN) 0.4 Mg Tab.subl, 0.4 MG SL, TAB 03/04/17 Ipratropium/Albuterol Sulfate (DuoNeb 0.5-3(2.5)mg/3ml) 3 Ml Ampul.neb, 3 ML HHN Q4HR Y for Shortness of Breath, EA 03/04/17 Unable to Obtain Medications (UNABLE TO OBTAIN MEDS) 1 Ea Ea 02/27/17 Trimethoprim/Sulfamethoxazole (Bactrim Ds Tablet) 1 Each Tablet, 1 TAB ORAL BID for 6 Days, TAB 12/28/16 Acetaminophen (Tylenol) 325 Mg Tablet, 650 MG ORAL Q4HR Y for Fever/Headache/ Mild Pain, #30 TAB 0 Refills 12/28/16 Al Hydroxide/mg Hydroxide (Mag-Al Plus Suspension) 30 Ml Oral.susp, 30 ML PO Q4HR Y for Constipation, ML 12/28/16 Zolpidem Tartrate* (AMBIEN*) 5 Mg Tablet, 5 MG ORAL BEDTIME Y for Insomnia, TAB 12/28/16 Polyethylene Glycol 3350* (MIRALAX*) 17 Gm Powd.pack, 17 GM ORAL DAILY Y for Constipation, PACKET 12/28/16 Ondansetron (Zofran) 4 Mg Tablet, 4 MG ORAL Q6H Y for Nausea & Vomiting, TAB 12/28/16 Lorazepam* (ATIVAN*) 0.5 Mg Tablet, 0.5 MG ORAL Q4HR Y for For Anxiety, TAB 12/28/16 Insulin Aspart* (NOVOLOG*) 100 Unit/1 Ml Insuln.pen, 8 SUBQ BEFORE MEALS, #1 EA 0 Refills 12/28/16 Insulin Aspart (NOVOLOG) 100 Unit/1 Ml Vial, SQ AC+HS 12/28/16 Insulin Detemir (LEVEMIR) 100 Unit/1 Ml Vial, 20 SUBQ DAILY, VIAL 12/28/16 Atorvastatin Calcium* (LIPITOR*) 10 Mg Tablet, 10 MG ORAL BEDTIME, TAB 12/28/16 Tamsulosin Hcl (TAMSULOSIN HCL*) 0.4 Mg Cap.er.24h, 0.4 MG ORAL BEDTIME, CAP 05/20/16 Montelukast Sodium* (SINGULAIR*) 10 Mg Tablet, 10 MG ORAL DAILY, TAB 05/20/16 Acetaminophen With Codeine (T#3) (TYLENOL #3 TAB*) Y Tab, 1 TAB ORAL Q6HR Y for For Pain, TAB 05/20/16 Diazepam* (DIAZEPAM*) 10 Mg Tablet, 5 MG ORAL HS, TAB 0 Refills 09/20/15 Fluticasone/Salmeterol (Advair 250-50 Diskus) 1 Puffs Puffs, 1 PUFF INH DAILY Y for Shortness of Breath, EA 02/21/14 Montelukast Sodium* (SINGULAIR*) 10 Mg Tablet, 10 MG ORAL DAILY, TAB 02/21/14 Gabapentin* (GABAPENTIN*) 300 Mg Capsule, 300 MG ORAL THREE TIMES A DAY, CAP 0 Refills 02/21/14 Pravastatin Sod* (PRAVASTATIN SOD*) 20 Mg Tablet, 10 MG ORAL BEDTIME, TAB 02/21/14 Allergies: Coded Allergies: ASPIRIN (Unverified Allergy, Severe, Rash, 05/20/16) HEPARIN (Verified Allergy, Unknown, 12/24/16) GI: Plan Plan The patient was seen and examined at bedside and all new and available data was reviewed in the patients chart. I agree with the above findings, impression and plan. (Patient seen earlier today. Signature stamp does not reflect patient encounter time.). - MD Etelvina [facility]Dign[facility] Jose Rosario Oct 04, 2017 10:36 JOSE ROBERTS Oct 05, 2017 10:29
[2017-10-04 13:34] LABS: BASOPHILS % (AUTO) 0.5 % (0.0-2.0); EOSINOPHILS % (AUTO) 0.2 % (0.0-3.0); LYMPHOCYTES % (AUTO) 19.7 % (20.0-45.0); MEAN CORPUSCULAR HEMOGLOBIN 30.7 PG (27.0-31.0); MEAN CORPUSCULAR HGB CONC 32.1 G/DL (32.0-36.0); MEAN CORPUSCULAR VOLUME 96 FL (80-99); MEAN PLATELET VOLUME 5.6 FL (6.5-10.1); NEUTROPHILS % (AUTO) 70.6 % (45.0-75.0); PLATELET COUNT 291 K/UL (150-450); RED BLOOD COUNT 3.76 M/UL (4.70-6.10); RED CELL DISTRIBUTION WIDTH 13.2 % (11.6-14.8); WHITE BLOOD COUNT 9.9 K/UL (4.8-10.8)
[2017-10-04 13:50] LABS: ALANINE AMINOTRANSFERASE 19 U/L (12-78); ALBUMIN/GLOBULIN RATIO 0.4 (1.0-2.7); AMYLASE 26 U/L (25-115); ANION GAP 13 mmol/L (5-15); ASPARTATE AMINO TRANSFERASE 73 U/L (15-37); CALCIUM 7.5 MG/DL (8.5-10.1); CARBON DIOXIDE 25 MMOL/L (21-32); CHLORIDE 107 MMOL/L (98-107); CREATININE 1.1 MG/DL (0.55-1.30); LIPASE 32 U/L (73-393); POTASSIUM 4.1 MMOL/L (3.5-5.1); SODIUM 145 MMOL/L (136-145); THYROID STIMULATING HORMONE 1.537 uiU/mL (0.358-3.740); TOTAL PROTEIN 6.7 G/DL (6.4-8.2)
--- NOTE | 2017-10-04 13:57 | Diagnostic Imaging Report ---
Indication: Abnormal renal function tests and liver function tests Technique: Woodward-scale and duplex images of the upper abdomen were obtained Comparison: Reference made to CT scan 10/03/2017 Findings: Gallbladder is unremarkable, without stones, wall thickening, nor pericholecystic fluid. Sonographic Hinds's sign is negative. Common bile duct measures 8 mm in diameter. No intrahepatic biliary ductal dilatation. Liver demonstrates diffusely increased echogenicity, consistent with diffuse hepatocellular disease, most likely fatty change.. Soft tissue nodules are seen within the liver, measuring up to 2.2 cm long axis dimension. Portal vein and hepatic veins are patent. Pancreas is obscured by bowel gas. Spleen cannot be visualized, appears normal on CT scan. Left kidney measures 12.3 cm in length. Right kidney measures 11.4 cm length. Both kidneys demonstrate normal echogenicity. There is no hydronephrosis. Right kidney demonstrates an upper pole cyst . Abdominal aorta is partially obscured by bowel gas, visualized portions are non-aneurysmal . There is a small amount of ascites fluid Impression: Limited exam, with nonvisualization of the pancreas, spleen, and portions of the abdominal aorta. Multiple liver lesions. Given findings on recent CT scan, most likely represent metastatic deposits Fatty liver, also previously demonstrated on CT Ascites Negative for gallstones or dilated ducts
[2017-10-04 14:00] LABS: INR 1.8 (0.9-1.1)
--- NOTE | 2017-10-04 15:05 | History & Physical ---
History and Physical History & Physicial Dictated for Int Med-Dr Givens no. [id number]. TAMMY SAGE Oct 04, 2017 15:05
--- NOTE | 2017-10-04 15:30 | Consultation ---
History of Present Illness General Date patient seen: Oct 04, 2017 Chief Complaint: General Complaint Referring physician: JANESSA WASHBURN Reason for Consultation: inpatient management Present Illness HPI 82 year old male with hx of metastatic bladder cancer, including liver mets and Omentum causing SBO , recently discharged to skilled facility to get physical therapy, brought in by ambulance. Pt's condition apparently deteriorated, his abdomen got distended again and [place] [facility] [place] Allergies: Coded Allergies: ASPIRIN (Unverified Allergy, Severe, Rash, 05/20/16) HEPARIN (Verified Allergy, Unknown, 12/24/16) Medication History Scheduled Atorvastatin Calcium* (Lipitor*), 10 MG ORAL BEDTIME, (Reported) Calcium Carbonate (Oyster Shell Calcium-Vit D Tab), 500 MG GT TID Diazepam* (Diazepam*), 5 MG ORAL HS, (Reported) Donepezil Hcl* (Donepezil Hcl*), 5 MG ORAL QHS, (Reported) Finasteride* (Proscar*), 5 MG ORAL DAILY Gabapentin* (Gabapentin*), 300 MG ORAL THREE TIMES A DAY, (Reported) Insulin Aspart (Novolog), SQ AC+HS, (Reported) Insulin Aspart* (Novolog*), 8 SUBQ BEFORE MEALS, (Reported) Insulin Detemir (Levemir), 40 UNITS SUBQ BEFORE BREAKFAST Insulin Detemir (Levemir), 20 SUBQ DAILY, (Reported) Montelukast Sodium* (Singulair*), 10 MG ORAL DAILY, (Reported) Montelukast Sodium* (Singulair*), 10 MG ORAL DAILY, (Reported) Nateglinide* (Starlix*), 60 MG ORAL THREE TIMES A DAY, (Reported) Pantoprazole (Pantoprazole), 40 MG ORAL DAILY, (Reported) Pravastatin Sod* (Pravastatin Sod*), 10 MG ORAL BEDTIME, (Reported) Risperidone* (Risperdal*), 1 MG PO QHS, (Reported) Tamsulosin Hcl (Tamsulosin Hcl*), 0.4 MG ORAL BEDTIME Tamsulosin Hcl (Tamsulosin Hcl*), 0.4 MG ORAL BEDTIME, (Reported) Trimethoprim/Sulfamethoxazole (Bactrim Ds Tablet), 1 TAB ORAL BID, (Reported) Valproic Acid (Valproic Acid), 125 MG PO Q12HR, (Reported) Scheduled PRN Acetaminophen (Tylenol), 650 MG ORAL Q4HR PRN for Fever/Headache/Mild Pain, ( Reported) Acetaminophen With Codeine (T#3) (Tylenol #3 Tab*), 1 TAB ORAL Q6HR PRN for For Pain, (Reported) Al Hydroxide/mg Hydroxide (Mag-Al Plus Suspension), 30 ML PO Q4HR PRN for Constipation, (Reported) Clonidine Hcl* (Catapres*), 0.1 MG ORAL EVERY 4 HOURS PRN for For High Blood Pressure, (Reported) Fluticasone/Salmeterol (Advair 250-50 Diskus), 1 PUFF INH DAILY PRN for Shortness of Breath, (Reported) Ipratropium/Albuterol Sulfate (DuoNeb 0.5-3(2.5)mg/3ml), 3 ML HHN Q4HR PRN for Shortness of Breath, (Reported) Lorazepam* (Ativan*), 0.5 MG ORAL Q4HR PRN for For Anxiety, (Reported) Ondansetron (Zofran), 4 MG ORAL Q6H PRN for Nausea & Vomiting, (Reported) Polyethylene Glycol 3350* (Miralax*), 17 GM ORAL DAILY PRN for Constipation, ( Reported) Temazepam (Temazepam*), 15 MG ORAL BEDTIME PRN for Per rx protocol, (Reported) Zolpidem Tartrate* (Ambien*), 5 MG ORAL BEDTIME PRN for Insomnia, (Reported) Miscellaneous Medications Fluticasone/Vilanterol (Breo Ellipta 100-25 Mcg INH), 1 EACH IH, (Reported) Nitroglycerin (Nitroglycerin), 0.4 MG SL, (Reported) Unable to Obtain Medications (Unable To Obtain Meds), (Reported) Patient History Healthcare decision maker N/A Resuscitation status Full Code Advanced Directive on File Physical Exam General Appearance: cachetic Lines, tubes and drains: peripheral HEENT: normocephalic Neck: non-tender, normal alignment Respiratory/Chest: lungs clear, normal breath sounds Cardiovascular/Chest: normal peripheral pulses, normal rate Abdomen: normal bowel sounds, non tender Genitourinary/Rectal: normal genital exam Last 24 Hour Vital Signs Date Time Temp Pulse Resp B/P (MAP) Pulse Ox O2 Delivery O2 Flow Rate FiO2 10/04/17 12:27 98.2 115 20 105/69 95 10/04/17 08:18 98.0 117 20 107/70 95 10/04/17 04:00 99.5 114 18 105/70 91 Room Air 10/04/17 00:00 97.0 99 18 122/72 93 Room Air 10/03/17 21:50 100 20 120/77 94 Room Air 10/03/17 21:40 100 16 131/66 93 Room Air 10/03/17 20:00 100 16 131/66 94 Room Air 10/03/17 16:32 98.4 108 20 100/66 92 Room Air Intake and Output 10/04/17 10/05/17 19:00 07:00 # Voids 3 # Bowel Movements 1 Laboratory Tests Test 10/03/17 17:00 10/04/17 12:45 White Blood Count 6.5 K/UL (4.8-10.8) 9.9 K/UL (4.8-10.8) # Red Blood Count 3.89 M/UL (4.70-6.10) L 3.76 M/UL (4.70-6.10) L Hemoglobin 12.0 G/DL (14.2-18.0) L 11.5 G/DL (14.2-18.0) L Hematocrit 37.2 % (42.0-52.0) L 35.9 % (42.0-52.0) L Mean Corpuscular Volume 96 FL (80-99) 96 FL (80-99) Mean Corpuscular Hemoglobin 30.9 PG (27.0-31.0) 30.7 PG (27.0-31.0) Mean Corpuscular Hemoglobin Concent 32.3 G/DL (32.0-36.0) 32.1 G/DL (32.0-36.0) Red Cell Distribution Width 13.5 % (11.6-14.8) 13.2 % (11.6-14.8) Platelet Count 276 K/UL (150-450) 291 K/UL (150-450) Mean Platelet Volume 6.1 FL (6.5-10.1) L 5.6 FL (6.5-10.1) L Neutrophils (%) (Auto) 69.1 % (45.0-75.0) 70.6 % (45.0-75.0) Lymphocytes (%) (Auto) 20.5 % (20.0-45.0) 19.7 % (20.0-45.0) L Monocytes (%) (Auto) 9.6 % (1.0-10.0) 9.0 % (1.0-10.0) Eosinophils (%) (Auto) 0.2 % (0.0-3.0) 0.2 % (0.0-3.0) Basophils (%) (Auto) 0.7 % (0.0-2.0) 0.5 % (0.0-2.0) Prothrombin Time 17.6 SEC (9.30-11.50) H 19.0 SEC (9.30-11.50) H Prothromb Time International Ratio 1.7 (0.9-1.1) H 1.8 (0.9-1.1) H Activated Partial Thromboplast Time 33 SEC (23-33) 28 SEC (23-33) Sodium Level 140 MMOL/L (136-145) 145 MMOL/L (136-145) Potassium Level 3.9 MMOL/L (3.5-5.1) 4.1 MMOL/L (3.5-5.1) Chloride Level 104 MMOL/L (98-107) 107 MMOL/L (98-107) Carbon Dioxide Level 29 MMOL/L (21-32) 25 MMOL/L (21-32) Anion Gap 8 mmol/L (5-15) 13 mmol/L (5-15) Blood Urea Nitrogen 29 mg/dL (7-18) H 29 mg/dL (7-18) H Creatinine 1.2 MG/DL (0.55-1.30) 1.1 MG/DL (0.55-1.30) Estimat Glomerular Filtration Rate mL/min (>60) mL/min (>60) Glucose Level 139 MG/DL (74-106) H 114 MG/DL (74-106) H Calcium Level 7.9 MG/DL (8.5-10.1) L 7.5 MG/DL (8.5-10.1) L Total Bilirubin 0.4 MG/DL (0.2-1.0) 0.3 MG/DL (0.2-1.0) Aspartate Amino Transf (AST/SGOT) 43 U/L (15-37) H 73 U/L (15-37) H Alanine Aminotransferase (ALT/SGPT) 16 U/L (12-78) 19 U/L (12-78) Alkaline Phosphatase 124 U/L (46-116) H 119 U/L (46-116) H Total Protein 7.2 G/DL (6.4-8.2) 6.7 G/DL (6.4-8.2) Albumin 2.0 G/DL (3.4-5.0) L 1.9 G/DL (3.4-5.0) L Globulin 5.2 g/dL 4.8 g/dL Albumin/Globulin Ratio 0.4 (1.0-2.7) L 0.4 (1.0-2.7) L Lipase 34 U/L (73-393) L 32 U/L (73-393) L Hemoglobin A1c 7.0 % (4.3-6.0) H Amylase Level 26 U/L (25-115) Thyroid Stimulating Hormone (TSH) 1.537 uiU/mL (0.358-3.740) Height (Feet): 5 Height (Inches): 7.00 Weight (Pounds): 170 Medications Current Medications Medications (Trade) Dose Ordered Sig/Eric Route PRN Reason Start Time Stop Time Status Last Admin Dose Admin Acetaminophen (Tylenol) 650 mg Q4H PRN ORAL fever 10/03/17 21:15 11/02/17 21:14 Al Hydroxide/Mg Hydroxide (Mylanta II) 30 ml Q6H PRN ORAL dyspepsia 10/03/17 21:15 11/02/17 21:14 Dextrose (Dextrose 50%) STAT PRN IV Hypoglycemia 10/03/17 21:15 11/02/17 21:14 Diphenhydramine HCl (Benadryl) 25 mg Q6H PRN ORAL Itching/Pruritis 10/03/17 21:15 11/02/17 21:14 Gabapentin (Neurontin) 300 mg THREE TIMES A DAY ORAL 10/04/17 09:00 11/03/17 08:59 10/04/17 13:22 Insulin Aspart (NovoLOG) BEFORE MEALS AND HS SUBQ 10/04/17 06:30 11/03/17 06:29 10/04/17 06:23 Morphine Sulfate (Morphine Sulfate) 2 mg Q4H PRN IVP severe Pain (Pain Scale 7-10) 10/03/17 21:15 10/10/17 21:14 Nitroglycerin (Ntg) 0.4 mg Q5M X 3 DOSES PRN SL Prn Chest Pain 10/03/17 21:15 11/02/17 21:14 Ondansetron HCl (Zofran) 4 mg Q6H PRN IVP Nausea & Vomiting 10/03/17 21:15 11/02/17 21:14 Polyethylene Glycol (Miralax) 17 gm HSPRN PRN ORAL Constipation 10/03/17 21:15 11/02/17 21:14 Risperidone (RisperDAL) 1 mg QHS ORAL 10/04/17 22:30 11/03/17 22:29 Sodium Chloride 550 ml @ 50 mls/hr Q11H IV 10/04/17 01:30 11/03/17 01:29 10/04/17 01:28 Tamsulosin HCl (Flomax) 0.4 mg BEDTIME ORAL 10/04/17 22:30 11/03/17 22:29 Temazepam (Restoril) 15 mg HSPRN PRN ORAL Insomnia 10/03/17 21:15 10/10/17 21:14 Valproic Acid (Depakene) 125 mg Q12HR GT 10/04/17 01:30 11/03/17 01:29 10/04/17 08:44 Assessment/Plan Problem List: (1) Small bowel obstruction ICD Codes: K56.609 - Unspecified intestinal obstruction, unspecified as to partial versus complete obstruction SNOMED: 900853973 (2) Nausea & vomiting ICD Codes: R11.2 - Nausea with vomiting, unspecified SNOMED: 80068850 (3) Carcinomatosis ICD Codes: C80.0 - Disseminated malignant neoplasm, unspecified SNOMED: 196724100 (4) Alzheimer's dementia ICD Codes: G30.9 - Alzheimer's disease, unspecified SNOMED: 06092971 (5) Bladder tumor ICD Codes: D49.4 - Neoplasm of unspecified behavior of bladder SNOMED: 201318736 Assessment/Plan npo IV fluids surgical evaluation appreciated symptomatic treatment palliative care check electrolytes BLUE HUNTLEY Oct 04, 2017 15:30
--- NOTE | 2017-10-04 16:59 | Consultation ---
History of Present Illness General Date patient seen: Oct 03, 2017 Referring physician: JANESSA WASHBURN Reason for Consultation: SBO Present Illness HPI 82 year old male who is well known to me. I first met him on 09/11/17 when I was consulted for similar symptoms. Please refer to my prior note for detail. He has metastatic bladder cancer with multiple tumor implants in abdomen and carcinomatosis. He was transferred from nursing facility after KUB at nursing facility noted SBO. Unsure if nausea or emesis but patient denies. unaware of last BM or flatus. on exam is more distended and firm than prior. When discussing history and care he does recall who I am but does not recall our prior conversations and discussions about his metastatic cancer. Currently states that he is okay and wants to be comfortable. . Allergies: Coded Allergies: ASPIRIN (Unverified Allergy, Severe, Rash, 05/20/16) HEPARIN (Verified Allergy, Unknown, 12/24/16) Medication History Scheduled Atorvastatin Calcium* (Lipitor*), 10 MG ORAL BEDTIME, (Reported) Calcium Carbonate (Oyster Shell Calcium-Vit D Tab), 500 MG GT TID Diazepam* (Diazepam*), 5 MG ORAL HS, (Reported) Donepezil Hcl* (Donepezil Hcl*), 5 MG ORAL QHS, (Reported) Finasteride* (Proscar*), 5 MG ORAL DAILY Gabapentin* (Gabapentin*), 300 MG ORAL THREE TIMES A DAY, (Reported) Insulin Aspart (Novolog), SQ AC+HS, (Reported) Insulin Aspart* (Novolog*), 8 SUBQ BEFORE MEALS, (Reported) Insulin Detemir (Levemir), 40 UNITS SUBQ BEFORE BREAKFAST Insulin Detemir (Levemir), 20 SUBQ DAILY, (Reported) Montelukast Sodium* (Singulair*), 10 MG ORAL DAILY, (Reported) Montelukast Sodium* (Singulair*), 10 MG ORAL DAILY, (Reported) Nateglinide* (Starlix*), 60 MG ORAL THREE TIMES A DAY, (Reported) Pantoprazole (Pantoprazole), 40 MG ORAL DAILY, (Reported) Pravastatin Sod* (Pravastatin Sod*), 10 MG ORAL BEDTIME, (Reported) Risperidone* (Risperdal*), 1 MG PO QHS, (Reported) Tamsulosin Hcl (Tamsulosin Hcl*), 0.4 MG ORAL BEDTIME Tamsulosin Hcl (Tamsulosin Hcl*), 0.4 MG ORAL BEDTIME, (Reported) Trimethoprim/Sulfamethoxazole (Bactrim Ds Tablet), 1 TAB ORAL BID, (Reported) Valproic Acid (Valproic Acid), 125 MG PO Q12HR, (Reported) Scheduled PRN Acetaminophen (Tylenol), 650 MG ORAL Q4HR PRN for Fever/Headache/Mild Pain, ( Reported) Acetaminophen With Codeine (T#3) (Tylenol #3 Tab*), 1 TAB ORAL Q6HR PRN for For Pain, (Reported) Al Hydroxide/mg Hydroxide (Mag-Al Plus Suspension), 30 ML PO Q4HR PRN for Constipation, (Reported) Clonidine Hcl* (Catapres*), 0.1 MG ORAL EVERY 4 HOURS PRN for For High Blood Pressure, (Reported) Fluticasone/Salmeterol (Advair 250-50 Diskus), 1 PUFF INH DAILY PRN for Shortness of Breath, (Reported) Ipratropium/Albuterol Sulfate (DuoNeb 0.5-3(2.5)mg/3ml), 3 ML HHN Q4HR PRN for Shortness of Breath, (Reported) Lorazepam* (Ativan*), 0.5 MG ORAL Q4HR PRN for For Anxiety, (Reported) Ondansetron (Zofran), 4 MG ORAL Q6H PRN for Nausea & Vomiting, (Reported) Polyethylene Glycol 3350* (Miralax*), 17 GM ORAL DAILY PRN for Constipation, ( Reported) Temazepam (Temazepam*), 15 MG ORAL BEDTIME PRN for Per rx protocol, (Reported) Zolpidem Tartrate* (Ambien*), 5 MG ORAL BEDTIME PRN for Insomnia, (Reported) Miscellaneous Medications Fluticasone/Vilanterol (Breo Ellipta 100-25 Mcg INH), 1 EACH IH, (Reported) Nitroglycerin (Nitroglycerin), 0.4 MG SL, (Reported) Unable to Obtain Medications (Unable To Obtain Meds), (Reported) Patient History History Provided By: Patient, Medical Record Healthcare decision maker N/A Resuscitation status Full Code Advanced Directive on File Past Medical/Surgical History Past Medical/Surgical History: (1) BPH (benign prostatic hypertrophy) (2) Diabetes (3) Diabetes mellitus type II, uncontrolled (4) ARF (acute renal failure) (5) Acute encephalopathy (6) ARF (acute renal failure) (7) Acute cystitis (8) Hematuria (9) Hematuria (10) Dizziness (11) Cellulitis (12) Hypercholesteremia (13) Psychosis (14) Encephalopathy (15) UTI (urinary tract infection) (16) Altered mental status (17) Hypertension (18) ARF (acute renal failure) (19) COPD exacerbation (20) Diabetes with ulcer of heel (21) Hydronephrosis of right kidney (22) Chest wall contusion (23) Injury of lower extremity (24) Hypoglycemia (25) Small bowel obstruction (26) Carcinomatosis (27) Abdominal pain (28) Nausea & vomiting (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 (30) Alzheimer's dementia (31) Bladder tumor Review of Systems All Other Systems: negative except mentioned in HPI Physical Exam General Appearance: no apparent distress, alert Lines, tubes and drains: peripheral HEENT: mucous membranes moist Neck: normal inspection Respiratory/Chest: normal breath sounds, no respiratory distress, no accessory muscle use Cardiovascular/Chest: normal peripheral pulses Abdomen: non tender, soft, no organomegaly, decreased bowel sounds, distended Extremities: normal inspection Skin Exam: normal pigmentation Neurologic: alert, responsive Last 24 Hour Vital Signs Date Time Temp Pulse Resp B/P (MAP) Pulse Ox O2 Delivery O2 Flow Rate FiO2 10/04/17 16:29 97.7 114 18 105/67 94 10/04/17 12:27 98.2 115 20 105/69 95 10/04/17 08:18 98.0 117 20 107/70 95 10/04/17 04:00 99.5 114 18 105/70 91 Room Air 10/04/17 00:00 97.0 99 18 122/72 93 Room Air 10/03/17 21:50 100 20 120/77 94 Room Air 10/03/17 21:40 100 16 131/66 93 Room Air 10/03/17 20:00 100 16 131/66 94 Room Air Intake and Output 10/04/17 10/05/17 19:00 07:00 # Voids 3 # Bowel Movements 1 Laboratory Tests Test 10/03/17 17:00 10/04/17 12:45 White Blood Count 6.5 K/UL (4.8-10.8) 9.9 K/UL (4.8-10.8) # Red Blood Count 3.89 M/UL (4.70-6.10) L 3.76 M/UL (4.70-6.10) L Hemoglobin 12.0 G/DL (14.2-18.0) L 11.5 G/DL (14.2-18.0) L Hematocrit 37.2 % (42.0-52.0) L 35.9 % (42.0-52.0) L Mean Corpuscular Volume 96 FL (80-99) 96 FL (80-99) Mean Corpuscular Hemoglobin 30.9 PG (27.0-31.0) 30.7 PG (27.0-31.0) Mean Corpuscular Hemoglobin Concent 32.3 G/DL (32.0-36.0) 32.1 G/DL (32.0-36.0) Red Cell Distribution Width 13.5 % (11.6-14.8) 13.2 % (11.6-14.8) Platelet Count 276 K/UL (150-450) 291 K/UL (150-450) Mean Platelet Volume 6.1 FL (6.5-10.1) L 5.6 FL (6.5-10.1) L Neutrophils (%) (Auto) 69.1 % (45.0-75.0) 70.6 % (45.0-75.0) Lymphocytes (%) (Auto) 20.5 % (20.0-45.0) 19.7 % (20.0-45.0) L Monocytes (%) (Auto) 9.6 % (1.0-10.0) 9.0 % (1.0-10.0) Eosinophils (%) (Auto) 0.2 % (0.0-3.0) 0.2 % (0.0-3.0) Basophils (%) (Auto) 0.7 % (0.0-2.0) 0.5 % (0.0-2.0) Prothrombin Time 17.6 SEC (9.30-11.50) H 19.0 SEC (9.30-11.50) H Prothromb Time International Ratio 1.7 (0.9-1.1) H 1.8 (0.9-1.1) H Activated Partial Thromboplast Time 33 SEC (23-33) 28 SEC (23-33) Sodium Level 140 MMOL/L (136-145) 145 MMOL/L (136-145) Potassium Level 3.9 MMOL/L (3.5-5.1) 4.1 MMOL/L (3.5-5.1) Chloride Level 104 MMOL/L (98-107) 107 MMOL/L (98-107) Carbon Dioxide Level 29 MMOL/L (21-32) 25 MMOL/L (21-32) Anion Gap 8 mmol/L (5-15) 13 mmol/L (5-15) Blood Urea Nitrogen 29 mg/dL (7-18) H 29 mg/dL (7-18) H Creatinine 1.2 MG/DL (0.55-1.30) 1.1 MG/DL (0.55-1.30) Estimat Glomerular Filtration Rate mL/min (>60) mL/min (>60) Glucose Level 139 MG/DL (74-106) H 114 MG/DL (74-106) H Calcium Level 7.9 MG/DL (8.5-10.1) L 7.5 MG/DL (8.5-10.1) L Total Bilirubin 0.4 MG/DL (0.2-1.0) 0.3 MG/DL (0.2-1.0) Aspartate Amino Transf (AST/SGOT) 43 U/L (15-37) H 73 U/L (15-37) H Alanine Aminotransferase (ALT/SGPT) 16 U/L (12-78) 19 U/L (12-78) Alkaline Phosphatase 124 U/L (46-116) H 119 U/L (46-116) H Total Protein 7.2 G/DL (6.4-8.2) 6.7 G/DL (6.4-8.2) Albumin 2.0 G/DL (3.4-5.0) L 1.9 G/DL (3.4-5.0) L Globulin 5.2 g/dL 4.8 g/dL Albumin/Globulin Ratio 0.4 (1.0-2.7) L 0.4 (1.0-2.7) L Lipase 34 U/L (73-393) L 32 U/L (73-393) L Hemoglobin A1c 7.0 % (4.3-6.0) H Amylase Level 26 U/L (25-115) Thyroid Stimulating Hormone (TSH) 1.537 uiU/mL (0.358-3.740) Height (Feet): 5 Height (Inches): 7.00 Weight (Pounds): 170 Medications Current Medications Medications (Trade) Dose Ordered Sig/Eric Route PRN Reason Start Time Stop Time Status Last Admin Dose Admin Acetaminophen (Tylenol) 650 mg Q4H PRN ORAL fever 10/03/17 21:15 11/02/17 21:14 Al Hydroxide/Mg Hydroxide (Mylanta II) 30 ml Q6H PRN ORAL dyspepsia 10/03/17 21:15 11/02/17 21:14 Dextrose (Dextrose 50%) STAT PRN IV Hypoglycemia 10/03/17 21:15 11/02/17 21:14 Diphenhydramine HCl (Benadryl) 25 mg Q6H PRN ORAL Itching/Pruritis 10/03/17 21:15 11/02/17 21:14 Gabapentin (Neurontin) 300 mg THREE TIMES A DAY ORAL 10/04/17 09:00 11/03/17 08:59 10/04/17 13:22 Insulin Aspart (NovoLOG) BEFORE MEALS AND HS SUBQ 10/04/17 06:30 11/03/17 06:29 10/04/17 06:23 Morphine Sulfate (Morphine Sulfate) 2 mg Q4H PRN IVP severe Pain (Pain Scale 7-10) 10/03/17 21:15 10/10/17 21:14 Nitroglycerin (Ntg) 0.4 mg Q5M X 3 DOSES PRN SL Prn Chest Pain 10/03/17 21:15 11/02/17 21:14 Ondansetron HCl (Zofran) 4 mg Q6H PRN IVP Nausea & Vomiting 10/03/17 21:15 11/02/17 21:14 Polyethylene Glycol (Miralax) 17 gm HSPRN PRN ORAL Constipation 10/03/17 21:15 11/02/17 21:14 Risperidone (RisperDAL) 1 mg QHS ORAL 10/04/17 22:30 11/03/17 22:29 Sodium Chloride 550 ml @ 50 mls/hr Q11H IV 10/04/17 01:30 11/03/17 01:29 10/04/17 01:28 Tamsulosin HCl (Flomax) 0.4 mg BEDTIME ORAL 10/04/17 22:30 11/03/17 22:29 Temazepam (Restoril) 15 mg HSPRN PRN ORAL Insomnia 10/03/17 21:15 10/10/17 21:14 Valproic Acid (Depakene) 125 mg Q12HR GT 10/04/17 01:30 11/03/17 01:29 10/04/17 08:44 Assessment/Plan Problem List: (1) Small bowel obstruction Assessment & Plan: 82 year old male with SBO from metastatic tumor/ carcinomatosis. -NPO -IV fluids -NG tube decompression -will follow exam. will hopefully open up with return of bowel function. If does not will need hospice care and end of life as his advanced tumor does not allow for surgical/operative intervention. thank you for allowing me to participate in Al Rodriguez's care ICD Codes: K56.609 - Unspecified intestinal obstruction, unspecified as to partial versus complete obstruction SNOMED: [id number] Status: stable Juan Hernández Oct 04, 2017 16:59
--- NOTE | 2017-10-04 17:01 | General Surgery Progress Note ---
General Surgery-Progress Note Subjective Symptoms: improved Additional Comments no acute events since admission. doing better. states no pain. comfortable. had BM and passing flatus. minimal NG tube output Objective Last 24 Hour Vital Signs Date Time Temp Pulse Resp B/P (MAP) Pulse Ox O2 Delivery O2 Flow Rate FiO2 10/04/17 16:29 97.7 114 18 105/67 94 10/04/17 12:27 98.2 115 20 105/69 95 10/04/17 08:18 98.0 117 20 107/70 95 10/04/17 04:00 99.5 114 18 105/70 91 Room Air 10/04/17 00:00 97.0 99 18 122/72 93 Room Air 10/03/17 21:50 100 20 120/77 94 Room Air 10/03/17 21:40 100 16 131/66 93 Room Air 10/03/17 20:00 100 16 131/66 94 Room Air I&O Intake and Output 10/04/17 10/05/17 19:00 07:00 # Voids 3 # Bowel Movements 1 Cardiovascular: RSR Respiratory: clear Abdomen: soft, non-tender, other - mild distention but improved compared to yesterday. some bowel sounds noted Extremities: no tenderness Laboratory Tests Test 10/03/17 17:00 10/04/17 12:45 White Blood Count 6.5 K/UL (4.8-10.8) 9.9 K/UL (4.8-10.8) # Red Blood Count 3.89 M/UL (4.70-6.10) L 3.76 M/UL (4.70-6.10) L Hemoglobin 12.0 G/DL (14.2-18.0) L 11.5 G/DL (14.2-18.0) L Hematocrit 37.2 % (42.0-52.0) L 35.9 % (42.0-52.0) L Mean Corpuscular Volume 96 FL (80-99) 96 FL (80-99) Mean Corpuscular Hemoglobin 30.9 PG (27.0-31.0) 30.7 PG (27.0-31.0) Mean Corpuscular Hemoglobin Concent 32.3 G/DL (32.0-36.0) 32.1 G/DL (32.0-36.0) Red Cell Distribution Width 13.5 % (11.6-14.8) 13.2 % (11.6-14.8) Platelet Count 276 K/UL (150-450) 291 K/UL (150-450) Mean Platelet Volume 6.1 FL (6.5-10.1) L 5.6 FL (6.5-10.1) L Neutrophils (%) (Auto) 69.1 % (45.0-75.0) 70.6 % (45.0-75.0) Lymphocytes (%) (Auto) 20.5 % (20.0-45.0) 19.7 % (20.0-45.0) L Monocytes (%) (Auto) 9.6 % (1.0-10.0) 9.0 % (1.0-10.0) Eosinophils (%) (Auto) 0.2 % (0.0-3.0) 0.2 % (0.0-3.0) Basophils (%) (Auto) 0.7 % (0.0-2.0) 0.5 % (0.0-2.0) Prothrombin Time 17.6 SEC (9.30-11.50) H 19.0 SEC (9.30-11.50) H Prothromb Time International Ratio 1.7 (0.9-1.1) H 1.8 (0.9-1.1) H Activated Partial Thromboplast Time 33 SEC (23-33) 28 SEC (23-33) Sodium Level 140 MMOL/L (136-145) 145 MMOL/L (136-145) Potassium Level 3.9 MMOL/L (3.5-5.1) 4.1 MMOL/L (3.5-5.1) Chloride Level 104 MMOL/L (98-107) 107 MMOL/L (98-107) Carbon Dioxide Level 29 MMOL/L (21-32) 25 MMOL/L (21-32) Anion Gap 8 mmol/L (5-15) 13 mmol/L (5-15) Blood Urea Nitrogen 29 mg/dL (7-18) H 29 mg/dL (7-18) H Creatinine 1.2 MG/DL (0.55-1.30) 1.1 MG/DL (0.55-1.30) Estimat Glomerular Filtration Rate mL/min (>60) mL/min (>60) Glucose Level 139 MG/DL (74-106) H 114 MG/DL (74-106) H Calcium Level 7.9 MG/DL (8.5-10.1) L 7.5 MG/DL (8.5-10.1) L Total Bilirubin 0.4 MG/DL (0.2-1.0) 0.3 MG/DL (0.2-1.0) Aspartate Amino Transf (AST/SGOT) 43 U/L (15-37) H 73 U/L (15-37) H Alanine Aminotransferase (ALT/SGPT) 16 U/L (12-78) 19 U/L (12-78) Alkaline Phosphatase 124 U/L (46-116) H 119 U/L (46-116) H Total Protein 7.2 G/DL (6.4-8.2) 6.7 G/DL (6.4-8.2) Albumin 2.0 G/DL (3.4-5.0) L 1.9 G/DL (3.4-5.0) L Globulin 5.2 g/dL 4.8 g/dL Albumin/Globulin Ratio 0.4 (1.0-2.7) L 0.4 (1.0-2.7) L Lipase 34 U/L (73-393) L 32 U/L (73-393) L Hemoglobin A1c 7.0 % (4.3-6.0) H Amylase Level 26 U/L (25-115) Thyroid Stimulating Hormone (TSH) 1.537 uiU/mL (0.358-3.740) Plan Problems: (1) Small bowel obstruction Assessment & Plan: 82 year old male with SBO from metastatic tumor/ carcinomatosis. SBO seems to be resolving. Exam improved. had BM and flatus. NG tube with minimal output. -will continue with currently management until tomorrow. need to be very cautious with him given history. -NPO -IV fluids -NG tube decompression -will follow exam. will hopefully open up with return of bowel function. If does not will need hospice care and end of life as his advanced tumor does not allow for surgical/operative intervention. -as improves will hopefully remove NG tube tomorrow and start trial diet thank you for allowing me to participate in Al Rodriguez's care Juan Hernández Oct 04, 2017 17:01
--- NOTE | 2017-10-04 18:45 | History and Physical Report ---
DATE OF ADMISSION: 10/03/2017 CHIEF COMPLAINT: The patient is an 82-year-old male, who presents with chief complaint of abdominal pain. HISTORY OF PRESENT ILLNESS: The patient is a resident of [facility]. The patient states he began having pain approximately 3 weeks ago. The patient was admitted to [facility] from 09/11/2017 to 09/14/2017 for abdominal pain, nausea, and vomiting. Please see history and physical and discharge summary dictated at that time. The patient had a KUB at [facility] on 10/03/2017. The patient was found to have a moderate small bowel obstruction. The patient was transferred to [facility]. The patient is admitted for small bowel obstruction. REVIEW OF SYSTEMS: CONSTITUTIONAL: The patient denies weight loss or weight gain. The patient denies fevers or chills. HEENT: The patient denies ear or throat pain. The patient denies headache. CARDIOVASCULAR: The patient denies palpitations or chest pain. CHEST: The patient denies wheezing or shortness of breath. ABDOMINAL: The patient complains of abdominal pain as above. The patient complains of nausea without vomiting. The patient denies diarrhea or constipation. GENITOURINARY: The patient denies dysuria or increased frequency of urination. NEUROMUSCULAR: The patient denies seizures or generalized weakness. PAST MEDICAL HISTORY: Significant for: 1. Diabetes type 2. 2. Alzheimer dementia. 3. Hydronephrosis of right kidney. 4. History of metastatic bladder cancer in 2013. 5. Benign prostatic hypertrophy. 6. Hypercholesterolemia. PAST SURGICAL HISTORY: Significant for: 1. Inguinal hernia repair. 2. Bladder resection in 2013 secondary to bladder cancer. CURRENT MEDICATIONS: 1. Tylenol 650 mg p.o. q.4. h. p.r.n. 2. Ambien 5 mg one tablet p.o. nightly p.r.n. 3. Breo Ellipta 100/25 one puff once daily. 4. Calcium carbonate 500 mg one tablet p.o. three times daily. 5. Clonidine 0.1 mg p.o. q.4 h. p.r.n. 6. Aricept 5 mg one tablet p.o. nightly. 7. Finasteride 5 mg one tablet p.o. daily. 8. Gabapentin 300 mg one tablet p.o. three times daily. 9. Aspart insulin sliding scale. 10. Levemir 30 units subcutaneously nightly. 11. Lipitor 10 mg one tablet p.o. daily. 12. Lorazepam 0.5 mg p.o. q.4 h. p.r.n. 13. MiraLAX 17 g p.o. daily. 14. Singulair 10 mg one tablet p.o. daily. 15. Protonix 20 mg p.o. daily. 16. Pravastatin 20 mg one tablet p.o. nightly. 17. Starlix 60 mg p.o. three times daily with meals for diabetes. 18. Flomax 0.4 mg p.o. nightly. 19. Depakote 125 mg p.o. daily. 20. Zinc sulfate 220 mg p.o. daily. 21. Zofran 4 mg p.o. p.r.n. ALLERGIES: To aspirin and heparin. SOCIAL HISTORY: The patient lives at [facility]. The patient previously was heavy smoker, however, quit a few months ago. The patient denies alcohol use. PHYSICAL EXAMINATION: VITAL SIGNS: Temperature 97.0, respirations 18, pulse 99, blood pressure 122/72. GENERAL: The patient is a well-developed, well-nourished male in no apparent distress. HEENT: Eyes, pupils equal and responsive to light and accommodation. Extraocular movements are intact. NECK: Supple without lymphadenopathy. CHEST: Lungs are clear to auscultation bilaterally without wheezes or rales. CARDIOVASCULAR: Regular rhythm and rate. S1, S2 normal without murmurs, rubs, or gallops. ABDOMEN: Distended with decreased bowel sounds. There is increased tympany in all four quadrants. There is no rebound or guarding noted. EXTREMITIES: Negative for clubbing, cyanosis, or edema. RECTAL: Refused. GENITAL: Refused. NEUROLOGIC: Cranial nerves II through XII are grossly intact without focal deficits. Motor strength is 5/5 bilaterally. DTR reflexes are 2+, plantar. LABORATORY STUDIES: WBC 6.5, hemoglobin 12.0, hematocrit 37.2, platelets 276,000. Sodium 140, potassium 3.9, chloride 104, CO2 29, BUN 29, creatinine 1.2, glucose 139. AST slightly elevated at 43, alkaline phosphatase elevated at 124. Extensive tumor in the right lower quadrant and right upper quadrant suspicious for ascending colon carcinoma with high-grade small bowel obstruction at the level of the terminal ileum. ASSESSMENT: This is an 82-year-old male with: 1. Small bowel obstruction. 2. Abdominal pain. 3. Colon cancer. 4. Diabetes, type 2. 5. Alzheimer dementia. 6. Hydronephrosis. 7. History of bladder cancer with metastases. 8. Benign prostatic hypertrophy. 9. Hypercholesterolemia. TREATMENT: 1. Small bowel obstruction/abdominal pain. Gastroenterology consultation has been obtained with Dr. Koko Clark. General surgery consultation has been obtained with Dr. Hernández. We will follow recommendations of surgery and gastroenterology. The patient currently has an NG tube in place. The patient is currently on low-intermediate wall suction. 2. History of bladder cancer with metastases, now right-sided colon cancer. 3. Diabetes, type 2. The patient is currently n.p.o. NovoLog sliding scale has been instituted. 4. Alzheimer dementia. 5. Hydronephrosis of the right kidney. 6. Hypercholesterolemia. 7. Benign prostatic hypertrophy. Bruce Hester M.D. DR: Kayce JOB#: [id number] CC:
[2017-10-04] MEDS: Tamsulosin 0.4mg cap ORAL SCH (21:19)
[2017-10-05] VITALS (7 sets, daily range): BP systolic 91–107; BP diastolic 52–77
[2017-10-05] MEDS: NovoLOG Insulin Flexpen SUBQ SCH ×4 (06:30→21:00)
[2017-10-05 07:10] LABS: BASOPHILS % (AUTO) 0.4 % (0.0-2.0); EOSINOPHILS % (AUTO) 0.2 % (0.0-3.0); LYMPHOCYTES % (AUTO) 17.6 % (20.0-45.0); MEAN CORPUSCULAR HEMOGLOBIN 30.7 PG (27.0-31.0); MEAN CORPUSCULAR HGB CONC 31.8 G/DL (32.0-36.0); MEAN CORPUSCULAR VOLUME 97 FL (80-99); MEAN PLATELET VOLUME 5.7 FL (6.5-10.1); MONOCYTES % (AUTO) 8.2 % (1.0-10.0); NEUTROPHILS % (AUTO) 73.7 % (45.0-75.0); PLATELET COUNT 233 K/UL (150-450); RED CELL DISTRIBUTION WIDTH 13.4 % (11.6-14.8); WHITE BLOOD COUNT 9.5 K/UL (4.8-10.8)
[2017-10-05 07:42] LABS: ANION GAP 9 mmol/L (5-15); CALCIUM 7.5 MG/DL (8.5-10.1); CARBON DIOXIDE 29 MMOL/L (21-32); CHLORIDE 110 MMOL/L (98-107); CREATININE 1.4 MG/DL (0.55-1.30); POTASSIUM 3.8 MMOL/L (3.5-5.1); SODIUM 148 MMOL/L (136-145)
--- NOTE | 2017-10-05 07:43 | Pulmonology Progress Note ---
Assessment/Plan Assessment/Plan ASSESSMENT High grade SBO-resolved Carcinomatosis Bladder Ca, s/p resection abdominal pain 2 to SBO and malignancy Diabetes COPD HTN dementia elevated creat PLAN OF CARE MS floor IVF trial of CL diet started as per surgeon NGT dc surgery and GI follow CT A/P noted pain management multiple BM Per surgeon no surgical interventions planned due to advanced tumor, BS management with SS of insulin No need for anti HTN meds for now Venous Duplex BLE O2 HHN prn advance diet as tolerated as per surgery case discussed and evaluated by supervising physician Subjective Allergies: Coded Allergies: ASPIRIN (Unverified Allergy, Severe, Rash, 05/20/16) HEPARIN (Verified Allergy, Unknown, 12/24/16) Subjective creat up to 1.4 denies chest pain, SOB admits to intermittent abdominal pain multiple BM, passing flatus no n/v/ no fevers, Objective Last 24 Hour Vital Signs Date Time Temp Pulse Resp B/P (MAP) Pulse Ox O2 Delivery O2 Flow Rate FiO2 10/05/17 04:00 98.1 81 18 100/63 98 Room Air 10/05/17 00:00 97.0 106 20 107/62 95 Room Air 10/04/17 20:00 98.4 118 20 115/76 90 Room Air 10/04/17 20:00 98.4 10/04/17 17:53 97.7 101 18 110/66 94 10/04/17 16:29 97.7 114 18 105/67 94 10/04/17 12:27 98.2 115 20 105/69 95 10/04/17 08:18 98.0 117 20 107/70 95 General Appearance: no acute distress HEENT: normocephalic, atraumatic, anicteric Respiratory/Chest: lungs clear, normal breath sounds, no respiratory distress Cardiovascular: normal peripheral pulses, normal rate, regular rhythm, no JVD Abdomen: soft, non tender, non distended Genitourinary: normal external genitalia Extremities: no edema, pedal pulses normal Neurologic/Psychiatric: abnormal gait, alert, responsive Musculoskeletal: atrophy - BLE Laboratory Tests 10/04/17 12:45: White Blood Count 9.9#, Red Blood Count 3.76L, Hemoglobin 11.5L, Hematocrit 35.9L, Mean Corpuscular Volume 96, Mean Corpuscular Hemoglobin 30.7, Mean Corpuscular Hemoglobin Concent 32.1, Red Cell Distribution Width 13.2, Platelet Count 291, Mean Platelet Volume 5.6L, Neutrophils (%) (Auto) 70.6, Lymphocytes ( %) (Auto) 19.7L, Monocytes (%) (Auto) 9.0, Eosinophils (%) (Auto) 0.2, Basophils (%) (Auto) 0.5, Prothrombin Time 19.0H, Prothromb Time International Ratio 1.8H, Activated Partial Thromboplast Time 28, Sodium Level 145, Potassium Level 4.1, Chloride Level 107, Carbon Dioxide Level 25, Anion Gap 13, Blood Urea Nitrogen 29H, Creatinine 1.1, Estimat Glomerular Filtration Rate , Glucose Level 114H, Hemoglobin A1c 7.0H, Calcium Level 7.5L, Total Bilirubin 0.3, Aspartate Amino Transf (AST/SGOT) 73H, Alanine Aminotransferase (ALT/SGPT) 19, Alkaline Phosphatase 119H, Total Protein 6.7, Albumin 1.9L, Globulin 4.8, Albumin/Globulin Ratio 0.4L, Amylase Level 26, Lipase 32L, Thyroid Stimulating Hormone (TSH) 1.537 10/05/17 06:45: White Blood Count 9.5, Red Blood Count 3.50L, Hemoglobin 10.7L, Hematocrit 33.8L , Mean Corpuscular Volume 97, Mean Corpuscular Hemoglobin 30.7, Mean Corpuscular Hemoglobin Concent 31.8L, Red Cell Distribution Width 13.4, Platelet Count 233, Mean Platelet Volume 5.7L, Neutrophils (%) (Auto) 73.7, Lymphocytes (%) (Auto) 17.6L, Monocytes (%) (Auto) 8.2, Eosinophils (%) (Auto) 0.2, Basophils (%) (Auto) 0.4, Sodium Level [Pending], Potassium Level [Pending] , Chloride Level [Pending], Carbon Dioxide Level [Pending], Blood Urea Nitrogen [Pending], Creatinine [Pending], Estimat Glomerular Filtration Rate [Pending], Glucose Level [Pending], Calcium Level [Pending] Current Medications Medications (Trade) Dose Ordered Sig/Eric Route PRN Reason Start Time Stop Time Status Last Admin Dose Admin Acetaminophen (Tylenol) 650 mg Q4H PRN ORAL fever 10/03/17 21:15 11/02/17 21:14 Al Hydroxide/Mg Hydroxide (Mylanta II) 30 ml Q6H PRN ORAL dyspepsia 10/03/17 21:15 11/02/17 21:14 Dextrose (Dextrose 50%) STAT PRN IV Hypoglycemia 10/03/17 21:15 11/02/17 21:14 Diphenhydramine HCl (Benadryl) 25 mg Q6H PRN ORAL Itching/Pruritis 10/03/17 21:15 11/02/17 21:14 Gabapentin (Neurontin) 300 mg THREE TIMES A DAY ORAL 10/04/17 09:00 11/03/17 08:59 10/04/17 18:06 Insulin Aspart (NovoLOG) BEFORE MEALS AND HS SUBQ 10/04/17 06:30 11/03/17 06:29 10/04/17 21:27 Morphine Sulfate (Morphine Sulfate) 2 mg Q4H PRN IVP severe Pain (Pain Scale 7-10) 10/03/17 21:15 10/10/17 21:14 Nitroglycerin (Ntg) 0.4 mg Q5M X 3 DOSES PRN SL Prn Chest Pain 10/03/17 21:15 11/02/17 21:14 Ondansetron HCl (Zofran) 4 mg Q6H PRN IVP Nausea & Vomiting 10/03/17 21:15 11/02/17 21:14 Polyethylene Glycol (Miralax) 17 gm HSPRN PRN ORAL Constipation 10/03/17 21:15 11/02/17 21:14 Risperidone (RisperDAL) 1 mg QHS ORAL 10/04/17 22:30 11/03/17 22:29 10/04/17 21:19 Sodium Chloride 550 ml @ 50 mls/hr Q11H IV 10/04/17 01:30 11/03/17 01:29 10/04/17 22:36 Tamsulosin HCl (Flomax) 0.4 mg BEDTIME ORAL 10/04/17 22:30 11/03/17 22:29 10/04/17 21:19 Temazepam (Restoril) 15 mg HSPRN PRN ORAL Insomnia 10/03/17 21:15 10/10/17 21:14 Valproic Acid (Depakene) 125 mg Q12HR GT 10/04/17 01:30 11/03/17 01:29 10/04/17 21:19 Xander ([facility])Diamante NP Oct 05, 2017 07:43
--- NOTE | 2017-10-05 08:55 | General Surgery Progress Note ---
General Surgery-Progress Note Subjective Symptoms: improved, passing flatus, BM Additional Comments patient seen and examined at bedside. no acute events. multiple BM;s and passing flatus. NG output gastric contents. no n/v/f/c. Objective Last 24 Hour Vital Signs Date Time Temp Pulse Resp B/P (MAP) Pulse Ox O2 Delivery O2 Flow Rate FiO2 10/05/17 08:00 97.7 100 20 102/61 91 10/05/17 04:00 98.1 81 18 100/63 98 Room Air 10/05/17 00:00 97.0 106 20 107/62 95 Room Air 10/04/17 20:00 98.4 118 20 115/76 90 Room Air 10/04/17 20:00 98.4 10/04/17 17:53 97.7 101 18 110/66 94 10/04/17 16:29 97.7 114 18 105/67 94 10/04/17 12:27 98.2 115 20 105/69 95 Cardiovascular: RSR Respiratory: clear Abdomen: soft, flat, non-tender, present bowel sounds Extremities: no tenderness Laboratory Tests Test 10/04/17 12:45 10/05/17 06:45 White Blood Count 9.9 K/UL (4.8-10.8) # 9.5 K/UL (4.8-10.8) Red Blood Count 3.76 M/UL (4.70-6.10) L 3.50 M/UL (4.70-6.10) L Hemoglobin 11.5 G/DL (14.2-18.0) L 10.7 G/DL (14.2-18.0) L Hematocrit 35.9 % (42.0-52.0) L 33.8 % (42.0-52.0) L Mean Corpuscular Volume 96 FL (80-99) 97 FL (80-99) Mean Corpuscular Hemoglobin 30.7 PG (27.0-31.0) 30.7 PG (27.0-31.0) Mean Corpuscular Hemoglobin Concent 32.1 G/DL (32.0-36.0) 31.8 G/DL (32.0-36.0) L Red Cell Distribution Width 13.2 % (11.6-14.8) 13.4 % (11.6-14.8) Platelet Count 291 K/UL (150-450) 233 K/UL (150-450) Mean Platelet Volume 5.6 FL (6.5-10.1) L 5.7 FL (6.5-10.1) L Neutrophils (%) (Auto) 70.6 % (45.0-75.0) 73.7 % (45.0-75.0) Lymphocytes (%) (Auto) 19.7 % (20.0-45.0) L 17.6 % (20.0-45.0) L Monocytes (%) (Auto) 9.0 % (1.0-10.0) 8.2 % (1.0-10.0) Eosinophils (%) (Auto) 0.2 % (0.0-3.0) 0.2 % (0.0-3.0) Basophils (%) (Auto) 0.5 % (0.0-2.0) 0.4 % (0.0-2.0) Prothrombin Time 19.0 SEC (9.30-11.50) H Prothromb Time International Ratio 1.8 (0.9-1.1) H Activated Partial Thromboplast Time 28 SEC (23-33) Sodium Level 145 MMOL/L (136-145) 148 MMOL/L (136-145) H Potassium Level 4.1 MMOL/L (3.5-5.1) 3.8 MMOL/L (3.5-5.1) Chloride Level 107 MMOL/L (98-107) 110 MMOL/L (98-107) H Carbon Dioxide Level 25 MMOL/L (21-32) 29 MMOL/L (21-32) Anion Gap 13 mmol/L (5-15) 9 mmol/L (5-15) Blood Urea Nitrogen 29 mg/dL (7-18) H 27 mg/dL (7-18) H Creatinine 1.1 MG/DL (0.55-1.30) 1.4 MG/DL (0.55-1.30) H Estimat Glomerular Filtration Rate mL/min (>60) mL/min (>60) Glucose Level 114 MG/DL (74-106) H 105 MG/DL (74-106) Hemoglobin A1c 7.0 % (4.3-6.0) H Calcium Level 7.5 MG/DL (8.5-10.1) L 7.5 MG/DL (8.5-10.1) L Total Bilirubin 0.3 MG/DL (0.2-1.0) Aspartate Amino Transf (AST/SGOT) 73 U/L (15-37) H Alanine Aminotransferase (ALT/SGPT) 19 U/L (12-78) Alkaline Phosphatase 119 U/L (46-116) H Total Protein 6.7 G/DL (6.4-8.2) Albumin 1.9 G/DL (3.4-5.0) L Globulin 4.8 g/dL Albumin/Globulin Ratio 0.4 (1.0-2.7) L Amylase Level 26 U/L (25-115) Lipase 32 U/L (73-393) L Thyroid Stimulating Hormone (TSH) 1.537 uiU/mL (0.358-3.740) Plan Problems: (1) Small bowel obstruction Assessment & Plan: 82 year old male with SBO from metastatic tumor/ carcinomatosis. SBO resolved. Exam improved. had BM and flatus. NG tube with minimal output of gastric contents. afebrile, HD stable, labs okay. -Start trial clear liquids. -d/c NG tube -will follow exam. thank you for allowing me to participate in Al Rodriguez's care Juan Hernández Oct 05, 2017 08:55
[2017-10-05] MEDS: Valproic Acid 250mg/5ml Liquid GT SCH (09:04)
--- NOTE | 2017-10-05 11:20 | GI Progress Note ---
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 Clark. Assessment/Plan CT AP reviewed >> suspect metastasis, see full report. SBO from metastatic tumor fu surgical recs >> no intervention, recommend hospice care non operative management CLD, adv as tolerated per surgery bowel decompression prn pain mgmt serial monitoring repeat imaging prn abx fleets mineral prn fu labs The patient was seen and examined at bedside and all new and available data was reviewed in the patients chart. I agree with the above findings, impression and plan. (Patient seen earlier today. Signature stamp does not reflect patient encounter time.). - Iqra Clark MD Subjective Subjective limited with periods of confusion/agitation Objective Last 24 Hour Vital Signs Date Time Temp Pulse Resp B/P (MAP) Pulse Ox O2 Delivery O2 Flow Rate FiO2 10/05/17 08:00 97.7 100 20 102/61 91 10/05/17 04:00 98.1 81 18 100/63 98 Room Air 10/05/17 00:00 97.0 106 20 107/62 95 Room Air 10/04/17 20:00 98.4 118 20 115/76 90 Room Air 10/04/17 20:00 98.4 10/04/17 17:53 97.7 101 18 110/66 94 10/04/17 16:29 97.7 114 18 105/67 94 10/04/17 12:27 98.2 115 20 105/69 95 Intake and Output 10/05/17 10/06/17 19:00 07:00 # Bowel Movements 1 Laboratory Tests Test 10/04/17 12:45 10/05/17 06:45 White Blood Count 9.9 K/UL (4.8-10.8) # 9.5 K/UL (4.8-10.8) Red Blood Count 3.76 M/UL (4.70-6.10) L 3.50 M/UL (4.70-6.10) L Hemoglobin 11.5 G/DL (14.2-18.0) L 10.7 G/DL (14.2-18.0) L Hematocrit 35.9 % (42.0-52.0) L 33.8 % (42.0-52.0) L Mean Corpuscular Volume 96 FL (80-99) 97 FL (80-99) Mean Corpuscular Hemoglobin 30.7 PG (27.0-31.0) 30.7 PG (27.0-31.0) Mean Corpuscular Hemoglobin Concent 32.1 G/DL (32.0-36.0) 31.8 G/DL (32.0-36.0) L Red Cell Distribution Width 13.2 % (11.6-14.8) 13.4 % (11.6-14.8) Platelet Count 291 K/UL (150-450) 233 K/UL (150-450) Mean Platelet Volume 5.6 FL (6.5-10.1) L 5.7 FL (6.5-10.1) L Neutrophils (%) (Auto) 70.6 % (45.0-75.0) 73.7 % (45.0-75.0) Lymphocytes (%) (Auto) 19.7 % (20.0-45.0) L 17.6 % (20.0-45.0) L Monocytes (%) (Auto) 9.0 % (1.0-10.0) 8.2 % (1.0-10.0) Eosinophils (%) (Auto) 0.2 % (0.0-3.0) 0.2 % (0.0-3.0) Basophils (%) (Auto) 0.5 % (0.0-2.0) 0.4 % (0.0-2.0) Prothrombin Time 19.0 SEC (9.30-11.50) H Prothromb Time International Ratio 1.8 (0.9-1.1) H Activated Partial Thromboplast Time 28 SEC (23-33) Sodium Level 145 MMOL/L (136-145) 148 MMOL/L (136-145) H Potassium Level 4.1 MMOL/L (3.5-5.1) 3.8 MMOL/L (3.5-5.1) Chloride Level 107 MMOL/L (98-107) 110 MMOL/L (98-107) H Carbon Dioxide Level 25 MMOL/L (21-32) 29 MMOL/L (21-32) Anion Gap 13 mmol/L (5-15) 9 mmol/L (5-15) Blood Urea Nitrogen 29 mg/dL (7-18) H 27 mg/dL (7-18) H Creatinine 1.1 MG/DL (0.55-1.30) 1.4 MG/DL (0.55-1.30) H Estimat Glomerular Filtration Rate mL/min (>60) mL/min (>60) Glucose Level 114 MG/DL (74-106) H 105 MG/DL (74-106) Hemoglobin A1c 7.0 % (4.3-6.0) H Calcium Level 7.5 MG/DL (8.5-10.1) L 7.5 MG/DL (8.5-10.1) L Total Bilirubin 0.3 MG/DL (0.2-1.0) Aspartate Amino Transf (AST/SGOT) 73 U/L (15-37) H Alanine Aminotransferase (ALT/SGPT) 19 U/L (12-78) Alkaline Phosphatase 119 U/L (46-116) H Total Protein 6.7 G/DL (6.4-8.2) Albumin 1.9 G/DL (3.4-5.0) L Globulin 4.8 g/dL Albumin/Globulin Ratio 0.4 (1.0-2.7) L Amylase Level 26 U/L (25-115) Lipase 32 U/L (73-393) L Thyroid Stimulating Hormone (TSH) 1.537 uiU/mL (0.358-3.740) Height (Feet): 5 Height (Inches): 7.00 Weight (Pounds): 170 General Appearance: no apparent distress, alert, confused, agitated, thin Cardiovascular: normal rate Respiratory/Chest: normal breath sounds, no respiratory distress Abdominal Exam: normal bowel sounds, non tender, soft Extremities: normal range of motion, non-tender Main,Katerin Jose N.P. Oct 05, 2017 11:20 JOSE CLARK Oct 09, 2017 10:27
--- NOTE | 2017-10-05 14:00 | Diagnostic Imaging Report ---
Indication: Abdominal distention Technique: Supine view of the abdomen Comparison: 09/12/2017; also ambulatory technologist image from abdomen pelvis CT dated 10/03/2017 Findings: Again demonstrated are distended gas-filled small bowel loops. The amount of bowel gas has decreased slightly, and the caliber of the small bowel is perhaps slightly decreased. There is a nasogastric tube in place, tip coiled in the gastric fundus. Impression: Persistent but perhaps slightly improved gaseous distention of small bowel, consistent with ongoing small bowel obstruction Satisfactory nasogastric intubation
--- NOTE | 2017-10-05 14:33 | Diagnostic Imaging Report ---
APPROVED REPORT CPT Code: 46063 Present Symptoms Comments: R/O DVT BILATERAL: Imaging reveals a patent deep venous system bilaterally. There is no evidence of thrombus within the femoral, popliteal or tibial segments. The greater saphenous veins are also within normal limits. Doppler indicates normal spontaneous flow within these segments.
--- NOTE | 2017-10-05 15:24 | Consultation ---
History of Present Illness General Date patient seen: Oct 04, 2017 Chief Complaint: General Complaint Referring physician: JANESSA WASHBURN Reason for Consultation: SBO Present Illness HPI 82-year-old male, who presents with chief complaint of abdominal pain. the pt was treated at [facility] by myself. the pt is more confused than baseline. he was agitated and was placed in restraints. the pt is unable to provide any hx Allergies: Coded Allergies: ASPIRIN (Unverified Allergy, Severe, Rash, 05/20/16) HEPARIN (Verified Allergy, Unknown, 12/24/16) Medication History Scheduled Atorvastatin Calcium* (Lipitor*), 10 MG ORAL BEDTIME, (Reported) Calcium Carbonate (Oyster Shell Calcium-Vit D Tab), 500 MG GT TID Diazepam* (Diazepam*), 5 MG ORAL HS, (Reported) Donepezil Hcl* (Donepezil Hcl*), 5 MG ORAL QHS, (Reported) Finasteride* (Proscar*), 5 MG ORAL DAILY Gabapentin* (Gabapentin*), 300 MG ORAL THREE TIMES A DAY, (Reported) Insulin Aspart (Novolog), SQ AC+HS, (Reported) Insulin Aspart* (Novolog*), 8 SUBQ BEFORE MEALS, (Reported) Insulin Detemir (Levemir), 40 UNITS SUBQ BEFORE BREAKFAST Insulin Detemir (Levemir), 20 SUBQ DAILY, (Reported) Montelukast Sodium* (Singulair*), 10 MG ORAL DAILY, (Reported) Montelukast Sodium* (Singulair*), 10 MG ORAL DAILY, (Reported) Nateglinide* (Starlix*), 60 MG ORAL THREE TIMES A DAY, (Reported) Pantoprazole (Pantoprazole), 40 MG ORAL DAILY, (Reported) Pravastatin Sod* (Pravastatin Sod*), 10 MG ORAL BEDTIME, (Reported) Risperidone* (Risperdal*), 1 MG PO QHS, (Reported) Tamsulosin Hcl (Tamsulosin Hcl*), 0.4 MG ORAL BEDTIME Tamsulosin Hcl (Tamsulosin Hcl*), 0.4 MG ORAL BEDTIME, (Reported) Trimethoprim/Sulfamethoxazole (Bactrim Ds Tablet), 1 TAB ORAL BID, (Reported) Valproic Acid (Valproic Acid), 125 MG PO Q12HR, (Reported) Scheduled PRN Acetaminophen (Tylenol), 650 MG ORAL Q4HR PRN for Fever/Headache/Mild Pain, ( Reported) Acetaminophen With Codeine (T#3) (Tylenol #3 Tab*), 1 TAB ORAL Q6HR PRN for For Pain, (Reported) Al Hydroxide/mg Hydroxide (Mag-Al Plus Suspension), 30 ML PO Q4HR PRN for Constipation, (Reported) Clonidine Hcl* (Catapres*), 0.1 MG ORAL EVERY 4 HOURS PRN for For High Blood Pressure, (Reported) Fluticasone/Salmeterol (Advair 250-50 Diskus), 1 PUFF INH DAILY PRN for Shortness of Breath, (Reported) Ipratropium/Albuterol Sulfate (DuoNeb 0.5-3(2.5)mg/3ml), 3 ML HHN Q4HR PRN for Shortness of Breath, (Reported) Lorazepam* (Ativan*), 0.5 MG ORAL Q4HR PRN for For Anxiety, (Reported) Ondansetron (Zofran), 4 MG ORAL Q6H PRN for Nausea & Vomiting, (Reported) Polyethylene Glycol 3350* (Miralax*), 17 GM ORAL DAILY PRN for Constipation, ( Reported) Temazepam (Temazepam*), 15 MG ORAL BEDTIME PRN for Per rx protocol, (Reported) Zolpidem Tartrate* (Ambien*), 5 MG ORAL BEDTIME PRN for Insomnia, (Reported) Miscellaneous Medications Fluticasone/Vilanterol (Breo Ellipta 100-25 Mcg INH), 1 EACH IH, (Reported) Nitroglycerin (Nitroglycerin), 0.4 MG SL, (Reported) Unable to Obtain Medications (Unable To Obtain Meds), (Reported) Patient History History Provided By: Patient, Medical Record, PMD Healthcare decision maker N/A Resuscitation status Full Code Advanced Directive on File Past Medical/Surgical History Past Medical/Surgical History: (1) Small bowel obstruction (2) Carcinomatosis (3) Abdominal pain (4) Nausea & vomiting (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 (6) Alzheimer's dementia (7) Bladder tumor (8) Acute cystitis (9) BPH (benign prostatic hypertrophy) (10) Hematuria (11) Hematuria (12) Dizziness (13) Cellulitis (14) Diabetes (15) Hypercholesteremia (16) Hypoglycemia (17) Psychosis (18) Encephalopathy (19) UTI (urinary tract infection) (20) Altered mental status (21) Hypertension (22) ARF (acute renal failure) (23) ARF (acute renal failure) (24) ARF (acute renal failure) (25) Diabetes mellitus type II, uncontrolled (26) COPD exacerbation (27) Diabetes with ulcer of heel (28) Hydronephrosis of right kidney (29) Chest wall contusion (30) Injury of lower extremity (31) Acute encephalopathy Review of Systems Psychiatric: Reports: see HPI, prior hx, anxiety, depressed feelings, emotional problems, hallucinations Physical Exam General Appearance: no apparent distress, confused Neurologic: disoriented, depressed affect Last 24 Hour Vital Signs Date Time Temp Pulse Resp B/P (MAP) Pulse Ox O2 Delivery O2 Flow Rate FiO2 10/05/17 12:00 97.5 100 20 96/57 91 10/05/17 08:00 97.7 100 20 102/61 91 10/05/17 04:00 98.1 81 18 100/63 98 Room Air 10/05/17 00:00 97.0 106 20 107/62 95 Room Air 10/04/17 20:00 98.4 118 20 115/76 90 Room Air 10/04/17 20:00 98.4 10/04/17 17:53 97.7 101 18 110/66 94 10/04/17 16:29 97.7 114 18 105/67 94 Intake and Output 10/05/17 10/06/17 19:00 07:00 Intake Total 250 ml Balance 250 ml IV Total 250 ml # Bowel Movements 1 Laboratory Tests Test 10/05/17 06:45 White Blood Count 9.5 K/UL (4.8-10.8) Red Blood Count 3.50 M/UL (4.70-6.10) L Hemoglobin 10.7 G/DL (14.2-18.0) L Hematocrit 33.8 % (42.0-52.0) L Mean Corpuscular Volume 97 FL (80-99) Mean Corpuscular Hemoglobin 30.7 PG (27.0-31.0) Mean Corpuscular Hemoglobin Concent 31.8 G/DL (32.0-36.0) L Red Cell Distribution Width 13.4 % (11.6-14.8) Platelet Count 233 K/UL (150-450) Mean Platelet Volume 5.7 FL (6.5-10.1) L Neutrophils (%) (Auto) 73.7 % (45.0-75.0) Lymphocytes (%) (Auto) 17.6 % (20.0-45.0) L Monocytes (%) (Auto) 8.2 % (1.0-10.0) Eosinophils (%) (Auto) 0.2 % (0.0-3.0) Basophils (%) (Auto) 0.4 % (0.0-2.0) Sodium Level 148 MMOL/L (136-145) H Potassium Level 3.8 MMOL/L (3.5-5.1) Chloride Level 110 MMOL/L (98-107) H Carbon Dioxide Level 29 MMOL/L (21-32) Anion Gap 9 mmol/L (5-15) Blood Urea Nitrogen 27 mg/dL (7-18) H Creatinine 1.4 MG/DL (0.55-1.30) H Estimat Glomerular Filtration Rate mL/min (>60) Glucose Level 105 MG/DL (74-106) Calcium Level 7.5 MG/DL (8.5-10.1) L Height (Feet): 5 Height (Inches): 7.00 Weight (Pounds): 170 Medications Current Medications Medications (Trade) Dose Ordered Sig/Eric Route PRN Reason Start Time Stop Time Status Last Admin Dose Admin Acetaminophen (Tylenol) 650 mg Q4H PRN ORAL fever 10/03/17 21:15 11/02/17 21:14 Al Hydroxide/Mg Hydroxide (Mylanta II) 30 ml Q6H PRN ORAL dyspepsia 10/03/17 21:15 11/02/17 21:14 Dextrose (Dextrose 50%) STAT PRN IV Hypoglycemia 10/03/17 21:15 11/02/17 21:14 Diphenhydramine HCl (Benadryl) 25 mg Q6H PRN ORAL Itching/Pruritis 10/03/17 21:15 11/02/17 21:14 Gabapentin (Neurontin) 300 mg THREE TIMES A DAY ORAL 10/04/17 09:00 11/03/17 08:59 10/05/17 12:29 Insulin Aspart (NovoLOG) BEFORE MEALS AND HS SUBQ 10/04/17 06:30 11/03/17 06:29 10/04/17 21:27 Morphine Sulfate (Morphine Sulfate) 2 mg Q4H PRN IVP severe Pain (Pain Scale 7-10) 10/03/17 21:15 10/10/17 21:14 Nitroglycerin (Ntg) 0.4 mg Q5M X 3 DOSES PRN SL Prn Chest Pain 10/03/17 21:15 11/02/17 21:14 Ondansetron HCl (Zofran) 4 mg Q6H PRN IVP Nausea & Vomiting 10/03/17 21:15 11/02/17 21:14 Polyethylene Glycol (Miralax) 17 gm HSPRN PRN ORAL Constipation 10/03/17 21:15 11/02/17 21:14 Risperidone (RisperDAL) 1 mg QHS ORAL 10/04/17 22:30 11/03/17 22:29 10/04/17 21:19 Sodium Chloride 1,000 ml @ 50 mls/hr Q20H IV 10/05/17 11:00 11/04/17 10:59 10/05/17 10:45 Tamsulosin HCl (Flomax) 0.4 mg BEDTIME ORAL 10/04/17 22:30 11/03/17 22:29 10/04/17 21:19 Temazepam (Restoril) 15 mg HSPRN PRN ORAL Insomnia 10/03/17 21:15 10/10/17 21:14 Valproic Acid (Depakene) 125 mg Q12HR GT 10/04/17 01:30 11/03/17 01:29 10/05/17 09:04 Assessment/Plan Status: stable Assessment/Plan encephalopathy -dc valium -cont Shantel Blackburn M.D. Oct 05, 2017 15:24
--- NOTE | 2017-10-05 15:25 | General Progress Note ---
Assessment/Plan Status: stable Assessment/Plan encephalopathy dc depakote cont Arunadal Subjective Date patient seen: Oct 05, 2017 Neurologic/Psychiatric: Reports: anxiety, depressed, emotional problems Allergies: Coded Allergies: ASPIRIN (Unverified Allergy, Severe, Rash, 05/20/16) HEPARIN (Verified Allergy, Unknown, 12/24/16) Objective Last 24 Hour Vital Signs Date Time Temp Pulse Resp B/P (MAP) Pulse Ox O2 Delivery O2 Flow Rate FiO2 10/05/17 12:00 97.5 100 20 96/57 91 10/05/17 08:00 97.7 100 20 102/61 91 10/05/17 04:00 98.1 81 18 100/63 98 Room Air 10/05/17 00:00 97.0 106 20 107/62 95 Room Air 10/04/17 20:00 98.4 118 20 115/76 90 Room Air 10/04/17 20:00 98.4 10/04/17 17:53 97.7 101 18 110/66 94 10/04/17 16:29 97.7 114 18 105/67 94 Intake and Output 10/05/17 10/06/17 19:00 07:00 Intake Total 250 ml Balance 250 ml IV Total 250 ml # Bowel Movements 1 Laboratory Tests 10/05/17 06:45: White Blood Count 9.5, Red Blood Count 3.50L, Hemoglobin 10.7L, Hematocrit 33.8L , Mean Corpuscular Volume 97, Mean Corpuscular Hemoglobin 30.7, Mean Corpuscular Hemoglobin Concent 31.8L, Red Cell Distribution Width 13.4, Platelet Count 233, Mean Platelet Volume 5.7L, Neutrophils (%) (Auto) 73.7, Lymphocytes (%) (Auto) 17.6L, Monocytes (%) (Auto) 8.2, Eosinophils (%) (Auto) 0.2, Basophils (%) (Auto) 0.4, Sodium Level 148H, Potassium Level 3.8, Chloride Level 110H, Carbon Dioxide Level 29, Anion Gap 9, Blood Urea Nitrogen 27H, Creatinine 1.4H, Estimat Glomerular Filtration Rate , Glucose Level 105, Calcium Level 7.5L Height (Feet): 5 Height (Inches): 7.00 Weight (Pounds): 170 General Appearance: no apparent distress, confused Neurologic: alert, disoriented, depressed affect Farhadi,Pantea M.D. Oct 05, 2017 15:25
--- NOTE | 2017-10-05 18:01 | Internal Med Progress Note ---
Subjective Date of Service: Oct 05, 2017 Physician Name Hester,Tammy Attending Physician Arian Givens MD Current Medications Medications (Trade) Dose Ordered Sig/Eric Route PRN Reason Start Time Stop Time Status Last Admin Dose Admin Acetaminophen (Tylenol) 650 mg Q4H PRN ORAL fever 10/03/17 21:15 11/02/17 21:14 Al Hydroxide/Mg Hydroxide (Mylanta II) 30 ml Q6H PRN ORAL dyspepsia 10/03/17 21:15 11/02/17 21:14 Dextrose (Dextrose 50%) STAT PRN IV Hypoglycemia 10/03/17 21:15 11/02/17 21:14 Diphenhydramine HCl (Benadryl) 25 mg Q6H PRN ORAL Itching/Pruritis 10/03/17 21:15 11/02/17 21:14 Gabapentin (Neurontin) 300 mg THREE TIMES A DAY ORAL 10/04/17 09:00 11/03/17 08:59 10/05/17 17:19 Insulin Aspart (NovoLOG) BEFORE MEALS AND HS SUBQ 10/04/17 06:30 11/03/17 06:29 10/04/17 21:27 Morphine Sulfate (Morphine Sulfate) 2 mg Q4H PRN IVP severe Pain (Pain Scale 7-10) 10/03/17 21:15 10/10/17 21:14 Nitroglycerin (Ntg) 0.4 mg Q5M X 3 DOSES PRN SL Prn Chest Pain 10/03/17 21:15 11/02/17 21:14 Ondansetron HCl (Zofran) 4 mg Q6H PRN IVP Nausea & Vomiting 10/03/17 21:15 11/02/17 21:14 Polyethylene Glycol (Miralax) 17 gm HSPRN PRN ORAL Constipation 10/03/17 21:15 11/02/17 21:14 Risperidone (RisperDAL) 1 mg QHS ORAL 10/04/17 22:30 11/03/17 22:29 10/04/17 21:19 Sodium Chloride 1,000 ml @ 50 mls/hr Q20H IV 10/05/17 11:00 11/04/17 10:59 10/05/17 10:45 Tamsulosin HCl (Flomax) 0.4 mg BEDTIME ORAL 10/04/17 22:30 11/03/17 22:29 10/04/17 21:19 Temazepam (Restoril) 15 mg HSPRN PRN ORAL Insomnia 10/03/17 21:15 10/10/17 21:14 Allergies: Coded Allergies: ASPIRIN (Unverified Allergy, Severe, Rash, 05/20/16) HEPARIN (Verified Allergy, Unknown, 12/24/16) ROS Limited/Unobtainable: No Constitutional: Reports: no symptoms HEENT: Reports: no symptoms Cardiovascular: Reports: no symptoms Respiratory: Reports: no symptoms Gastrointestinal/Abdominal: Reports: abdomen distended, abdominal pain Genitourinary: Reports: no symptoms Neurologic/Psychiatric: Reports: no symptoms Subjective 82 YO M admitted with abdominal pain. Now small bowel obstruction and ascending colon tumor. Cover for Int Jay-Dr Givens Objective Last Vital Signs Date Time Temp Pulse Resp B/P (MAP) Pulse Ox O2 Delivery O2 Flow Rate FiO2 10/05/17 16:15 97.9 84 21 101/77 97 10/05/17 04:00 Room Air General Appearance: WD/WN, no apparent distress, alert EENT: PERRL/EOMI, normal ENT inspection Neck: non-tender, normal alignment, supple, normal inspection Cardiovascular: normal peripheral pulses, normal rate, regular rhythm, no gallop/murmur, no JVD Respiratory/Chest: chest wall non-tender, lungs clear, normal breath sounds, no respiratory distress, no accessory muscle use Abdomen: no organomegaly, no mass, decreased bowel sounds, distended, tender Extremities: normal range of motion, non-tender Neurologic: lithographic photographer II-XII grossly normal, no motor/sensory deficits Skin: normal pigmentation, warm/dry Laboratory Tests Test 10/05/17 06:45 White Blood Count 9.5 K/UL (4.8-10.8) Red Blood Count 3.50 M/UL (4.70-6.10) L Hemoglobin 10.7 G/DL (14.2-18.0) L Hematocrit 33.8 % (42.0-52.0) L Mean Corpuscular Volume 97 FL (80-99) Mean Corpuscular Hemoglobin 30.7 PG (27.0-31.0) Mean Corpuscular Hemoglobin Concent 31.8 G/DL (32.0-36.0) L Red Cell Distribution Width 13.4 % (11.6-14.8) Platelet Count 233 K/UL (150-450) Mean Platelet Volume 5.7 FL (6.5-10.1) L Neutrophils (%) (Auto) 73.7 % (45.0-75.0) Lymphocytes (%) (Auto) 17.6 % (20.0-45.0) L Monocytes (%) (Auto) 8.2 % (1.0-10.0) Eosinophils (%) (Auto) 0.2 % (0.0-3.0) Basophils (%) (Auto) 0.4 % (0.0-2.0) Sodium Level 148 MMOL/L (136-145) H Potassium Level 3.8 MMOL/L (3.5-5.1) Chloride Level 110 MMOL/L (98-107) H Carbon Dioxide Level 29 MMOL/L (21-32) Anion Gap 9 mmol/L (5-15) Blood Urea Nitrogen 27 mg/dL (7-18) H Creatinine 1.4 MG/DL (0.55-1.30) H Estimat Glomerular Filtration Rate mL/min (>60) Glucose Level 105 MG/DL (74-106) Calcium Level 7.5 MG/DL (8.5-10.1) L Intake and Output 10/05/17 10/06/17 19:00 07:00 Intake Total 450 ml Balance 450 ml IV Total 450 ml # Bowel Movements 1 Assessment/Plan Problem List: (1) Diabetes mellitus Assessment & Plan: Continue novolog sliding scale. 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 See Surgery note. Status: tolerating diet Assessment/Plan Clear liquid diet per TAMMY HESS Oct 05, 2017 18:01
[2017-10-05] MEDS: Tamsulosin 0.4mg cap ORAL SCH (20:57)
[2017-10-06 04:00] VITALS: BP 97/55
[2017-10-06] MEDS: NovoLOG Insulin Flexpen SUBQ SCH ×4 (06:30→20:32)
[2017-10-06 07:42] LABS: BASOPHILS % (AUTO) 0.4 % (0.0-2.0); EOSINOPHILS % (AUTO) 0.6 % (0.0-3.0); LYMPHOCYTES % (AUTO) 19.9 % (20.0-45.0); MEAN CORPUSCULAR HEMOGLOBIN 30.8 PG (27.0-31.0); MEAN CORPUSCULAR VOLUME 96 FL (80-99); MEAN PLATELET VOLUME 5.4 FL (6.5-10.1); NEUTROPHILS % (AUTO) 71.1 % (45.0-75.0); PLATELET COUNT 192 K/UL (150-450); RED BLOOD COUNT 3.33 M/UL (4.70-6.10); RED CELL DISTRIBUTION WIDTH 13.8 % (11.6-14.8); WHITE BLOOD COUNT 8.9 K/UL (4.8-10.8)
[2017-10-06 07:58] LABS: ANION GAP 6 mmol/L (5-15); CALCIUM 7.4 MG/DL (8.5-10.1); CARBON DIOXIDE 28 MMOL/L (21-32); CHLORIDE 112 MMOL/L (98-107); CREATININE 1.1 MG/DL (0.55-1.30); POTASSIUM 3.6 MMOL/L (3.5-5.1); SODIUM 146 MMOL/L (136-145)
[2017-10-06 08:00] VITALS: BP 108/63
--- NOTE | 2017-10-06 09:18 | General Surgery Progress Note ---
General Surgery-Progress Note Subjective Symptoms: improved, tolerating diet, passing flatus, BM Additional Comments no n/v/f/c. comfortable. Objective Last 24 Hour Vital Signs Date Time Temp Pulse Resp B/P (MAP) Pulse Ox O2 Delivery O2 Flow Rate FiO2 10/06/17 08:52 Room Air 10/06/17 08:00 97.7 100 20 108/63 95 10/06/17 04:00 97.0 107 21 97/55 94 Room Air 10/05/17 23:06 97.5 108 20 91/52 93 Room Air 10/05/17 19:04 98.1 115 20 100/58 95 Room Air 10/05/17 16:15 97.9 84 21 101/77 97 10/05/17 12:00 97.5 100 20 96/57 91 Cardiovascular: RSR Respiratory: clear Abdomen: soft, non-tender, present bowel sounds Extremities: no tenderness Laboratory Tests Test 10/06/17 04:55 White Blood Count 8.9 K/UL (4.8-10.8) Red Blood Count 3.33 M/UL (4.70-6.10) L Hemoglobin 10.3 G/DL (14.2-18.0) L Hematocrit 32.1 % (42.0-52.0) L Mean Corpuscular Volume 96 FL (80-99) Mean Corpuscular Hemoglobin 30.8 PG (27.0-31.0) Mean Corpuscular Hemoglobin Concent 32.0 G/DL (32.0-36.0) Red Cell Distribution Width 13.8 % (11.6-14.8) Platelet Count 192 K/UL (150-450) Mean Platelet Volume 5.4 FL (6.5-10.1) L Neutrophils (%) (Auto) 71.1 % (45.0-75.0) Lymphocytes (%) (Auto) 19.9 % (20.0-45.0) L Monocytes (%) (Auto) 8.0 % (1.0-10.0) Eosinophils (%) (Auto) 0.6 % (0.0-3.0) Basophils (%) (Auto) 0.4 % (0.0-2.0) Sodium Level 146 MMOL/L (136-145) H Potassium Level 3.6 MMOL/L (3.5-5.1) Chloride Level 112 MMOL/L (98-107) H Carbon Dioxide Level 28 MMOL/L (21-32) Anion Gap 6 mmol/L (5-15) Blood Urea Nitrogen 23 mg/dL (7-18) H Creatinine 1.1 MG/DL (0.55-1.30) Estimat Glomerular Filtration Rate mL/min (>60) Glucose Level 90 MG/DL (74-106) Calcium Level 7.4 MG/DL (8.5-10.1) L Plan Problems: (1) Small bowel obstruction Assessment & Plan: 82 year old male with SBO from metastatic tumor/ carcinomatosis. SBO resolved. Exam improved. had BM and flatus.. afebrile, HD stable, labs reviewed. SBO resolved -clear liquids; can advance as tolerated . thank you for allowing me to participate in Al Rodriguez's care Juan Hernández Oct 06, 2017 09:18
--- NOTE | 2017-10-06 11:36 | Pulmonology Progress Note ---
Assessment/Plan Assessment/Plan ASSESSMENT High grade SBO-resolved Carcinomatosis Bladder Ca, s/p resection abdominal pain 2 to SBO and malignancy Diabetes COPD HTN dementia elevated creat -resolved PLAN OF CARE MS floor IVF trial of CL diet started as per surgeon -tolerated NGT dc surgery and GI follow diet advanced as tolerated CT A/P noted pain management multiple BM Per surgeon no surgical interventions planned due to advanced tumor, BS management with SS of insulin No need for anti HTN meds for now Venous Duplex BLE O2 HHN prn dc plan if tolerates diet would caution to advance slowly due to large tumor and to avoid recurrent SBO case discussed and evaluated by supervising physician Subjective Allergies: Coded Allergies: ASPIRIN (Unverified Allergy, Severe, Rash, 05/20/16) HEPARIN (Verified Allergy, Unknown, 12/24/16) Subjective denies chest pain, SOB admits to intermittent abdominal pain multiple BM, passing flatus no n/v/ no fevers, tolerated CL diet Objective Last 24 Hour Vital Signs Date Time Temp Pulse Resp B/P (MAP) Pulse Ox O2 Delivery O2 Flow Rate FiO2 10/06/17 08:52 Room Air 10/06/17 08:00 97.7 100 20 108/63 95 10/06/17 04:00 97.0 107 21 97/55 94 Room Air 10/05/17 23:06 97.5 108 20 91/52 93 Room Air 10/05/17 19:04 98.1 115 20 100/58 95 Room Air 10/05/17 16:15 97.9 84 21 101/77 97 10/05/17 12:00 97.5 100 20 96/57 91 Objective General Appearance: no acute distress HEENT: normocephalic, atraumatic, anicteric Respiratory/Chest: lungs clear, normal breath sounds, no respiratory distress Cardiovascular: normal peripheral pulses, normal rate, regular rhythm, no JVD Abdomen: soft, non tender, non distended Genitourinary: normal external genitalia Extremities: no edema, pedal pulses normal Neurologic/Psychiatric: abnormal gait, alert, responsive Musculoskeletal: atrophy - BLE Microbiology Date/Time Source Procedure Growth Status 10/03/17 20:50 Nasal Nares MRSA Culture - Final NO METHICILLIN RESISTANT STAPH AUREUS... Complete 10/03/17 20:50 Rectum VRE Culture - Final NO VANCOMYCIN RESISTANT ENTEROCOCCUS ... Complete Laboratory Tests 10/06/17 04:55: White Blood Count 8.9, Red Blood Count 3.33L, Hemoglobin 10.3L, Hematocrit 32.1L , Mean Corpuscular Volume 96, Mean Corpuscular Hemoglobin 30.8, Mean Corpuscular Hemoglobin Concent 32.0, Red Cell Distribution Width 13.8, Platelet Count 192, Mean Platelet Volume 5.4L, Neutrophils (%) (Auto) 71.1, Lymphocytes ( %) (Auto) 19.9L, Monocytes (%) (Auto) 8.0, Eosinophils (%) (Auto) 0.6, Basophils (%) (Auto) 0.4, Sodium Level 146H, Potassium Level 3.6, Chloride Level 112H, Carbon Dioxide Level 28, Anion Gap 6, Blood Urea Nitrogen 23H, Creatinine 1.1, Estimat Glomerular Filtration Rate , Glucose Level 90, Calcium Level 7.4L Current Medications Medications (Trade) Dose Ordered Sig/Eric Route PRN Reason Start Time Stop Time Status Last Admin Dose Admin Acetaminophen (Tylenol) 650 mg Q4H PRN ORAL fever 10/03/17 21:15 11/02/17 21:14 Al Hydroxide/Mg Hydroxide (Mylanta II) 30 ml Q6H PRN ORAL dyspepsia 10/03/17 21:15 11/02/17 21:14 Dextrose (Dextrose 50%) STAT PRN IV Hypoglycemia 10/03/17 21:15 11/02/17 21:14 Diphenhydramine HCl (Benadryl) 25 mg Q6H PRN ORAL Itching/Pruritis 10/03/17 21:15 11/02/17 21:14 Gabapentin (Neurontin) 300 mg THREE TIMES A DAY ORAL 10/04/17 09:00 11/03/17 08:59 10/06/17 09:01 Insulin Aspart (NovoLOG) BEFORE MEALS AND HS SUBQ 10/04/17 06:30 11/03/17 06:29 10/04/17 21:27 Morphine Sulfate (Morphine Sulfate) 2 mg Q4H PRN IVP severe Pain (Pain Scale 7-10) 10/03/17 21:15 10/10/17 21:14 Nitroglycerin (Ntg) 0.4 mg Q5M X 3 DOSES PRN SL Prn Chest Pain 10/03/17 21:15 11/02/17 21:14 Ondansetron HCl (Zofran) 4 mg Q6H PRN IVP Nausea & Vomiting 10/03/17 21:15 11/02/17 21:14 Polyethylene Glycol (Miralax) 17 gm HSPRN PRN ORAL Constipation 10/03/17 21:15 11/02/17 21:14 Risperidone (RisperDAL) 1 mg QHS ORAL 10/04/17 22:30 11/03/17 22:29 10/05/17 20:57 Sodium Chloride 1,000 ml @ 50 mls/hr Q20H IV 10/05/17 11:00 11/04/17 10:59 10/06/17 06:32 Tamsulosin HCl (Flomax) 0.4 mg BEDTIME ORAL 10/04/17 22:30 11/03/17 22:29 10/05/17 20:57 Temazepam (Restoril) 15 mg HSPRN PRN ORAL Insomnia 10/03/17 21:15 10/10/17 21:14 Xander RobisonDiamante del castillo NP Oct 06, 2017 11:36
[2017-10-06 12:00] VITALS: BP 99/57
--- NOTE | 2017-10-06 12:07 | Internal Med Progress Note ---
Subjective Date of Service: Oct 06, 2017 Physician Name Sage,Tammy Attending Physician Arian Givens MD Current Medications Medications (Trade) Dose Ordered Sig/Eric Route PRN Reason Start Time Stop Time Status Last Admin Dose Admin Acetaminophen (Tylenol) 650 mg Q4H PRN ORAL fever 10/03/17 21:15 11/02/17 21:14 Al Hydroxide/Mg Hydroxide (Mylanta II) 30 ml Q6H PRN ORAL dyspepsia 10/03/17 21:15 11/02/17 21:14 Dextrose (Dextrose 50%) STAT PRN IV Hypoglycemia 10/03/17 21:15 11/02/17 21:14 Diphenhydramine HCl (Benadryl) 25 mg Q6H PRN ORAL Itching/Pruritis 10/03/17 21:15 11/02/17 21:14 Gabapentin (Neurontin) 300 mg THREE TIMES A DAY ORAL 10/04/17 09:00 11/03/17 08:59 10/06/17 09:01 Insulin Aspart (NovoLOG) BEFORE MEALS AND HS SUBQ 10/04/17 06:30 11/03/17 06:29 10/06/17 12:00 Morphine Sulfate (Morphine Sulfate) 2 mg Q4H PRN IVP severe Pain (Pain Scale 7-10) 10/03/17 21:15 10/10/17 21:14 Nitroglycerin (Ntg) 0.4 mg Q5M X 3 DOSES PRN SL Prn Chest Pain 10/03/17 21:15 11/02/17 21:14 Ondansetron HCl (Zofran) 4 mg Q6H PRN IVP Nausea & Vomiting 10/03/17 21:15 11/02/17 21:14 Polyethylene Glycol (Miralax) 17 gm HSPRN PRN ORAL Constipation 10/03/17 21:15 11/02/17 21:14 Risperidone (RisperDAL) 1 mg QHS ORAL 10/04/17 22:30 11/03/17 22:29 10/05/17 20:57 Sodium Chloride 1,000 ml @ 50 mls/hr Q20H IV 10/05/17 11:00 11/04/17 10:59 10/06/17 06:32 Tamsulosin HCl (Flomax) 0.4 mg BEDTIME ORAL 10/04/17 22:30 11/03/17 22:29 10/05/17 20:57 Temazepam (Restoril) 15 mg HSPRN PRN ORAL Insomnia 10/03/17 21:15 10/10/17 21:14 Allergies: Coded Allergies: ASPIRIN (Unverified Allergy, Severe, Rash, 05/20/16) HEPARIN (Verified Allergy, Unknown, 12/24/16) ROS Limited/Unobtainable: No Constitutional: Reports: no symptoms HEENT: Reports: no symptoms Cardiovascular: Reports: no symptoms Respiratory: Reports: no symptoms Gastrointestinal/Abdominal: Reports: abdomen distended, abdominal pain Genitourinary: Reports: no symptoms Neurologic/Psychiatric: Reports: no symptoms Subjective 82 YO M admitted with abdominal pain. Now small bowel obstruction and ascending colon tumor. Tolerating full liquid diet. Cover for Int Jay-Dr Givens Objective Last Vital Signs Date Time Temp Pulse Resp B/P (MAP) Pulse Ox O2 Delivery O2 Flow Rate FiO2 10/06/17 08:52 Room Air 10/06/17 08:00 97.7 100 20 108/63 95 Laboratory Tests Test 10/06/17 04:55 White Blood Count 8.9 K/UL (4.8-10.8) Red Blood Count 3.33 M/UL (4.70-6.10) L Hemoglobin 10.3 G/DL (14.2-18.0) L Hematocrit 32.1 % (42.0-52.0) L Mean Corpuscular Volume 96 FL (80-99) Mean Corpuscular Hemoglobin 30.8 PG (27.0-31.0) Mean Corpuscular Hemoglobin Concent 32.0 G/DL (32.0-36.0) Red Cell Distribution Width 13.8 % (11.6-14.8) Platelet Count 192 K/UL (150-450) Mean Platelet Volume 5.4 FL (6.5-10.1) L Neutrophils (%) (Auto) 71.1 % (45.0-75.0) Lymphocytes (%) (Auto) 19.9 % (20.0-45.0) L Monocytes (%) (Auto) 8.0 % (1.0-10.0) Eosinophils (%) (Auto) 0.6 % (0.0-3.0) Basophils (%) (Auto) 0.4 % (0.0-2.0) Sodium Level 146 MMOL/L (136-145) H Potassium Level 3.6 MMOL/L (3.5-5.1) Chloride Level 112 MMOL/L (98-107) H Carbon Dioxide Level 28 MMOL/L (21-32) Anion Gap 6 mmol/L (5-15) Blood Urea Nitrogen 23 mg/dL (7-18) H Creatinine 1.1 MG/DL (0.55-1.30) Estimat Glomerular Filtration Rate mL/min (>60) Glucose Level 90 MG/DL (74-106) Calcium Level 7.4 MG/DL (8.5-10.1) L Microbiology Date/Time Source Procedure Growth Status 10/03/17 20:50 Nasal Nares MRSA Culture - Final NO METHICILLIN RESISTANT STAPH AUREUS... Complete 10/03/17 20:50 Rectum VRE Culture - Final NO VANCOMYCIN RESISTANT ENTEROCOCCUS ... Complete Objective General Appearance: WD/WN, no apparent distress, alert EENT: PERRL/EOMI, normal ENT inspection Neck: non-tender, normal alignment, supple, normal inspection Cardiovascular: normal peripheral pulses, normal rate, regular rhythm, no gallop/murmur, no JVD Respiratory/Chest: chest wall non-tender, lungs clear, normal breath sounds, no respiratory distress, no accessory muscle use Abdomen: no organomegaly, no mass, decreased bowel sounds, distended, tender Extremities: normal range of motion, non-tender Neurologic: director of annual giving II-XII grossly normal, no motor/sensory deficits Skin: normal pigmentation, warm/dry Assessment/Plan Problem List: (1) Diabetes mellitus Assessment & Plan: Continue novolog sliding scale. 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 See Surgery note. Status: progressing Assessment/Plan Full liquid diet per GI TAMMY SAGE Oct 06, 2017 12:07
[2017-10-06] MEDS ORDERED: 1/2 NS 1000ml IV ONE (15:21)
[2017-10-06] MEDS ORDERED: Tubing IV Secondary IV ONE (15:37)
[2017-10-06 16:00] VITALS: BP 108/64
--- NOTE | 2017-10-06 16:23 | Cardiology Report ---
APPROVED REPORT EKG Measurement Heart [id number] Sinus tachycardia Left axis deviation Septal infarct, age undetermined Abnormal ECG
[2017-10-06 19:14] VITALS: BP 102/42
[2017-10-06] MEDS: Tamsulosin 0.4mg cap ORAL SCH (20:30)
--- NOTE | 2017-10-06 21:19 | General Progress Note ---
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 SBO from metastatic tumor fu surgical recs >> no intervention, recommend hospice care non operative management CLD, adv as tolerated per surgery bowel decompression prn pain mgmt serial monitoring repeat imaging prn abx fleets mineral prn fu labs Subjective Allergies: Coded Allergies: ASPIRIN (Unverified Allergy, Severe, Rash, 05/20/16) HEPARIN (Verified Allergy, Unknown, 12/24/16) Subjective above noted feels OK no abd pain no N/V Objective Last 24 Hour Vital Signs Date Time Temp Pulse Resp B/P (MAP) Pulse Ox O2 Delivery O2 Flow Rate FiO2 10/06/17 19:14 97.5 108 20 102/42 96 Room Air 10/06/17 16:00 97.3 100 20 108/64 95 10/06/17 14:52 Room Air 10/06/17 12:00 97.5 100 20 99/57 96 10/06/17 08:52 Room Air 10/06/17 08:00 97.7 100 20 108/63 95 10/06/17 04:00 97.0 107 21 97/55 94 Room Air 10/05/17 23:06 97.5 108 20 91/52 93 Room Air Intake and Output 10/06/17 10/07/17 19:00 07:00 Intake Total 740 ml Balance 740 ml Intake Oral 140 ml IV Total 600 ml # Voids 4 # Bowel Movements 2 Laboratory Tests 10/06/17 04:55: White Blood Count 8.9, Red Blood Count 3.33L, Hemoglobin 10.3L, Hematocrit 32.1L , Mean Corpuscular Volume 96, Mean Corpuscular Hemoglobin 30.8, Mean Corpuscular Hemoglobin Concent 32.0, Red Cell Distribution Width 13.8, Platelet Count 192, Mean Platelet Volume 5.4L, Neutrophils (%) (Auto) 71.1, Lymphocytes ( %) (Auto) 19.9L, Monocytes (%) (Auto) 8.0, Eosinophils (%) (Auto) 0.6, Basophils (%) (Auto) 0.4, Sodium Level 146H, Potassium Level 3.6, Chloride Level 112H, Carbon Dioxide Level 28, Anion Gap 6, Blood Urea Nitrogen 23H, Creatinine 1.1, Estimat Glomerular Filtration Rate , Glucose Level 90, Calcium Level 7.4L Height (Feet): 5 Height (Inches): 7.00 Weight (Pounds): 170 Objective WDWN NCAT supple CTS RRR Soft ND NT no edema ANGEL HAY Oct 06, 2017 21:19
[2017-10-06 23:32] VITALS: BP 96/58
[2017-10-07 04:00] VITALS: BP 101/53
[2017-10-07] MEDS: NovoLOG Insulin Flexpen SUBQ SCH ×4 (05:51→20:06)
[2017-10-07 07:53] LABS: BASOPHILS % (AUTO) 0.3 % (0.0-2.0); EOSINOPHILS % (AUTO) 0.4 % (0.0-3.0); LYMPHOCYTES % (AUTO) 20.1 % (20.0-45.0); MEAN CORPUSCULAR HGB CONC 31.9 G/DL (32.0-36.0); MEAN CORPUSCULAR VOLUME 97 FL (80-99); MEAN PLATELET VOLUME 6.1 FL (6.5-10.1); MONOCYTES % (AUTO) 5.4 % (1.0-10.0); NEUTROPHILS % (AUTO) 73.8 % (45.0-75.0); PLATELET COUNT 195 K/UL (150-450); RED BLOOD COUNT 3.33 M/UL (4.70-6.10); RED CELL DISTRIBUTION WIDTH 13.9 % (11.6-14.8)
[2017-10-07 08:00] VITALS: BP 88/53
[2017-10-07 08:13] LABS: ANION GAP 5 mmol/L (5-15); CALCIUM 7.8 MG/DL (8.5-10.1); CARBON DIOXIDE 30 MMOL/L (21-32); CHLORIDE 110 MMOL/L (98-107); CREATININE 1.2 MG/DL (0.55-1.30); POTASSIUM 3.6 MMOL/L (3.5-5.1); SODIUM 145 MMOL/L (136-145)
[2017-10-07 08:31] VITALS: BP 90/70
[2017-10-07 12:00] VITALS: BP 114/74
--- NOTE | 2017-10-07 12:35 | Pulmonology Progress Note ---
Assessment/Plan Assessment/Plan ASSESSMENT High grade SBO-resolved Carcinomatosis Bladder Ca, s/p resection abdominal pain 2 to SBO and malignancy Diabetes COPD HTN dementia elevated creat -resolved PLAN OF CARE MS floor IVF diet advanced as tolerated , tolerates diet surgery and GI follow CT A/P noted pain management multiple BM Per surgeon no surgical interventions planned due to advanced tumor, BS management with SS of insulin No need for anti HTN meds for now Venous Duplex BLE O2 HHN prn ready for dc - per PMD case discussed and evaluated by supervising physician Subjective Allergies: Coded Allergies: ASPIRIN (Unverified Allergy, Severe, Rash, 05/20/16) HEPARIN (Verified Allergy, Unknown, 12/24/16) Subjective denies chest pain, SOB admits to intermittent abdominal pain multiple BM, passing flatus no n/v/ no fevers, tolerated diet Objective Last 24 Hour Vital Signs Date Time Temp Pulse Resp B/P (MAP) Pulse Ox O2 Delivery O2 Flow Rate FiO2 10/07/17 08:31 90/70 10/07/17 08:00 98.0 100 20 88/53 97 10/07/17 04:00 97.9 93 20 101/53 93 10/06/17 23:32 97.5 102 20 96/58 93 Room Air 10/06/17 19:14 97.5 108 20 102/42 96 Room Air 10/06/17 16:00 97.3 100 20 108/64 95 10/06/17 14:52 Room Air Objective General Appearance: no acute distress HEENT: normocephalic, atraumatic, anicteric Respiratory/Chest: lungs clear, normal breath sounds, no respiratory distress Cardiovascular: normal peripheral pulses, normal rate, regular rhythm, no JVD Abdomen: soft, non tender, non distended Genitourinary: normal external genitalia Extremities: no edema, pedal pulses normal Neurologic/Psychiatric: abnormal gait, alert, responsive Musculoskeletal: atrophy - BLE Laboratory Tests 10/07/17 06:25: White Blood Count 9.0, Red Blood Count 3.33L, Hemoglobin 10.3L, Hematocrit 32.5L , Mean Corpuscular Volume 97, Mean Corpuscular Hemoglobin 31.0, Mean Corpuscular Hemoglobin Concent 31.9L, Red Cell Distribution Width 13.9, Platelet Count 195, Mean Platelet Volume 6.1L, Neutrophils (%) (Auto) 73.8, Lymphocytes (%) (Auto) 20.1, Monocytes (%) (Auto) 5.4, Eosinophils (%) (Auto) 0.4, Basophils (%) (Auto) 0.3, Sodium Level 145, Potassium Level 3.6, Chloride Level 110H, Carbon Dioxide Level 30, Anion Gap 5, Blood Urea Nitrogen 20H, Creatinine 1.2, Estimat Glomerular Filtration Rate , Glucose Level 95, Calcium Level 7.8L Current Medications Medications (Trade) Dose Ordered Sig/Eric Route PRN Reason Start Time Stop Time Status Last Admin Dose Admin Acetaminophen (Tylenol) 650 mg Q4H PRN ORAL fever 10/03/17 21:15 11/02/17 21:14 Al Hydroxide/Mg Hydroxide (Mylanta II) 30 ml Q6H PRN ORAL dyspepsia 10/03/17 21:15 11/02/17 21:14 Dextrose (Dextrose 50%) STAT PRN IV Hypoglycemia 10/03/17 21:15 11/02/17 21:14 Diphenhydramine HCl (Benadryl) 25 mg Q6H PRN ORAL Itching/Pruritis 10/03/17 21:15 11/02/17 21:14 Gabapentin (Neurontin) 300 mg THREE TIMES A DAY ORAL 10/04/17 09:00 11/03/17 08:59 10/07/17 12:06 Insulin Aspart (NovoLOG) BEFORE MEALS AND HS SUBQ 10/04/17 06:30 11/03/17 06:29 10/07/17 12:05 Morphine Sulfate (Morphine Sulfate) 2 mg Q4H PRN IVP severe Pain (Pain Scale 7-10) 10/03/17 21:15 10/10/17 21:14 Nitroglycerin (Ntg) 0.4 mg Q5M X 3 DOSES PRN SL Prn Chest Pain 10/03/17 21:15 11/02/17 21:14 Ondansetron HCl (Zofran) 4 mg Q6H PRN IVP Nausea & Vomiting 10/03/17 21:15 11/02/17 21:14 Polyethylene Glycol (Miralax) 17 gm HSPRN PRN ORAL Constipation 10/03/17 21:15 11/02/17 21:14 Risperidone (RisperDAL) 1 mg QHS ORAL 10/04/17 22:30 11/03/17 22:29 10/06/17 20:30 Sodium Chloride 1,000 ml @ 50 mls/hr Q20H IV 10/05/17 11:00 11/04/17 10:59 10/06/17 06:32 Tamsulosin HCl (Flomax) 0.4 mg BEDTIME ORAL 10/04/17 22:30 11/03/17 22:29 10/06/17 20:30 Temazepam (Restoril) 15 mg HSPRN PRN ORAL Insomnia 10/03/17 21:15 10/10/17 21:14 Xander ([facility])Diamante NP Oct 07, 2017 12:35
--- NOTE | 2017-10-07 13:21 | General Surgery Progress Note ---
General Surgery-Progress Note Subjective Symptoms: improved, tolerating diet, voiding well, passing flatus, BM Objective Last 24 Hour Vital Signs Date Time Temp Pulse Resp B/P (MAP) Pulse Ox O2 Delivery O2 Flow Rate FiO2 10/07/17 12:00 98.2 100 20 114/74 95 10/07/17 08:31 90/70 10/07/17 08:00 98.0 100 20 88/53 97 10/07/17 04:00 97.9 93 20 101/53 93 10/06/17 23:32 97.5 102 20 96/58 93 Room Air 10/06/17 19:14 97.5 108 20 102/42 96 Room Air 10/06/17 16:00 97.3 100 20 108/64 95 10/06/17 14:52 Room Air Cardiovascular: RSR Respiratory: clear Abdomen: soft, non-tender, present bowel sounds Extremities: no tenderness Laboratory Tests Test 10/07/17 06:25 White Blood Count 9.0 K/UL (4.8-10.8) Red Blood Count 3.33 M/UL (4.70-6.10) L Hemoglobin 10.3 G/DL (14.2-18.0) L Hematocrit 32.5 % (42.0-52.0) L Mean Corpuscular Volume 97 FL (80-99) Mean Corpuscular Hemoglobin 31.0 PG (27.0-31.0) Mean Corpuscular Hemoglobin Concent 31.9 G/DL (32.0-36.0) L Red Cell Distribution Width 13.9 % (11.6-14.8) Platelet Count 195 K/UL (150-450) Mean Platelet Volume 6.1 FL (6.5-10.1) L Neutrophils (%) (Auto) 73.8 % (45.0-75.0) Lymphocytes (%) (Auto) 20.1 % (20.0-45.0) Monocytes (%) (Auto) 5.4 % (1.0-10.0) Eosinophils (%) (Auto) 0.4 % (0.0-3.0) Basophils (%) (Auto) 0.3 % (0.0-2.0) Sodium Level 145 MMOL/L (136-145) Potassium Level 3.6 MMOL/L (3.5-5.1) Chloride Level 110 MMOL/L (98-107) H Carbon Dioxide Level 30 MMOL/L (21-32) Anion Gap 5 mmol/L (5-15) Blood Urea Nitrogen 20 mg/dL (7-18) H Creatinine 1.2 MG/DL (0.55-1.30) Estimat Glomerular Filtration Rate mL/min (>60) Glucose Level 95 MG/DL (74-106) Calcium Level 7.8 MG/DL (8.5-10.1) L Plan Problems: (1) Small bowel obstruction Assessment & Plan: 82 year old male with SBO from metastatic tumor/ carcinomatosis. SBO resolved. Exam improved. having BM and flatus.. afebrile , HD stable, labs reviewed. SBO resolved fortunately. given advance disease and multiple prior episodes can possibly happen again. so far have been successful with non operative management. unfortunately if recurrence and does not resolve with non operative management it will be very complicated as he is not a good surgical candidate given advanced metastatic cancer with carcinomatosis. -soft diet as tolerated -okay to d/c from surgical standpoint. thank you for allowing me to participate in Al Rodriguez's care Juan Hernández Oct 07, 2017 13:21
--- NOTE | 2017-10-07 13:40 | Internal Med Progress Note ---
Subjective Date of Service: Oct 07, 2017 Physician Name Tammy Hester Attending Physician Arian Givens MD Current Medications Medications (Trade) Dose Ordered Sig/Eric Route PRN Reason Start Time Stop Time Status Last Admin Dose Admin Acetaminophen (Tylenol) 650 mg Q4H PRN ORAL fever 10/03/17 21:15 11/02/17 21:14 Al Hydroxide/Mg Hydroxide (Mylanta II) 30 ml Q6H PRN ORAL dyspepsia 10/03/17 21:15 11/02/17 21:14 Dextrose (Dextrose 50%) STAT PRN IV Hypoglycemia 10/03/17 21:15 11/02/17 21:14 Diphenhydramine HCl (Benadryl) 25 mg Q6H PRN ORAL Itching/Pruritis 10/03/17 21:15 11/02/17 21:14 Gabapentin (Neurontin) 300 mg THREE TIMES A DAY ORAL 10/04/17 09:00 11/03/17 08:59 10/07/17 12:06 Insulin Aspart (NovoLOG) BEFORE MEALS AND HS SUBQ 10/04/17 06:30 11/03/17 06:29 10/07/17 12:05 Morphine Sulfate (Morphine Sulfate) 2 mg Q4H PRN IVP severe Pain (Pain Scale 7-10) 10/03/17 21:15 10/10/17 21:14 Nitroglycerin (Ntg) 0.4 mg Q5M X 3 DOSES PRN SL Prn Chest Pain 10/03/17 21:15 11/02/17 21:14 Ondansetron HCl (Zofran) 4 mg Q6H PRN IVP Nausea & Vomiting 10/03/17 21:15 11/02/17 21:14 Polyethylene Glycol (Miralax) 17 gm HSPRN PRN ORAL Constipation 10/03/17 21:15 11/02/17 21:14 Risperidone (RisperDAL) 1 mg QHS ORAL 10/04/17 22:30 11/03/17 22:29 10/06/17 20:30 Sodium Chloride 1,000 ml @ 50 mls/hr Q20H IV 10/05/17 11:00 11/04/17 10:59 10/06/17 06:32 Tamsulosin HCl (Flomax) 0.4 mg BEDTIME ORAL 10/04/17 22:30 11/03/17 22:29 10/06/17 20:30 Temazepam (Restoril) 15 mg HSPRN PRN ORAL Insomnia 10/03/17 21:15 10/10/17 21:14 Allergies: Coded Allergies: ASPIRIN (Unverified Allergy, Severe, Rash, 05/20/16) HEPARIN (Verified Allergy, Unknown, 12/24/16) ROS Limited/Unobtainable: No Constitutional: Reports: no symptoms HEENT: Reports: no symptoms Cardiovascular: Reports: no symptoms Respiratory: Reports: no symptoms Gastrointestinal/Abdominal: Reports: no symptoms Genitourinary: Reports: no symptoms Neurologic/Psychiatric: Reports: no symptoms Subjective 82 YO M admitted with abdominal pain. Now small bowel obstruction and ascending colon tumor. Tolerating full liquid diet. Cover for Int Jay-Dr Givens Objective Last Vital Signs Date Time Temp Pulse Resp B/P (MAP) Pulse Ox O2 Delivery O2 Flow Rate FiO2 10/07/17 12:00 98.2 100 20 114/74 95 10/06/17 23:32 Room Air Laboratory Tests Test 10/07/17 06:25 White Blood Count 9.0 K/UL (4.8-10.8) Red Blood Count 3.33 M/UL (4.70-6.10) L Hemoglobin 10.3 G/DL (14.2-18.0) L Hematocrit 32.5 % (42.0-52.0) L Mean Corpuscular Volume 97 FL (80-99) Mean Corpuscular Hemoglobin 31.0 PG (27.0-31.0) Mean Corpuscular Hemoglobin Concent 31.9 G/DL (32.0-36.0) L Red Cell Distribution Width 13.9 % (11.6-14.8) Platelet Count 195 K/UL (150-450) Mean Platelet Volume 6.1 FL (6.5-10.1) L Neutrophils (%) (Auto) 73.8 % (45.0-75.0) Lymphocytes (%) (Auto) 20.1 % (20.0-45.0) Monocytes (%) (Auto) 5.4 % (1.0-10.0) Eosinophils (%) (Auto) 0.4 % (0.0-3.0) Basophils (%) (Auto) 0.3 % (0.0-2.0) Sodium Level 145 MMOL/L (136-145) Potassium Level 3.6 MMOL/L (3.5-5.1) Chloride Level 110 MMOL/L (98-107) H Carbon Dioxide Level 30 MMOL/L (21-32) Anion Gap 5 mmol/L (5-15) Blood Urea Nitrogen 20 mg/dL (7-18) H Creatinine 1.2 MG/DL (0.55-1.30) Estimat Glomerular Filtration Rate mL/min (>60) Glucose Level 95 MG/DL (74-106) Calcium Level 7.8 MG/DL (8.5-10.1) L Objective General Appearance: WD/WN, no apparent distress, alert EENT: PERRL/EOMI, normal ENT inspection Neck: non-tender, normal alignment, supple, normal inspection Cardiovascular: normal peripheral pulses, normal rate, regular rhythm, no gallop/murmur, no JVD Respiratory/Chest: chest wall non-tender, lungs clear, normal breath sounds, no respiratory distress, no accessory muscle use Abdomen: no organomegaly, no mass, decreased bowel sounds, distended, tender Extremities: normal range of motion, non-tender Neurologic: education rep II-XII grossly normal, no motor/sensory deficits Skin: normal pigmentation, warm/dry Assessment/Plan Problem List: (1) Diabetes mellitus Assessment & Plan: Continue novolog sliding scale. 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 See Surgery note. Status: progressing Assessment/Plan Discharge planning: [facility] TAMMY Casanova Oct 07, 2017 13:40
[2017-10-07 16:00] VITALS: BP 107/71
[2017-10-07 20:00] VITALS: BP 103/64
[2017-10-07] MEDS: Tamsulosin 0.4mg cap ORAL SCH (20:01)
--- NOTE | 2017-10-07 20:38 | General Progress Note ---
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 SBO from metastatic tumor fu surgical recs >> no intervention, recommend hospice care non operative management CLD, adv as tolerated per surgery bowel decompression prn pain mgmt serial monitoring repeat imaging prn abx fleets mineral prn fu labs Subjective Allergies: Coded Allergies: ASPIRIN (Unverified Allergy, Severe, Rash, 05/20/16) HEPARIN (Verified Allergy, Unknown, 12/24/16) Subjective above noted feels OK no abd pain no N/V Objective Last 24 Hour Vital Signs Date Time Temp Pulse Resp B/P (MAP) Pulse Ox O2 Delivery O2 Flow Rate FiO2 10/07/17 20:00 97.3 98 20 103/64 98 Room Air 10/07/17 16:00 Room Air 10/07/17 16:00 98.0 95 20 107/71 95 10/07/17 12:00 98.2 100 20 114/74 95 10/07/17 08:31 90/70 10/07/17 08:00 98.0 100 20 88/53 97 10/07/17 04:00 97.9 93 20 101/53 93 10/06/17 23:32 97.5 102 20 96/58 93 Room Air Intake and Output 10/07/17 10/08/17 19:00 07:00 # Voids 5 # Bowel Movements 2 Laboratory Tests 10/07/17 06:25: White Blood Count 9.0, Red Blood Count 3.33L, Hemoglobin 10.3L, Hematocrit 32.5L , Mean Corpuscular Volume 97, Mean Corpuscular Hemoglobin 31.0, Mean Corpuscular Hemoglobin Concent 31.9L, Red Cell Distribution Width 13.9, Platelet Count 195, Mean Platelet Volume 6.1L, Neutrophils (%) (Auto) 73.8, Lymphocytes (%) (Auto) 20.1, Monocytes (%) (Auto) 5.4, Eosinophils (%) (Auto) 0.4, Basophils (%) (Auto) 0.3, Sodium Level 145, Potassium Level 3.6, Chloride Level 110H, Carbon Dioxide Level 30, Anion Gap 5, Blood Urea Nitrogen 20H, Creatinine 1.2, Estimat Glomerular Filtration Rate , Glucose Level 95, Calcium Level 7.8L Height (Feet): 5 Height (Inches): 7.00 Weight (Pounds): 170 Objective WDWN NCAT supple CTS RRR Soft ND NT no edema ANGEL HAY Oct 07, 2017 20:38
[2017-10-08] VITALS: BP 99/64
[2017-10-08 04:00] VITALS: BP 103/73
[2017-10-08] MEDS: NovoLOG Insulin Flexpen SUBQ SCH ×2 (06:04→11:30)
[2017-10-08 07:07] LABS: BASOPHILS % (AUTO) 0.6 % (0.0-2.0); EOSINOPHILS % (AUTO) 0.5 % (0.0-3.0); LYMPHOCYTES % (AUTO) 19.8 % (20.0-45.0); MEAN CORPUSCULAR HEMOGLOBIN 30.9 PG (27.0-31.0); MEAN CORPUSCULAR HGB CONC 32.3 G/DL (32.0-36.0); MEAN CORPUSCULAR VOLUME 96 FL (80-99); MEAN PLATELET VOLUME 6.1 FL (6.5-10.1); MONOCYTES % (AUTO) 5.4 % (1.0-10.0); NEUTROPHILS % (AUTO) 73.7 % (45.0-75.0); PLATELET COUNT 194 K/UL (150-450); RED BLOOD COUNT 3.45 M/UL (4.70-6.10); RED CELL DISTRIBUTION WIDTH 13.7 % (11.6-14.8); WHITE BLOOD COUNT 8.1 K/UL (4.8-10.8)
[2017-10-08 07:22] LABS: ANION GAP 5 mmol/L (5-15); CALCIUM 7.7 MG/DL (8.5-10.1); CARBON DIOXIDE 26 MMOL/L (21-32); CHLORIDE 109 MMOL/L (98-107); POTASSIUM 4.3 MMOL/L (3.5-5.1); SODIUM 140 MMOL/L (136-145)
[2017-10-08 09:00] VITALS: BP 104/75
--- NOTE | 2017-10-08 09:59 | GI Progress Note ---
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 Clark. Assessment/Plan CT AP reviewed >> suspect metastasis, see full report. okay for DC per GI standpoint fu surgical recs >> SBO resolved, no intervention, recommend hospice care non operative management regular diet, tolerating bowel decompression prn pain mgmt serial monitoring repeat imaging prn abx fleets mineral prn fu labs Subjective Subjective feels okay no complaints of abdominal pain Objective Last 24 Hour Vital Signs Date Time Temp Pulse Resp B/P (MAP) Pulse Ox O2 Delivery O2 Flow Rate FiO2 10/08/17 09:00 98.0 97 17 104/75 97 Room Air 10/08/17 04:00 97.7 98 20 103/73 95 Room Air 10/08/17 00:00 97.0 96 20 99/64 95 Room Air 10/07/17 20:00 97.3 98 20 103/64 98 Room Air 10/07/17 16:00 Room Air 10/07/17 16:00 98.0 95 20 107/71 95 10/07/17 12:00 98.2 100 20 114/74 95 Laboratory Tests Test 10/08/17 04:55 White Blood Count 8.1 K/UL (4.8-10.8) Red Blood Count 3.45 M/UL (4.70-6.10) L Hemoglobin 10.7 G/DL (14.2-18.0) L Hematocrit 33.1 % (42.0-52.0) L Mean Corpuscular Volume 96 FL (80-99) Mean Corpuscular Hemoglobin 30.9 PG (27.0-31.0) Mean Corpuscular Hemoglobin Concent 32.3 G/DL (32.0-36.0) Red Cell Distribution Width 13.7 % (11.6-14.8) Platelet Count 194 K/UL (150-450) Mean Platelet Volume 6.1 FL (6.5-10.1) L Neutrophils (%) (Auto) 73.7 % (45.0-75.0) Lymphocytes (%) (Auto) 19.8 % (20.0-45.0) L Monocytes (%) (Auto) 5.4 % (1.0-10.0) Eosinophils (%) (Auto) 0.5 % (0.0-3.0) Basophils (%) (Auto) 0.6 % (0.0-2.0) Sodium Level 140 MMOL/L (136-145) Potassium Level 4.3 MMOL/L (3.5-5.1) Chloride Level 109 MMOL/L (98-107) H Carbon Dioxide Level 26 MMOL/L (21-32) Anion Gap 5 mmol/L (5-15) Blood Urea Nitrogen 19 mg/dL (7-18) H Creatinine 1.0 MG/DL (0.55-1.30) Estimat Glomerular Filtration Rate mL/min (>60) Glucose Level 93 MG/DL (74-106) Calcium Level 7.7 MG/DL (8.5-10.1) L Height (Feet): 5 Height (Inches): 7.00 Weight (Pounds): 170 General Appearance: no apparent distress, alert, thin Cardiovascular: normal rate Respiratory/Chest: normal breath sounds, no respiratory distress Abdominal Exam: normal bowel sounds, non tender, soft Extremities: non-tender Katerin Main N.PEd Oct 08, 2017 09:59
--- NOTE | 2017-10-08 11:01 | Internal Med Progress Note ---
Subjective Date of Service: Oct 08, 2017 Physician Name Tammy Sage Attending Physician Arian Givens MD Current Medications Medications (Trade) Dose Ordered Sig/Eric Route PRN Reason Start Time Stop Time Status Last Admin Dose Admin Acetaminophen (Tylenol) 650 mg Q4H PRN ORAL fever 10/03/17 21:15 11/02/17 21:14 Al Hydroxide/Mg Hydroxide (Mylanta II) 30 ml Q6H PRN ORAL dyspepsia 10/03/17 21:15 11/02/17 21:14 Dextrose (Dextrose 50%) STAT PRN IV Hypoglycemia 10/03/17 21:15 11/02/17 21:14 Diphenhydramine HCl (Benadryl) 25 mg Q6H PRN ORAL Itching/Pruritis 10/03/17 21:15 11/02/17 21:14 Gabapentin (Neurontin) 300 mg THREE TIMES A DAY ORAL 10/04/17 09:00 11/03/17 08:59 10/08/17 08:34 Insulin Aspart (NovoLOG) BEFORE MEALS AND HS SUBQ 10/04/17 06:30 11/03/17 06:29 10/07/17 20:06 Morphine Sulfate (Morphine Sulfate) 2 mg Q4H PRN IVP severe Pain (Pain Scale 7-10) 10/03/17 21:15 10/10/17 21:14 Nitroglycerin (Ntg) 0.4 mg Q5M X 3 DOSES PRN SL Prn Chest Pain 10/03/17 21:15 11/02/17 21:14 Ondansetron HCl (Zofran) 4 mg Q6H PRN IVP Nausea & Vomiting 10/03/17 21:15 11/02/17 21:14 Polyethylene Glycol (Miralax) 17 gm HSPRN PRN ORAL Constipation 10/03/17 21:15 11/02/17 21:14 Risperidone (RisperDAL) 1 mg QHS ORAL 10/04/17 22:30 11/03/17 22:29 10/07/17 20:01 Tamsulosin HCl (Flomax) 0.4 mg BEDTIME ORAL 10/04/17 22:30 11/03/17 22:29 10/07/17 20:01 Temazepam (Restoril) 15 mg HSPRN PRN ORAL Insomnia 10/03/17 21:15 10/10/17 21:14 Allergies: Coded Allergies: ASPIRIN (Unverified Allergy, Severe, Rash, 05/20/16) HEPARIN (Verified Allergy, Unknown, 12/24/16) ROS Limited/Unobtainable: No Constitutional: Reports: no symptoms HEENT: Reports: no symptoms Cardiovascular: Reports: no symptoms Respiratory: Reports: no symptoms Gastrointestinal/Abdominal: Reports: no symptoms Genitourinary: Reports: no symptoms Neurologic/Psychiatric: Reports: no symptoms Subjective 82 YO M admitted with abdominal pain. Now small bowel obstruction and ascending colon tumor. Tolerating regular liquid diet. Cover for Int Jay-Dr Givens Objective Last Vital Signs Date Time Temp Pulse Resp B/P (MAP) Pulse Ox O2 Delivery O2 Flow Rate FiO2 10/08/17 09:00 98.0 97 17 104/75 97 Room Air Laboratory Tests Test 10/08/17 04:55 White Blood Count 8.1 K/UL (4.8-10.8) Red Blood Count 3.45 M/UL (4.70-6.10) L Hemoglobin 10.7 G/DL (14.2-18.0) L Hematocrit 33.1 % (42.0-52.0) L Mean Corpuscular Volume 96 FL (80-99) Mean Corpuscular Hemoglobin 30.9 PG (27.0-31.0) Mean Corpuscular Hemoglobin Concent 32.3 G/DL (32.0-36.0) Red Cell Distribution Width 13.7 % (11.6-14.8) Platelet Count 194 K/UL (150-450) Mean Platelet Volume 6.1 FL (6.5-10.1) L Neutrophils (%) (Auto) 73.7 % (45.0-75.0) Lymphocytes (%) (Auto) 19.8 % (20.0-45.0) L Monocytes (%) (Auto) 5.4 % (1.0-10.0) Eosinophils (%) (Auto) 0.5 % (0.0-3.0) Basophils (%) (Auto) 0.6 % (0.0-2.0) Sodium Level 140 MMOL/L (136-145) Potassium Level 4.3 MMOL/L (3.5-5.1) Chloride Level 109 MMOL/L (98-107) H Carbon Dioxide Level 26 MMOL/L (21-32) Anion Gap 5 mmol/L (5-15) Blood Urea Nitrogen 19 mg/dL (7-18) H Creatinine 1.0 MG/DL (0.55-1.30) Estimat Glomerular Filtration Rate mL/min (>60) Glucose Level 93 MG/DL (74-106) Calcium Level 7.7 MG/DL (8.5-10.1) L Intake and Output 10/08/17 10/09/17 19:00 07:00 # Bowel Movements 1 Objective General Appearance: WD/WN, no apparent distress, alert EENT: PERRL/EOMI, normal ENT inspection Neck: non-tender, normal alignment, supple, normal inspection Cardiovascular: normal peripheral pulses, normal rate, regular rhythm, no gallop/murmur, no JVD Respiratory/Chest: chest wall non-tender, lungs clear, normal breath sounds, no respiratory distress, no accessory muscle use Abdomen: no organomegaly, no mass, decreased bowel sounds, distended, tender Extremities: normal range of motion, non-tender 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 See Surgery note. Status: stable Assessment/Plan Discharge planning: D/C to [facility] today TAMMY SAGE Oct 08, 2017 11:01
--- NOTE | 2017-10-08 11:08 | General Surgery Progress Note ---
General Surgery-Progress Note Subjective Symptoms: improved, tolerating diet, passing flatus, BM Additional Comments no complaints. Objective Last 24 Hour Vital Signs Date Time Temp Pulse Resp B/P (MAP) Pulse Ox O2 Delivery O2 Flow Rate FiO2 10/08/17 09:00 98.0 97 17 104/75 97 Room Air 10/08/17 04:00 97.7 98 20 103/73 95 Room Air 10/08/17 00:00 97.0 96 20 99/64 95 Room Air 10/07/17 20:00 97.3 98 20 103/64 98 Room Air 10/07/17 16:00 Room Air 10/07/17 16:00 98.0 95 20 107/71 95 10/07/17 12:00 98.2 100 20 114/74 95 I&O Intake and Output 10/08/17 10/09/17 19:00 07:00 # Bowel Movements 1 Drains: none Cardiovascular: RSR Respiratory: clear Abdomen: soft, flat, non-tender, present bowel sounds Extremities: no tenderness Laboratory Tests Test 10/08/17 04:55 White Blood Count 8.1 K/UL (4.8-10.8) Red Blood Count 3.45 M/UL (4.70-6.10) L Hemoglobin 10.7 G/DL (14.2-18.0) L Hematocrit 33.1 % (42.0-52.0) L Mean Corpuscular Volume 96 FL (80-99) Mean Corpuscular Hemoglobin 30.9 PG (27.0-31.0) Mean Corpuscular Hemoglobin Concent 32.3 G/DL (32.0-36.0) Red Cell Distribution Width 13.7 % (11.6-14.8) Platelet Count 194 K/UL (150-450) Mean Platelet Volume 6.1 FL (6.5-10.1) L Neutrophils (%) (Auto) 73.7 % (45.0-75.0) Lymphocytes (%) (Auto) 19.8 % (20.0-45.0) L Monocytes (%) (Auto) 5.4 % (1.0-10.0) Eosinophils (%) (Auto) 0.5 % (0.0-3.0) Basophils (%) (Auto) 0.6 % (0.0-2.0) Sodium Level 140 MMOL/L (136-145) Potassium Level 4.3 MMOL/L (3.5-5.1) Chloride Level 109 MMOL/L (98-107) H Carbon Dioxide Level 26 MMOL/L (21-32) Anion Gap 5 mmol/L (5-15) Blood Urea Nitrogen 19 mg/dL (7-18) H Creatinine 1.0 MG/DL (0.55-1.30) Estimat Glomerular Filtration Rate mL/min (>60) Glucose Level 93 MG/DL (74-106) Calcium Level 7.7 MG/DL (8.5-10.1) L Plan Problems: (1) Small bowel obstruction Assessment & Plan: 82 year old male with SBO from metastatic tumor/ carcinomatosis. SBO resolved. Exam improved. having BM and flatus.. afebrile , HD stable, labs reviewed. SBO resolved fortunately. given advance disease and multiple prior episodes can possibly happen again. so far have been successful with non operative management. unfortunately if recurrence and does not resolve with non operative management it will be very complicated as he is not a good surgical candidate given advanced metastatic cancer with carcinomatosis. -soft diet as tolerated -okay to d/c from surgical standpoint. thank you for allowing me to participate in Al Rodriguez's care Juan Hernández Oct 08, 2017 11:08
[2017-10-08 12:00] VITALS: BP 104/80
--- NOTE | 2017-10-08 16:26 | Pulmonology Progress Note ---
Assessment/Plan Problems: (1) Small bowel obstruction (2) Nausea & vomiting (3) Carcinomatosis (4) Alzheimer's dementia (5) Bladder tumor Assessment/Plan improving tolerating diet symptomatic treatment consider palliative care and hospice care at home Subjective ROS Limited/Unobtainable: No Constitutional: Reports: no symptoms HEENT: Repors: no symptoms Allergies: Coded Allergies: ASPIRIN (Unverified Allergy, Severe, Rash, 05/20/16) HEPARIN (Verified Allergy, Unknown, 12/24/16) Objective Last 24 Hour Vital Signs Date Time Temp Pulse Resp B/P (MAP) Pulse Ox O2 Delivery O2 Flow Rate FiO2 10/08/17 12:00 97.2 92 17 104/80 97 Room Air 10/08/17 09:00 98.0 97 17 104/75 97 Room Air 10/08/17 04:00 97.7 98 20 103/73 95 Room Air 10/08/17 00:00 97.0 96 20 99/64 95 Room Air 10/07/17 20:00 97.3 98 20 103/64 98 Room Air Intake and Output 10/08/17 10/09/17 19:00 07:00 # Bowel Movements 1 General Appearance: WD/WN HEENT: normocephalic, atraumatic Respiratory/Chest: chest wall non-tender, lungs clear Cardiovascular: normal peripheral pulses, normal rate Abdomen: normal bowel sounds, no organomegaly Genitourinary: normal external genitalia Skin: no rash Neurologic/Psychiatric: bit shaver II-XII grossly normal Laboratory Tests 10/08/17 04:55: White Blood Count 8.1, Red Blood Count 3.45L, Hemoglobin 10.7L, Hematocrit 33.1L , Mean Corpuscular Volume 96, Mean Corpuscular Hemoglobin 30.9, Mean Corpuscular Hemoglobin Concent 32.3, Red Cell Distribution Width 13.7, Platelet Count 194, Mean Platelet Volume 6.1L, Neutrophils (%) (Auto) 73.7, Lymphocytes ( %) (Auto) 19.8L, Monocytes (%) (Auto) 5.4, Eosinophils (%) (Auto) 0.5, Basophils (%) (Auto) 0.6, Sodium Level 140, Potassium Level 4.3, Chloride Level 109H, Carbon Dioxide Level 26, Anion Gap 5, Blood Urea Nitrogen 19H, Creatinine 1.0, Estimat Glomerular Filtration Rate , Glucose Level 93, Calcium Level 7.7L Current Medications Medications (Trade) Dose Ordered Sig/Eric Route PRN Reason Start Time Stop Time Status Last Admin Dose Admin Acetaminophen (Tylenol) 650 mg Q4H PRN ORAL fever 10/03/17 21:15 11/02/17 21:14 Al Hydroxide/Mg Hydroxide (Mylanta II) 30 ml Q6H PRN ORAL dyspepsia 10/03/17 21:15 11/02/17 21:14 Dextrose (Dextrose 50%) STAT PRN IV Hypoglycemia 10/03/17 21:15 11/02/17 21:14 Diphenhydramine HCl (Benadryl) 25 mg Q6H PRN ORAL Itching/Pruritis 10/03/17 21:15 11/02/17 21:14 Gabapentin (Neurontin) 300 mg THREE TIMES A DAY ORAL 10/04/17 09:00 11/03/17 08:59 10/08/17 12:47 Insulin Aspart (NovoLOG) BEFORE MEALS AND HS SUBQ 10/04/17 06:30 11/03/17 06:29 10/07/17 20:06 Morphine Sulfate (Morphine Sulfate) 2 mg Q4H PRN IVP severe Pain (Pain Scale 7-10) 10/03/17 21:15 10/10/17 21:14 Nitroglycerin (Ntg) 0.4 mg Q5M X 3 DOSES PRN SL Prn Chest Pain 10/03/17 21:15 11/02/17 21:14 Ondansetron HCl (Zofran) 4 mg Q6H PRN IVP Nausea & Vomiting 10/03/17 21:15 11/02/17 21:14 Polyethylene Glycol (Miralax) 17 gm HSPRN PRN ORAL Constipation 10/03/17 21:15 11/02/17 21:14 Risperidone (RisperDAL) 1 mg QHS ORAL 10/04/17 22:30 11/03/17 22:29 10/07/17 20:01 Tamsulosin HCl (Flomax) 0.4 mg BEDTIME ORAL 10/04/17 22:30 11/03/17 22:29 10/07/17 20:01 Temazepam (Restoril) 15 mg HSPRN PRN ORAL Insomnia 10/03/17 21:15 10/10/17 21:14 BLUE HUNTLEY Oct 08, 2017 16:26
--- NOTE | 2017-10-08 23:00 | General Progress Note ---
Assessment/Plan Status: stable Assessment/Plan encephalopathy dc depakote cont Risperdal Subjective Date patient seen: Oct 07, 2017 Neurologic/Psychiatric: Reports: anxiety, emotional problems Allergies: Coded Allergies: ASPIRIN (Unverified Allergy, Severe, Rash, 05/20/16) HEPARIN (Verified Allergy, Unknown, 12/24/16) Subjective waxing and waning of consciousness Objective Last 24 Hour Vital Signs Date Time Temp Pulse Resp B/P (MAP) Pulse Ox O2 Delivery O2 Flow Rate FiO2 10/08/17 12:00 97.2 92 17 104/80 97 Room Air 10/08/17 09:00 98.0 97 17 104/75 97 Room Air 10/08/17 04:00 97.7 98 20 103/73 95 Room Air 10/08/17 00:00 97.0 96 20 99/64 95 Room Air Intake and Output 10/08/17 10/09/17 19:00 07:00 # Bowel Movements 1 Laboratory Tests 10/08/17 04:55: White Blood Count 8.1, Red Blood Count 3.45L, Hemoglobin 10.7L, Hematocrit 33.1L , Mean Corpuscular Volume 96, Mean Corpuscular Hemoglobin 30.9, Mean Corpuscular Hemoglobin Concent 32.3, Red Cell Distribution Width 13.7, Platelet Count 194, Mean Platelet Volume 6.1L, Neutrophils (%) (Auto) 73.7, Lymphocytes ( %) (Auto) 19.8L, Monocytes (%) (Auto) 5.4, Eosinophils (%) (Auto) 0.5, Basophils (%) (Auto) 0.6, Sodium Level 140, Potassium Level 4.3, Chloride Level 109H, Carbon Dioxide Level 26, Anion Gap 5, Blood Urea Nitrogen 19H, Creatinine 1.0, Estimat Glomerular Filtration Rate , Glucose Level 93, Calcium Level 7.7L Height (Feet): 5 Height (Inches): 7.00 Weight (Pounds): 170 General Appearance: no apparent distress, alert, confused Neurologic: responsive, depressed affect Shantel Le M.D. Oct 08, 2017 23:00
--- NOTE | 2017-10-08 23:01 | Geriatric Progress Note ---
Assessment/Plan Discussed with: patient Subjective Interval Events 10/08/17 Mood/Memory: Reports: prior hx, anxiety, depressed feelings, emotional problems Geriatric Geriatric Last 24 Hour Vital Signs Date Time Temp Pulse Resp B/P (MAP) Pulse Ox O2 Delivery O2 Flow Rate FiO2 10/08/17 12:00 97.2 92 17 104/80 97 Room Air 10/08/17 09:00 98.0 97 17 104/75 97 Room Air 10/08/17 04:00 97.7 98 20 103/73 95 Room Air 10/08/17 00:00 97.0 96 20 99/64 95 Room Air Intake and Output 10/08/17 10/09/17 19:00 07:00 # Bowel Movements 1 Laboratory Tests Test 10/08/17 04:55 White Blood Count 8.1 K/UL (4.8-10.8) Red Blood Count 3.45 M/UL (4.70-6.10) L Hemoglobin 10.7 G/DL (14.2-18.0) L Hematocrit 33.1 % (42.0-52.0) L Mean Corpuscular Volume 96 FL (80-99) Mean Corpuscular Hemoglobin 30.9 PG (27.0-31.0) Mean Corpuscular Hemoglobin Concent 32.3 G/DL (32.0-36.0) Red Cell Distribution Width 13.7 % (11.6-14.8) Platelet Count 194 K/UL (150-450) Mean Platelet Volume 6.1 FL (6.5-10.1) L Neutrophils (%) (Auto) 73.7 % (45.0-75.0) Lymphocytes (%) (Auto) 19.8 % (20.0-45.0) L Monocytes (%) (Auto) 5.4 % (1.0-10.0) Eosinophils (%) (Auto) 0.5 % (0.0-3.0) Basophils (%) (Auto) 0.6 % (0.0-2.0) Sodium Level 140 MMOL/L (136-145) Potassium Level 4.3 MMOL/L (3.5-5.1) Chloride Level 109 MMOL/L (98-107) H Carbon Dioxide Level 26 MMOL/L (21-32) Anion Gap 5 mmol/L (5-15) Blood Urea Nitrogen 19 mg/dL (7-18) H Creatinine 1.0 MG/DL (0.55-1.30) Estimat Glomerular Filtration Rate mL/min (>60) Glucose Level 93 MG/DL (74-106) Calcium Level 7.7 MG/DL (8.5-10.1) L Height (Feet): 5 Height (Inches): 7.00 Weight (Pounds): 170 General Appearance: no apparent distress, alert Psychiatric Behavior: cooperative Language/Speech: intact Orientation: person, place Affect: flat Insight: poor Shantel Le M.D. Oct 08, 2017 23:01
--- NOTE | 2017-10-10 10:54 | Discharge Summary ---
Discharge Summary Hospital Course Date of Admission Oct 03, 2017 at 19:23 Date of Discharge Oct 08, 2017 at 16:30 Admitting Diagnosis SMALL BOWEL OBSTRUCTION JOSE Rodriguez is a 82 year old male who was admitted on Oct 03, 2017 at 19:23 for Small Bowel Obstruction Hospital Course dc summary #[id number] Discharge Medications Continued Medications: Acetaminophen (Tylenol) 325 Mg Tablet 650 MG ORAL Q4HR PRN for Fever/Headache/Mild Pain, #30 TAB 0 Refills Acetaminophen With Codeine (T#3) (Tylenol #3 Tab*) Y Tab 1 TAB ORAL Q6HR PRN for For Pain, TAB Al Hydroxide/mg Hydroxide (Mag-Al Plus Suspension) 30 Ml Oral.susp 30 ML PO Q4HR PRN for Constipation, ML Atorvastatin Calcium* (Lipitor*) 10 Mg Tablet 10 MG ORAL BEDTIME, TAB Calcium Carbonate (Oyster Shell Calcium-Vit D Tab) 500 Mg Tab 500 MG GT TID, #30 TAB Clonidine Hcl* (Catapres*) 0.1 Mg Tablet 0.1 MG ORAL EVERY 4 HOURS PRN for For High Blood Pressure, TAB Diazepam* (Diazepam*) 10 Mg Tablet 5 MG ORAL HS, TAB 0 Refills Donepezil Hcl* (Donepezil Hcl*) 5 Mg Tablet 5 MG ORAL QHS, TAB Finasteride* (Proscar*) 5 Mg Tablet 5 MG ORAL DAILY, #30 TAB 0 Refills Fluticasone/Salmeterol (Advair 250-50 Diskus) 1 Puffs Puffs 1 PUFF INH DAILY PRN for Shortness of Breath, EA Fluticasone/Vilanterol (Breo Ellipta 100-25 Mcg INH) 1 Each Blst.w.dev 1 EACH IH, EACH Gabapentin* (Gabapentin*) 300 Mg Capsule 300 MG ORAL THREE TIMES A DAY, CAP 0 Refills Insulin Aspart (Novolog) 100 Unit/1 Ml Vial SQ AC+HS Insulin Aspart* (Novolog*) 100 Unit/1 Ml Insuln.pen 8 SUBQ BEFORE MEALS, #1 EA 0 Refills Insulin Detemir (Levemir) 100 Unit/1 Ml Vial 40 UNITS SUBQ BEFORE BREAKFAST, #30 VIAL Insulin Detemir (Levemir) 100 Unit/1 Ml Vial 20 SUBQ DAILY, VIAL Ipratropium/Albuterol Sulfate (DuoNeb 0.5-3(2.5)mg/3ml) 3 Ml Ampul.neb 3 ML HHN Q4HR PRN for Shortness of Breath, EA Lorazepam* (Ativan*) 0.5 Mg Tablet 0.5 MG ORAL Q4HR PRN for For Anxiety, TAB Montelukast Sodium* (Singulair*) 10 Mg Tablet 10 MG ORAL DAILY, TAB Montelukast Sodium* (Singulair*) 10 Mg Tablet 10 MG ORAL DAILY, TAB Nateglinide* (Starlix*) 60 Mg Tablet 60 MG ORAL THREE TIMES A DAY, TAB Nitroglycerin (Nitroglycerin) 0.4 Mg Tab.subl 0.4 MG SL, TAB Ondansetron (Zofran) 4 Mg Tablet 4 MG ORAL Q6H PRN for Nausea & Vomiting, TAB Pantoprazole (Pantoprazole) 20 Mg Tablet.dr 40 MG ORAL DAILY, #10 TAB 0 Refills Polyethylene Glycol 3350* (Miralax*) 17 Gm Powd.pack 17 GM ORAL DAILY PRN for Constipation, PACKET Pravastatin Sod* (Pravastatin Sod*) 20 Mg Tablet 10 MG ORAL BEDTIME, TAB Risperidone* (Risperdal*) 1 Mg Tablet 1 MG PO QHS, TAB Tamsulosin Hcl (Tamsulosin Hcl*) 0.4 Mg Cap.er.24h 0.4 MG ORAL BEDTIME for 30 Days, CAP Tamsulosin Hcl (Tamsulosin Hcl*) 0.4 Mg Cap.er.24h 0.4 MG ORAL BEDTIME, CAP Temazepam (Temazepam*) 15 Mg Capsule 15 MG ORAL BEDTIME PRN for Per rx protocol, #30 CAP 0 Refills Valproic Acid (Valproic Acid) 250 Mg Capsule 125 MG PO Q12HR, CAP Zolpidem Tartrate* (Ambien*) 5 Mg Tablet 5 MG ORAL BEDTIME PRN for Insomnia, TAB Discontinued Medications: Trimethoprim/Sulfamethoxazole (Bactrim Ds Tablet) 1 Each Tablet 1 TAB ORAL BID for 6 Days, TAB Unable to Obtain Medications (Unable To Obtain Meds) 1 Ea Ea Discharge Condition Upon Discharge: stable Discharge Disposition Patient was discharged to SNF/Subacute Facility(03) Discharge Diagnoses: Xander (Vanchtein)Diamante NP Oct 10, 2017 10:54
--- NOTE | 2017-10-11 05:45 | Discharge Summary 2 SIG ---
DATE OF ADMISSION: 10/03/2017 DATE OF DISCHARGE: 10/08/2017 REASON FOR ADMISSION: 82-year-old male with a history of dementia, BPH, bladder cancer status post resection, diabetes, COPD, hypertension, presented to the emergency department for possible small bowel obstruction. In the alf, the patient had an abdominal x-ray, which revealed possible bowel obstruction. The patient was unable to contribute to history due to underlying dementia. Abdomen was distended on presentation, however, the patient denied nausea and vomiting. The patient was afebrile, tachycardic, pulse oximetry was 92% on the room air. CT of the abdomen and pelvis revealed extensive tumor at the right lower quadrant and right upper quadrant, suspicious of colon carcinoma. This likely also involved the terminal ileum. High-grade small-bowel obstruction, level of obstruction at the terminal ileum presumably secondary to above. Advanced peritoneal and mesenteric carcinomatosis. The patient was kept NPO. IV fluids started. Surgeon consulted. Laboratory workup revealed no leukocytosis. Mild anemia. Hemoglobin -12, hematocrit -37.2, BUN- 29, creatinine -1.2, glucose -139, AST -43, ALT- 16, lipase 34.- The patient admitted to Med/Surg floor for diagnosis of small bowel obstruction. HOSPITAL COURSE: The patient was admitted to Med/Surg floor. The patient was started on IV fluids. The patient initially kept NPO with NG tube for stomach decompression. According to the surgeon, recommended conservative treatment secondary to advanced tumor and follow up with the [facility]. Pain management was provided, antiemetic provided as needed. GI specialist closely followed along with surgeon. The patient subsequently started to pass flatus,and later had multiple bowel movements. No nausea, no vomiting, no fever. NG tube was discontinued, The patient was started on a trial of clear liquids, which he tolerated. Per surgeon, no surgical interventions were planned due to the advanced tumor. Diet slowly advanced as tolerated. Blood sugar was managed with sliding scale of insulin. Venous duplex of bilateral lower extremities was negative. Supplemental oxygen and pulmonary toilet were provided as needed. Diet was slowly advanced . Psychiatrist seen and evaluated the patient, diagnosed the patient with encephalopathy and optimized psychiatric medication regimen. Small-bowel obstruction resolved. The patient was able to tolerate diet. The patient will be managed nonoperatively conservatively. Bowel regimen instituted. The patient was noted to have severe malnutrition. Financial Sales Consultant seen and evaluated the patient and stated the patient had a high nutritional risk. Patient was started on Mol[place] twice a day. The patient was stable for discharge. FINAL DIAGNOSES: 1. High-grade small bowel obstruction, resolved. 2. Abdominal pain secondary to small bowel obstruction and malignancy. 3. Bladder cancer , status post resection. 4. Carcinomatosis. 5. 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 6. Alzheimer dementia. 7. COPD. 8. Diabetes. 9. Hypertension. 10. Encephalopathy. 11. Severe protein-calorie malnutrition. DISCHARGE MEDICATIONS: See medication reconciliation list. DISCHARGE INSTRUCTIONS: The patient was discharged to [facility]. Follow up with medical doctor at the facility. Arian Givens M.D. [facility] [place] DR: NEFTALI JOB#: [id number] CC: RAUL
== END 2017-10-08 16:30 | DRG 374 ==
LOC: EDBD 16:36 → EMR 17:00 → 4E 19:23 → EDBEDREQ 19:57 → 4E 10-06 20:05
DX: C78.6 Secondary malignant neoplasm of retroperitoneum and peritoneum (principal); E43 Unspecified severe protein-calorie malnutrition; G93.40 Encephalopathy, unspecified; N13.30 Unspecified hydronephrosis; C78.7 Secondary malignant neoplasm of liver and intrahepatic bile duct; C18.9 Malignant neoplasm of colon, unspecified; C61 Malignant neoplasm of prostate; J44.9 Chronic obstructive pulmonary disease, unspecified; G30.9 Alzheimer's disease, unspecified; F02.80 Dementia in other diseases classified elsewhere, unspecified severity, without behavioral disturbance, psychotic disturbance, mood disturbance, and anxiety; Z78.1 Physical restraint status; E11.9 Type 2 diabetes mellitus without complications; E78.00 Pure hypercholesterolemia, unspecified; N40.0 Benign prostatic hyperplasia without lower urinary tract symptoms; I10 Essential (primary) hypertension; Z79.4 Long term (current) use of insulin; Z68.26 Body mass index [BMI] 26.0-26.9, adult; Z85.51 Personal history of malignant neoplasm of bladder
CPT/HCPCS: 36415; 74000; 74177; 76700; 80048; 80053; 82150; 82962; 83036; 83690; 84443; 85025; 85610; 85730; 86850; 86900; 86901; 87081; 93005; 93970; 99285; J1815

== ENCOUNTER 2017-10-14 20:25 | Inpatient (IN) | payer MEDICARE, MEDICAID ==
[~2017-10-14] VITALS: Ht 172.7 cm; Wt 61.2 kg
[~2017-10-14 20:25] MED LIST changes: +BREO ELLIPTA 11 EACH IH
[2017-10-14 20:55] VITALS: BP_SYST 106; BP_SYST 95; BP_DIAS 58; BP_DIAS 66
[2017-10-14 21:10] LABS: BASOPHILS % (AUTO) 0.3 % (0.0-2.0); EOSINOPHILS % (AUTO) 0.1 % (0.0-3.0); LYMPHOCYTES % (AUTO) 12.1 % (20.0-45.0); MEAN CORPUSCULAR HEMOGLOBIN 29.8 PG (27.0-31.0); MEAN CORPUSCULAR HGB CONC 30.4 G/DL (32.0-36.0); MEAN CORPUSCULAR VOLUME 98 FL (80-99); MEAN PLATELET VOLUME 6.1 FL (6.5-10.1); MONOCYTES % (AUTO) 5.5 % (1.0-10.0); NEUTROPHILS % (AUTO) 81.9 % (45.0-75.0); PLATELET COUNT 180 K/UL (150-450); RED BLOOD COUNT 4.34 M/UL (4.70-6.10); RED CELL DISTRIBUTION WIDTH 14.5 % (11.6-14.8); WHITE BLOOD COUNT 11.9 K/UL (4.8-10.8)
[2017-10-14] MEDS ORDERED: OMEPRAZOLE40 M1 ORAL (21:13)
[2017-10-14] MEDS ORDERED: STARLIX60 MG ORAL (21:13)
[2017-10-14 21:22] LABS: INR 1.5 (0.9-1.1); PROTHROMBIN TIME 15.7 SEC (9.30-11.50)
[2017-10-14 21:42] LABS: ANION GAP 9 mmol/L (5-15); CALCIUM 8.4 MG/DL (8.5-10.1); CARBON DIOXIDE 26 MMOL/L (21-32); CHLORIDE 114 MMOL/L (98-107); CREATININE 1.3 MG/DL (0.55-1.30); POTASSIUM 4.3 MMOL/L (3.5-5.1); SODIUM 149 MMOL/L (136-145)
[2017-10-14 21:48] LABS: ALANINE AMINOTRANSFERASE 82 U/L (12-78); ALBUMIN/GLOBULIN RATIO 0.3 (1.0-2.7); ASPARTATE AMINO TRANSFERASE 70 U/L (15-37); CKMB 3.2 NG/ML (0.0-3.6); MAGNESIUM 2.6 MG/DL (1.8-2.4); TOTAL PROTEIN 8.5 G/DL (6.4-8.2)
[2017-10-14 22:14] LABS: APPEARANCE,URINE SLIGHTLY CLOUDY; KETONES,URINE NEGATIVE (NEGATIVE); LEUKOCYTE ESTERASE ,URINE 1+ (NEGATIVE); NITRITE,URINE NEGATIVE (NEGATIVE); PH,URINE 5 (4.5-8.0); PROTEIN,URINE 2+ (NEGATIVE); UROBILINOGEN,URINE 1 MG/DL (0.0-1.0)
[2017-10-14 22:23] VITALS: BP 112/68
[2017-10-14 22:28] LABS: AMORPHOUS SEDIMENT,UR MODERATE /LPF; BACTERIA,URINE FEW /HPF; ICTOTEST NEGATIVE; MUCUS,URINE MODERATE /LPF (NONE/OCC); RBC,URINE 0 /HPF (0 - 0); SQUAMOUS EPITHELIAL CELL,UR OCCASIONAL /LPF (NONE/OCC)
[2017-10-14 23:11] VITALS: BP 108/65
--- NOTE | 2017-10-14 23:19 | Emergency Room Report ---
History of Present Illness General Chief Complaint: Abnormal Labs Source: Medical Record, EMS Present Illness HPI Patient sent in for hypoglycemia. Patient obtunded and unable to answer questions. Meds include insulin. Paramedics unable to start IV - glucagon given in field. Was to go into Hospice tomorrow. POLST is full code. Discharged 10/08 with these diagnoses: 1. High-grade small bowel obstruction, resolved. 2. Abdominal pain secondary to small bowel obstruction and malignancy. 3. Bladder cancer , status post resection. 4. Carcinomatosis. 5. 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 6. Alzheimer dementia. 7. COPD. 8. Diabetes. 9. Hypertension. 10. Encephalopathy. 11. Severe protein-calorie malnutrition. Allergies: Coded Allergies: ASPIRIN (Unverified Allergy, Severe, Rash, 05/20/16) HEPARIN (Verified Allergy, Unknown, 12/24/16) Patient History Limited by: medical condition Past Medical History: see triage record, old chart reviewed Social History Narrative SNF - born in [place] Reviewed Nursing Documentation: PMH: Agreed, PSxH: Agreed Nursing Documentation-PMH Hx Hypertension: Yes - hypocalemia, PVD, hydronephrosis Hx Asthma: Yes Hx COPD: Yes Hx Diabetes: Yes - muscle wasting and atrophy, unsteady gait Hx Cerebrovascular Accident: No Hx Dementia: Yes Hx Alzheimer's Disease: Yes Hx Seizures: No Hx Memory Loss: Yes Hx Dizziness: Yes Hx Syncope: Yes Hx Weakness: Yes Review of Systems All Other Systems: limited Physical Exam Vital Signs Date Time Temp Pulse Resp B/P (MAP) Pulse Ox O2 Delivery O2 Flow Rate FiO2 10/14/17 20:17 98.1 105 22 95/58 96 Room Air 10/14/17 20:55 2.0 Sp02 EP Interpretation: reviewed, normal General Appearance: no apparent distress, lethargic, Chronically Ill Head: normocephalic Eyes: bilateral eye normal inspection, bilateral eye PERRL ENT: dry mucus membranes Neck: supple Respiratory: lungs clear, normal breath sounds Cardiovascular #1: regular rate, rhythm Cardiovascular #2: 2+ radial (R) Gastrointestinal: no guarding, no rebound, distended, tenderness Genitourinary: normal inspection Musculoskeletal: back normal, normal range of motion Neurologic: other - lethargic with some response to pain Psychiatric: other - stupor Skin: warm/dry, other - sallo, pale Procedures Critical Care Time Critical Care Time Total Critical Care Time: 60 min bedside evaluation and treatment excludes procedures (EKG). Reason for critical care: NSTEMI, hypoglycemia, dehydration, renal failure, UTI Possible complications: hypotension, hypertension, IL, shock, arrhythmias, metabolic acidosis, end organ damage, respiratory failure. Interventions: glucose, antibiotics, hydration, aspirin Course: Patient with hypoglycemia. D50W given. Improved mentation. UTI found , not septic, antibiotics begun. + troponin - h/o aspirin allergy, however, risks and benefits weighed (h/o rash). Aspirin given. Nitrates begun. Repeat EKG and evaluation. Again hypoglycemic. D50 repeat and D10 begun. Higher level of care due to NSTEMI. Consultations: nursing staff, EMS, Performed by: Dr. 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 DDx: insulin excess, liver failure, occult infection amongst others. Emergent evaluation and treatment begun. Evaluation with EKG, CXR, labs. Treatment with D50, hydration. Complex patient unable to give history. Improved after D50W with improved mentation. Moving all 4. Denies pain. Labs significant for renal insufficiency, mild leukocytosis, elevated LFTs. Antibiotics begun for infection urinary source. Admit tele Dr. Givens. Review of labs found with + troponin. Aspirin allergy reviewed and given with benadryl. Repeat EKG with ST, no STEMI. Heparin allergy noted. He still denies chest pain. Glucose recheck is low. Start D10W after D50W given. Laboratory Tests Test 10/14/17 20:50 10/14/17 21:40 White Blood Count 11.9 K/UL (4.8-10.8) H Red Blood Count 4.34 M/UL (4.70-6.10) L Hemoglobin 12.9 G/DL (14.2-18.0) L Hematocrit 42.5 % (42.0-52.0) Mean Corpuscular Volume 98 FL (80-99) Mean Corpuscular Hemoglobin 29.8 PG (27.0-31.0) Mean Corpuscular Hemoglobin Concent 30.4 G/DL (32.0-36.0) L Red Cell Distribution Width 14.5 % (11.6-14.8) Platelet Count 180 K/UL (150-450) Mean Platelet Volume 6.1 FL (6.5-10.1) L Neutrophils (%) (Auto) 81.9 % (45.0-75.0) H Lymphocytes (%) (Auto) 12.1 % (20.0-45.0) L Monocytes (%) (Auto) 5.5 % (1.0-10.0) Eosinophils (%) (Auto) 0.1 % (0.0-3.0) Basophils (%) (Auto) 0.3 % (0.0-2.0) Prothrombin Time 15.7 SEC (9.30-11.50) H Prothrombin Time INR 1.5 (0.9-1.1) H PTT 29 SEC (23-33) Sodium Level 149 MMOL/L (136-145) H Potassium Level 4.3 MMOL/L (3.5-5.1) Chloride Level 114 MMOL/L (98-107) H Carbon Dioxide Level 26 MMOL/L (21-32) Anion Gap 9 mmol/L (5-15) Blood Urea Nitrogen 31 mg/dL (7-18) H Creatinine 1.3 MG/DL (0.55-1.30) Estimate Glomerular Filtration Rate mL/min (>60) Glucose Level 53 MG/DL (74-106) L Lactic Acid Level 1.70 mmol/L (0.66-2.22) Calcium Level 8.4 MG/DL (8.5-10.1) L Magnesium Level 2.6 MG/DL (1.8-2.4) H Total Bilirubin 0.4 MG/DL (0.2-1.0) Aspartate Amino Transferase (AST) 70 U/L (15-37) H Alanine Aminotransferase (ALT) 82 U/L (12-78) H Alkaline Phosphatase 160 U/L (46-116) H Total Creatine Kinase 244 U/L (26-308) Creatine Kinase MB 3.2 NG/ML (0.0-3.6) Creatine Kinase MB Relative Index 1.3 Troponin I 0.793 ng/mL (0.000-0.056) Pro-B-Type Natriuretic Peptide 8111 pg/mL (0-125) H Total Protein 8.5 G/DL (6.4-8.2) H Albumin 2.1 G/DL (3.4-5.0) L Globulin 6.4 g/dL Albumin/Globulin Ratio 0.3 (1.0-2.7) L Urine Color Dina Urine Appearance Slightly cloudy Urine pH 5 (4.5-8.0) Urine Specific [place] 1.015 (1.005-1.035) Urine Protein 2+ (NEGATIVE) H Urine Glucose (UA) 1+ (NEGATIVE) H Urine Ketones Negative (NEGATIVE) Urine Occult Blood Negative (NEGATIVE) Urine Nitrite Negative (NEGATIVE) Urine Bilirubin Negative (NEGATIVE) Urine Ictotest Negative Urine Urobilinogen 1 MG/DL (0.0-1.0) H Urine Leukocyte Esterase 1+ (NEGATIVE) H Urine RBC 0 /HPF (0 - 0) Urine WBC 5-10 /HPF (0 - 0) H Urine Squamous Epithelial Cells Occasional /LPF Urine Amorphous Sediment Moderate /LPF (NONE) H Urine Bacteria Few /HPF (NONE) Urine Mucus Moderate /LPF (NONE/OCC) H EKG Diagnostic Results Rate: tachycardiac Rhythm: NSR ST Segments: no acute changes Rhythm Strip Diag. Results EP Interpretation: yes Rhythm: NSR, no PVC's, no ectopy Chest X-Ray Diagnostic Results Chest X-Ray Diagnostic Results : Chest X-Ray Ordered: Yes # of Views/Limited/Complete: 1 View Indication: Other Interpretation: no effusion, no pneumothorax, other - atelectasis R Impression: Other Electronically Signed by: Dino Cordoba MD Last Vital Signs Date Time Temp Pulse Resp B/P (MAP) Pulse Ox O2 Delivery O2 Flow Rate FiO2 10/15/17 02:19 98.7 103 24 108/69 99 Nasal Cannula 2.0 Status: improved Disposition: ADMITTED INPATIENT Condition: Serious Referrals: Arian Givens MD (PCP) Dino Cordoba M.D. Oct 14, 2017 23:19
[2017-10-14] MEDS ORDERED: Cefepime 1gm vial ONE (23:20)
[2017-10-14] MEDS ORDERED: Cefepime HCl 1 GM in D5W 55 ML IVPB ONE (23:30)
[2017-10-15] VITALS (8 sets, daily range): BP systolic 78–108; BP diastolic 49–71
[2017-10-15] MEDS ORDERED: Nitroglycerin 2% oint pkt TOPIC ONE (00:15)
[2017-10-15] MEDS ORDERED: Dextrose 10% 1,000 ML IV SCH (00:15)
[2017-10-15] MEDS ORDERED: DiphenhydrAMINE 50mg/ml Inj IVP ONE (00:15)
[2017-10-15] MEDS ORDERED: D5 1/2NS 1,000 ML IV SCH ×2 (05:15→05:30)
[2017-10-15 08:34] LABS: BASOPHILS % (AUTO) 0.2 % (0.0-2.0); LYMPHOCYTES % (AUTO) 14.5 % (20.0-45.0); MEAN CORPUSCULAR HEMOGLOBIN 30.9 PG (27.0-31.0); MEAN CORPUSCULAR HGB CONC 31.2 G/DL (32.0-36.0); MEAN CORPUSCULAR VOLUME 99 FL (80-99); MEAN PLATELET VOLUME 6.3 FL (6.5-10.1); MONOCYTES % (AUTO) 5.7 % (1.0-10.0); NEUTROPHILS % (AUTO) 79.5 % (45.0-75.0); PLATELET COUNT 160 K/UL (150-450); RED BLOOD COUNT 3.72 M/UL (4.70-6.10); RED CELL DISTRIBUTION WIDTH 15.3 % (11.6-14.8); WHITE BLOOD COUNT 10.3 K/UL (4.8-10.8)
[2017-10-15] MEDS ORDERED: Pantoprazole Inj IVP SCH (09:00)
[2017-10-15 09:15] LABS: ALANINE AMINOTRANSFERASE 65 U/L (12-78); ALBUMIN/GLOBULIN RATIO 0.3 (1.0-2.7); ANION GAP 8 mmol/L (5-15); ASPARTATE AMINO TRANSFERASE 59 U/L (15-37); CALCIUM 7.9 MG/DL (8.5-10.1); CARBON DIOXIDE 22 MMOL/L (21-32); CHLORIDE 118 MMOL/L (98-107); CREATININE 1.4 MG/DL (0.55-1.30); MAGNESIUM 2.5 MG/DL (1.8-2.4); PHOSPHORUS 3.3 MG/DL (2.5-4.9); SODIUM 148 MMOL/L (136-145); TOTAL PROTEIN 7.5 G/DL (6.4-8.2)
--- NOTE | 2017-10-15 10:33 | Diagnostic Imaging Report ---
Indication: Chest pain Technique: One view of the chest Comparison: 04/12/2016 Findings: Inserted is suboptimal. No definite acute infiltrates or effusions. There is some perihilar atelectasis on the right. Heart size is normal. Aorta is tortuous ectatic and calcified.. Impression: Right perihilar atelectasis. No acute process otherwise This agrees with the preliminary interpretation provided by the emergency room physician
--- NOTE | 2017-10-15 10:55 | Consultation ---
History of Present Illness General Date patient seen: Oct 15, 2017 Chief Complaint: Abnormal Labs Present Illness HPI 82 year old female with hx of recent high-grade small bowel obstruction, Bladder cancer , status post resection. 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 Severe protein- calorie malnutrition,brought in by paramedics with CC of hypoglycemia. Patient was obtunded and unable to answer questions. Meds include insulin. Pt qualifies for hospice but skilled nursing facility wanted him to get physical therapy, to become strong and fit enough for hospice. Allergies: Coded Allergies: ASPIRIN (Unverified Allergy, Severe, Rash, 05/20/16) HEPARIN (Verified Allergy, Unknown, 12/24/16) Medication History Scheduled Atorvastatin Calcium* (Lipitor*), 10 MG ORAL BEDTIME, (Reported) Calcium Carbonate (Oyster Shell Calcium-Vit D Tab), 500 MG GT TID Diazepam* (Diazepam*), 5 MG ORAL HS, (Reported) Donepezil Hcl* (Donepezil Hcl*), 5 MG ORAL QHS, (Reported) Finasteride* (Proscar*), 5 MG ORAL DAILY Gabapentin* (Gabapentin*), 300 MG ORAL THREE TIMES A DAY, (Reported) Insulin Aspart (Novolog), SQ AC+HS, (Reported) Insulin Aspart* (Novolog*), 8 SUBQ BEFORE MEALS, (Reported) Insulin Detemir (Levemir), 40 UNITS SUBQ BEFORE BREAKFAST Insulin Detemir (Levemir), 20 SUBQ DAILY, (Reported) Montelukast Sodium* (Singulair*), 10 MG ORAL DAILY, (Reported) Montelukast Sodium* (Singulair*), 10 MG ORAL DAILY, (Reported) Nateglinide* (Starlix*), 60 MG ORAL THREE TIMES A DAY, (Reported) Nateglinide* (Starlix*), 60 MG ORAL THREE TIMES A DAY, (Reported) Omeprazole (Omeprazole), 40 MG ORAL DAILY, (Reported) Pantoprazole (Pantoprazole), 40 MG ORAL DAILY, (Reported) Pravastatin Sod* (Pravastatin Sod*), 10 MG ORAL BEDTIME, (Reported) Risperidone* (Risperdal*), 1 MG PO QHS, (Reported) Tamsulosin Hcl (Tamsulosin Hcl*), 0.4 MG ORAL BEDTIME Tamsulosin Hcl (Tamsulosin Hcl*), 0.4 MG ORAL BEDTIME, (Reported) Valproic Acid (Valproic Acid), 125 MG PO Q12HR, (Reported) Scheduled PRN Acetaminophen (Tylenol), 650 MG ORAL Q4HR PRN for Fever/Headache/Mild Pain, ( Reported) Acetaminophen With Codeine (T#3) (Tylenol #3 Tab*), 1 TAB ORAL Q6HR PRN for For Pain, (Reported) Al Hydroxide/mg Hydroxide (Mag-Al Plus Suspension), 30 ML PO Q4HR PRN for Constipation, (Reported) Clonidine Hcl* (Catapres*), 0.1 MG ORAL EVERY 4 HOURS PRN for For High Blood Pressure, (Reported) Fluticasone/Salmeterol (Advair 250-50 Diskus), 1 PUFF INH DAILY PRN for Shortness of Breath, (Reported) Ipratropium/Albuterol Sulfate (DuoNeb 0.5-3(2.5)mg/3ml), 3 ML HHN Q4HR PRN for Shortness of Breath, (Reported) Lorazepam* (Ativan*), 0.5 MG ORAL Q4HR PRN for For Anxiety, (Reported) Ondansetron (Zofran), 4 MG ORAL Q6H PRN for Nausea & Vomiting, (Reported) Polyethylene Glycol 3350* (Miralax*), 17 GM ORAL DAILY PRN for Constipation, ( Reported) Temazepam (Temazepam*), 15 MG ORAL BEDTIME PRN for Per rx protocol, (Reported) Zolpidem Tartrate* (Ambien*), 5 MG ORAL BEDTIME PRN for Insomnia, (Reported) Miscellaneous Medications Fluticasone/Vilanterol (Breo Ellipta 100-25 Mcg INH), 1 EACH IH, (Reported) Nitroglycerin (Nitroglycerin), 0.4 MG SL, (Reported) Discontinued Medications Trimethoprim/Sulfamethoxazole (Bactrim Ds Tablet), 1 TAB ORAL BID, (Reported) Discontinued Reason: Therapy completed Unable to Obtain Medications (Unable To Obtain Meds), (Reported) Discontinued Reason: MD discontinued med Patient History Healthcare decision maker Resuscitation status Advanced Directive on File Past Medical/Surgical History Past Medical/Surgical History: (1) 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 (2) Diabetes mellitus (3) Carcinomatosis (4) Alzheimer's dementia Review of Systems All Other Systems: negative except mentioned in HPI Physical Exam General Appearance: cachetic Lines, tubes and drains: peripheral HEENT: normocephalic, atraumatic Neck: non-tender, normal alignment Respiratory/Chest: chest wall non-tender, lungs clear Breasts: no masses Cardiovascular/Chest: normal peripheral pulses Abdomen: normal bowel sounds, non tender Genitourinary/Rectal: normal genital exam Extremities: normal range of motion Neurologic: smt operator II-XII grossly normal Last 24 Hour Vital Signs Date Time Temp Pulse Resp B/P (MAP) Pulse Ox O2 Delivery O2 Flow Rate FiO2 10/15/17 08:00 97.7 100 18 92/52 98 Nasal Cannula 2.0 10/15/17 04:00 97.9 15 99/55 98 Nasal Cannula 2.0 10/15/17 02:30 99 10/15/17 02:19 98.7 103 24 108/69 99 Nasal Cannula 2.0 10/15/17 02:10 98.7 103 24 108/69 99 Nasal Cannula 2.0 10/15/17 00:30 103 22 107/71 99 Nasal Cannula 2.0 10/15/17 00:23 115/68 10/14/17 23:11 101 23 108/65 97 Nasal Cannula 2.0 10/14/17 22:23 102 22 112/68 96 Nasal Cannula 2.0 10/14/17 20:55 98.8 101 23 106/66 95 Nasal Cannula 2.0 10/14/17 20:17 98.1 105 22 95/58 96 Room Air Laboratory Tests Test 10/14/17 20:50 10/14/17 21:40 10/15/17 08:00 White Blood Count 11.9 K/UL (4.8-10.8) H 10.3 K/UL (4.8-10.8) Red Blood Count 4.34 M/UL (4.70-6.10) L 3.72 M/UL (4.70-6.10) L Hemoglobin 12.9 G/DL (14.2-18.0) L 11.5 G/DL (14.2-18.0) L Hematocrit 42.5 % (42.0-52.0) 36.9 % (42.0-52.0) L Mean Corpuscular Volume 98 FL (80-99) 99 FL (80-99) Mean Corpuscular Hemoglobin 29.8 PG (27.0-31.0) 30.9 PG (27.0-31.0) Mean Corpuscular Hemoglobin Concent 30.4 G/DL (32.0-36.0) L 31.2 G/DL (32.0-36.0) L Red Cell Distribution Width 14.5 % (11.6-14.8) 15.3 % (11.6-14.8) H Platelet Count 180 K/UL (150-450) 160 K/UL (150-450) Mean Platelet Volume 6.1 FL (6.5-10.1) L 6.3 FL (6.5-10.1) L Neutrophils (%) (Auto) 81.9 % (45.0-75.0) H 79.5 % (45.0-75.0) H Lymphocytes (%) (Auto) 12.1 % (20.0-45.0) L 14.5 % (20.0-45.0) L Monocytes (%) (Auto) 5.5 % (1.0-10.0) 5.7 % (1.0-10.0) Eosinophils (%) (Auto) 0.1 % (0.0-3.0) 0.0 % (0.0-3.0) Basophils (%) (Auto) 0.3 % (0.0-2.0) 0.2 % (0.0-2.0) Prothrombin Time 15.7 SEC (9.30-11.50) H Prothromb Time International Ratio 1.5 (0.9-1.1) H Activated Partial Thromboplast Time 29 SEC (23-33) Sodium Level 149 MMOL/L (136-145) H 148 MMOL/L (136-145) H Potassium Level 4.3 MMOL/L (3.5-5.1) 5.0 MMOL/L (3.5-5.1) Chloride Level 114 MMOL/L (98-107) H 118 MMOL/L (98-107) H Carbon Dioxide Level 26 MMOL/L (21-32) 22 MMOL/L (21-32) Anion Gap 9 mmol/L (5-15) 8 mmol/L (5-15) Blood Urea Nitrogen 31 mg/dL (7-18) H 28 mg/dL (7-18) H Creatinine 1.3 MG/DL (0.55-1.30) 1.4 MG/DL (0.55-1.30) H Estimat Glomerular Filtration Rate mL/min (>60) mL/min (>60) Glucose Level 53 MG/DL (74-106) L 85 MG/DL (74-106) Lactic Acid Level 1.70 mmol/L (0.66-2.22) Calcium Level 8.4 MG/DL (8.5-10.1) L 7.9 MG/DL (8.5-10.1) L Magnesium Level 2.6 MG/DL (1.8-2.4) H 2.5 MG/DL (1.8-2.4) H Total Bilirubin 0.4 MG/DL (0.2-1.0) 0.3 MG/DL (0.2-1.0) Aspartate Amino Transf (AST/SGOT) 70 U/L (15-37) H 59 U/L (15-37) H Alanine Aminotransferase (ALT/SGPT) 82 U/L (12-78) H 65 U/L (12-78) Alkaline Phosphatase 160 U/L (46-116) H 141 U/L (46-116) H Total Creatine Kinase 244 U/L (26-308) Creatine Kinase MB 3.2 NG/ML (0.0-3.6) Creatine Kinase MB Relative Index 1.3 Troponin I 0.793 ng/mL (0.000-0.056) 0.603 ng/mL (0.000-0.056) Pro-B-Type Natriuretic Peptide 8111 pg/mL (0-125) H Total Protein 8.5 G/DL (6.4-8.2) H 7.5 G/DL (6.4-8.2) Albumin 2.1 G/DL (3.4-5.0) L 1.9 G/DL (3.4-5.0) L Globulin 6.4 g/dL 5.6 g/dL Albumin/Globulin Ratio 0.3 (1.0-2.7) L 0.3 (1.0-2.7) L Urine Color Dina Urine Appearance Slightly cloudy Urine pH 5 (4.5-8.0) Urine Specific [place] 1.015 (1.005-1.035) Urine Protein 2+ (NEGATIVE) H Urine Glucose (UA) 1+ (NEGATIVE) H Urine Ketones Negative (NEGATIVE) Urine Occult Blood Negative (NEGATIVE) Urine Nitrite Negative (NEGATIVE) Urine Bilirubin Negative (NEGATIVE) Urine Ictotest Negative Urine Urobilinogen 1 MG/DL (0.0-1.0) H Urine Leukocyte Esterase 1+ (NEGATIVE) H Urine RBC 0 /HPF (0 - 0) Urine WBC 5-10 /HPF (0 - 0) H Urine Squamous Epithelial Cells Occasional /LPF Urine Amorphous Sediment Moderate /LPF (NONE) H Urine Bacteria Few /HPF (NONE) Urine Mucus Moderate /LPF (NONE/OCC) H Phosphorus Level 3.3 MG/DL (2.5-4.9) Height (Feet): 5 Height (Inches): 8.00 Weight (Pounds): 135 Medications Current Medications Medications (Trade) Dose Ordered Sig/Eric Route PRN Reason Start Time Stop Time Status Last Admin Dose Admin Dextrose/Sodium Chloride 1,000 ml @ 75 mls/hr [id number] IV 10/15/17 05:30 11/14/17 05:29 10/15/17 05:35 Pantoprazole (Protonix) 40 mg DAILY IVP 10/15/17 09:00 11/14/17 08:59 10/15/17 10:28 Assessment/Plan Problem List: (1) Acute encephalopathy ICD Codes: G93.40 - Encephalopathy, unspecified SNOMED: 4113794 (2) NSTEMI (non-ST elevated myocardial infarction) ICD Codes: I21.4 - Non-ST elevation (NSTEMI) myocardial infarction SNOMED: 493713077 (3) Severe malnutrition ICD Codes: E43 - Unspecified severe protein-calorie malnutrition SNOMED: 02700293 (4) Diabetes ICD Codes: E11.9 - Type 2 diabetes mellitus without complications SNOMED: 09898748 (5) Alzheimer's dementia ICD Codes: G30.9 - Alzheimer's disease, unspecified SNOMED: 46010126 (6) Carcinomatosis ICD Codes: C80.0 - Disseminated malignant neoplasm, unspecified SNOMED: 560904675 Assessment/Plan iv fluids GI evaluation symptomatic treatment Med/surg BLUE HUNTLEY Oct 15, 2017 10:55
--- NOTE | 2017-10-15 12:07 | History & Physical ---
History and Physical History & Physicial Dictated for Int Med-Dr Givens no. [id number]. ICU TAMMY SAGE Oct 15, 2017 12:07
--- NOTE | 2017-10-15 13:32 | Wound Care Consultation ---
Wound Assessment Wound Assessment #1: Wound Number: 1 Wound Present on Admission: Yes New Wound: No Status Change of Wound: No Wound Location Body Site Modif: right, anterior Wound Location Body Site: toe - 1st Wound Type: pressure ulcer Estrada Test: Does not Estrada Pressure Ulcer Stage: Deep Tissue Injury Wound Thickness: Full Thickness Wound Length: 1.0 Wound Width: 0.8 Wound Depth: utd Percent of Wound Black/Brown: 100 Wound Drainage Amount: None Wound Drainage Odor: None/Absent Tissue Surrounding Wound: Intact Wound General Appearance: Blackened - dark maroon Wound Assessment #2: Wound Number: 2 Wound Present on Admission: Yes New Wound: No Status Change of Wound: No Wound Location Body Site Modif: mid Wound Location Body Site: other - sacrococcygeal Wound Type: pressure ulcer Estrada Test: Does not Estrada Pressure Ulcer Stage: Unstageable Wound Thickness: Full Thickness Wound Length: 5.5 Wound Width: 5.5 Wound Depth: utd Percent of Wound [place]/Red: 60 Percent of Wound Bed Yellow/Wh: 30 Percent of Wound Purple/Maroon: 10 Wound Drainage Description: Serosanguineous Wound Drainage Amount: Moderate Wound Drainage Odor: None/Absent Tissue Surrounding Wound: DTI Wound General Appearance: Reddened - yellow and purple. Surrounding skin with DTI Wound Comment #1 Right anterior 1st toe DTI pressure ulcer #2 Sacrococcygeal unstageable pressure ulcer. Surrounding skin with DTI Purple/ maroon in color #3 Left dorsal aspect of foot with dry scabs #4 Left 2nd toe with dry scab #5 Right lateral knee dry scab Recommendation -Local wound care per protocol -Keep clean and dry -Optimize nutrition -Turn and reposition -Offload both heels -Heel protector on both heels -Low air loss mattress -Arterial/venous duplex study -Podiatry consult -Assess and f/u according for any changes STEPHANIE BONILLA RN Oct 15, 2017 13:32
[2017-10-15] MEDS: D5 1/2NS 1,000 ML IV SCH ×2 (16:00→22:01)
--- NOTE | 2017-10-15 17:21 | Consultation ---
History of Present Illness General Date patient seen: Oct 15, 2017 Chief Complaint: Abnormal Labs Present Illness Allergies: Coded Allergies: ASPIRIN (Unverified Allergy, Severe, Rash, 05/20/16) HEPARIN (Verified Allergy, Unknown, 12/24/16) Medication History Scheduled Atorvastatin Calcium* (Lipitor*), 10 MG ORAL BEDTIME, (Reported) Calcium Carbonate (Oyster Shell Calcium-Vit D Tab), 500 MG GT TID Diazepam* (Diazepam*), 5 MG ORAL HS, (Reported) Donepezil Hcl* (Donepezil Hcl*), 5 MG ORAL QHS, (Reported) Finasteride* (Proscar*), 5 MG ORAL DAILY Gabapentin* (Gabapentin*), 300 MG ORAL THREE TIMES A DAY, (Reported) Insulin Aspart (Novolog), SQ AC+HS, (Reported) Insulin Aspart* (Novolog*), 8 SUBQ BEFORE MEALS, (Reported) Insulin Detemir (Levemir), 40 UNITS SUBQ BEFORE BREAKFAST Insulin Detemir (Levemir), 20 SUBQ DAILY, (Reported) Montelukast Sodium* (Singulair*), 10 MG ORAL DAILY, (Reported) Montelukast Sodium* (Singulair*), 10 MG ORAL DAILY, (Reported) Nateglinide* (Starlix*), 60 MG ORAL THREE TIMES A DAY, (Reported) Nateglinide* (Starlix*), 60 MG ORAL THREE TIMES A DAY, (Reported) Omeprazole (Omeprazole), 40 MG ORAL DAILY, (Reported) Pantoprazole (Pantoprazole), 40 MG ORAL DAILY, (Reported) Pravastatin Sod* (Pravastatin Sod*), 10 MG ORAL BEDTIME, (Reported) Risperidone* (Risperdal*), 1 MG PO QHS, (Reported) Tamsulosin Hcl (Tamsulosin Hcl*), 0.4 MG ORAL BEDTIME Tamsulosin Hcl (Tamsulosin Hcl*), 0.4 MG ORAL BEDTIME, (Reported) Valproic Acid (Valproic Acid), 125 MG PO Q12HR, (Reported) Scheduled PRN Acetaminophen (Tylenol), 650 MG ORAL Q4HR PRN for Fever/Headache/Mild Pain, ( Reported) Acetaminophen With Codeine (T#3) (Tylenol #3 Tab*), 1 TAB ORAL Q6HR PRN for For Pain, (Reported) Al Hydroxide/mg Hydroxide (Mag-Al Plus Suspension), 30 ML PO Q4HR PRN for Constipation, (Reported) Clonidine Hcl* (Catapres*), 0.1 MG ORAL EVERY 4 HOURS PRN for For High Blood Pressure, (Reported) Fluticasone/Salmeterol (Advair 250-50 Diskus), 1 PUFF INH DAILY PRN for Shortness of Breath, (Reported) Ipratropium/Albuterol Sulfate (DuoNeb 0.5-3(2.5)mg/3ml), 3 ML HHN Q4HR PRN for Shortness of Breath, (Reported) Lorazepam* (Ativan*), 0.5 MG ORAL Q4HR PRN for For Anxiety, (Reported) Ondansetron (Zofran), 4 MG ORAL Q6H PRN for Nausea & Vomiting, (Reported) Polyethylene Glycol 3350* (Miralax*), 17 GM ORAL DAILY PRN for Constipation, ( Reported) Temazepam (Temazepam*), 15 MG ORAL BEDTIME PRN for Per rx protocol, (Reported) Zolpidem Tartrate* (Ambien*), 5 MG ORAL BEDTIME PRN for Insomnia, (Reported) Miscellaneous Medications Fluticasone/Vilanterol (Breo Ellipta 100-25 Mcg INH), 1 EACH IH, (Reported) Nitroglycerin (Nitroglycerin), 0.4 MG SL, (Reported) Discontinued Medications Trimethoprim/Sulfamethoxazole (Bactrim Ds Tablet), 1 TAB ORAL BID, (Reported) Discontinued Reason: Therapy completed Unable to Obtain Medications (Unable To Obtain Meds), (Reported) Discontinued Reason: MD discontinued med Patient History Healthcare decision maker Resuscitation status Advanced Directive on File Physical Exam Last 24 Hour Vital Signs Date Time Temp Pulse Resp B/P (MAP) Pulse Ox O2 Delivery O2 Flow Rate FiO2 10/15/17 16:00 95.4 94 14 97/61 95 Nasal Cannula 2.0 10/15/17 13:10 96.6 95 12 92/59 97 Nasal Cannula 2.0 10/15/17 12:00 97.9 94 18 80/54 98 Nasal Cannula 2.0 10/15/17 12:00 93 10/15/17 08:00 98 10/15/17 08:00 97.7 100 18 92/52 98 Nasal Cannula 2.0 10/15/17 04:00 97.9 15 99/55 98 Nasal Cannula 2.0 10/15/17 02:30 99 10/15/17 02:19 98.7 103 24 108/69 99 Nasal Cannula 2.0 10/15/17 02:10 98.7 103 24 108/69 99 Nasal Cannula 2.0 10/15/17 00:30 103 22 107/71 99 Nasal Cannula 2.0 10/15/17 00:23 115/68 10/14/17 23:11 101 23 108/65 97 Nasal Cannula 2.0 10/14/17 22:23 102 22 112/68 96 Nasal Cannula 2.0 10/14/17 20:55 98.8 101 23 106/66 95 Nasal Cannula 2.0 10/14/17 20:17 98.1 105 22 95/58 96 Room Air Intake and Output 10/15/17 10/16/17 19:00 07:00 Intake Total 750 ml Balance 750 ml Intake IV Total 750 ml # Bowel Movements 1 Laboratory Tests Test 10/14/17 20:50 10/14/17 21:40 10/15/17 08:00 White Blood Count 11.9 K/UL (4.8-10.8) H 10.3 K/UL (4.8-10.8) Red Blood Count 4.34 M/UL (4.70-6.10) L 3.72 M/UL (4.70-6.10) L Hemoglobin 12.9 G/DL (14.2-18.0) L 11.5 G/DL (14.2-18.0) L Hematocrit 42.5 % (42.0-52.0) 36.9 % (42.0-52.0) L Mean Corpuscular Volume 98 FL (80-99) 99 FL (80-99) Mean Corpuscular Hemoglobin 29.8 PG (27.0-31.0) 30.9 PG (27.0-31.0) Mean Corpuscular Hemoglobin Concent 30.4 G/DL (32.0-36.0) L 31.2 G/DL (32.0-36.0) L Red Cell Distribution Width 14.5 % (11.6-14.8) 15.3 % (11.6-14.8) H Platelet Count 180 K/UL (150-450) 160 K/UL (150-450) Mean Platelet Volume 6.1 FL (6.5-10.1) L 6.3 FL (6.5-10.1) L Neutrophils (%) (Auto) 81.9 % (45.0-75.0) H 79.5 % (45.0-75.0) H Lymphocytes (%) (Auto) 12.1 % (20.0-45.0) L 14.5 % (20.0-45.0) L Monocytes (%) (Auto) 5.5 % (1.0-10.0) 5.7 % (1.0-10.0) Eosinophils (%) (Auto) 0.1 % (0.0-3.0) 0.0 % (0.0-3.0) Basophils (%) (Auto) 0.3 % (0.0-2.0) 0.2 % (0.0-2.0) Prothrombin Time 15.7 SEC (9.30-11.50) H Prothromb Time International Ratio 1.5 (0.9-1.1) H Activated Partial Thromboplast Time 29 SEC (23-33) Sodium Level 149 MMOL/L (136-145) H 148 MMOL/L (136-145) H Potassium Level 4.3 MMOL/L (3.5-5.1) 5.0 MMOL/L (3.5-5.1) Chloride Level 114 MMOL/L (98-107) H 118 MMOL/L (98-107) H Carbon Dioxide Level 26 MMOL/L (21-32) 22 MMOL/L (21-32) Anion Gap 9 mmol/L (5-15) 8 mmol/L (5-15) Blood Urea Nitrogen 31 mg/dL (7-18) H 28 mg/dL (7-18) H Creatinine 1.3 MG/DL (0.55-1.30) 1.4 MG/DL (0.55-1.30) H Estimat Glomerular Filtration Rate mL/min (>60) mL/min (>60) Glucose Level 53 MG/DL (74-106) L 85 MG/DL (74-106) Lactic Acid Level 1.70 mmol/L (0.66-2.22) Calcium Level 8.4 MG/DL (8.5-10.1) L 7.9 MG/DL (8.5-10.1) L Magnesium Level 2.6 MG/DL (1.8-2.4) H 2.5 MG/DL (1.8-2.4) H Total Bilirubin 0.4 MG/DL (0.2-1.0) 0.3 MG/DL (0.2-1.0) Aspartate Amino Transf (AST/SGOT) 70 U/L (15-37) H 59 U/L (15-37) H Alanine Aminotransferase (ALT/SGPT) 82 U/L (12-78) H 65 U/L (12-78) Alkaline Phosphatase 160 U/L (46-116) H 141 U/L (46-116) H Total Creatine Kinase 244 U/L (26-308) Creatine Kinase MB 3.2 NG/ML (0.0-3.6) Creatine Kinase MB Relative Index 1.3 Troponin I 0.793 ng/mL (0.000-0.056) 0.603 ng/mL (0.000-0.056) Pro-B-Type Natriuretic Peptide 8111 pg/mL (0-125) H Total Protein 8.5 G/DL (6.4-8.2) H 7.5 G/DL (6.4-8.2) Albumin 2.1 G/DL (3.4-5.0) L 1.9 G/DL (3.4-5.0) L Globulin 6.4 g/dL 5.6 g/dL Albumin/Globulin Ratio 0.3 (1.0-2.7) L 0.3 (1.0-2.7) L Urine Color Dina Urine Appearance Slightly cloudy Urine pH 5 (4.5-8.0) Urine Specific [place] 1.015 (1.005-1.035) Urine Protein 2+ (NEGATIVE) H Urine Glucose (UA) 1+ (NEGATIVE) H Urine Ketones Negative (NEGATIVE) Urine Occult Blood Negative (NEGATIVE) Urine Nitrite Negative (NEGATIVE) Urine Bilirubin Negative (NEGATIVE) Urine Ictotest Negative Urine Urobilinogen 1 MG/DL (0.0-1.0) H Urine Leukocyte Esterase 1+ (NEGATIVE) H Urine RBC 0 /HPF (0 - 0) Urine WBC 5-10 /HPF (0 - 0) H Urine Squamous Epithelial Cells Occasional /LPF Urine Amorphous Sediment Moderate /LPF (NONE) H Urine Bacteria Few /HPF (NONE) Urine Mucus Moderate /LPF (NONE/OCC) H Phosphorus Level 3.3 MG/DL (2.5-4.9) Height (Feet): 5 Height (Inches): 8.00 Weight (Pounds): 135 Medications Current Medications Medications (Trade) Dose Ordered Sig/Eric Route PRN Reason Start Time Stop Time Status Last Admin Dose Admin Dextrose/Sodium Chloride 1,000 ml @ 75 mls/hr [id number] IV 10/15/17 15:45 11/14/17 15:44 10/15/17 16:00 Shantel Le M.D. Oct 15, 2017 17:21
--- NOTE | 2017-10-15 19:17 | Cardiology Report ---
APPROVED REPORT EKG Measurement Heart [id number] Sinus tachycardia with a few APCs. Left axis deviation Low voltage QRS Cannot rule out Anterior infarct, age undetermined Abnormal ECG
--- NOTE | 2017-10-15 19:22 | Cardiology Report ---
APPROVED REPORT EKG Measurement Heart [id number] [place] 176P61 [id number] Sinus tachycardia Low voltage QRS Septal infarct, age undetermined Abnormal ECG
--- NOTE | 2017-10-15 21:00 | History and Physical Report ---
DATE OF ADMISSION: 10/15/2017 CHIEF COMPLAINT: The patient is an 82-year-old male, who presents with chief complaint of hypoglycemia. HISTORY OF PRESENT ILLNESS: The patient was admitted to [facility] from 10/03/2017 to 10/11/2017. Please see history and physical and discharge summary dictated at that time. The patient was admitted with small bowel obstruction and probable colon cancer. The patient is a resident of [facility]. 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 The patient was transported to [facility]. Accu-Chek was found to be 45 on arrival. The patient is admitted for hypoglycemia. PAST MEDICAL HISTORY: Significant for: 1. 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 2. Diabetes type 2. 3. Alzheimer dementia. 4. Hydronephrosis of the right kidney. 5. History of metastatic bladder cancer in 2013. 6. Benign prostatic hypertrophy. 7. Hypercholesterolemia. PAST SURGICAL HISTORY: Significant for: 1. Inguinal hernia repair. 2. Bladder resection in 2013, secondary to bladder cancer. CURRENT MEDICATIONS: 1. Tylenol 650 mg p.o. q.4 h. p.r.n. 2. Tylenol No. 3 one tablet p.o. q.6 h. p.r.n. 3. Lipitor 10 mg one tablet p.o. nightly. 4. Calcium carbonate 500 mg one tablet p.o. three times daily. 5. Clonidine 0.1 mg p.o. q.4 h. p.r.n. 6. Valium 5 mg p.o. nightly p.r.n. 7. Aricept 5 mg one tablet p.o. nightly. 8. Proscar 5 mg one tablet p.o. daily. 9. Advair 250/50 mcg one puff p.o. twice daily. 10. Gabapentin 300 mg one tablet p.o. three times daily. 11. NovoLog sliding scale. 12. Levemir 40 units subcutaneously every morning and 20 units subcutaneously nightly. 13. DuoNeb p.r.n. 14. Ativan 0.5 mg q.4 h. p.r.n. 15. Singulair 10 mg one tablet p.o. daily. 16. Starlix 60 mg p.o. three times daily. 17. Nitroglycerin 0.4 mg sublingual p.r.n. 18. Omeprazole 40 mg p.o. daily. 19. Zofran 4 mg p.o. q.6 h. p.r.n. 20. Protonix 20 mg p.o. daily. 21. Risperdal 1 mg p.o. nightly. 22. Flomax 0.4 mg one tablet p.o. nightly. 23. Depakote 125 mg p.o. q.12 h. ALLERGIES: To aspirin and heparin. SOCIAL HISTORY: The patient is a resident of [facility]. The patient was previously a heavy smoker, however, quit a few months ago. The patient denies alcohol use. REVIEW OF SYSTEMS: Unable to assess, secondary to the patient's mental status. PHYSICAL EXAMINATION: VITAL SIGNS: Temperature 98.7 degrees, respirations 24, pulse 103, and blood pressure 106/69. GENERAL: The patient is thin-appearing male, in no apparent distress. HEENT: Eyes, pupils equal and responsive to light and accommodation. Extraocular movements are intact. NECK: Supple without lymphadenopathy. CHEST: Lungs are clear to auscultation bilaterally without wheezes or rales. CARDIOVASCULAR: Regular rhythm and rate. S1 and S2 are normal without murmurs, rubs, or gallops. ABDOMEN: Soft, nontender, and nondistended. Positive bowel sounds. No evidence of hepatosplenomegaly. Currently, no rebound or guarding noted. RECTAL: Refused. GENITALIA: Refused. EXTREMITIES: Negative for clubbing, cyanosis, or edema. NEUROLOGIC: Cranial nerves II through XII are grossly intact without focal deficits. LABORATORY STUDIES: WBC 11.9, hemoglobin 12.9, hematocrit 42.5, and platelets 180,000. Sodium 149, potassium 4.3, chloride 114, CO2 26, BUN 31, creatinine 1.3, and glucose decreased to 53. BNP elevated at 8111. Troponin elevated at 0.793. Liver function tests, mildly elevated with an alkaline phosphatase of 160, ALT of 82, and AST of 70. ASSESSMENT: This is an 82-year-old male with: 1. Hypoglycemia. 2. History of diabetes type 2. 3. History of colon cancer with metastasis to the lymph nodes. 4. Alzheimer dementia. 5. Hydronephrosis of the right kidney. 6. Hypercholesteremia. 7. Benign prostatic hypertrophy. TREATMENT: 1. Hypoglycemia. An Endocrinology consultation will be obtained with Dr. Arellano. The patient has been started on intravenous fluids. We will follow recommendations of Dr. Arellano. Continue Levemir and NovoLog sliding scale. 2. Colon cancer with metastasis to the lymph nodes. The patient has been previously evaluated by surgery, Dr. Hernández. The patient is not a surgical candidate at this time. We will follow recommendations of General Surgery. 3. Alzheimer dementia. Continue Aricept as above. 4. Hypercholesterolemia. Continue Pravachol as above. 5. Benign prostatic hypertrophy. Continue Flomax as above. Bruce Hester M.D. DR: Sandip JOB#: [id number] CC:
[2017-10-16] VITALS: BP 97/64
[2017-10-16 04:00] VITALS: BP 112/73
[2017-10-16 08:00] VITALS: BP 113/68
[2017-10-16 12:00] VITALS: BP 94/56
--- NOTE | 2017-10-16 12:12 | Pulmonology Progress Note ---
Assessment/Plan Problems: (1) Acute encephalopathy (2) NSTEMI (non-ST elevated myocardial infarction) (3) Severe malnutrition (4) Diabetes (5) Alzheimer's dementia (6) Carcinomatosis Assessment/Plan iv fluids start diet check electrolytes Nephrology evaluation Subjective ROS Limited/Unobtainable: No Interval Events: comfortable Allergies: Coded Allergies: ASPIRIN (Unverified Allergy, Severe, Rash, 05/20/16) HEPARIN (Verified Allergy, Unknown, 12/24/16) Objective Last 24 Hour Vital Signs Date Time Temp Pulse Resp B/P (MAP) Pulse Ox O2 Delivery O2 Flow Rate FiO2 10/16/17 12:00 98.0 85 20 94/56 98 Nasal Cannula 2.0 10/16/17 11:50 89 10/16/17 08:00 84 10/16/17 08:00 98.1 92 19 113/68 95 Nasal Cannula 2.0 10/16/17 04:00 96 10/16/17 04:00 98.1 98 18 112/73 98 Nasal Cannula 3.0 10/16/17 00:00 99 10/16/17 00:00 97.0 100 16 97/64 98 Nasal Cannula 3.0 10/15/17 20:00 98.0 97 20 92/53 97 Nasal Cannula 3.0 10/15/17 20:00 93 10/15/17 16:00 97.7 94 14 78/49 95 Nasal Cannula 2.0 10/15/17 16:00 95.4 94 14 97/61 95 Nasal Cannula 2.0 10/15/17 16:00 89 10/15/17 13:10 96.6 95 12 92/59 97 Nasal Cannula 2.0 Intake and Output 10/16/17 10/17/17 19:00 07:00 Intake Total 225 ml Balance 225 ml Intake IV Total 225 ml General Appearance: cachetic HEENT: normocephalic, atraumatic Respiratory/Chest: chest wall non-tender, lungs clear Cardiovascular: normal peripheral pulses, normal rate Extremities: no clubbing Skin: no lesions Neurologic/Psychiatric: manager icu II-XII grossly normal Lymphatic: no neck adenopathy Microbiology Date/Time Source Procedure Growth Status 10/14/17 20:45 Blood Blood Culture - Preliminary NO GROWTH AFTER 24 HOURS Resulted 10/14/17 20:30 Blood Blood Culture - Preliminary NO GROWTH AFTER 24 HOURS Resulted 10/14/17 23:33 Nasal Nares MRSA Culture - Final NO METHICILLIN RESISTANT STAPH AUREUS... Complete 10/15/17 14:20 Stool Clostridium difficile Toxin Assay - Final Complete Current Medications Medications (Trade) Dose Ordered Sig/Eric Route PRN Reason Start Time Stop Time Status Last Admin Dose Admin Dextrose/Sodium Chloride 1,000 ml @ 75 mls/hr [id number] IV 10/15/17 15:45 11/14/17 15:44 10/15/17 22:01 BLUE HUNTLEY Oct 16, 2017 12:12
[2017-10-16] MEDS: NovoLOG Insulin Flexpen SUBQ SCH ×3 (13:30→20:02)
--- NOTE | 2017-10-16 14:36 | GI Initial Consult Note ---
MainKaterin Garcia N.P. 10/16/17 1436: History of Present Illness General Date patient seen: Oct 16, 2017 Time patient seen: 14:31 Reason for Hospitalization: Abnormal Labs Referring physician: JANESSA WASHBURN Reason for Consultation: Abdominal pain / Abnormal labs Present Illness HPI Patient sent in for hypoglycemia. Patient obtunded and unable to answer questions. Meds include insulin. Paramedics unable to start IV - glucagon given in field. Was to go into Hospice tomorrow. POLST is full code. GI consulted for r/o SBO. HPI as noted above. Pt a recent admission approximately one month ago to r/o SBO. 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 This may also involve the terminal ileum. High-grade small bowel obstruction, level of obstruction at the terminal ileum, presumably secondary to the above. Evidence of peritoneal and mesenteric carcinomatosis. Multiple liver lesions, suspicious for metastases Ascites, likely secondary to the above. 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 Pt seen on floor, awake A&Ox4 NAD with no active s/sx of N/V/D. Unaware that he was obtunded. C/o of abdominal pain. Discharged 10/08 with these diagnoses: 1. High-grade small bowel obstruction, resolved. 2. Abdominal pain secondary to small bowel obstruction and malignancy. 3. Bladder cancer , status post resection. 4. Carcinomatosis. 5. 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 6. Alzheimer dementia. 7. COPD. 8. Diabetes. 9. Hypertension. 10. Encephalopathy. 11. Severe protein-calorie malnutrition. Home Meds Active Scripts Calcium Carbonate (Oyster Shell Calcium-Vit D Tab) 500 Mg Tab, 500 MG GT TID, # 30 TAB Prov:NATHALIE MOTTA M.D. 10/07/14 Tamsulosin Hcl (TAMSULOSIN HCL*) 0.4 Mg Cap.er.24h, 0.4 MG ORAL BEDTIME for 30 Days, CAP Prov:NATHALIE MOTTA M.D. 10/07/14 Insulin Detemir (LEVEMIR) 100 Unit/1 Ml Vial, 40 UNITS SUBQ BEFORE BREAKFAST, # 30 VIAL Prov:NATHALIE MOTTA M.D. 10/07/14 Finasteride* (PROSCAR*) 5 Mg Tablet, 5 MG ORAL DAILY, #30 TAB 0 Refills Prov:NATHALIE MOTTA M.D. 10/07/14 Reported Medications Nateglinide* (STARLIX*) 60 Mg Tablet, 60 MG ORAL THREE TIMES A DAY, TAB 10/14/17 Omeprazole (OMEPRAZOLE) 40 Mg Capsule.dr, 40 MG ORAL DAILY, CAP 10/14/17 Fluticasone/Vilanterol (Breo Ellipta 100-25 Mcg INH) 1 Each Blst.w.dev, 1 EACH IH, EACH 10/03/17 Pantoprazole (PANTOPRAZOLE) 20 Mg Tablet.dr, 40 MG ORAL DAILY, #10 TAB 0 Refills 09/14/17 Nateglinide* (STARLIX*) 60 Mg Tablet, 60 MG ORAL THREE TIMES A DAY, TAB 03/04/17 Donepezil Hcl* (DONEPEZIL HCL*) 5 Mg Tablet, 5 MG ORAL QHS, TAB 03/04/17 Clonidine Hcl* (CATAPRES*) 0.1 Mg Tablet, 0.1 MG ORAL EVERY 4 HOURS Y for For High Blood Pressure, TAB 03/04/17 Valproic Acid (VALPROIC ACID) 250 Mg Capsule, 125 MG PO Q12HR, CAP 03/04/17 Temazepam (TEMAZEPAM*) 15 Mg Capsule, 15 MG ORAL BEDTIME Y for Per rx protocol, #30 CAP 0 Refills 03/04/17 Risperidone* (RISPERDAL*) 1 Mg Tablet, 1 MG PO QHS, TAB 03/04/17 Nitroglycerin (NITROGLYCERIN) 0.4 Mg Tab.subl, 0.4 MG SL, TAB 03/04/17 Ipratropium/Albuterol Sulfate (DuoNeb 0.5-3(2.5)mg/3ml) 3 Ml Ampul.neb, 3 ML HHN Q4HR Y for Shortness of Breath, EA 03/04/17 Acetaminophen (Tylenol) 325 Mg Tablet, 650 MG ORAL Q4HR Y for Fever/Headache/ Mild Pain, #30 TAB 0 Refills 12/28/16 Al Hydroxide/mg Hydroxide (Mag-Al Plus Suspension) 30 Ml Oral.susp, 30 ML PO Q4HR Y for Constipation, ML 12/28/16 Zolpidem Tartrate* (AMBIEN*) 5 Mg Tablet, 5 MG ORAL BEDTIME Y for Insomnia, TAB 12/28/16 Polyethylene Glycol 3350* (MIRALAX*) 17 Gm Powd.pack, 17 GM ORAL DAILY Y for Constipation, PACKET 12/28/16 Ondansetron (Zofran) 4 Mg Tablet, 4 MG ORAL Q6H Y for Nausea & Vomiting, TAB 12/28/16 Lorazepam* (ATIVAN*) 0.5 Mg Tablet, 0.5 MG ORAL Q4HR Y for For Anxiety, TAB 12/28/16 Insulin Aspart* (NOVOLOG*) 100 Unit/1 Ml Insuln.pen, 8 SUBQ BEFORE MEALS, #1 EA 0 Refills 12/28/16 Insulin Aspart (NOVOLOG) 100 Unit/1 Ml Vial, SQ AC+HS 12/28/16 Insulin Detemir (LEVEMIR) 100 Unit/1 Ml Vial, 20 SUBQ DAILY, VIAL 12/28/16 Atorvastatin Calcium* (LIPITOR*) 10 Mg Tablet, 10 MG ORAL BEDTIME, TAB 12/28/16 Tamsulosin Hcl (TAMSULOSIN HCL*) 0.4 Mg Cap.er.24h, 0.4 MG ORAL BEDTIME, CAP 05/20/16 Montelukast Sodium* (SINGULAIR*) 10 Mg Tablet, 10 MG ORAL DAILY, TAB 05/20/16 Acetaminophen With Codeine (T#3) (TYLENOL #3 TAB*) Y Tab, 1 TAB ORAL Q6HR Y for For Pain, TAB 05/20/16 Diazepam* (DIAZEPAM*) 10 Mg Tablet, 5 MG ORAL HS, TAB 0 Refills 09/20/15 Fluticasone/Salmeterol (Advair 250-50 Diskus) 1 Puffs Puffs, 1 PUFF INH DAILY Y for Shortness of Breath, EA 02/21/14 Montelukast Sodium* (SINGULAIR*) 10 Mg Tablet, 10 MG ORAL DAILY, TAB 02/21/14 Gabapentin* (GABAPENTIN*) 300 Mg Capsule, 300 MG ORAL THREE TIMES A DAY, CAP 0 Refills 02/21/14 Pravastatin Sod* (PRAVASTATIN SOD*) 20 Mg Tablet, 10 MG ORAL BEDTIME, TAB 02/21/14 Med list reviewed/reconciled: Yes Allergies: Coded Allergies: ASPIRIN (Unverified Allergy, Severe, Rash, 05/20/16) HEPARIN (Verified Allergy, Unknown, 12/24/16) Patient History Limited by: medical condition History Provided By: Medical Record PMH Narrative Limited by: medical condition Past Medical History: see triage record, old chart reviewed Social History Narrative SNF - born in [place] Reviewed Nursing Documentation: PMH: Agreed, PSxH: Agreed Nursing Documentation-PMH Hx Hypertension: Yes - hypocalemia, PVD, hydronephrosis Hx Asthma: Yes Hx COPD: Yes Hx Diabetes: Yes - muscle wasting and atrophy, unsteady gait Hx Cerebrovascular Accident: No Hx Dementia: Yes Hx Alzheimer's Disease: Yes Hx Seizures: No Hx Memory Loss: Yes Hx Dizziness: Yes Hx Syncope: Yes Hx Weakness: Yes Review of Systems All Other Systems: limited Physical Exam Vital Signs Date Time Temp Pulse Resp B/P (MAP) Pulse Ox O2 Delivery O2 Flow Rate FiO2 10/14/17 20:17 98.1 105 22 95/58 96 Room Air 10/14/17 20:55 2.0 Sp02 EP Interpretation: reviewed, normal General Appearance: no apparent distress, alert Head: normocephalic EENT: PERRL/EOMI, normal ENT inspection Neck: supple Respiratory: normal breath sounds, no respiratory distress Cardiovascular: normal rate Gastrointestinal: normal inspection, non tender, soft, normal bowel sounds, non -distended Rectal: deferred Genitourinary: deferred Musculoskeletal: normal inspection, back normal Neurologic: alert, oriented x3, responsive Psychiatric: normal inspection, judgement/insight normal, memory normal Skin: normal inspection, normal color, no rash, warm/dry, palpation normal, well hydrated Lymphatic: normal inspection, no adenopathy Current Medications Current Medications Medications (Trade) Dose Ordered Sig/Eric Route PRN Reason Start Time Stop Time Status Last Admin Dose Admin Dextrose (Dextrose 50%) STAT PRN IV Hypoglycemia 10/16/17 13:00 11/15/17 12:59 Donepezil HCl (Aricept) 5 mg QHS ORAL 10/16/17 21:00 11/15/17 20:59 Finasteride (Proscar) 5 mg DAILY ORAL 10/17/17 09:00 11/16/17 08:59 Gabapentin (Neurontin) 300 mg THREE TIMES A DAY ORAL 10/16/17 13:30 11/15/17 13:29 10/16/17 13:37 Insulin Aspart (NovoLOG) BEFORE MEALS AND HS SUBQ 10/16/17 13:30 11/15/17 13:29 10/16/17 13:30 Risperidone (RisperDAL) 1 mg QHS ORAL 10/16/17 21:00 11/15/17 20:59 Tamsulosin HCl (Flomax) 0.4 mg BEDTIME ORAL 10/16/17 21:00 11/15/17 20:59 Valproic Acid (Depakene) 125 mg Q12HR ORAL 10/16/17 21:00 11/15/17 20:59 GI: Plan Problems: (1) Severe malnutrition (2) Acute encephalopathy (3) Diabetes (4) Alzheimer's dementia (5) Carcinomatosis (6) Diabetes mellitus (7) Colon cancer metastasized to mesenteric lymph nodes (8) Nausea & vomiting Plan supportive care at this time. pt now DNR/DNI recommend hospice care non operative management regular diet, tolerating bowel decompression prn pain mgmt serial monitoring repeat imaging prn abx fleets mineral prn fu labs Discussed with Dr. Roberts. Thank you for this patient referral, we will follow. JOSE ROBERTS 10/17/17 0903: History of Present Illness General Reason for Hospitalization: Abnormal Labs Present Illness Home Meds Active Scripts Calcium Carbonate (Oyster Shell Calcium-Vit D Tab) 500 Mg Tab, 500 MG GT TID, # 30 TAB Prov:NATHALIE MOTTA M.D. 10/07/14 Tamsulosin Hcl (TAMSULOSIN HCL*) 0.4 Mg Cap.er.24h, 0.4 MG ORAL BEDTIME for 30 Days, CAP Prov:NATHALIE MOTTA M.D. 10/07/14 Insulin Detemir (LEVEMIR) 100 Unit/1 Ml Vial, 40 UNITS SUBQ BEFORE BREAKFAST, # 30 VIAL Prov:NATHALIE MOTTA M.D. 10/07/14 Finasteride* (PROSCAR*) 5 Mg Tablet, 5 MG ORAL DAILY, #30 TAB 0 Refills Prov:NATHALIE MOTTA M.D. 10/07/14 Reported Medications Nateglinide* (STARLIX*) 60 Mg Tablet, 60 MG ORAL THREE TIMES A DAY, TAB 10/14/17 Omeprazole (OMEPRAZOLE) 40 Mg Capsule., 40 MG ORAL DAILY, CAP 10/14/17 Fluticasone/Vilanterol (Breo Ellipta 100-25 Mcg INH) 1 Each Blst.w.dev, 1 EACH IH, EACH 10/03/17 Pantoprazole (PANTOPRAZOLE) 20 Mg Tablet.dr, 40 MG ORAL DAILY, #10 TAB 0 Refills 09/14/17 Nateglinide* (STARLIX*) 60 Mg Tablet, 60 MG ORAL THREE TIMES A DAY, TAB 03/04/17 Donepezil Hcl* (DONEPEZIL HCL*) 5 Mg Tablet, 5 MG ORAL QHS, TAB 03/04/17 Clonidine Hcl* (CATAPRES*) 0.1 Mg Tablet, 0.1 MG ORAL EVERY 4 HOURS Y for For High Blood Pressure, TAB 03/04/17 Valproic Acid (VALPROIC ACID) 250 Mg Capsule, 125 MG PO Q12HR, CAP 03/04/17 Temazepam (TEMAZEPAM*) 15 Mg Capsule, 15 MG ORAL BEDTIME Y for Per rx protocol, #30 CAP 0 Refills 03/04/17 Risperidone* (RISPERDAL*) 1 Mg Tablet, 1 MG PO QHS, TAB 03/04/17 Nitroglycerin (NITROGLYCERIN) 0.4 Mg Tab.subl, 0.4 MG SL, TAB 03/04/17 Ipratropium/Albuterol Sulfate (DuoNeb 0.5-3(2.5)mg/3ml) 3 Ml Ampul.neb, 3 ML HHN Q4HR Y for Shortness of Breath, EA 03/04/17 Acetaminophen (Tylenol) 325 Mg Tablet, 650 MG ORAL Q4HR Y for Fever/Headache/ Mild Pain, #30 TAB 0 Refills 12/28/16 Al Hydroxide/mg Hydroxide (Mag-Al Plus Suspension) 30 Ml Oral.susp, 30 ML PO Q4HR Y for Constipation, ML 12/28/16 Zolpidem Tartrate* (AMBIEN*) 5 Mg Tablet, 5 MG ORAL BEDTIME Y for Insomnia, TAB 12/28/16 Polyethylene Glycol 3350* (MIRALAX*) 17 Gm Powd.pack, 17 GM ORAL DAILY Y for Constipation, PACKET 12/28/16 Ondansetron (Zofran) 4 Mg Tablet, 4 MG ORAL Q6H Y for Nausea & Vomiting, TAB 12/28/16 Lorazepam* (ATIVAN*) 0.5 Mg Tablet, 0.5 MG ORAL Q4HR Y for For Anxiety, TAB 12/28/16 Insulin Aspart* (NOVOLOG*) 100 Unit/1 Ml Insuln.pen, 8 SUBQ BEFORE MEALS, #1 EA 0 Refills 12/28/16 Insulin Aspart (NOVOLOG) 100 Unit/1 Ml Vial, SQ AC+HS 12/28/16 Insulin Detemir (LEVEMIR) 100 Unit/1 Ml Vial, 20 SUBQ DAILY, VIAL 12/28/16 Atorvastatin Calcium* (LIPITOR*) 10 Mg Tablet, 10 MG ORAL BEDTIME, TAB 12/28/16 Tamsulosin Hcl (TAMSULOSIN HCL*) 0.4 Mg Cap.er.24h, 0.4 MG ORAL BEDTIME, CAP 05/20/16 Montelukast Sodium* (SINGULAIR*) 10 Mg Tablet, 10 MG ORAL DAILY, TAB 05/20/16 Acetaminophen With Codeine (T#3) (TYLENOL #3 TAB*) Y Tab, 1 TAB ORAL Q6HR Y for For Pain, TAB 05/20/16 Diazepam* (DIAZEPAM*) 10 Mg Tablet, 5 MG ORAL HS, TAB 0 Refills 09/20/15 Fluticasone/Salmeterol (Advair 250-50 Diskus) 1 Puffs Puffs, 1 PUFF INH DAILY Y for Shortness of Breath, EA 02/21/14 Montelukast Sodium* (SINGULAIR*) 10 Mg Tablet, 10 MG ORAL DAILY, TAB 02/21/14 Gabapentin* (GABAPENTIN*) 300 Mg Capsule, 300 MG ORAL THREE TIMES A DAY, CAP 0 Refills 02/21/14 Pravastatin Sod* (PRAVASTATIN SOD*) 20 Mg Tablet, 10 MG ORAL BEDTIME, TAB 02/21/14 Allergies: Coded Allergies: ASPIRIN (Unverified Allergy, Severe, Rash, 05/20/16) HEPARIN (Verified Allergy, Unknown, 12/24/16) GI: Plan Plan The patient was seen and examined at bedside and all new and available data was reviewed in the patients chart. I agree with the above findings, impression and plan. (Patient seen earlier today. Signature stamp does not reflect patient encounter time.). - MD Etelvina Camp[facility] Jose N.PEd Oct 16, 2017 14:36 JOSE ROBERTS Oct 17, 2017 09:03
--- NOTE | 2017-10-16 15:33 | Consultation ---
History of Present Illness General Date patient seen: Oct 16, 2017 Chief Complaint: Abnormal Labs Referring physician: JANESSA WASHBURN Reason for Consultation: Abdominal pain / Abnormal labs Present Illness HPI 82 year old male who is well known to me. I first met him on 09/11/17 when I was consulted for SBO. He has metastatic bladder cancer with multiple tumor implants in abdomen and carcinomatosis. Metastatic bladder cancer diagnosed in 2013 after cystoscopy for hematuria. He has had multiple episodes of SBO prior which fortunately resolved with bowel rest and NG tube decompression. He was recently admitted with with SBO which resolved soon after. He tolerated diet, improved, and was discharged only a few days ago. He now returns with abdominal pain, abnormal labs, lethargy, and altered status. Surgery called to evaluate. Allergies: Coded Allergies: ASPIRIN (Unverified Allergy, Severe, Rash, 05/20/16) HEPARIN (Verified Allergy, Unknown, 12/24/16) Medication History Scheduled Atorvastatin Calcium* (Lipitor*), 10 MG ORAL BEDTIME, (Reported) Calcium Carbonate (Oyster Shell Calcium-Vit D Tab), 500 MG GT TID Diazepam* (Diazepam*), 5 MG ORAL HS, (Reported) Donepezil Hcl* (Donepezil Hcl*), 5 MG ORAL QHS, (Reported) Finasteride* (Proscar*), 5 MG ORAL DAILY Gabapentin* (Gabapentin*), 300 MG ORAL THREE TIMES A DAY, (Reported) Insulin Aspart (Novolog), SQ AC+HS, (Reported) Insulin Aspart* (Novolog*), 8 SUBQ BEFORE MEALS, (Reported) Insulin Detemir (Levemir), 40 UNITS SUBQ BEFORE BREAKFAST Insulin Detemir (Levemir), 20 SUBQ DAILY, (Reported) Montelukast Sodium* (Singulair*), 10 MG ORAL DAILY, (Reported) Montelukast Sodium* (Singulair*), 10 MG ORAL DAILY, (Reported) Nateglinide* (Starlix*), 60 MG ORAL THREE TIMES A DAY, (Reported) Nateglinide* (Starlix*), 60 MG ORAL THREE TIMES A DAY, (Reported) Omeprazole (Omeprazole), 40 MG ORAL DAILY, (Reported) Pantoprazole (Pantoprazole), 40 MG ORAL DAILY, (Reported) Pravastatin Sod* (Pravastatin Sod*), 10 MG ORAL BEDTIME, (Reported) Risperidone* (Risperdal*), 1 MG PO QHS, (Reported) Tamsulosin Hcl (Tamsulosin Hcl*), 0.4 MG ORAL BEDTIME Tamsulosin Hcl (Tamsulosin Hcl*), 0.4 MG ORAL BEDTIME, (Reported) Valproic Acid (Valproic Acid), 125 MG PO Q12HR, (Reported) Scheduled PRN Acetaminophen (Tylenol), 650 MG ORAL Q4HR PRN for Fever/Headache/Mild Pain, ( Reported) Acetaminophen With Codeine (T#3) (Tylenol #3 Tab*), 1 TAB ORAL Q6HR PRN for For Pain, (Reported) Al Hydroxide/mg Hydroxide (Mag-Al Plus Suspension), 30 ML PO Q4HR PRN for Constipation, (Reported) Clonidine Hcl* (Catapres*), 0.1 MG ORAL EVERY 4 HOURS PRN for For High Blood Pressure, (Reported) Fluticasone/Salmeterol (Advair 250-50 Diskus), 1 PUFF INH DAILY PRN for Shortness of Breath, (Reported) Ipratropium/Albuterol Sulfate (DuoNeb 0.5-3(2.5)mg/3ml), 3 ML HHN Q4HR PRN for Shortness of Breath, (Reported) Lorazepam* (Ativan*), 0.5 MG ORAL Q4HR PRN for For Anxiety, (Reported) Ondansetron (Zofran), 4 MG ORAL Q6H PRN for Nausea & Vomiting, (Reported) Polyethylene Glycol 3350* (Miralax*), 17 GM ORAL DAILY PRN for Constipation, ( Reported) Temazepam (Temazepam*), 15 MG ORAL BEDTIME PRN for Per rx protocol, (Reported) Zolpidem Tartrate* (Ambien*), 5 MG ORAL BEDTIME PRN for Insomnia, (Reported) Miscellaneous Medications Fluticasone/Vilanterol (Breo Ellipta 100-25 Mcg INH), 1 EACH IH, (Reported) Nitroglycerin (Nitroglycerin), 0.4 MG SL, (Reported) Patient History Limited by: medical condition History Provided By: Patient, Medical Record Healthcare decision maker Resuscitation status Advanced Directive on File Past Medical/Surgical History Past Medical/Surgical History: (1) Small bowel obstruction (2) Abdominal pain (3) Bladder tumor (4) Acute cystitis (5) BPH (benign prostatic hypertrophy) (6) Hematuria (7) Hematuria (8) Dizziness (9) Cellulitis (10) Hypercholesteremia (11) Psychosis (12) Encephalopathy (13) UTI (urinary tract infection) (14) Altered mental status (15) Hypertension (16) ARF (acute renal failure) (17) ARF (acute renal failure) (18) ARF (acute renal failure) (19) Diabetes mellitus type II, uncontrolled (20) COPD exacerbation (21) Diabetes with ulcer of heel (22) Hydronephrosis of right kidney (23) Chest wall contusion (24) Injury of lower extremity (25) Colon cancer metastasized to mesenteric lymph nodes (26) 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 Physical Exam General Appearance: no apparent distress, lethargic Lines, tubes and drains: peripheral HEENT: normocephalic, PERRL Neck: normal inspection Respiratory/Chest: normal breath sounds, no respiratory distress, no accessory muscle use Cardiovascular/Chest: normal peripheral pulses Abdomen: soft, mass, other - soft, distended, no rebound, no guarding, no tendneress. Extremities: normal inspection Neurologic: alert, responsive Last 24 Hour Vital Signs Date Time Temp Pulse Resp B/P (MAP) Pulse Ox O2 Delivery O2 Flow Rate FiO2 10/16/17 12:00 98.0 85 20 94/56 98 Nasal Cannula 2.0 10/16/17 11:50 89 10/16/17 08:00 84 10/16/17 08:00 98.1 92 19 113/68 95 Nasal Cannula 2.0 10/16/17 04:00 96 10/16/17 04:00 98.1 98 18 112/73 98 Nasal Cannula 3.0 10/16/17 00:00 99 10/16/17 00:00 97.0 100 16 97/64 98 Nasal Cannula 3.0 10/15/17 20:00 98.0 97 20 92/53 97 Nasal Cannula 3.0 10/15/17 20:00 93 10/15/17 16:00 97.7 94 14 78/49 95 Nasal Cannula 2.0 10/15/17 16:00 95.4 94 14 97/61 95 Nasal Cannula 2.0 10/15/17 16:00 89 Intake and Output 10/16/17 10/17/17 19:00 07:00 Intake Total 225 ml Balance 225 ml Intake IV Total 225 ml Height (Feet): 5 Height (Inches): 8.00 Weight (Pounds): 135 Medications Current Medications Medications (Trade) Dose Ordered Sig/Eric Route PRN Reason Start Time Stop Time Status Last Admin Dose Admin Dextrose (Dextrose 50%) STAT PRN IV Hypoglycemia 10/16/17 13:00 11/15/17 12:59 Donepezil HCl (Aricept) 5 mg QHS ORAL 10/16/17 21:00 11/15/17 20:59 Finasteride (Proscar) 5 mg DAILY ORAL 10/17/17 09:00 11/16/17 08:59 Gabapentin (Neurontin) 300 mg THREE TIMES A DAY ORAL 10/16/17 13:30 11/15/17 13:29 10/16/17 13:37 Insulin Aspart (NovoLOG) BEFORE MEALS AND HS SUBQ 10/16/17 13:30 11/15/17 13:29 10/16/17 13:30 Risperidone (RisperDAL) 1 mg QHS ORAL 10/16/17 21:00 11/15/17 20:59 Tamsulosin HCl (Flomax) 0.4 mg BEDTIME ORAL 10/16/17 21:00 11/15/17 20:59 Valproic Acid (Depakene) 125 mg Q12HR ORAL 10/16/17 21:00 11/15/17 20:59 Assessment/Plan Problem List: (1) Abdominal pain Assessment & Plan: 82M with complicated history and prior SBO's now has abdominal pain which is resolved. stable. no acute surgical intervention necessary at this time. -okay for diet as tolerated. will continue to follow with serial exams and to monitor for change in status. unfortunately his prognosis is very poor with such advance cancer but will keep him as comfortable as possible thank you for this consult. will follow with recs. ICD Codes: R10.9 - Unspecified abdominal pain SNOMED: [id number] Status: stable GermainJuan montalvo Oct 16, 2017 15:32
[2017-10-16] MEDS ORDERED: D5 1/2NS 1,000 ML IV SCH (15:45)
[2017-10-16 16:00] VITALS: BP 104/57
--- NOTE | 2017-10-16 19:03 | Internal Med Progress Note ---
Subjective Date of Service: Oct 16, 2017 Physician Name Tammy Sage Attending Physician Arian Givens MD Current Medications Medications (Trade) Dose Ordered Sig/Eric Route PRN Reason Start Time Stop Time Status Last Admin Dose Admin Dextrose (Dextrose 50%) STAT PRN IV Hypoglycemia 10/16/17 13:00 11/15/17 12:59 Donepezil HCl (Aricept) 5 mg QHS ORAL 10/16/17 21:00 11/15/17 20:59 Finasteride (Proscar) 5 mg DAILY ORAL 10/17/17 09:00 11/16/17 08:59 Gabapentin (Neurontin) 300 mg THREE TIMES A DAY ORAL 10/16/17 13:30 11/15/17 13:29 10/16/17 17:22 Insulin Aspart (NovoLOG) BEFORE MEALS AND HS SUBQ 10/16/17 13:30 11/15/17 13:29 10/16/17 16:29 Risperidone (RisperDAL) 1 mg QHS ORAL 10/16/17 21:00 11/15/17 20:59 Tamsulosin HCl (Flomax) 0.4 mg BEDTIME ORAL 10/16/17 21:00 11/15/17 20:59 Valproic Acid (Depakene) 125 mg Q12HR ORAL 10/16/17 21:00 11/15/17 20:59 Allergies: Coded Allergies: ASPIRIN (Unverified Allergy, Severe, Rash, 05/20/16) HEPARIN (Verified Allergy, Unknown, 12/24/16) ROS Limited/Unobtainable: Yes Subjective 82 YO M admitted with hypoglycemia. CRISTINA. Cover for Int Med-Dr Givesn. Objective Last Vital Signs Date Time Temp Pulse Resp B/P (MAP) Pulse Ox O2 Delivery O2 Flow Rate FiO2 10/16/17 16:00 85 10/16/17 16:00 98.0 20 104/57 95 Nasal Cannula 2.0 General Appearance: mild distress, lethargic, thin EENT: PERRL/EOMI, normal ENT inspection Neck: non-tender, normal alignment, supple, normal inspection Cardiovascular: normal peripheral pulses, normal rate, regular rhythm, no gallop/murmur, no JVD Respiratory/Chest: chest wall non-tender, lungs clear, normal breath sounds, no respiratory distress, no accessory muscle use Abdomen: normal bowel sounds, non tender, soft, no organomegaly, no mass Extremities: normal inspection 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 Complete 10/15/17 14:20 Stool Clostridium difficile Toxin Assay - Final Complete Intake and Output 10/16/17 10/17/17 19:00 07:00 Intake Total 375 ml Output Total 350 ml Balance 25 ml Intake IV Total 375 ml Output Urine Total 350 ml Assessment/Plan Problem List: (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 (2) Hypoglycemia (3) Diabetes mellitus type II, uncontrolled Assessment & Plan: Accucheck 130's-140's. Continue novolog sliding scale. (4) Alzheimer's dementia Assessment & Plan: Continue aricept (5) Hypercholesteremia (6) BPH (benign prostatic hypertrophy) Assessment & Plan: Continue flomax and proscar. Status: progressing TAMMY SAGE Oct 16, 2017 19:03
[2017-10-16 20:00] VITALS: BP 107/64
[2017-10-16] MEDS: Donepezil 5mg Tab ORAL SCH (20:00)
[2017-10-16] MEDS: Valproic Acid 250mg/5ml Liquid ORAL SCH (20:00)
[2017-10-16] MEDS: Tamsulosin 0.4mg cap ORAL SCH (20:00)
--- NOTE | 2017-10-16 23:03 | General Progress Note ---
Assessment/Plan Status: stable Assessment/Plan encephalopathy low dose of antipsychotics Subjective Date patient seen: Oct 16, 2017 Allergies: Coded Allergies: ASPIRIN (Unverified Allergy, Severe, Rash, 05/20/16) HEPARIN (Verified Allergy, Unknown, 12/24/16) Objective Last 24 Hour Vital Signs Date Time Temp Pulse Resp B/P (MAP) Pulse Ox O2 Delivery O2 Flow Rate FiO2 10/16/17 20:00 87 10/16/17 16:00 85 10/16/17 16:00 98.0 88 20 104/57 95 Nasal Cannula 2.0 10/16/17 12:00 98.0 85 20 94/56 98 Nasal Cannula 2.0 10/16/17 11:50 89 10/16/17 08:00 84 10/16/17 08:00 98.1 92 19 113/68 95 Nasal Cannula 2.0 10/16/17 04:00 96 10/16/17 04:00 98.1 98 18 112/73 98 Nasal Cannula 3.0 10/16/17 00:00 99 10/16/17 00:00 97.0 100 16 97/64 98 Nasal Cannula 3.0 Intake and Output 10/16/17 10/17/17 19:00 07:00 Intake Total 375 ml Output Total 350 ml Balance 25 ml Intake IV Total 375 ml Output Urine Total 350 ml Height (Feet): 5 Height (Inches): 8.00 Weight (Pounds): 135 General Appearance: no apparent distress, alert, confused Neurologic: alert, unresponsive, depressed affect Shantel Le M.D. Oct 16, 2017 23:03
[2017-10-17] VITALS: BP 105/63
[2017-10-17 04:00] VITALS: BP 105/66
[2017-10-17] MEDS: NovoLOG Insulin Flexpen SUBQ SCH ×4 (05:30→20:24)
[2017-10-17 05:47] LABS: BASOPHILS % (AUTO) 0.5 % (0.0-2.0); EOSINOPHILS % (AUTO) 0.5 % (0.0-3.0); LYMPHOCYTES % (AUTO) 21.5 % (20.0-45.0); MEAN CORPUSCULAR HEMOGLOBIN 30.9 PG (27.0-31.0); MEAN CORPUSCULAR HGB CONC 31.3 G/DL (32.0-36.0); MEAN CORPUSCULAR VOLUME 99 FL (80-99); MEAN PLATELET VOLUME 6.6 FL (6.5-10.1); MONOCYTES % (AUTO) 6.3 % (1.0-10.0); NEUTROPHILS % (AUTO) 71.3 % (45.0-75.0); PLATELET COUNT 159 K/UL (150-450); RED BLOOD COUNT 3.44 M/UL (4.70-6.10); RED CELL DISTRIBUTION WIDTH 15.2 % (11.6-14.8); WHITE BLOOD COUNT 7.1 K/UL (4.8-10.8)
[2017-10-17 06:17] LABS: ALANINE AMINOTRANSFERASE 44 U/L (12-78); ALBUMIN/GLOBULIN RATIO 0.3 (1.0-2.7); ANION GAP 7 mmol/L (5-15); ASPARTATE AMINO TRANSFERASE 41 U/L (15-37); CALCIUM 7.5 MG/DL (8.5-10.1); CARBON DIOXIDE 25 MMOL/L (21-32); CHLORIDE 115 MMOL/L (98-107); POTASSIUM 4.2 MMOL/L (3.5-5.1); SODIUM 146 MMOL/L (136-145); TOTAL PROTEIN 6.7 G/DL (6.4-8.2)
[2017-10-17 08:00] VITALS: BP 95/56
[2017-10-17] MEDS: Valproic Acid 250mg/5ml Liquid ORAL SCH ×2 (08:23→20:17)
--- NOTE | 2017-10-17 10:34 | GI Progress Note ---
Assessment/Plan Problems: (1) Abdominal pain ICD Codes: R10.9 - Unspecified abdominal pain SNOMED: 76571642 (2) Altered mental status ICD Codes: R41.82 - Altered mental status, unspecified SNOMED: 059340107 (3) Psychosis ICD Codes: F29 - Unspecified psychosis not due to a substance or known physiological condition SNOMED: 50074317 (4) Nausea & vomiting ICD Codes: R11.2 - Nausea with vomiting, unspecified SNOMED: 99508549 (5) Severe malnutrition ICD Codes: E43 - Unspecified severe protein-calorie malnutrition SNOMED: 57118994 (6) Diabetes mellitus ICD Codes: E11.9 - Type 2 diabetes mellitus without complications SNOMED: 08186852 (7) Alzheimer's dementia ICD Codes: G30.9 - Alzheimer's disease, unspecified SNOMED: 17200769 (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 Clark. Assessment/Plan supportive care at this time. pt now DNR/DNI recommend hospice care non operative management regular diet, tolerating pain mgmt serial monitoring repeat imaging prn abx fleets mineral prn fu labs The patient was seen and examined at bedside and all new and available data was reviewed in the patients chart. I agree with the above findings, impression and plan. (Patient seen earlier today. Signature stamp does not reflect patient encounter time.). - Iqra Clark MD Subjective Subjective agitated Objective Last 24 Hour Vital Signs Date Time Temp Pulse Resp B/P (MAP) Pulse Ox O2 Delivery O2 Flow Rate FiO2 10/17/17 08:00 65 10/17/17 08:00 97.9 93 18 95/56 97 Nasal Cannula 2.0 10/17/17 04:00 94 10/17/17 04:00 98.1 90 24 105/66 96 Nasal Cannula 2.0 10/17/17 00:00 98.6 87 20 105/63 97 Nasal Cannula 2.0 10/17/17 00:00 85 10/16/17 20:00 98.5 86 18 107/64 97 Nasal Cannula 2.0 10/16/17 20:00 87 10/16/17 16:00 85 10/16/17 16:00 98.0 88 20 104/57 95 Nasal Cannula 2.0 10/16/17 12:00 98.0 85 20 94/56 98 Nasal Cannula 2.0 10/16/17 11:50 89 Laboratory Tests Test 10/17/17 04:15 White Blood Count 7.1 K/UL (4.8-10.8) Red Blood Count 3.44 M/UL (4.70-6.10) L Hemoglobin 10.7 G/DL (14.2-18.0) L Hematocrit 34.1 % (42.0-52.0) L Mean Corpuscular Volume 99 FL (80-99) Mean Corpuscular Hemoglobin 30.9 PG (27.0-31.0) Mean Corpuscular Hemoglobin Concent 31.3 G/DL (32.0-36.0) L Red Cell Distribution Width 15.2 % (11.6-14.8) H Platelet Count 159 K/UL (150-450) Mean Platelet Volume 6.6 FL (6.5-10.1) Neutrophils (%) (Auto) 71.3 % (45.0-75.0) Lymphocytes (%) (Auto) 21.5 % (20.0-45.0) Monocytes (%) (Auto) 6.3 % (1.0-10.0) Eosinophils (%) (Auto) 0.5 % (0.0-3.0) Basophils (%) (Auto) 0.5 % (0.0-2.0) Sodium Level 146 MMOL/L (136-145) H Potassium Level 4.2 MMOL/L (3.5-5.1) Chloride Level 115 MMOL/L (98-107) H Carbon Dioxide Level 25 MMOL/L (21-32) Anion Gap 7 mmol/L (5-15) Blood Urea Nitrogen 20 mg/dL (7-18) H Creatinine 1.0 MG/DL (0.55-1.30) Estimat Glomerular Filtration Rate mL/min (>60) Glucose Level 81 MG/DL (74-106) Calcium Level 7.5 MG/DL (8.5-10.1) L Total Bilirubin 0.4 MG/DL (0.2-1.0) Aspartate Amino Transf (AST/SGOT) 41 U/L (15-37) H Alanine Aminotransferase (ALT/SGPT) 44 U/L (12-78) Alkaline Phosphatase 138 U/L (46-116) H Total Protein 6.7 G/DL (6.4-8.2) Albumin 1.6 G/DL (3.4-5.0) L Globulin 5.1 g/dL Albumin/Globulin Ratio 0.3 (1.0-2.7) L Height (Feet): 5 Height (Inches): 8.00 Weight (Pounds): 135 General Appearance: WD/WN, no apparent distress, alert, other - agitated Cardiovascular: normal rate Respiratory/Chest: normal breath sounds, no respiratory distress Abdominal Exam: normal bowel sounds, non tender, soft Extremities: normal range of motion, non-tender Katerin Main N.P. Oct 17, 2017 10:34 JOSE CLARK Oct 19, 2017 08:37
--- NOTE | 2017-10-17 11:43 | Pulmonology Progress Note ---
Assessment/Plan Problems: (1) Acute encephalopathy (2) NSTEMI (non-ST elevated myocardial infarction) (3) Severe malnutrition (4) Diabetes (5) Alzheimer's dementia (6) Carcinomatosis Assessment/Plan iv fluids start diet check electrolytes eating, pureed diabetic diet Subjective ROS Limited/Unobtainable: No Constitutional: Reports: no symptoms HEENT: Repors: no symptoms Allergies: Coded Allergies: ASPIRIN (Unverified Allergy, Severe, Rash, 05/20/16) HEPARIN (Verified Allergy, Unknown, 12/24/16) Objective Last 24 Hour Vital Signs Date Time Temp Pulse Resp B/P (MAP) Pulse Ox O2 Delivery O2 Flow Rate FiO2 10/17/17 08:00 65 10/17/17 08:00 97.9 93 18 95/56 97 Nasal Cannula 2.0 10/17/17 04:00 94 10/17/17 04:00 98.1 90 24 105/66 96 Nasal Cannula 2.0 10/17/17 00:00 98.6 87 20 105/63 97 Nasal Cannula 2.0 10/17/17 00:00 85 10/16/17 20:00 98.5 86 18 107/64 97 Nasal Cannula 2.0 10/16/17 20:00 87 10/16/17 16:00 85 10/16/17 16:00 98.0 88 20 104/57 95 Nasal Cannula 2.0 10/16/17 12:00 98.0 85 20 94/56 98 Nasal Cannula 2.0 10/16/17 11:50 89 General Appearance: WD/WN HEENT: normocephalic, atraumatic Respiratory/Chest: chest wall non-tender, lungs clear Cardiovascular: normal peripheral pulses, normal rate Abdomen: soft, non tender Extremities: no clubbing Skin: no lesions Microbiology Date/Time Source Procedure Growth Status 10/14/17 20:45 Blood Blood Culture - Preliminary NO GROWTH AFTER 48 HOURS Resulted 10/14/17 20:30 Blood Blood Culture - Preliminary NO GROWTH AFTER 48 HOURS Resulted 10/14/17 23:33 Nasal Nares MRSA Culture - Final NO METHICILLIN RESISTANT STAPH AUREUS... Complete 10/15/17 14:20 Stool Clostridium difficile Toxin Assay - Final Complete 10/14/17 23:33 Rectum VRE Culture - Final NO VANCOMYCIN RESISTANT ENTEROCOCCUS ... Complete Laboratory Tests 10/17/17 04:15: White Blood Count 7.1, Red Blood Count 3.44L, Hemoglobin 10.7L, Hematocrit 34.1L , Mean Corpuscular Volume 99, Mean Corpuscular Hemoglobin 30.9, Mean Corpuscular Hemoglobin Concent 31.3L, Red Cell Distribution Width 15.2H, Platelet Count 159, Mean Platelet Volume 6.6, Neutrophils (%) (Auto) 71.3, Lymphocytes (%) (Auto) 21.5, Monocytes (%) (Auto) 6.3, Eosinophils (%) (Auto) 0.5, Basophils (%) (Auto) 0.5, Sodium Level 146H, Potassium Level 4.2, Chloride Level 115H, Carbon Dioxide Level 25, Anion Gap 7, Blood Urea Nitrogen 20H, Creatinine 1.0, Estimat Glomerular Filtration Rate , Glucose Level 81, Calcium Level 7.5L, Total Bilirubin 0.4, Aspartate Amino Transf (AST/SGOT) 41H, Alanine Aminotransferase (ALT/SGPT) 44, Alkaline Phosphatase 138H, Total Protein 6.7, Albumin 1.6L, Globulin 5.1, Albumin/Globulin Ratio 0.3L Current Medications Medications (Trade) Dose Ordered Sig/Eric Route PRN Reason Start Time Stop Time Status Last Admin Dose Admin Dextrose (Dextrose 50%) STAT PRN IV Hypoglycemia 10/16/17 13:00 11/15/17 12:59 Donepezil HCl (Aricept) 5 mg QHS ORAL 10/16/17 21:00 11/15/17 20:59 10/16/17 20:00 Finasteride (Proscar) 5 mg DAILY ORAL 10/17/17 09:00 11/16/17 08:59 10/17/17 08:23 Gabapentin (Neurontin) 300 mg THREE TIMES A DAY ORAL 10/16/17 13:30 11/15/17 13:29 10/17/17 08:23 Insulin Aspart (NovoLOG) BEFORE MEALS AND HS SUBQ 10/16/17 13:30 11/15/17 13:29 10/16/17 20:02 Risperidone (RisperDAL) 1 mg QHS ORAL 10/16/17 21:00 11/15/17 20:59 10/16/17 20:00 Tamsulosin HCl (Flomax) 0.4 mg BEDTIME ORAL 10/16/17 21:00 11/15/17 20:59 10/16/17 20:00 Valproic Acid (Depakene) 125 mg Q12HR ORAL 10/16/17 21:00 11/15/17 20:59 10/17/17 08:23 BLUE HUNTLEY Oct 17, 2017 11:43
[2017-10-17 12:00] VITALS: BP 101/56
--- NOTE | 2017-10-17 12:37 | General Surgery Progress Note ---
General Surgery-Progress Note Subjective Symptoms: improved Additional Comments doing well. more wake today and responsive. does not recall who I am during this visit as he use to prior. no n/v/f/c. tolerating diet. +flatus Objective Last 24 Hour Vital Signs Date Time Temp Pulse Resp B/P (MAP) Pulse Ox O2 Delivery O2 Flow Rate FiO2 10/17/17 08:00 65 10/17/17 08:00 97.9 93 18 95/56 97 Nasal Cannula 2.0 10/17/17 04:00 94 10/17/17 04:00 98.1 90 24 105/66 96 Nasal Cannula 2.0 10/17/17 00:00 98.6 87 20 105/63 97 Nasal Cannula 2.0 10/17/17 00:00 85 10/16/17 20:00 98.5 86 18 107/64 97 Nasal Cannula 2.0 10/16/17 20:00 87 10/16/17 16:00 85 10/16/17 16:00 98.0 88 20 104/57 95 Nasal Cannula 2.0 Cardiovascular: RSR Respiratory: clear Abdomen: soft, distended, non-tender, present bowel sounds Extremities: no tenderness Laboratory Tests Test 10/17/17 04:15 White Blood Count 7.1 K/UL (4.8-10.8) Red Blood Count 3.44 M/UL (4.70-6.10) L Hemoglobin 10.7 G/DL (14.2-18.0) L Hematocrit 34.1 % (42.0-52.0) L Mean Corpuscular Volume 99 FL (80-99) Mean Corpuscular Hemoglobin 30.9 PG (27.0-31.0) Mean Corpuscular Hemoglobin Concent 31.3 G/DL (32.0-36.0) L Red Cell Distribution Width 15.2 % (11.6-14.8) H Platelet Count 159 K/UL (150-450) Mean Platelet Volume 6.6 FL (6.5-10.1) Neutrophils (%) (Auto) 71.3 % (45.0-75.0) Lymphocytes (%) (Auto) 21.5 % (20.0-45.0) Monocytes (%) (Auto) 6.3 % (1.0-10.0) Eosinophils (%) (Auto) 0.5 % (0.0-3.0) Basophils (%) (Auto) 0.5 % (0.0-2.0) Sodium Level 146 MMOL/L (136-145) H Potassium Level 4.2 MMOL/L (3.5-5.1) Chloride Level 115 MMOL/L (98-107) H Carbon Dioxide Level 25 MMOL/L (21-32) Anion Gap 7 mmol/L (5-15) Blood Urea Nitrogen 20 mg/dL (7-18) H Creatinine 1.0 MG/DL (0.55-1.30) Estimat Glomerular Filtration Rate mL/min (>60) Glucose Level 81 MG/DL (74-106) Calcium Level 7.5 MG/DL (8.5-10.1) L Total Bilirubin 0.4 MG/DL (0.2-1.0) Aspartate Amino Transf (AST/SGOT) 41 U/L (15-37) H Alanine Aminotransferase (ALT/SGPT) 44 U/L (12-78) Alkaline Phosphatase 138 U/L (46-116) H Total Protein 6.7 G/DL (6.4-8.2) Albumin 1.6 G/DL (3.4-5.0) L Globulin 5.1 g/dL Albumin/Globulin Ratio 0.3 (1.0-2.7) L Plan Problems: (1) Abdominal pain Assessment & Plan: 82M with complicated history and prior SBO's now has abdominal pain which is resolved. stable. no acute surgical intervention necessary at this time. -okay for diet as tolerated. will continue to follow with serial exams and to monitor for change in status. unfortunately his prognosis is very poor with such advance cancer but will keep him as comfortable as possible thank you for this consult. will follow with recs. Juan Hernández Oct 17, 2017 12:37
[2017-10-17 16:00] VITALS: BP 115/67
--- NOTE | 2017-10-17 16:49 | Diagnostic Imaging Report ---
Indications: Reason For Exam: DYSPHAGIA Technique: Patient ingested multiple substances under the supervision of speech pathology. Video fluoroscopic recording performed. Total fluoroscopy time 299 seconds. Total dose area product [id number]: none Findings: With ingestion of thin liquid barium, early pooling in the vallecula and piriform sinuses. Speech pathologist reports audible cough although there is a laceration not demonstrated. There are repeated episodes of laryngeal penetration visualized. Some delayed pooling in the vallecula and piriform sinuses also demonstrated. With nectar thick liquid barium, there is equivocal trace laryngeal penetration, no josefina aspiration. There is some delay in initiation of dictation and early pooling in the vallecula. Honey thick liquid barium and barium puree demonstrate delay in initiation of dictation. No aspiration or penetration Impression: Reported audible aspiration with thin liquid barium No evidence of penetration of thin liquid barium. Other findings as noted Please refer to speech pathology report for more detailed analysis.
[2017-10-17 20:00] VITALS: BP 106/96
--- NOTE | 2017-10-17 20:00 | Internal Med Progress Note ---
Subjective Date of Service: Oct 17, 2017 Physician Name Tammy Sage Attending Physician Arian Givens MD Current Medications Medications (Trade) Dose Ordered Sig/Eric Route PRN Reason Start Time Stop Time Status Last Admin Dose Admin Dextrose (Dextrose 50%) STAT PRN IV Hypoglycemia 10/16/17 13:00 11/15/17 12:59 Donepezil HCl (Aricept) 5 mg QHS ORAL 10/16/17 21:00 11/15/17 20:59 10/16/17 20:00 Finasteride (Proscar) 5 mg DAILY ORAL 10/17/17 09:00 11/16/17 08:59 10/17/17 08:23 Gabapentin (Neurontin) 300 mg THREE TIMES A DAY ORAL 10/16/17 13:30 11/15/17 13:29 10/17/17 17:11 Insulin Aspart (NovoLOG) BEFORE MEALS AND HS SUBQ 10/16/17 13:30 11/15/17 13:29 10/17/17 11:57 Risperidone (RisperDAL) 1 mg Q6H PRN ORAL Agitation 10/17/17 18:00 11/16/17 17:59 Risperidone (RisperDAL) 1 mg QHS ORAL 10/16/17 21:00 11/15/17 20:59 10/16/17 20:00 Tamsulosin HCl (Flomax) 0.4 mg BEDTIME ORAL 10/16/17 21:00 11/15/17 20:59 10/16/17 20:00 Valproic Acid (Depakene) 125 mg Q12HR ORAL 10/16/17 21:00 11/15/17 20:59 10/17/17 08:23 Allergies: Coded Allergies: ASPIRIN (Unverified Allergy, Severe, Rash, 05/20/16) HEPARIN (Verified Allergy, Unknown, 12/24/16) ROS Limited/Unobtainable: Yes Subjective 82 YO M admitted with hypoglycemia. CRISTINA. Cover for Int Med-Dr Givens. Objective Last Vital Signs Date Time Temp Pulse Resp B/P (MAP) Pulse Ox O2 Delivery O2 Flow Rate FiO2 10/17/17 16:00 97.7 88 20 115/67 92 Nasal Cannula 2.0 Laboratory Tests Test 10/17/17 04:15 White Blood Count 7.1 K/UL (4.8-10.8) Red Blood Count 3.44 M/UL (4.70-6.10) L Hemoglobin 10.7 G/DL (14.2-18.0) L Hematocrit 34.1 % (42.0-52.0) L Mean Corpuscular Volume 99 FL (80-99) Mean Corpuscular Hemoglobin 30.9 PG (27.0-31.0) Mean Corpuscular Hemoglobin Concent 31.3 G/DL (32.0-36.0) L Red Cell Distribution Width 15.2 % (11.6-14.8) H Platelet Count 159 K/UL (150-450) Mean Platelet Volume 6.6 FL (6.5-10.1) Neutrophils (%) (Auto) 71.3 % (45.0-75.0) Lymphocytes (%) (Auto) 21.5 % (20.0-45.0) Monocytes (%) (Auto) 6.3 % (1.0-10.0) Eosinophils (%) (Auto) 0.5 % (0.0-3.0) Basophils (%) (Auto) 0.5 % (0.0-2.0) Sodium Level 146 MMOL/L (136-145) H Potassium Level 4.2 MMOL/L (3.5-5.1) Chloride Level 115 MMOL/L (98-107) H Carbon Dioxide Level 25 MMOL/L (21-32) Anion Gap 7 mmol/L (5-15) Blood Urea Nitrogen 20 mg/dL (7-18) H Creatinine 1.0 MG/DL (0.55-1.30) Estimat Glomerular Filtration Rate mL/min (>60) Glucose Level 81 MG/DL (74-106) Calcium Level 7.5 MG/DL (8.5-10.1) L Total Bilirubin 0.4 MG/DL (0.2-1.0) Aspartate Amino Transf (AST/SGOT) 41 U/L (15-37) H Alanine Aminotransferase (ALT/SGPT) 44 U/L (12-78) Alkaline Phosphatase 138 U/L (46-116) H Total Protein 6.7 G/DL (6.4-8.2) Albumin 1.6 G/DL (3.4-5.0) L Globulin 5.1 g/dL Albumin/Globulin Ratio 0.3 (1.0-2.7) L Microbiology Date/Time Source Procedure Growth Status 10/14/17 20:45 Blood Blood Culture - Preliminary NO GROWTH AFTER 48 HOURS Resulted 10/14/17 20:30 Blood Blood Culture - Preliminary NO GROWTH AFTER 48 HOURS Resulted 10/14/17 23:33 Nasal Nares MRSA Culture - Final NO METHICILLIN RESISTANT STAPH AUREUS... Complete 10/15/17 14:20 Stool Clostridium difficile Toxin Assay - Final Complete 10/14/17 23:33 Rectum VRE Culture - Final NO VANCOMYCIN RESISTANT ENTEROCOCCUS ... 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 (2) Hypoglycemia (3) Diabetes mellitus type II, uncontrolled Assessment & Plan: Accucheck 130's-140's. Continue novolog sliding scale. (4) Alzheimer's dementia Assessment & Plan: Continue aricept (5) Hypercholesteremia (6) BPH (benign prostatic hypertrophy) Assessment & Plan: Continue flomax and proscar. Status: not improved TAMMY SAGE Oct 17, 2017 20:00
[2017-10-17] MEDS: Donepezil 5mg Tab ORAL SCH (20:17)
[2017-10-17] MEDS: Tamsulosin 0.4mg cap ORAL SCH (20:18)
--- NOTE | 2017-10-17 21:15 | Progress Note ---
DATE: 10/17/2017 SUBJECTIVE: The patient is more alert, however, easily agitated, confused, and unable to be engaged during the evaluation. The patient continues to be combative and is difficult to manage. The patient is easily agitated. MENTAL STATUS EXAMINATION: The patient is confused, however, alert. Mood is irritable and anxious. Affect is constricted. Congruent with mood. Thought process is concrete. Thought content is delusional. Insight and judgment non-existent. Cognition is impaired. ASSESSMENT: Encephalopathy and agitation. PLAN: We will continue the risperidone 1 mg at bedtime. We will start the patient on risperidone 1 mg q.6 hours p.r.n. for agitation. Shantel Le M.D. DR: YURI JOB#: [id number] CC:
[2017-10-18] VITALS: BP 105/67
[2017-10-18 04:00] VITALS: BP 101/66
[2017-10-18 05:55] LABS: CRP QUANT 6.5 mg/dL (0.00-0.90); MAGNESIUM 1.9 MG/DL (1.8-2.4); PHOSPHORUS 2.8 MG/DL (2.5-4.9)
[2017-10-18 06:03] LABS: BASOPHILS % (AUTO) 0.5 % (0.0-2.0); EOSINOPHILS % (AUTO) 0.3 % (0.0-3.0); LYMPHOCYTES % (AUTO) 25.2 % (20.0-45.0); MEAN CORPUSCULAR HEMOGLOBIN 31.7 PG (27.0-31.0); MEAN CORPUSCULAR HGB CONC 32.8 G/DL (32.0-36.0); MEAN CORPUSCULAR VOLUME 97 FL (80-99); MEAN PLATELET VOLUME 6.9 FL (6.5-10.1); MONOCYTES % (AUTO) 6.9 % (1.0-10.0); NEUTROPHILS % (AUTO) 67.2 % (45.0-75.0); PLATELET COUNT 169 K/UL (150-450); RED BLOOD COUNT 3.17 M/UL (4.70-6.10); RED CELL DISTRIBUTION WIDTH 14.9 % (11.6-14.8); WHITE BLOOD COUNT 7.3 K/UL (4.8-10.8)
[2017-10-18 06:19] LABS: ALANINE AMINOTRANSFERASE 46 U/L (12-78); ALBUMIN/GLOBULIN RATIO 0.3 (1.0-2.7); ANION GAP 6 mmol/L (5-15); ASPARTATE AMINO TRANSFERASE 51 U/L (15-37); CALCIUM 7.8 MG/DL (8.5-10.1); CARBON DIOXIDE 27 MMOL/L (21-32); CHLORIDE 113 MMOL/L (98-107); CREATININE 1.1 MG/DL (0.55-1.30); POTASSIUM 4.6 MMOL/L (3.5-5.1); SODIUM 146 MMOL/L (136-145); TOTAL PROTEIN 6.8 G/DL (6.4-8.2)
[2017-10-18] MEDS: NovoLOG Insulin Flexpen SUBQ SCH ×5 (06:21→21:05)
[2017-10-18 08:00] VITALS: BP 95/58
[2017-10-18] MEDS: Valproic Acid 250mg/5ml Liquid ORAL SCH ×2 (08:15→21:03)
--- NOTE | 2017-10-18 10:52 | Pulmonology Progress Note ---
Assessment/Plan Problems: (1) Abdominal distention (2) Acute encephalopathy (3) NSTEMI (non-ST elevated myocardial infarction) (4) Severe malnutrition (5) Diabetes (6) Alzheimer's dementia (7) Carcinomatosis Assessment/Plan get KUB iv fluids start diet check electrolytes eating, pureed diabetic diet pt needs comfort and end of life care at this point Subjective ROS Limited/Unobtainable: No Constitutional: Reports: no symptoms HEENT: Repors: no symptoms Respiratory: Reports: no symptoms Allergies: Coded Allergies: ASPIRIN (Unverified Allergy, Severe, Rash, 05/20/16) HEPARIN (Verified Allergy, Unknown, 12/24/16) Objective Last 24 Hour Vital Signs Date Time Temp Pulse Resp B/P (MAP) Pulse Ox O2 Delivery O2 Flow Rate FiO2 10/18/17 08:00 97 10/18/17 08:00 97.5 99 18 95/58 94 Nasal Cannula 2.0 10/18/17 04:05 21 95 Room Air 10/18/17 04:00 99 10/18/17 04:00 98.2 100 22 101/66 95 Nasal Cannula 10/18/17 00:00 98 10/18/17 00:00 97.9 93 22 105/67 98 Nasal Cannula 2.0 10/17/17 20:00 89 10/17/17 20:00 98.4 93 22 106/96 98 Nasal Cannula 2.0 10/17/17 16:00 97.7 88 20 115/67 92 Nasal Cannula 2.0 10/17/17 16:00 95 10/17/17 12:00 97.5 98 20 101/56 88 Room Air 10/17/17 12:00 85 General Appearance: WD/WN HEENT: normocephalic, atraumatic Respiratory/Chest: chest wall non-tender, lungs clear Cardiovascular: normal peripheral pulses Abdomen: distended Extremities: no cyanosis Skin: no rash Neurologic/Psychiatric: retirement officer II-XII grossly normal, abnormal gait Microbiology Date/Time Source Procedure Growth Status 10/15/17 14:20 Stool Clostridium difficile Toxin Assay - Final Complete Laboratory Tests 10/18/17 04:00: White Blood Count 7.3, Red Blood Count 3.17L, Hemoglobin 10.1L, Hematocrit 30.7L , Mean Corpuscular Volume 97, Mean Corpuscular Hemoglobin 31.7H, Mean Corpuscular Hemoglobin Concent 32.8, Red Cell Distribution Width 14.9H, Platelet Count 169, Mean Platelet Volume 6.9, Neutrophils (%) (Auto) 67.2, Lymphocytes (%) (Auto) 25.2, Monocytes (%) (Auto) 6.9, Eosinophils (%) (Auto) 0.3, Basophils (%) (Auto) 0.5, Erythrocyte Sedimentation Rate 58H, Sodium Level 146H, Potassium Level 4.6, Chloride Level 113H, Carbon Dioxide Level 27, Anion Gap 6, Blood Urea Nitrogen 22H, Creatinine 1.1, Estimat Glomerular Filtration Rate , Glucose Level 106, Calcium Level 7.8L, Phosphorus Level 2.8, Magnesium Level 1.9, Total Bilirubin 0.4, Aspartate Amino Transf (AST/SGOT) 51H, Alanine Aminotransferase (ALT/SGPT) 46, Alkaline Phosphatase 156H, C-Reactive Protein, Quantitative 6.5H, Total Protein 6.8, Albumin 1.6L, Globulin 5.2, Albumin/ Globulin Ratio 0.3L, Amylase Level 16L, Lipase 38L Current Medications Medications (Trade) Dose Ordered Sig/Eric Route PRN Reason Start Time Stop Time Status Last Admin Dose Admin Dextrose (Dextrose 50%) STAT PRN IV Hypoglycemia 10/16/17 13:00 11/15/17 12:59 Donepezil HCl (Aricept) 5 mg QHS ORAL 10/16/17 21:00 11/15/17 20:59 10/17/17 20:17 Finasteride (Proscar) 5 mg DAILY ORAL 10/17/17 09:00 11/16/17 08:59 10/18/17 08:15 Gabapentin (Neurontin) 300 mg THREE TIMES A DAY ORAL 10/16/17 13:30 11/15/17 13:29 10/18/17 08:15 Insulin Aspart (NovoLOG) BEFORE MEALS AND HS SUBQ 10/16/17 13:30 11/15/17 13:29 10/17/17 11:57 Risperidone (RisperDAL) 1 mg Q6H PRN ORAL Agitation 10/17/17 18:00 11/16/17 17:59 Risperidone (RisperDAL) 1 mg QHS ORAL 10/16/17 21:00 11/15/17 20:59 12/13/17 20:17 Tamsulosin HCl (Flomax) 0.4 mg BEDTIME ORAL 10/16/17 21:00 11/15/17 20:59 10/17/17 20:18 Valproic Acid (Depakene) 125 mg Q12HR ORAL 10/16/17 21:00 11/15/17 20:59 10/18/17 08:15 BLUE HUNTLEY Oct 18, 2017 10:52
--- NOTE | 2017-10-18 11:32 | GI Progress Note ---
Assessment/Plan Problems: (1) Abdominal pain ICD Codes: R10.9 - Unspecified abdominal pain SNOMED: 19093566 (2) Altered mental status ICD Codes: R41.82 - Altered mental status, unspecified SNOMED: 543718258 (3) Psychosis ICD Codes: F29 - Unspecified psychosis not due to a substance or known physiological condition SNOMED: 92691553 (4) Nausea & vomiting ICD Codes: R11.2 - Nausea with vomiting, unspecified SNOMED: 87207384 (5) Severe malnutrition ICD Codes: E43 - Unspecified severe protein-calorie malnutrition SNOMED: 82054735 (6) Diabetes mellitus ICD Codes: E11.9 - Type 2 diabetes mellitus without complications SNOMED: 95927739 (7) Alzheimer's dementia ICD Codes: G30.9 - Alzheimer's disease, unspecified SNOMED: 05183096 (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 Clark. Assessment/Plan supportive care at this time. pt now DNR/DNI recommend hospice care non operative management regular diet, tolerating pain mgmt serial monitoring repeat imaging prn abx fleets mineral prn fu labs The patient was seen and examined at bedside and all new and available data was reviewed in the patients chart. I agree with the above findings, impression and plan. (Patient seen earlier today. Signature stamp does not reflect patient encounter time.). - Iqra Clark MD Subjective Gastrointestinal/Abdominal: Reports: no symptoms Subjective agitated Objective Last 24 Hour Vital Signs Date Time Temp Pulse Resp B/P (MAP) Pulse Ox O2 Delivery O2 Flow Rate FiO2 10/18/17 08:00 97 10/18/17 08:00 97.5 99 18 95/58 94 Nasal Cannula 2.0 10/18/17 04:05 21 95 Room Air 10/18/17 04:00 99 10/18/17 04:00 98.2 100 22 101/66 95 Nasal Cannula 10/18/17 00:00 98 10/18/17 00:00 97.9 93 22 105/67 98 Nasal Cannula 2.0 10/17/17 20:00 89 10/17/17 20:00 98.4 93 22 106/96 98 Nasal Cannula 2.0 10/17/17 16:00 97.7 88 20 115/67 92 Nasal Cannula 2.0 10/17/17 16:00 95 10/17/17 12:00 97.5 98 20 101/56 88 Room Air 10/17/17 12:00 85 Intake and Output 10/18/17 10/19/17 19:00 07:00 Intake Total 100 ml Balance 100 ml Intake Oral 100 ml Laboratory Tests Test 10/18/17 04:00 White Blood Count 7.3 K/UL (4.8-10.8) Red Blood Count 3.17 M/UL (4.70-6.10) L Hemoglobin 10.1 G/DL (14.2-18.0) L Hematocrit 30.7 % (42.0-52.0) L Mean Corpuscular Volume 97 FL (80-99) Mean Corpuscular Hemoglobin 31.7 PG (27.0-31.0) H Mean Corpuscular Hemoglobin Concent 32.8 G/DL (32.0-36.0) Red Cell Distribution Width 14.9 % (11.6-14.8) H Platelet Count 169 K/UL (150-450) Mean Platelet Volume 6.9 FL (6.5-10.1) Neutrophils (%) (Auto) 67.2 % (45.0-75.0) Lymphocytes (%) (Auto) 25.2 % (20.0-45.0) Monocytes (%) (Auto) 6.9 % (1.0-10.0) Eosinophils (%) (Auto) 0.3 % (0.0-3.0) Basophils (%) (Auto) 0.5 % (0.0-2.0) Erythrocyte Sedimentation Rate 58 MM/HR (0-30) H Sodium Level 146 MMOL/L (136-145) H Potassium Level 4.6 MMOL/L (3.5-5.1) Chloride Level 113 MMOL/L (98-107) H Carbon Dioxide Level 27 MMOL/L (21-32) Anion Gap 6 mmol/L (5-15) Blood Urea Nitrogen 22 mg/dL (7-18) H Creatinine 1.1 MG/DL (0.55-1.30) Estimat Glomerular Filtration Rate mL/min (>60) Glucose Level 106 MG/DL (74-106) Calcium Level 7.8 MG/DL (8.5-10.1) L Phosphorus Level 2.8 MG/DL (2.5-4.9) Magnesium Level 1.9 MG/DL (1.8-2.4) Total Bilirubin 0.4 MG/DL (0.2-1.0) Aspartate Amino Transf (AST/SGOT) 51 U/L (15-37) H Alanine Aminotransferase (ALT/SGPT) 46 U/L (12-78) Alkaline Phosphatase 156 U/L (46-116) H C-Reactive Protein, Quantitative 6.5 mg/dL (0.00-0.90) H Total Protein 6.8 G/DL (6.4-8.2) Albumin 1.6 G/DL (3.4-5.0) L Globulin 5.2 g/dL Albumin/Globulin Ratio 0.3 (1.0-2.7) L Amylase Level 16 U/L (25-115) L Lipase 38 U/L (73-393) L Height (Feet): 5 Height (Inches): 8.00 Weight (Pounds): 135 General Appearance: WD/WN, no apparent distress, alert, thin Cardiovascular: normal rate Respiratory/Chest: normal breath sounds, no respiratory distress Abdominal Exam: normal bowel sounds, non tender, soft Extremities: non-tender Katerin Main N.Irving Oct 18, 2017 11:32 JOSE CLARK Oct 19, 2017 08:57
[2017-10-18 12:05] VITALS: BP 95/58
[2017-10-18 16:00] VITALS: BP 114/78
[2017-10-18] MEDS ORDERED: NS 500ML ONE (17:14)
[2017-10-18] MEDS ORDERED: D5 1/2NS 1000ml IV ONE ×2 (17:14→17:21)
--- NOTE | 2017-10-18 18:18 | General Surgery Progress Note ---
General Surgery-Progress Note Subjective Additional Comments doing well. awake and alert today. tolerating diet. unsure if flatus but did have BM. abdomen a bit more distended today. Objective Last 24 Hour Vital Signs Date Time Temp Pulse Resp B/P (MAP) Pulse Ox O2 Delivery O2 Flow Rate FiO2 10/18/17 16:00 108 10/18/17 16:00 97.8 111 18 114/78 95 Nasal Cannula 2.0 10/18/17 12:05 97.8 98 18 95/58 95 Nasal Cannula 2.0 10/18/17 12:00 99 10/18/17 08:00 97 10/18/17 08:00 97.5 99 18 95/58 94 Nasal Cannula 2.0 10/18/17 04:05 21 95 Room Air 10/18/17 04:00 99 10/18/17 04:00 98.2 100 22 101/66 95 Nasal Cannula 10/18/17 00:00 98 10/18/17 00:00 97.9 93 22 105/67 98 Nasal Cannula 2.0 10/17/17 20:00 89 10/17/17 20:00 98.4 93 22 106/96 98 Nasal Cannula 2.0 I&O Intake and Output 10/18/17 10/19/17 19:00 07:00 Intake Total 150 ml Balance 150 ml Intake Oral 150 ml # Bowel Movements 2 Cardiovascular: RSR Respiratory: clear Abdomen: soft, distended, non-tender, present bowel sounds Extremities: no tenderness Laboratory Tests Test 10/18/17 04:00 White Blood Count 7.3 K/UL (4.8-10.8) Red Blood Count 3.17 M/UL (4.70-6.10) L Hemoglobin 10.1 G/DL (14.2-18.0) L Hematocrit 30.7 % (42.0-52.0) L Mean Corpuscular Volume 97 FL (80-99) Mean Corpuscular Hemoglobin 31.7 PG (27.0-31.0) H Mean Corpuscular Hemoglobin Concent 32.8 G/DL (32.0-36.0) Red Cell Distribution Width 14.9 % (11.6-14.8) H Platelet Count 169 K/UL (150-450) Mean Platelet Volume 6.9 FL (6.5-10.1) Neutrophils (%) (Auto) 67.2 % (45.0-75.0) Lymphocytes (%) (Auto) 25.2 % (20.0-45.0) Monocytes (%) (Auto) 6.9 % (1.0-10.0) Eosinophils (%) (Auto) 0.3 % (0.0-3.0) Basophils (%) (Auto) 0.5 % (0.0-2.0) Erythrocyte Sedimentation Rate 58 MM/HR (0-30) H Sodium Level 146 MMOL/L (136-145) H Potassium Level 4.6 MMOL/L (3.5-5.1) Chloride Level 113 MMOL/L (98-107) H Carbon Dioxide Level 27 MMOL/L (21-32) Anion Gap 6 mmol/L (5-15) Blood Urea Nitrogen 22 mg/dL (7-18) H Creatinine 1.1 MG/DL (0.55-1.30) Estimat Glomerular Filtration Rate mL/min (>60) Glucose Level 106 MG/DL (74-106) Calcium Level 7.8 MG/DL (8.5-10.1) L Phosphorus Level 2.8 MG/DL (2.5-4.9) Magnesium Level 1.9 MG/DL (1.8-2.4) Total Bilirubin 0.4 MG/DL (0.2-1.0) Aspartate Amino Transf (AST/SGOT) 51 U/L (15-37) H Alanine Aminotransferase (ALT/SGPT) 46 U/L (12-78) Alkaline Phosphatase 156 U/L (46-116) H C-Reactive Protein, Quantitative 6.5 mg/dL (0.00-0.90) H Total Protein 6.8 G/DL (6.4-8.2) Albumin 1.6 G/DL (3.4-5.0) L Globulin 5.2 g/dL Albumin/Globulin Ratio 0.3 (1.0-2.7) L Amylase Level 16 U/L (25-115) L Lipase 38 U/L (73-393) L Plan Problems: (1) Abdominal pain Assessment & Plan: 82M with complicated history and prior SBO's now has abdominal pain which is resolved. stable. A bit more distended today but tolerating oral diet and had BM's. will get KUB no acute surgical intervention necessary at this time. -okay for diet as tolerated but if becomes more distended, tender, nausea or emesis will need to make NPO will continue to follow with serial exams and to monitor for change in status. unfortunately his prognosis is very poor with such advance cancer but will keep him as comfortable as possible. thank you for this consult. will follow with recs. Juan Hernández Oct 18, 2017 18:18
--- NOTE | 2017-10-18 19:09 | Internal Med Progress Note ---
Subjective Date of Service: Oct 18, 2017 Physician Name Tammy Sage Attending Physician Arian Givens MD Current Medications Medications (Trade) Dose Ordered Sig/Eric Route PRN Reason Start Time Stop Time Status Last Admin Dose Admin Dextrose (Dextrose 50%) STAT PRN IV Hypoglycemia 10/16/17 13:00 11/15/17 12:59 Donepezil HCl (Aricept) 5 mg QHS ORAL 10/16/17 21:00 11/15/17 20:59 10/17/17 20:17 Finasteride (Proscar) 5 mg DAILY ORAL 10/17/17 09:00 11/16/17 08:59 10/18/17 08:15 Gabapentin (Neurontin) 300 mg THREE TIMES A DAY ORAL 10/16/17 13:30 11/15/17 13:29 10/18/17 18:11 Insulin Aspart (NovoLOG) BEFORE MEALS AND HS SUBQ 10/16/17 13:30 11/15/17 13:29 10/18/17 15:43 Risperidone (RisperDAL) 1 mg Q6H PRN ORAL Agitation 10/17/17 18:00 11/16/17 17:59 Risperidone (RisperDAL) 1 mg QHS ORAL 10/16/17 21:00 11/15/17 20:59 10/17/17 20:17 Tamsulosin HCl (Flomax) 0.4 mg BEDTIME ORAL 10/16/17 21:00 11/15/17 20:59 10/17/17 20:18 Valproic Acid (Depakene) 125 mg Q12HR ORAL 10/16/17 21:00 11/15/17 20:59 10/18/17 08:15 Allergies: Coded Allergies: ASPIRIN (Unverified Allergy, Severe, Rash, 05/20/16) HEPARIN (Verified Allergy, Unknown, 12/24/16) ROS Limited/Unobtainable: No Constitutional: Reports: no symptoms HEENT: Reports: no symptoms Cardiovascular: Reports: no symptoms Respiratory: Reports: no symptoms Gastrointestinal/Abdominal: Reports: no symptoms Genitourinary: Reports: no symptoms Neurologic/Psychiatric: Reports: no symptoms Subjective 82 YO M admitted with hypoglycemia. CRISTINA. Cover for Int Jay-Dr Givens. Objective Last Vital Signs Date Time Temp Pulse Resp B/P (MAP) Pulse Ox O2 Delivery O2 Flow Rate FiO2 10/18/17 16:00 108 10/18/17 16:00 97.8 18 114/78 95 Nasal Cannula 2.0 Laboratory Tests Test 10/18/17 04:00 White Blood Count 7.3 K/UL (4.8-10.8) Red Blood Count 3.17 M/UL (4.70-6.10) L Hemoglobin 10.1 G/DL (14.2-18.0) L Hematocrit 30.7 % (42.0-52.0) L Mean Corpuscular Volume 97 FL (80-99) Mean Corpuscular Hemoglobin 31.7 PG (27.0-31.0) H Mean Corpuscular Hemoglobin Concent 32.8 G/DL (32.0-36.0) Red Cell Distribution Width 14.9 % (11.6-14.8) H Platelet Count 169 K/UL (150-450) Mean Platelet Volume 6.9 FL (6.5-10.1) Neutrophils (%) (Auto) 67.2 % (45.0-75.0) Lymphocytes (%) (Auto) 25.2 % (20.0-45.0) Monocytes (%) (Auto) 6.9 % (1.0-10.0) Eosinophils (%) (Auto) 0.3 % (0.0-3.0) Basophils (%) (Auto) 0.5 % (0.0-2.0) Erythrocyte Sedimentation Rate 58 MM/HR (0-30) H Sodium Level 146 MMOL/L (136-145) H Potassium Level 4.6 MMOL/L (3.5-5.1) Chloride Level 113 MMOL/L (98-107) H Carbon Dioxide Level 27 MMOL/L (21-32) Anion Gap 6 mmol/L (5-15) Blood Urea Nitrogen 22 mg/dL (7-18) H Creatinine 1.1 MG/DL (0.55-1.30) Estimat Glomerular Filtration Rate mL/min (>60) Glucose Level 106 MG/DL (74-106) Calcium Level 7.8 MG/DL (8.5-10.1) L Phosphorus Level 2.8 MG/DL (2.5-4.9) Magnesium Level 1.9 MG/DL (1.8-2.4) Total Bilirubin 0.4 MG/DL (0.2-1.0) Aspartate Amino Transf (AST/SGOT) 51 U/L (15-37) H Alanine Aminotransferase (ALT/SGPT) 46 U/L (12-78) Alkaline Phosphatase 156 U/L (46-116) H C-Reactive Protein, Quantitative 6.5 mg/dL (0.00-0.90) H Total Protein 6.8 G/DL (6.4-8.2) Albumin 1.6 G/DL (3.4-5.0) L Globulin 5.2 g/dL Albumin/Globulin Ratio 0.3 (1.0-2.7) L Amylase Level 16 U/L (25-115) L Lipase 38 U/L (73-393) L Intake and Output 10/18/17 10/19/17 19:00 07:00 Intake Total 150 ml Output Total 350 ml Balance -200 ml Intake Oral 150 ml Output Urine Total 350 ml # Voids 1 # Bowel Movements 3 Objective General Appearance: mild distress, lethargic, thin EENT: PERRL/EOMI, normal ENT inspection Neck: non-tender, normal alignment, supple, normal inspection Cardiovascular: normal peripheral pulses, normal rate, regular rhythm, no gallop/murmur, no JVD Respiratory/Chest: chest wall non-tender, lungs clear, normal breath sounds, no respiratory distress, no accessory muscle use Abdomen: normal bowel sounds, non tender, soft, no organomegaly, no mass Extremities: normal inspection 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 (2) Hypoglycemia (3) Diabetes mellitus type II, uncontrolled Assessment & Plan: Accucheck 130's-140's. Continue novolog sliding scale. (4) Alzheimer's dementia Assessment & Plan: Continue aricept (5) Hypercholesteremia (6) BPH (benign prostatic hypertrophy) Assessment & Plan: Continue flomax and proscar. Assessment/Plan Discharge planning: senior care fac TAMMY SAGE Oct 18, 2017 19:09
[2017-10-18 20:00] VITALS: BP 100/65
[2017-10-18] MEDS: Tamsulosin 0.4mg cap ORAL SCH (21:03)
[2017-10-18] MEDS: Donepezil 5mg Tab ORAL SCH (21:03)
[2017-10-19] VITALS (8 sets, daily range): BP systolic 82–100; BP diastolic 46–67
[2017-10-19 06:21] LABS: BASOPHILS % (AUTO) 0.3 % (0.0-2.0); EOSINOPHILS % (AUTO) 0.1 % (0.0-3.0); LYMPHOCYTES % (AUTO) 21.4 % (20.0-45.0); MEAN CORPUSCULAR HEMOGLOBIN 30.8 PG (27.0-31.0); MEAN CORPUSCULAR HGB CONC 31.4 G/DL (32.0-36.0); MEAN CORPUSCULAR VOLUME 98 FL (80-99); MEAN PLATELET VOLUME 6.5 FL (6.5-10.1); MONOCYTES % (AUTO) 5.3 % (1.0-10.0); NEUTROPHILS % (AUTO) 72.9 % (45.0-75.0); PLATELET COUNT 161 K/UL (150-450); RED BLOOD COUNT 3.47 M/UL (4.70-6.10); WHITE BLOOD COUNT 8.7 K/UL (4.8-10.8)
[2017-10-19 06:25] LABS: ALANINE AMINOTRANSFERASE 43 U/L (12-78); ALBUMIN/GLOBULIN RATIO 0.3 (1.0-2.7); ANION GAP 4 mmol/L (5-15); ASPARTATE AMINO TRANSFERASE 43 U/L (15-37); CALCIUM 8.2 MG/DL (8.5-10.1); CARBON DIOXIDE 31 MMOL/L (21-32); CHLORIDE 112 MMOL/L (98-107); CREATININE 1.5 MG/DL (0.55-1.30); PHOSPHORUS 4.5 MG/DL (2.5-4.9); POTASSIUM 4.3 MMOL/L (3.5-5.1); SODIUM 147 MMOL/L (136-145); TOTAL PROTEIN 7.3 G/DL (6.4-8.2)
[2017-10-19] MEDS: NovoLOG Insulin Flexpen SUBQ SCH ×4 (06:34→21:00)
--- NOTE | 2017-10-19 07:40 | Pulmonology Progress Note ---
Assessment/Plan Assessment/Plan ASSESSMENT Acute encephalopathy Elevated troponin possible NSTEMI hypotension ARF-resolved, likely prerenal due to hypovolemia and dehydration Hypoglycemia resolved DM type 2 OOC colon Ca with mets to mesenteric lymph nodes carcinomatosis Severe protein calorie malnutrition Alzheimer dementia multiple DTI POA PLAN OF CARE CRISTINA Serial troponin flat, probably elevation due to ARF, No chest pain, no cardiac complaints IVF, monitor renal parameters, lytes renal parameters down to normal ARF likely due to dehydration and hypovolemia BS management with SS of insulin, optimize as needed O2 HHN prn CXR negative BP remains low after 500 cc bolus, will give additional 1 L NS bolus pain management surgery follows no acute surgical intervention at this time advanced CA with mets GI follows VSSE with evidence of aspiration diet for QOA, start as tolerated with strict aspiration/reflux precautions pain management bowel regimen psych follows, optimized psych med regimen continue Aricept wound care poor prognosis DNR/DNI status recommend comfort end of life care transfer to [facility] floor case discussed and evaluated by supervising physician Subjective Allergies: Coded Allergies: ASPIRIN (Unverified Allergy, Severe, Rash, 05/20/16) HEPARIN (Verified Allergy, Unknown, 12/24/16) Subjective patient lethargic BP low s/p bolus 500 cc NS , BP still low Objective Last 24 Hour Vital Signs Date Time Temp Pulse Resp B/P (MAP) Pulse Ox O2 Delivery O2 Flow Rate FiO2 10/19/17 04:00 117 10/19/17 04:00 97.9 113 20 93/60 100 Nasal Cannula 2.0 10/19/17 00:00 117 10/19/17 00:00 98.5 115 20 100/64 96 Nasal Cannula 2.0 10/18/17 20:00 98.8 115 22 100/65 94 Nasal Cannula 2.0 10/18/17 20:00 113 10/18/17 16:00 108 10/18/17 16:00 97.8 111 18 114/78 95 Nasal Cannula 2.0 10/18/17 12:05 97.8 98 18 95/58 95 Nasal Cannula 2.0 10/18/17 12:00 99 10/18/17 08:00 97 10/18/17 08:00 97.5 99 18 95/58 94 Nasal Cannula 2.0 General Appearance: other - bedridden, letahrgic HEENT: normocephalic, atraumatic, anicteric Respiratory/Chest: lungs clear - with moderate air exchange Cardiovascular: normal peripheral pulses, tachycardia - ST on tele Abdomen: normal bowel sounds Neurologic/Psychiatric: abnormal gait, other - letahrgic Musculoskeletal: atrophy - BLE Laboratory Tests 10/19/17 04:10: White Blood Count 8.7, Red Blood Count 3.47L, Hemoglobin 10.7L, Hematocrit 34.0L , Mean Corpuscular Volume 98, Mean Corpuscular Hemoglobin 30.8, Mean Corpuscular Hemoglobin Concent 31.4L, Red Cell Distribution Width 15.0H, Platelet Count 161, Mean Platelet Volume 6.5, Neutrophils (%) (Auto) 72.9, Lymphocytes (%) (Auto) 21.4, Monocytes (%) (Auto) 5.3, Eosinophils (%) (Auto) 0.1, Basophils (%) (Auto) 0.3, Sodium Level 147H, Potassium Level 4.3, Chloride Level 112H, Carbon Dioxide Level 31, Anion Gap 4L, Blood Urea Nitrogen 33H, Creatinine 1.5H, Estimat Glomerular Filtration Rate , Glucose Level 115H, Calcium Level 8.2L, Phosphorus Level 4.5, Magnesium Level 2.0, Total Bilirubin 0.3, Aspartate Amino Transf (AST/SGOT) 43H, Alanine Aminotransferase (ALT/SGPT) 43, Alkaline Phosphatase 171H, Total Protein 7.3, Albumin 1.7L, Globulin 5.6, Albumin/Globulin Ratio 0.3L Current Medications Medications (Trade) Dose Ordered Sig/Eric Route PRN Reason Start Time Stop Time Status Last Admin Dose Admin Dextrose (Dextrose 50%) STAT PRN IV Hypoglycemia 10/16/17 13:00 11/15/17 12:59 Donepezil HCl (Aricept) 5 mg QHS ORAL 10/16/17 21:00 11/15/17 20:59 10/18/17 21:03 Finasteride (Proscar) 5 mg DAILY ORAL 10/17/17 09:00 11/16/17 08:59 10/18/17 08:15 Gabapentin (Neurontin) 300 mg THREE TIMES A DAY ORAL 10/16/17 13:30 11/15/17 13:29 10/18/17 18:11 Insulin Aspart (NovoLOG) BEFORE MEALS AND HS SUBQ 10/16/17 13:30 11/15/17 13:29 10/19/17 06:34 Risperidone (RisperDAL) 1 mg Q6H PRN ORAL Agitation 10/17/17 18:00 11/16/17 17:59 Risperidone (RisperDAL) 1 mg QHS ORAL 10/16/17 21:00 11/15/17 20:59 10/18/17 21:03 Tamsulosin HCl (Flomax) 0.4 mg BEDTIME ORAL 10/16/17 21:00 11/15/17 20:59 10/18/17 21:03 Valproic Acid (Depakene) 125 mg Q12HR ORAL 10/16/17 21:00 11/15/17 20:59 10/18/17 21:03 [facility]Pl[facility] HospitalDiam[facility] Guerra NP Oct 19, 2017 07:40
--- NOTE | 2017-10-19 09:00 | Progress Note ---
DATE: 10/18/2017 SUBJECTIVE: The patient is calmer, awake, and more responsive today. No behavior issues. MENTAL STATUS EXAMINATION: The patient is alert and more engaged. Mood is neutral. Affect is constricted. Congruent with mood. Thought process is concrete. Thought content, no suicidal or homicidal ideations. ASSESSMENT: Encephalopathy. PLAN: We will continue current medications. Shantel Le M.D. DR: RODOLFO JOB#: [id number] CC:
[2017-10-19] MEDS: Valproic Acid 250mg/5ml Liquid ORAL SCH (09:42)
--- NOTE | 2017-10-19 11:08 | GI Progress Note ---
Assessment/Plan Problems: (1) Abdominal pain ICD Codes: R10.9 - Unspecified abdominal pain SNOMED: 76507065 (2) Altered mental status ICD Codes: R41.82 - Altered mental status, unspecified SNOMED: 900681009 (3) Psychosis ICD Codes: F29 - Unspecified psychosis not due to a substance or known physiological condition SNOMED: 06767072 (4) Nausea & vomiting ICD Codes: R11.2 - Nausea with vomiting, unspecified SNOMED: 27799607 (5) Severe malnutrition ICD Codes: E43 - Unspecified severe protein-calorie malnutrition SNOMED: 27288697 (6) Diabetes mellitus ICD Codes: E11.9 - Type 2 diabetes mellitus without complications SNOMED: 43540059 (7) Alzheimer's dementia ICD Codes: G30.9 - Alzheimer's disease, unspecified SNOMED: 81231364 (8) 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 Clark. Assessment/Plan supportive care at this time >> pt now DNR/DNI, hospice care non operative management regular diet, tolerating pain mgmt serial monitoring repeat imaging prn abx fleets mineral prn fu labs Subjective Subjective limited, calm, resting Objective Last 24 Hour Vital Signs Date Time Temp Pulse Resp B/P (MAP) Pulse Ox O2 Delivery O2 Flow Rate FiO2 10/19/17 08:00 98.2 109 18 99/67 96 Nasal Cannula 2.0 10/19/17 07:35 106 10/19/17 04:00 117 10/19/17 04:00 97.9 113 20 93/60 100 Nasal Cannula 2.0 10/19/17 00:00 117 10/19/17 00:00 98.5 115 20 100/64 96 Nasal Cannula 2.0 10/18/17 20:00 98.8 115 22 100/65 94 Nasal Cannula 2.0 10/18/17 20:00 113 10/18/17 16:00 108 10/18/17 16:00 97.8 111 18 114/78 95 Nasal Cannula 2.0 10/18/17 12:05 97.8 98 18 95/58 95 Nasal Cannula 2.0 10/18/17 12:00 99 Laboratory Tests Test 10/19/17 04:10 White Blood Count 8.7 K/UL (4.8-10.8) Red Blood Count 3.47 M/UL (4.70-6.10) L Hemoglobin 10.7 G/DL (14.2-18.0) L Hematocrit 34.0 % (42.0-52.0) L Mean Corpuscular Volume 98 FL (80-99) Mean Corpuscular Hemoglobin 30.8 PG (27.0-31.0) Mean Corpuscular Hemoglobin Concent 31.4 G/DL (32.0-36.0) L Red Cell Distribution Width 15.0 % (11.6-14.8) H Platelet Count 161 K/UL (150-450) Mean Platelet Volume 6.5 FL (6.5-10.1) Neutrophils (%) (Auto) 72.9 % (45.0-75.0) Lymphocytes (%) (Auto) 21.4 % (20.0-45.0) Monocytes (%) (Auto) 5.3 % (1.0-10.0) Eosinophils (%) (Auto) 0.1 % (0.0-3.0) Basophils (%) (Auto) 0.3 % (0.0-2.0) Sodium Level 147 MMOL/L (136-145) H Potassium Level 4.3 MMOL/L (3.5-5.1) Chloride Level 112 MMOL/L (98-107) H Carbon Dioxide Level 31 MMOL/L (21-32) Anion Gap 4 mmol/L (5-15) L Blood Urea Nitrogen 33 mg/dL (7-18) H Creatinine 1.5 MG/DL (0.55-1.30) H Estimat Glomerular Filtration Rate mL/min (>60) Glucose Level 115 MG/DL (74-106) H Calcium Level 8.2 MG/DL (8.5-10.1) L Phosphorus Level 4.5 MG/DL (2.5-4.9) Magnesium Level 2.0 MG/DL (1.8-2.4) Total Bilirubin 0.3 MG/DL (0.2-1.0) Aspartate Amino Transf (AST/SGOT) 43 U/L (15-37) H Alanine Aminotransferase (ALT/SGPT) 43 U/L (12-78) Alkaline Phosphatase 171 U/L (46-116) H Total Protein 7.3 G/DL (6.4-8.2) Albumin 1.7 G/DL (3.4-5.0) L Globulin 5.6 g/dL Albumin/Globulin Ratio 0.3 (1.0-2.7) L Height (Feet): 5 Height (Inches): 8.00 Weight (Pounds): 135 General Appearance: WD/WN, no apparent distress, alert Cardiovascular: normal rate Respiratory/Chest: normal breath sounds, no respiratory distress Abdominal Exam: normal bowel sounds, non tender, soft Extremities: non-tender Katerin Main N.P. Oct 19, 2017 11:08
--- NOTE | 2017-10-19 11:24 | Diagnostic Imaging Report ---
Indication: Ingested foreign body, abdominal pain Technique: Supine view of the abdomen Comparison: 10/05/2017 Findings: Again demonstrated is diffuse small bowel distention which is slightly increased from the prior study. No radiopaque foreign body demonstrated. A Perez catheter appears to be present. Impression: Negative for foreign body Diffuse small bowel distention. Note that this is been evident as far back as CT scan of 09/11/2017, so may be baseline for this patient. Nonetheless, the possibility of small bowel obstruction or ileus should be considered, particularly as the small bowel appears slightly more distended than on the 10/05/2017 exam
--- NOTE | 2017-10-19 12:42 | General Surgery Progress Note ---
General Surgery-Progress Note Subjective Symptoms: improved Additional Comments resting comfortable. no abd pain. no n/v/f/c. still mildly distended. Objective Last 24 Hour Vital Signs Date Time Temp Pulse Resp B/P (MAP) Pulse Ox O2 Delivery O2 Flow Rate FiO2 10/19/17 11:59 97.5 114 21 99/64 94 Nasal Cannula 2.0 10/19/17 08:00 98.2 109 18 99/67 96 Nasal Cannula 2.0 10/19/17 07:35 106 10/19/17 04:00 117 10/19/17 04:00 97.9 113 20 93/60 100 Nasal Cannula 2.0 10/19/17 00:00 117 10/19/17 00:00 98.5 115 20 100/64 96 Nasal Cannula 2.0 10/18/17 20:00 98.8 115 22 100/65 94 Nasal Cannula 2.0 10/18/17 20:00 113 10/18/17 16:00 108 10/18/17 16:00 97.8 111 18 114/78 95 Nasal Cannula 2.0 I&O Intake and Output 10/19/17 10/20/17 19:00 07:00 Output Total 150 ml Balance -150 ml Output Urine Total 150 ml Cardiovascular: RSR Respiratory: clear Abdomen: soft, distended, present bowel sounds Extremities: no tenderness Laboratory Tests Test 10/19/17 04:10 White Blood Count 8.7 K/UL (4.8-10.8) Red Blood Count 3.47 M/UL (4.70-6.10) L Hemoglobin 10.7 G/DL (14.2-18.0) L Hematocrit 34.0 % (42.0-52.0) L Mean Corpuscular Volume 98 FL (80-99) Mean Corpuscular Hemoglobin 30.8 PG (27.0-31.0) Mean Corpuscular Hemoglobin Concent 31.4 G/DL (32.0-36.0) L Red Cell Distribution Width 15.0 % (11.6-14.8) H Platelet Count 161 K/UL (150-450) Mean Platelet Volume 6.5 FL (6.5-10.1) Neutrophils (%) (Auto) 72.9 % (45.0-75.0) Lymphocytes (%) (Auto) 21.4 % (20.0-45.0) Monocytes (%) (Auto) 5.3 % (1.0-10.0) Eosinophils (%) (Auto) 0.1 % (0.0-3.0) Basophils (%) (Auto) 0.3 % (0.0-2.0) Sodium Level 147 MMOL/L (136-145) H Potassium Level 4.3 MMOL/L (3.5-5.1) Chloride Level 112 MMOL/L (98-107) H Carbon Dioxide Level 31 MMOL/L (21-32) Anion Gap 4 mmol/L (5-15) L Blood Urea Nitrogen 33 mg/dL (7-18) H Creatinine 1.5 MG/DL (0.55-1.30) H Estimat Glomerular Filtration Rate mL/min (>60) Glucose Level 115 MG/DL (74-106) H Calcium Level 8.2 MG/DL (8.5-10.1) L Phosphorus Level 4.5 MG/DL (2.5-4.9) Magnesium Level 2.0 MG/DL (1.8-2.4) Total Bilirubin 0.3 MG/DL (0.2-1.0) Aspartate Amino Transf (AST/SGOT) 43 U/L (15-37) H Alanine Aminotransferase (ALT/SGPT) 43 U/L (12-78) Alkaline Phosphatase 171 U/L (46-116) H Total Protein 7.3 G/DL (6.4-8.2) Albumin 1.7 G/DL (3.4-5.0) L Globulin 5.6 g/dL Albumin/Globulin Ratio 0.3 (1.0-2.7) L Plan Problems: (1) Abdominal pain Assessment & Plan: 82M with complicated history and prior SBO's now has abdominal pain which is resolved. stable. Distended but tolerating oral diet and had BM's. no acute surgical intervention necessary at this time. -okay for diet as tolerated but if becomes more distended, tender, nausea or emesis will need to make NPO will continue to follow with serial exams and to monitor for change in status. unfortunately his prognosis is very poor with such advance cancer but will keep him as comfortable as possible. thank you for this consult. will follow with recs. Juan Hernández Oct 19, 2017 12:42
[2017-10-19] MEDS ORDERED: Sodium Chloride 500ML 500 ML IV ONE (14:00)
[2017-10-19] MEDS ORDERED: Sodium Chloride 500ML 550 ML IV ONE (14:15)
[2017-10-19] MEDS ORDERED: Sodium Chloride 500ML 550 ML IV SCH (14:45)
--- NOTE | 2017-10-19 19:26 | Internal Med Progress Note ---
Subjective Date of Service: Oct 19, 2017 Physician Name KacieTammy Attending Physician Arian Givens MD Current Medications Medications (Trade) Dose Ordered Sig/Eric Route PRN Reason Start Time Stop Time Status Last Admin Dose Admin Dextrose (Dextrose 50%) STAT PRN IV Hypoglycemia 10/20/17 13:00 11/15/17 12:59 Donepezil HCl (Aricept) 5 mg QHS ORAL 10/19/17 21:00 11/15/17 20:59 Finasteride (Proscar) 5 mg DAILY ORAL 10/20/17 09:00 11/16/17 08:59 Gabapentin (Neurontin) 300 mg THREE TIMES A DAY ORAL 10/19/17 13:15 11/15/17 13:29 Insulin Aspart (NovoLOG) BEFORE MEALS AND HS SUBQ 10/19/17 16:30 11/15/17 13:29 Sodium Chloride 1,000 ml @ 75 mls/hr [id number] IV 10/19/17 16:30 11/18/17 16:29 10/19/17 16:27 Tamsulosin HCl (Flomax) 0.4 mg BEDTIME ORAL 10/19/17 21:00 11/15/17 20:59 Allergies: Coded Allergies: ASPIRIN (Unverified Allergy, Severe, Rash, 05/20/16) HEPARIN (Verified Allergy, Unknown, 12/24/16) ROS Limited/Unobtainable: Yes Subjective 82 YO M admitted with hypoglycemia. CRISTINA. Cover for Int Med-Dr Givens. Objective Last Vital Signs Date Time Temp Pulse Resp B/P (MAP) Pulse Ox O2 Delivery O2 Flow Rate FiO2 10/19/17 16:15 98.0 105 19 92/51 94 Nasal Cannula 2.0 Laboratory Tests Test 10/19/17 04:10 White Blood Count 8.7 K/UL (4.8-10.8) Red Blood Count 3.47 M/UL (4.70-6.10) L Hemoglobin 10.7 G/DL (14.2-18.0) L Hematocrit 34.0 % (42.0-52.0) L Mean Corpuscular Volume 98 FL (80-99) Mean Corpuscular Hemoglobin 30.8 PG (27.0-31.0) Mean Corpuscular Hemoglobin Concent 31.4 G/DL (32.0-36.0) L Red Cell Distribution Width 15.0 % (11.6-14.8) H Platelet Count 161 K/UL (150-450) Mean Platelet Volume 6.5 FL (6.5-10.1) Neutrophils (%) (Auto) 72.9 % (45.0-75.0) Lymphocytes (%) (Auto) 21.4 % (20.0-45.0) Monocytes (%) (Auto) 5.3 % (1.0-10.0) Eosinophils (%) (Auto) 0.1 % (0.0-3.0) Basophils (%) (Auto) 0.3 % (0.0-2.0) Sodium Level 147 MMOL/L (136-145) H Potassium Level 4.3 MMOL/L (3.5-5.1) Chloride Level 112 MMOL/L (98-107) H Carbon Dioxide Level 31 MMOL/L (21-32) Anion Gap 4 mmol/L (5-15) L Blood Urea Nitrogen 33 mg/dL (7-18) H Creatinine 1.5 MG/DL (0.55-1.30) H Estimat Glomerular Filtration Rate mL/min (>60) Glucose Level 115 MG/DL (74-106) H Calcium Level 8.2 MG/DL (8.5-10.1) L Phosphorus Level 4.5 MG/DL (2.5-4.9) Magnesium Level 2.0 MG/DL (1.8-2.4) Total Bilirubin 0.3 MG/DL (0.2-1.0) Aspartate Amino Transf (AST/SGOT) 43 U/L (15-37) H Alanine Aminotransferase (ALT/SGPT) 43 U/L (12-78) Alkaline Phosphatase 171 U/L (46-116) H Total Protein 7.3 G/DL (6.4-8.2) Albumin 1.7 G/DL (3.4-5.0) L Globulin 5.6 g/dL Albumin/Globulin Ratio 0.3 (1.0-2.7) L Intake and Output 10/19/17 10/20/17 19:00 07:00 Intake Total 550 ml Output Total 300 ml Balance 250 ml IV Total 550 ml Output Urine Total 300 ml Objective General Appearance: mild distress, lethargic, thin EENT: PERRL/EOMI, normal ENT inspection Neck: non-tender, normal alignment, supple, normal inspection Cardiovascular: normal peripheral pulses, normal rate, regular rhythm, no gallop/murmur, no JVD Respiratory/Chest: chest wall non-tender, lungs clear, normal breath sounds, no respiratory distress, no accessory muscle use Abdomen: normal bowel sounds, non tender, soft, no organomegaly, no mass Extremities: normal inspection 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 (2) Hypoglycemia (3) Diabetes mellitus type II, uncontrolled Assessment & Plan: Accucheck 130's-140's. Continue novolog sliding scale. (4) Alzheimer's dementia Assessment & Plan: Continue aricept (5) Hypercholesteremia (6) BPH (benign prostatic hypertrophy) Assessment & Plan: Continue flomax and proscar. Assessment/Plan Discharge planning: [facility] TAMMY SAGE Oct 19, 2017 19:26
[2017-10-19] MEDS: Tamsulosin 0.4mg cap ORAL SCH (20:43)
[2017-10-19] MEDS: Donepezil 5mg Tab ORAL SCH (20:43)
[2017-10-19] MEDS ORDERED: Valproic Acid 250mg/5ml Liquid ORAL SCH (21:00)
--- NOTE | 2017-10-19 21:45 | Progress Note ---
DATE: 10/19/2017 SUBJECTIVE: The patient is lethargic right now, not engaged during the evaluation, unable to wake up and eat. The patient did not receive any sedatives today beside the Depakote. MENTAL STATUS EXAMINATION: The patient is lethargic, not engaged during the evaluation. Mood is neutral. Affect is flat. Congruent mood. Thought process is concrete. Thought content, no suicidal or homicidal ideations. ASSESSMENT: 1. Delirium. 2. Agitation. PLAN: 1. We will discontinue the Depakote. 2. Continue the risperidone 1 mg at bedtime. 3. We will continue to follow and readjust the medications. Shantel Le M.D. DR: RODOLFO JOB#: [id number] CC:
[2017-10-20] VITALS (7 sets, daily range): BP systolic 96–105; BP diastolic 55–73
[2017-10-20] MEDS: NovoLOG Insulin Flexpen SUBQ SCH ×4 (06:30→22:18)
[2017-10-20 08:09] LABS: BASOPHILS % (AUTO) 0.4 % (0.0-2.0); EOSINOPHILS % (AUTO) 0.2 % (0.0-3.0); LYMPHOCYTES % (AUTO) 17.2 % (20.0-45.0); MEAN CORPUSCULAR HEMOGLOBIN 31.8 PG (27.0-31.0); MEAN CORPUSCULAR HGB CONC 32.1 G/DL (32.0-36.0); MEAN CORPUSCULAR VOLUME 99 FL (80-99); MEAN PLATELET VOLUME 6.7 FL (6.5-10.1); MONOCYTES % (AUTO) 4.8 % (1.0-10.0); NEUTROPHILS % (AUTO) 77.4 % (45.0-75.0); PLATELET COUNT 143 K/UL (150-450); RED BLOOD COUNT 3.15 M/UL (4.70-6.10); RED CELL DISTRIBUTION WIDTH 15.3 % (11.6-14.8); WHITE BLOOD COUNT 8.5 K/UL (4.8-10.8)
[2017-10-20 09:05] LABS: ANION GAP 7 mmol/L (5-15); CALCIUM 7.6 MG/DL (8.5-10.1); CARBON DIOXIDE 26 MMOL/L (21-32); CHLORIDE 117 MMOL/L (98-107); CREATININE 1.3 MG/DL (0.55-1.30); POTASSIUM 4.3 MMOL/L (3.5-5.1); SODIUM 150 MMOL/L (136-145)
--- NOTE | 2017-10-20 10:49 | General Surgery Progress Note ---
General Surgery-Progress Note Subjective Symptoms: improved, passing flatus, BM Additional Comments no acute events. doing well. no complaints this AM. abdomen still distended. no n/v/f/c. passing flatus and having BM's. tolerates oral intake. Objective Last 24 Hour Vital Signs Date Time Temp Pulse Resp B/P (MAP) Pulse Ox O2 Delivery O2 Flow Rate FiO2 10/20/17 09:31 Nasal Cannula 2.0 28 10/20/17 09:31 92 Nasal Cannula 2.0 28 10/20/17 08:00 97.5 112 20 97/62 93 Nasal Cannula 2.0 10/20/17 04:00 Nasal Cannula 2.0 10/20/17 04:00 97.9 104 20 100/57 92 Nasal Cannula 2.0 10/20/17 00:00 Nasal Cannula 2.0 10/20/17 00:00 97.9 109 20 96/55 94 Nasal Cannula 2.0 10/19/17 22:28 96 Nasal Cannula 2.0 28 10/19/17 22:28 Nasal Cannula 2.0 28 10/19/17 20:00 Nasal Cannula 2.0 10/19/17 20:00 97.5 105 19 82/53 95 Room Air 10/19/17 16:15 98.0 105 19 92/51 94 Nasal Cannula 2.0 10/19/17 15:37 98.1 104 19 87/54 94 Nasal Cannula 2.0 10/19/17 13:30 97.7 108 21 87/46 94 Nasal Cannula 2.0 10/19/17 11:59 97.5 114 21 99/64 94 Nasal Cannula 2.0 Cardiovascular: RSR Respiratory: clear Abdomen: soft, distended, non-tender, present bowel sounds Extremities: no tenderness Laboratory Tests Test 10/20/17 05:45 White Blood Count 8.5 K/UL (4.8-10.8) Red Blood Count 3.15 M/UL (4.70-6.10) L Hemoglobin 10.0 G/DL (14.2-18.0) L Hematocrit 31.1 % (42.0-52.0) L Mean Corpuscular Volume 99 FL (80-99) Mean Corpuscular Hemoglobin 31.8 PG (27.0-31.0) H Mean Corpuscular Hemoglobin Concent 32.1 G/DL (32.0-36.0) Red Cell Distribution Width 15.3 % (11.6-14.8) H Platelet Count 143 K/UL (150-450) L Mean Platelet Volume 6.7 FL (6.5-10.1) Neutrophils (%) (Auto) 77.4 % (45.0-75.0) H Lymphocytes (%) (Auto) 17.2 % (20.0-45.0) L Monocytes (%) (Auto) 4.8 % (1.0-10.0) Eosinophils (%) (Auto) 0.2 % (0.0-3.0) Basophils (%) (Auto) 0.4 % (0.0-2.0) Sodium Level 150 MMOL/L (136-145) H Potassium Level 4.3 MMOL/L (3.5-5.1) Chloride Level 117 MMOL/L (98-107) H Carbon Dioxide Level 26 MMOL/L (21-32) Anion Gap 7 mmol/L (5-15) Blood Urea Nitrogen 31 mg/dL (7-18) H Creatinine 1.3 MG/DL (0.55-1.30) Estimat Glomerular Filtration Rate mL/min (>60) Glucose Level 93 MG/DL (74-106) Calcium Level 7.6 MG/DL (8.5-10.1) L Plan Problems: (1) Abdominal pain Assessment & Plan: 82M with complicated history and prior SBO's now has abdominal pain which is resolved. stable. Distended but tolerating oral diet and had BM's. KUB reviewed and similar to prior exams. agree that likely baseline at this point given unchanged and still good GI function. no acute surgical intervention necessary at this time. okay to d/c planning from surgical standpoint unfortunately his prognosis is very poor with such advance cancer but will keep him as comfortable as possible. thank you for this consult. will follow with yoliss. Juan Hernández Oct 20, 2017 10:49
--- NOTE | 2017-10-20 12:47 | Pulmonology Progress Note ---
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 Severe protein calorie malnutrition Alzheimer dementia multiple DTI POA PLAN OF CARE MS floor Serial troponin flat, probably elevation due to ARF, No chest pain, no cardiac complaints IVF, change to D5W, monitor renal parameters, lytes renal parameters down to normal ARF likely due to dehydration and hypovolemia BS management with SS of insulin, optimize as needed O2 HHN prn CXR negative pain management surgery follows no acute surgical intervention at this time advanced CA with mets GI follows VSSE with evidence of aspiration diet for QOA, start as tolerated with strict aspiration/reflux precautions pain management bowel regimen psych follows, optimized psych med regimen continue Aricept wound care poor prognosis DNR/DNI status recommend comfort end of life care dc plan ( mental status stable, BP better) case discussed and evaluated by supervising physician Subjective Allergies: Coded Allergies: ASPIRIN (Unverified Allergy, Severe, Rash, 05/20/16) HEPARIN (Verified Allergy, Unknown, 12/24/16) Subjective patient awake and responsive today BP better Na -150 Objective Last 24 Hour Vital Signs Date Time Temp Pulse Resp B/P (MAP) Pulse Ox O2 Delivery O2 Flow Rate FiO2 10/20/17 11:39 98.2 107 19 105/60 94 Nasal Cannula 2.0 10/20/17 09:31 Nasal Cannula 2.0 10/20/17 09:31 92 Nasal Cannula 2.0 10/20/17 08:00 97.5 112 20 97/62 93 Nasal Cannula 2.0 10/20/17 04:00 Nasal Cannula 2.0 10/20/17 04:00 97.9 104 20 100/57 92 Nasal Cannula 2.0 10/20/17 00:00 Nasal Cannula 2.0 10/20/17 00:00 97.9 109 20 96/55 94 Nasal Cannula 2.0 10/19/17 22:28 96 Nasal Cannula 2.0 28 10/19/17 22:28 Nasal Cannula 2.0 28 10/19/17 20:00 Nasal Cannula 2.0 10/19/17 20:00 97.5 105 19 82/53 95 Room Air 10/19/17 16:15 98.0 105 19 92/51 94 Nasal Cannula 2.0 10/19/17 15:37 98.1 104 19 87/54 94 Nasal Cannula 2.0 10/19/17 13:30 97.7 108 21 87/46 94 Nasal Cannula 2.0 Intake and Output 10/20/17 10/21/17 19:00 07:00 Intake Total 120 ml Balance 120 ml Intake Oral 120 ml Objective General Appearance: bedridden, awake and responsive HEENT: normocephalic, atraumatic, anicteric Respiratory/Chest: lungs clear with moderate air exchange Cardiovascular: tachycardia, normal peripheral pulses, Abdomen: normal bowel sounds Neurologic/Psychiatric: abnormal gait, awake, responsive Musculoskeletal: atrophy - BLE Laboratory Tests 10/20/17 05:45: White Blood Count 8.5, Red Blood Count 3.15L, Hemoglobin 10.0L, Hematocrit 31.1L , Mean Corpuscular Volume 99, Mean Corpuscular Hemoglobin 31.8H, Mean Corpuscular Hemoglobin Concent 32.1, Red Cell Distribution Width 15.3H, Platelet Count 143L, Mean Platelet Volume 6.7, Neutrophils (%) (Auto) 77.4H, Lymphocytes (%) (Auto) 17.2L, Monocytes (%) (Auto) 4.8, Eosinophils (%) (Auto) 0.2, Basophils (%) (Auto) 0.4, Sodium Level 150H, Potassium Level 4.3, Chloride Level 117H, Carbon Dioxide Level 26, Anion Gap 7, Blood Urea Nitrogen 31H, Creatinine 1.3, Estimat Glomerular Filtration Rate , Glucose Level 93, Calcium Level 7.6L Current Medications Medications (Trade) Dose Ordered Sig/Eric Route PRN Reason Start Time Stop Time Status Last Admin Dose Admin Dextrose (Dextrose 50%) STAT PRN IV Hypoglycemia 10/20/17 13:00 11/15/17 12:59 Donepezil HCl (Aricept) 5 mg QHS ORAL 10/19/17 21:00 11/15/17 20:59 10/19/17 20:43 Finasteride (Proscar) 5 mg DAILY ORAL 10/20/17 09:00 11/16/17 08:59 10/20/17 08:43 Gabapentin (Neurontin) 300 mg THREE TIMES A DAY ORAL 10/19/17 13:15 11/15/17 13:29 10/20/17 08:43 Insulin Aspart (NovoLOG) BEFORE MEALS AND HS SUBQ 10/19/17 16:30 11/15/17 13:29 10/20/17 11:52 Sodium Chloride 1,000 ml @ 75 mls/hr [id number] IV 10/20/17 13:00 11/19/17 12:59 Tamsulosin HCl (Flomax) 0.4 mg BEDTIME ORAL 10/19/17 21:00 11/15/17 20:59 10/19/17 20:43 Xander ([facility])Diamante NP Oct 20, 2017 12:47
--- NOTE | 2017-10-20 15:39 | Internal Med Progress Note ---
Subjective Date of Service: Oct 20, 2017 Physician Name Bruce Sage Attending Physician Arian Givens MD Current Medications Medications (Trade) Dose Ordered Sig/Eric Route PRN Reason Start Time Stop Time Status Last Admin Dose Admin Dextrose (Dextrose 50%) STAT PRN IV Hypoglycemia 10/20/17 13:00 11/15/17 12:59 Donepezil HCl (Aricept) 5 mg QHS ORAL 10/19/17 21:00 11/15/17 20:59 10/19/17 20:43 Finasteride (Proscar) 5 mg DAILY ORAL 10/20/17 09:00 11/16/17 08:59 10/20/17 08:43 Gabapentin (Neurontin) 300 mg THREE TIMES A DAY ORAL 10/19/17 13:15 11/15/17 13:29 10/20/17 13:50 Insulin Aspart (NovoLOG) BEFORE MEALS AND HS SUBQ 10/19/17 16:30 11/15/17 13:29 10/20/17 11:52 Sodium Chloride 1,000 ml @ 75 mls/hr [id number] IV 10/20/17 14:30 11/19/17 14:29 10/20/17 14:20 Tamsulosin HCl (Flomax) 0.4 mg BEDTIME ORAL 10/19/17 21:00 11/15/17 20:59 10/19/17 20:43 Allergies: Coded Allergies: ASPIRIN (Unverified Allergy, Severe, Rash, 05/20/16) HEPARIN (Verified Allergy, Unknown, 12/24/16) ROS Limited/Unobtainable: Yes Subjective 82 YO M admitted with hypoglycemia. Cover for Int Med-Dr Givens. Objective Last Vital Signs Date Time Temp Pulse Resp B/P (MAP) Pulse Ox O2 Delivery O2 Flow Rate FiO2 10/20/17 11:39 98.2 107 19 105/60 94 Nasal Cannula 2.0 10/20/17 09:31 28 Laboratory Tests Test 10/20/17 05:45 White Blood Count 8.5 K/UL (4.8-10.8) Red Blood Count 3.15 M/UL (4.70-6.10) L Hemoglobin 10.0 G/DL (14.2-18.0) L Hematocrit 31.1 % (42.0-52.0) L Mean Corpuscular Volume 99 FL (80-99) Mean Corpuscular Hemoglobin 31.8 PG (27.0-31.0) H Mean Corpuscular Hemoglobin Concent 32.1 G/DL (32.0-36.0) Red Cell Distribution Width 15.3 % (11.6-14.8) H Platelet Count 143 K/UL (150-450) L Mean Platelet Volume 6.7 FL (6.5-10.1) Neutrophils (%) (Auto) 77.4 % (45.0-75.0) H Lymphocytes (%) (Auto) 17.2 % (20.0-45.0) L Monocytes (%) (Auto) 4.8 % (1.0-10.0) Eosinophils (%) (Auto) 0.2 % (0.0-3.0) Basophils (%) (Auto) 0.4 % (0.0-2.0) Sodium Level 150 MMOL/L (136-145) H Potassium Level 4.3 MMOL/L (3.5-5.1) Chloride Level 117 MMOL/L (98-107) H Carbon Dioxide Level 26 MMOL/L (21-32) Anion Gap 7 mmol/L (5-15) Blood Urea Nitrogen 31 mg/dL (7-18) H Creatinine 1.3 MG/DL (0.55-1.30) Estimat Glomerular Filtration Rate mL/min (>60) Glucose Level 93 MG/DL (74-106) Calcium Level 7.6 MG/DL (8.5-10.1) L Intake and Output 10/20/17 10/21/17 19:00 07:00 Intake Total 360 ml Balance 360 ml Intake Oral 360 ml Objective General Appearance: mild distress, lethargic, thin EENT: PERRL/EOMI, normal ENT inspection Neck: non-tender, normal alignment, supple, normal inspection Cardiovascular: normal peripheral pulses, normal rate, regular rhythm, no gallop/murmur, no JVD Respiratory/Chest: chest wall non-tender, lungs clear, normal breath sounds, no respiratory distress, no accessory muscle use Abdomen: normal bowel sounds, non tender, soft, no organomegaly, no mass Extremities: normal inspection 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 (2) Hypoglycemia (3) Diabetes mellitus type II, uncontrolled Assessment & Plan: Accucheck 130's-140's. Continue novolog sliding scale. (4) Alzheimer's dementia Assessment & Plan: Continue aricept (5) Hypercholesteremia (6) BPH (benign prostatic hypertrophy) Assessment & Plan: Continue flomax and proscar. Assessment/Plan Discharge planning: nursing home fac BRUCE SAGE Oct 20, 2017 15:39
[2017-10-20] MEDS ORDERED: NS 500ML ONE ×2 (16:08→16:19)
[2017-10-20] MEDS ORDERED: Sterile Water Irrig 1000ml IRRIG ONE (16:19)
[2017-10-20] MEDS: Tamsulosin 0.4mg cap ORAL SCH (21:10)
[2017-10-20] MEDS: Donepezil 5mg Tab ORAL SCH (21:10)
[2017-10-21 04:00] VITALS: BP 107/72
[2017-10-21] MEDS: NovoLOG Insulin Flexpen SUBQ SCH ×4 (06:30→20:57)
[2017-10-21 07:46] LABS: BASOPHILS % (AUTO) 0.5 % (0.0-2.0); EOSINOPHILS % (AUTO) 0.1 % (0.0-3.0); LYMPHOCYTES % (AUTO) 37.2 % (20.0-45.0); MEAN CORPUSCULAR HEMOGLOBIN 31.3 PG (27.0-31.0); MEAN CORPUSCULAR HGB CONC 31.6 G/DL (32.0-36.0); MEAN CORPUSCULAR VOLUME 99 FL (80-99); MONOCYTES % (AUTO) 6.6 % (1.0-10.0); NEUTROPHILS % (AUTO) 55.7 % (45.0-75.0); PLATELET COUNT 139 K/UL (150-450); RED BLOOD COUNT 3.52 M/UL (4.70-6.10); RED CELL DISTRIBUTION WIDTH 15.4 % (11.6-14.8); WHITE BLOOD COUNT 6.4 K/UL (4.8-10.8)
[2017-10-21 08:54] VITALS: BP 91/58
[2017-10-21 09:11] LABS: ANION GAP 8 mmol/L (5-15); CALCIUM 8.3 MG/DL (8.5-10.1); CARBON DIOXIDE 29 MMOL/L (21-32); CHLORIDE 116 MMOL/L (98-107); CREATININE 1.5 MG/DL (0.55-1.30); POTASSIUM 4.7 MMOL/L (3.5-5.1); SODIUM 153 MMOL/L (136-145)
--- NOTE | 2017-10-21 09:54 | Pulmonology Progress Note ---
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 Severe protein calorie malnutrition Alzheimer dementia multiple DTI POA PLAN OF CARE MS floor Serial troponin flat, probably elevation due to ARF, No chest pain, no cardiac complaints bolus 500 cc D5W monitor renal parameters, lytes renal parameters down to normal ARF likely due to dehydration and hypovolemia BS management with SS of insulin, optimize as needed O2 HHN prn CXR negative pain management surgery follows no acute surgical intervention at this time advanced CA with mets GI follows VSSE with evidence of aspiration diet for QOA, start as tolerated with strict aspiration/reflux precautions pain management bowel regimen psych follows, optimized psych med regimen continue Aricept wound care poor prognosis DNR/DNI status recommend comfort end of life care dc plan ( mental status stable) case discussed and evaluated by supervising physician Subjective Allergies: Coded Allergies: ASPIRIN (Unverified Allergy, Severe, Rash, 05/20/16) HEPARIN (Verified Allergy, Unknown, 12/24/16) Subjective patient awake and responsive today Na -153, creat up to 1.5 today Objective Last 24 Hour Vital Signs Date Time Temp Pulse Resp B/P (MAP) Pulse Ox O2 Delivery O2 Flow Rate FiO2 10/21/17 08:54 97.8 121 20 91/58 94 10/21/17 04:00 98.1 94 20 107/72 95 10/21/17 04:00 95 Nasal Cannula 2.0 10/21/17 00:00 94 Nasal Cannula 2.0 10/20/17 23:57 97.2 115 20 96/73 94 Nasal Cannula 3.0 10/20/17 20:00 95 Nasal Cannula 2.0 10/20/17 20:00 96.6 116 22 99/72 95 Nasal Cannula 3.0 10/20/17 16:00 97.1 101 19 105/63 94 Nasal Cannula 2.0 10/20/17 11:39 98.2 107 19 105/60 94 Nasal Cannula 2.0 Objective General Appearance: bedridden, awake and responsive HEENT: normocephalic, atraumatic, anicteric Respiratory/Chest: lungs clear with moderate air exchange Cardiovascular: tachycardia, normal peripheral pulses, Abdomen: normal bowel sounds Neurologic/Psychiatric: abnormal gait, awake, responsive Musculoskeletal: atrophy - BLE Laboratory Tests 10/21/17 05:00: White Blood Count 6.4, Red Blood Count 3.52L, Hemoglobin 11.0L, Hematocrit 34.9L , Mean Corpuscular Volume 99, Mean Corpuscular Hemoglobin 31.3H, Mean Corpuscular Hemoglobin Concent 31.6L, Red Cell Distribution Width 15.4H, Platelet Count 139L, Mean Platelet Volume 7.0, Neutrophils (%) (Auto) 55.7, Lymphocytes (%) (Auto) 37.2, Monocytes (%) (Auto) 6.6, Eosinophils (%) (Auto) 0.1, Basophils (%) (Auto) 0.5, Sodium Level 153H, Potassium Level 4.7, Chloride Level 116H, Carbon Dioxide Level 29, Anion Gap 8, Blood Urea Nitrogen 36H, Creatinine 1.5H, Estimat Glomerular Filtration Rate , Glucose Level 102, Calcium Level 8.3L Current Medications Medications (Trade) Dose Ordered Sig/Eric Route PRN Reason Start Time Stop Time Status Last Admin Dose Admin Dextrose (Dextrose 50%) STAT PRN IV Hypoglycemia 10/20/17 13:00 11/15/17 12:59 Donepezil HCl (Aricept) 5 mg QHS ORAL 10/19/17 21:00 11/15/17 20:59 10/20/17 21:10 Finasteride (Proscar) 5 mg DAILY ORAL 10/20/17 09:00 11/16/17 08:59 10/21/17 09:14 Gabapentin (Neurontin) 300 mg THREE TIMES A DAY ORAL 10/19/17 13:15 11/15/17 13:29 10/21/17 09:13 Insulin Aspart (NovoLOG) BEFORE MEALS AND HS SUBQ 10/19/17 16:30 11/15/17 13:29 10/20/17 22:18 Sodium Chloride 1,000 ml @ 75 mls/hr [id number] IV 10/20/17 14:30 11/19/17 14:29 10/21/17 03:51 Tamsulosin HCl (Flomax) 0.4 mg BEDTIME ORAL 10/19/17 21:00 11/15/17 20:59 10/20/17 21:10 Xander ([facility]),Diamante OTERO Oct 21, 2017 09:54
[2017-10-21] MEDS ORDERED: D5W 500ml 550 ML IV ONE (11:00)
[2017-10-21 11:53] VITALS: BP 106/67
--- NOTE | 2017-10-21 15:45 | General Surgery Progress Note ---
General Surgery-Progress Note Subjective Symptoms: improved, passing flatus, BM Additional Comments doing well. no acute events. had BM Objective Last 24 Hour Vital Signs Date Time Temp Pulse Resp B/P (MAP) Pulse Ox O2 Delivery O2 Flow Rate FiO2 10/21/17 11:53 98.6 114 20 106/67 95 10/21/17 08:54 97.8 121 20 91/58 94 10/21/17 04:00 98.1 94 20 107/72 95 10/21/17 04:00 95 Nasal Cannula 2.0 10/21/17 00:00 94 Nasal Cannula 2.0 10/20/17 23:57 97.2 115 20 96/73 94 Nasal Cannula 3.0 10/20/17 20:00 95 Nasal Cannula 2.0 10/20/17 20:00 96.6 116 22 99/72 95 Nasal Cannula 3.0 10/20/17 16:00 97.1 101 19 105/63 94 Nasal Cannula 2.0 I&O Intake and Output 10/21/17 10/22/17 19:00 07:00 Intake Total 600 ml Balance 600 ml IV Total 600 ml Cardiovascular: RSR Respiratory: clear Abdomen: soft, distended, present bowel sounds Extremities: no tenderness Laboratory Tests Test 10/21/17 05:00 White Blood Count 6.4 K/UL (4.8-10.8) Red Blood Count 3.52 M/UL (4.70-6.10) L Hemoglobin 11.0 G/DL (14.2-18.0) L Hematocrit 34.9 % (42.0-52.0) L Mean Corpuscular Volume 99 FL (80-99) Mean Corpuscular Hemoglobin 31.3 PG (27.0-31.0) H Mean Corpuscular Hemoglobin Concent 31.6 G/DL (32.0-36.0) L Red Cell Distribution Width 15.4 % (11.6-14.8) H Platelet Count 139 K/UL (150-450) L Mean Platelet Volume 7.0 FL (6.5-10.1) Neutrophils (%) (Auto) 55.7 % (45.0-75.0) Lymphocytes (%) (Auto) 37.2 % (20.0-45.0) Monocytes (%) (Auto) 6.6 % (1.0-10.0) Eosinophils (%) (Auto) 0.1 % (0.0-3.0) Basophils (%) (Auto) 0.5 % (0.0-2.0) Sodium Level 153 MMOL/L (136-145) H Potassium Level 4.7 MMOL/L (3.5-5.1) Chloride Level 116 MMOL/L (98-107) H Carbon Dioxide Level 29 MMOL/L (21-32) Anion Gap 8 mmol/L (5-15) Blood Urea Nitrogen 36 mg/dL (7-18) H Creatinine 1.5 MG/DL (0.55-1.30) H Estimat Glomerular Filtration Rate mL/min (>60) Glucose Level 102 MG/DL (74-106) Calcium Level 8.3 MG/DL (8.5-10.1) L Plan Problems: (1) Abdominal pain Assessment & Plan: 82M with complicated history and prior SBO's now has abdominal pain which is resolved. stable. Distended but tolerating oral diet and had BM's. KUB reviewed and similar to prior exams. agree that likely baseline at this point given unchanged and still good GI function. no acute surgical intervention necessary at this time. okay to d/c planning from surgical standpoint unfortunately his prognosis is very poor with such advance cancer but will keep him as comfortable as possible. thank you for this consult. will follow with teresa. Juan Hernández Oct 21, 2017 15:45
--- NOTE | 2017-10-21 15:55 | Internal Med Progress Note ---
Subjective Date of Service: Oct 21, 2017 Physician Name Bruce Sage Attending Physician Arian Givens MD Current Medications Medications (Trade) Dose Ordered Sig/Eric Route PRN Reason Start Time Stop Time Status Last Admin Dose Admin Dextrose (Dextrose 50%) STAT PRN IV Hypoglycemia 10/20/17 13:00 11/15/17 12:59 Donepezil HCl (Aricept) 5 mg QHS ORAL 10/19/17 21:00 11/15/17 20:59 10/20/17 21:10 Finasteride (Proscar) 5 mg DAILY ORAL 10/20/17 09:00 11/16/17 08:59 10/21/17 09:14 Gabapentin (Neurontin) 300 mg THREE TIMES A DAY ORAL 10/19/17 13:15 11/15/17 13:29 10/21/17 13:06 Insulin Aspart (NovoLOG) BEFORE MEALS AND HS SUBQ 10/19/17 16:30 11/15/17 13:29 10/21/17 12:10 Sodium Chloride 1,000 ml @ 75 mls/hr [id number] IV 10/20/17 14:30 11/19/17 14:29 10/21/17 03:51 Tamsulosin HCl (Flomax) 0.4 mg BEDTIME ORAL 10/19/17 21:00 11/15/17 20:59 10/20/17 21:10 Allergies: Coded Allergies: ASPIRIN (Unverified Allergy, Severe, Rash, 05/20/16) HEPARIN (Verified Allergy, Unknown, 12/24/16) ROS Limited/Unobtainable: Yes Subjective 82 YO M admitted with hypoglycemia. Cover for Int Med-Dr Givens. Await transfer to [facility] Objective Last Vital Signs Date Time Temp Pulse Resp B/P (MAP) Pulse Ox O2 Delivery O2 Flow Rate FiO2 10/21/17 11:53 98.6 114 20 106/67 95 10/21/17 04:00 10/21/17 04:00 2.0 10/20/17 09:31 28 Laboratory Tests Test 10/21/17 05:00 White Blood Count 6.4 K/UL (4.8-10.8) Red Blood Count 3.52 M/UL (4.70-6.10) L Hemoglobin 11.0 G/DL (14.2-18.0) L Hematocrit 34.9 % (42.0-52.0) L Mean Corpuscular Volume 99 FL (80-99) Mean Corpuscular Hemoglobin 31.3 PG (27.0-31.0) H Mean Corpuscular Hemoglobin Concent 31.6 G/DL (32.0-36.0) L Red Cell Distribution Width 15.4 % (11.6-14.8) H Platelet Count 139 K/UL (150-450) L Mean Platelet Volume 7.0 FL (6.5-10.1) Neutrophils (%) (Auto) 55.7 % (45.0-75.0) Lymphocytes (%) (Auto) 37.2 % (20.0-45.0) Monocytes (%) (Auto) 6.6 % (1.0-10.0) Eosinophils (%) (Auto) 0.1 % (0.0-3.0) Basophils (%) (Auto) 0.5 % (0.0-2.0) Sodium Level 153 MMOL/L (136-145) H Potassium Level 4.7 MMOL/L (3.5-5.1) Chloride Level 116 MMOL/L (98-107) H Carbon Dioxide Level 29 MMOL/L (21-32) Anion Gap 8 mmol/L (5-15) Blood Urea Nitrogen 36 mg/dL (7-18) H Creatinine 1.5 MG/DL (0.55-1.30) H Estimat Glomerular Filtration Rate mL/min (>60) Glucose Level 102 MG/DL (74-106) Calcium Level 8.3 MG/DL (8.5-10.1) L Intake and Output 10/21/17 10/22/17 19:00 07:00 Intake Total 600 ml Balance 600 ml IV Total 600 ml Objective General Appearance: mild distress, lethargic, thin EENT: PERRL/EOMI, normal ENT inspection Neck: non-tender, normal alignment, supple, normal inspection Cardiovascular: normal peripheral pulses, normal rate, regular rhythm, no gallop/murmur, no JVD Respiratory/Chest: chest wall non-tender, lungs clear, normal breath sounds, no respiratory distress, no accessory muscle use Abdomen: normal bowel sounds, non tender, soft, no organomegaly, no mass Extremities: normal inspection 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 (2) Hypoglycemia (3) Diabetes mellitus type II, uncontrolled Assessment & Plan: Accucheck 130's-140's. Continue novolog sliding scale. (4) Alzheimer's dementia Assessment & Plan: Continue aricept (5) Hypercholesteremia (6) BPH (benign prostatic hypertrophy) Assessment & Plan: Continue flomax and proscar. Assessment/Plan Discharge planning: Discharge to [facility] with [place] [facility] BRUCE SAGE Oct 21, 2017 15:55
[2017-10-21 16:10] VITALS: BP 102/68
[2017-10-21 20:00] VITALS: BP 128/60
[2017-10-21] MEDS: Tamsulosin 0.4mg cap ORAL SCH (20:56)
[2017-10-21] MEDS: Donepezil 5mg Tab ORAL SCH (20:56)
--- NOTE | 2017-10-21 21:16 | Wound Care Consultation ---
Wound Assessment Wound Assessment #1: Wound Present on Admission: No New Wound: No Status Change of Wound: No Wound Location Body Site Modif: mid Wound Location Body Site: other - sacrococcygeal Wound Type: pressure ulcer Estrada Test: Does not Estrada Pressure Ulcer Stage: Unstageable Wound Thickness: Full Thickness Wound Length: 5.0 Wound Width: 3.0 Wound Depth: utd Percent of Wound [place]/Red: 60 Percent of Wound Bed Yellow/Wh: 30 Percent of Wound Purple/Maroon: 10 Wound Drainage Description: Serosanguineous Wound Drainage Amount: Moderate Wound Drainage Odor: None/Absent Tissue Surrounding Wound: DTI Wound General Appearance: Reddened - yellow and purple. Surrounding skin with DTI, Draining Wound Assessment #2: Wound Number: 2 Wound Present on Admission: Yes New Wound: No Status Change of Wound: No Wound Location Body Site Modif: right, anterior Wound Location Body Site: toe - 1st Wound Type: pressure ulcer Estrada Test: Does not Estrada Pressure Ulcer Stage: Deep Tissue Injury Wound Thickness: Full Thickness Wound Length: 1.0 Wound Width: 0.8 Wound Depth: utd Percent of Wound Black/Brown: 100 Wound Drainage Amount: None Wound Drainage Odor: None/Absent Tissue Surrounding Wound: Intact Wound General Appearance: Blackened - brown Wound Assessment #3: Wound Number: 3 Wound Present on Admission: Yes New Wound: No Status Change of Wound: No Wound Location Body Site Modif: left Wound Location Body Site: heel Wound Type: pressure ulcer Estrada Test: Does not Estrada Pressure Ulcer Stage: Deep Tissue Injury Wound Thickness: Full Thickness Wound Length: 5.5 Wound Width: 3.0 Wound Depth: utd Percent of Wound Purple/Maroon: 100 Wound Drainage Amount: None Wound Drainage Odor: None/Absent Tissue Surrounding Wound: Intact Wound General Appearance: Reddened - purple Wound Comment #1 Right anterior 1st toe DTI pressure ulcer. Still intact #2 Sacrococcygeal unstageable pressure ulcer. Surrounding skin with DTI Purple/ maroon in color. No deterioration noted. Will cont same wound care #3 Left Heel DTI pressure ulcer. Still intact #3 Left dorsal aspect of foot with dry scabs Still intact #4 Left 2nd toe with dry scab. Still intact #5 Right lateral knee dry scab. Still intact Reassessed This Pt today. No deterioration noted at this time. Will cont same wound care treatment and pressure ulcer preventative recommendations below. Recommendation -Local wound care per protocol -Keep clean and dry -Optimize nutrition -Turn and reposition -Offload both heels -Heel protector on both heels -Low air loss mattress -Arterial/venous duplex study -Podiatry consult -Assess and f/u according for any changes STEPHANIE BONILLA RN Oct 21, 2017 21:16
--- NOTE | 2017-10-21 23:16 | General Progress Note ---
Assessment/Plan Status: stable Assessment/Plan encephalopathy low dose of antipsychotics Subjective Date patient seen: Oct 20, 2017 Neurologic/Psychiatric: Reports: anxiety, depressed, emotional problems Allergies: Coded Allergies: ASPIRIN (Unverified Allergy, Severe, Rash, 05/20/16) HEPARIN (Verified Allergy, Unknown, 12/24/16) Subjective the pt was lethargic. the pts meds were readjusted Objective Last 24 Hour Vital Signs Date Time Temp Pulse Resp B/P (MAP) Pulse Ox O2 Delivery O2 Flow Rate FiO2 10/21/17 20:28 Nasal Cannula 3.0 32 10/21/17 20:28 92 Nasal Cannula 3.0 32 10/21/17 20:00 98.2 81 20 128/60 92 Room Air 10/21/17 16:10 98.4 113 21 102/68 95 10/21/17 11:53 98.6 114 20 106/67 95 10/21/17 08:54 97.8 121 20 91/58 94 10/21/17 04:00 98.1 94 20 107/72 95 10/21/17 04:00 95 Nasal Cannula 2.0 10/21/17 00:00 94 Nasal Cannula 2.0 10/20/17 23:57 97.2 115 20 96/73 94 Nasal Cannula 3.0 Intake and Output 10/21/17 10/22/17 19:00 07:00 Intake Total 840 ml Output Total 100 ml Balance 740 ml Intake Oral 240 ml IV Total 600 ml Output Urine Total 100 ml Laboratory Tests 10/21/17 05:00: White Blood Count 6.4, Red Blood Count 3.52L, Hemoglobin 11.0L, Hematocrit 34.9L , Mean Corpuscular Volume 99, Mean Corpuscular Hemoglobin 31.3H, Mean Corpuscular Hemoglobin Concent 31.6L, Red Cell Distribution Width 15.4H, Platelet Count 139L, Mean Platelet Volume 7.0, Neutrophils (%) (Auto) 55.7, Lymphocytes (%) (Auto) 37.2, Monocytes (%) (Auto) 6.6, Eosinophils (%) (Auto) 0.1, Basophils (%) (Auto) 0.5, Sodium Level 153H, Potassium Level 4.7, Chloride Level 116H, Carbon Dioxide Level 29, Anion Gap 8, Blood Urea Nitrogen 36H, Creatinine 1.5H, Estimat Glomerular Filtration Rate , Glucose Level 102, Calcium Level 8.3L Height (Feet): 5 Height (Inches): 8.00 Weight (Pounds): 135 General Appearance: WD/WN, no apparent distress, lethargic, confused Shantel Le M.D. Oct 21, 2017 23:16
[2017-10-22] VITALS: BP 102/65
[2017-10-22 04:00] VITALS: BP 92/57
[2017-10-22] MEDS: NovoLOG Insulin Flexpen SUBQ SCH ×2 (06:02→11:30)
[2017-10-22 08:00] VITALS: BP 83/50
--- NOTE | 2017-10-22 10:32 | GI Progress Note ---
Assessment/Plan Problems: (1) Abdominal pain ICD Codes: R10.9 - Unspecified abdominal pain SNOMED: 70598897 (2) Altered mental status ICD Codes: R41.82 - Altered mental status, unspecified SNOMED: 799507166 (3) Psychosis ICD Codes: F29 - Unspecified psychosis not due to a substance or known physiological condition SNOMED: 75323520 (4) Nausea & vomiting ICD Codes: R11.2 - Nausea with vomiting, unspecified SNOMED: 85912364 (5) Severe malnutrition ICD Codes: E43 - Unspecified severe protein-calorie malnutrition SNOMED: 53121855 (6) Diabetes mellitus ICD Codes: E11.9 - Type 2 diabetes mellitus without complications SNOMED: 87583295 (7) Alzheimer's dementia ICD Codes: G30.9 - Alzheimer's disease, unspecified SNOMED: 18984070 (8) 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 Clark. Assessment/Plan supportive care at this time >> pt now DNR/DNI, hospice care non operative management regular diet, tolerating pain mgmt serial monitoring repeat imaging prn abx fleets mineral prn fu labs Subjective Subjective limited, calm, resting Objective Last 24 Hour Vital Signs Date Time Temp Pulse Resp B/P (MAP) Pulse Ox O2 Delivery O2 Flow Rate FiO2 10/22/17 08:00 97.9 96 18 83/50 94 10/22/17 04:00 96.6 111 16 92/57 96 Nasal Cannula 3.0 10/22/17 04:00 96 Nasal Cannula 4.0 10/22/17 00:00 98.4 101 20 102/65 98 Room Air 10/22/17 00:00 98 Nasal Cannula 4.0 10/21/17 20:28 Nasal Cannula 3.0 32 10/21/17 20:28 92 Nasal Cannula 3.0 32 10/21/17 20:00 98.2 81 20 128/60 92 Room Air 10/21/17 20:00 92 Nasal Cannula 4.0 10/21/17 16:10 98.4 113 21 102/68 95 10/21/17 11:53 98.6 114 20 106/67 95 Height (Feet): 5 Height (Inches): 8.00 Weight (Pounds): 135 General Appearance: no apparent distress, alert Cardiovascular: normal rate Respiratory/Chest: normal breath sounds, no respiratory distress Abdominal Exam: normal bowel sounds, non tender, soft Extremities: normal range of motion, non-tender Katerin Main N.P. Oct 22, 2017 10:32
[2017-10-22 10:55] LABS: BASOPHILS % (AUTO) 0.4 % (0.0-2.0); LYMPHOCYTES % (AUTO) 19.6 % (20.0-45.0); MEAN CORPUSCULAR HEMOGLOBIN 30.5 PG (27.0-31.0); MEAN CORPUSCULAR HGB CONC 30.9 G/DL (32.0-36.0); MEAN CORPUSCULAR VOLUME 99 FL (80-99); MEAN PLATELET VOLUME 6.4 FL (6.5-10.1); MONOCYTES % (AUTO) 4.8 % (1.0-10.0); NEUTROPHILS % (AUTO) 75.3 % (45.0-75.0); PLATELET COUNT 126 K/UL (150-450); RED BLOOD COUNT 2.88 M/UL (4.70-6.10); RED CELL DISTRIBUTION WIDTH 15.3 % (11.6-14.8); WHITE BLOOD COUNT 8.5 K/UL (4.8-10.8)
[2017-10-22 11:24] LABS: ANION GAP 7 mmol/L (5-15); CALCIUM 7.3 MG/DL (8.5-10.1); CARBON DIOXIDE 26 MMOL/L (21-32); CHLORIDE 112 MMOL/L (98-107); CREATININE 1.6 MG/DL (0.55-1.30); POTASSIUM 4.2 MMOL/L (3.5-5.1); SODIUM 145 MMOL/L (136-145)
[2017-10-22 12:00] VITALS: BP 85/51
--- NOTE | 2017-10-22 13:33 | General Surgery Progress Note ---
General Surgery-Progress Note Subjective Symptoms: improved, tolerating diet, BM Objective Last 24 Hour Vital Signs Date Time Temp Pulse Resp B/P (MAP) Pulse Ox O2 Delivery O2 Flow Rate FiO2 10/22/17 12:00 98.0 94 18 85/51 95 10/22/17 08:00 97.9 96 18 83/50 94 10/22/17 04:00 96.6 111 16 92/57 96 Nasal Cannula 3.0 10/22/17 04:00 96 Nasal Cannula 4.0 10/22/17 00:00 98.4 101 20 102/65 98 Room Air 10/22/17 00:00 98 Nasal Cannula 4.0 10/21/17 20:28 Nasal Cannula 3.0 32 10/21/17 20:28 92 Nasal Cannula 3.0 32 10/21/17 20:00 98.2 81 20 128/60 92 Room Air 10/21/17 20:00 92 Nasal Cannula 4.0 10/21/17 16:10 98.4 113 21 102/68 95 Cardiovascular: RSR Respiratory: clear Abdomen: soft, distended, non-tender, present bowel sounds Extremities: no tenderness Laboratory Tests Test 10/22/17 10:35 White Blood Count 8.5 K/UL (4.8-10.8) Red Blood Count 2.88 M/UL (4.70-6.10) L Hemoglobin 8.8 G/DL (14.2-18.0) L Hematocrit 28.4 % (42.0-52.0) L Mean Corpuscular Volume 99 FL (80-99) Mean Corpuscular Hemoglobin 30.5 PG (27.0-31.0) Mean Corpuscular Hemoglobin Concent 30.9 G/DL (32.0-36.0) L Red Cell Distribution Width 15.3 % (11.6-14.8) H Platelet Count 126 K/UL (150-450) L Mean Platelet Volume 6.4 FL (6.5-10.1) L Neutrophils (%) (Auto) 75.3 % (45.0-75.0) H Lymphocytes (%) (Auto) 19.6 % (20.0-45.0) L Monocytes (%) (Auto) 4.8 % (1.0-10.0) Eosinophils (%) (Auto) 0.0 % (0.0-3.0) Basophils (%) (Auto) 0.4 % (0.0-2.0) Sodium Level 145 MMOL/L (136-145) Potassium Level 4.2 MMOL/L (3.5-5.1) Chloride Level 112 MMOL/L (98-107) H Carbon Dioxide Level 26 MMOL/L (21-32) Anion Gap 7 mmol/L (5-15) Blood Urea Nitrogen 43 mg/dL (7-18) H Creatinine 1.6 MG/DL (0.55-1.30) H Estimat Glomerular Filtration Rate mL/min (>60) Glucose Level 108 MG/DL (74-106) H Calcium Level 7.3 MG/DL (8.5-10.1) L Plan Problems: (1) Abdominal pain Assessment & Plan: 82M with complicated history and prior SBO's now has abdominal pain which is resolved. stable. Distended but tolerating oral diet and had BM's. KUB reviewed and similar to prior exams. agree that likely baseline at this point given unchanged and still good GI function. no acute surgical intervention necessary at this time. okay to d/c planning from surgical standpoint unfortunately his prognosis is very poor with such advance cancer but will keep him as comfortable as possible. thank you for this consult. will follow with recs. Jaun Hernández Oct 22, 2017 13:33
[2017-10-22] MEDS ORDERED: 1/2 NS 1000ml IV ONE (14:35)
--- NOTE | 2017-10-22 22:33 | General Progress Note ---
Assessment/Plan Status: stable Assessment/Plan encephalopathy low dose of antipsychotics Subjective Date patient seen: Oct 22, 2017 Neurologic/Psychiatric: Reports: anxiety, depressed, emotional problems Allergies: Coded Allergies: ASPIRIN (Unverified Allergy, Severe, Rash, 05/20/16) HEPARIN (Verified Allergy, Unknown, 12/24/16) Subjective the pt was less lethargic. the pts meds were readjusted Objective Last 24 Hour Vital Signs Date Time Temp Pulse Resp B/P (MAP) Pulse Ox O2 Delivery O2 Flow Rate FiO2 10/22/17 12:00 98.0 94 18 85/51 95 10/22/17 08:00 97.9 96 18 83/50 94 10/22/17 04:00 96.6 111 16 92/57 96 Nasal Cannula 3.0 10/22/17 04:00 96 Nasal Cannula 4.0 10/22/17 00:00 98.4 101 20 102/65 98 Room Air 10/22/17 00:00 98 Nasal Cannula 4.0 Intake and Output 10/22/17 10/23/17 19:00 07:00 Output Total 300 ml Balance -300 ml Output Urine Total 300 ml # Bowel Movements 2 Laboratory Tests 10/22/17 10:35: White Blood Count 8.5, Red Blood Count 2.88L, Hemoglobin 8.8L, Hematocrit 28.4L , Mean Corpuscular Volume 99, Mean Corpuscular Hemoglobin 30.5, Mean Corpuscular Hemoglobin Concent 30.9L, Red Cell Distribution Width 15.3H, Platelet Count 126L, Mean Platelet Volume 6.4L, Neutrophils (%) (Auto) 75.3H, Lymphocytes (%) (Auto) 19.6L, Monocytes (%) (Auto) 4.8, Eosinophils (%) (Auto) 0.0, Basophils (%) (Auto) 0.4, Sodium Level 145, Potassium Level 4.2, Chloride Level 112H, Carbon Dioxide Level 26, Anion Gap 7, Blood Urea Nitrogen 43H, Creatinine 1.6H, Estimat Glomerular Filtration Rate , Glucose Level 108H, Calcium Level 7.3L Height (Feet): 5 Height (Inches): 8.00 Weight (Pounds): 135 General Appearance: no apparent distress, alert Shantel Le M.D. Oct 22, 2017 22:33
--- NOTE | 2017-10-22 22:34 | General Progress Note ---
Assessment/Plan Status: stable Assessment/Plan encephalopathy low dose of antipsychotics Subjective Date patient seen: Oct 21, 2017 Neurologic/Psychiatric: Reports: anxiety, depressed, emotional problems Allergies: Coded Allergies: ASPIRIN (Unverified Allergy, Severe, Rash, 05/20/16) HEPARIN (Verified Allergy, Unknown, 12/24/16) Subjective the pt was is stable Objective Last 24 Hour Vital Signs Date Time Temp Pulse Resp B/P (MAP) Pulse Ox O2 Delivery O2 Flow Rate FiO2 10/22/17 12:00 98.0 94 18 85/51 95 10/22/17 08:00 97.9 96 18 83/50 94 10/22/17 04:00 96.6 111 16 92/57 96 Nasal Cannula 3.0 10/22/17 04:00 96 Nasal Cannula 4.0 10/22/17 00:00 98.4 101 20 102/65 98 Room Air 10/22/17 00:00 98 Nasal Cannula 4.0 Intake and Output 10/22/17 10/23/17 19:00 07:00 Output Total 300 ml Balance -300 ml Output Urine Total 300 ml # Bowel Movements 2 Laboratory Tests 10/22/17 10:35: White Blood Count 8.5, Red Blood Count 2.88L, Hemoglobin 8.8L, Hematocrit 28.4L , Mean Corpuscular Volume 99, Mean Corpuscular Hemoglobin 30.5, Mean Corpuscular Hemoglobin Concent 30.9L, Red Cell Distribution Width 15.3H, Platelet Count 126L, Mean Platelet Volume 6.4L, Neutrophils (%) (Auto) 75.3H, Lymphocytes (%) (Auto) 19.6L, Monocytes (%) (Auto) 4.8, Eosinophils (%) (Auto) 0.0, Basophils (%) (Auto) 0.4, Sodium Level 145, Potassium Level 4.2, Chloride Level 112H, Carbon Dioxide Level 26, Anion Gap 7, Blood Urea Nitrogen 43H, Creatinine 1.6H, Estimat Glomerular Filtration Rate , Glucose Level 108H, Calcium Level 7.3L Height (Feet): 5 Height (Inches): 8.00 Weight (Pounds): 135 General Appearance: no apparent distress, alert Shantel Le M.D. Oct 22, 2017 22:34
--- NOTE | 2017-10-24 12:31 | Discharge Summary ---
Discharge Summary Hospital Course Date of Admission Oct 15, 2017 at 01:23 Date of Discharge Oct 22, 2017 at 14:36 Admitting Diagnosis nstemi/sepsis/hypoglycemia JOSE Rodriguez is a 82 year old male who was admitted on Oct 15, 2017 at 01:23 for Nstemi/Sepsis/Hypoglycemia Hospital Course DC SUMMARY #[id number] Discharge Medications Continued Medications: Acetaminophen (Tylenol) 325 Mg Tablet 650 MG ORAL Q4HR PRN for Fever/Headache/Mild Pain, #30 TAB 0 Refills Acetaminophen With Codeine (T#3) (Tylenol #3 Tab*) Y Tab 1 TAB ORAL Q6HR PRN for For Pain, TAB Al Hydroxide/mg Hydroxide (Mag-Al Plus Suspension) 30 Ml Oral.susp 30 ML PO Q4HR PRN for Constipation, ML Atorvastatin Calcium* (Lipitor*) 10 Mg Tablet 10 MG ORAL BEDTIME, TAB Clonidine Hcl* (Catapres*) 0.1 Mg Tablet 0.1 MG ORAL EVERY 4 HOURS PRN for For High Blood Pressure, TAB Diazepam* (Diazepam*) 10 Mg Tablet 5 MG ORAL HS, TAB 0 Refills Donepezil Hcl* (Donepezil Hcl*) 5 Mg Tablet 5 MG ORAL QHS, TAB Finasteride* (Proscar*) 5 Mg Tablet 5 MG ORAL DAILY, #30 TAB 0 Refills Fluticasone/Salmeterol (Advair 250-50 Diskus) 1 Puffs Puffs 1 PUFF INH DAILY PRN for Shortness of Breath, EA Gabapentin* (Gabapentin*) 300 Mg Capsule 300 MG ORAL THREE TIMES A DAY, CAP 0 Refills Insulin Aspart (Novolog) 100 Unit/1 Ml Vial SQ AC+HS Insulin Aspart* (Novolog*) 100 Unit/1 Ml Insuln.pen 8 SUBQ BEFORE MEALS, #1 EA 0 Refills Insulin Detemir (Levemir) 100 Unit/1 Ml Vial 40 UNITS SUBQ BEFORE BREAKFAST, #30 VIAL Insulin Detemir (Levemir) 100 Unit/1 Ml Vial 20 SUBQ DAILY, VIAL Ipratropium/Albuterol Sulfate (DuoNeb 0.5-3(2.5)mg/3ml) 3 Ml Ampul.neb 3 ML HHN Q4HR PRN for Shortness of Breath, EA Lorazepam* (Ativan*) 0.5 Mg Tablet 0.5 MG ORAL Q4HR PRN for For Anxiety, TAB Montelukast Sodium* (Singulair*) 10 Mg Tablet 10 MG ORAL DAILY, TAB Montelukast Sodium* (Singulair*) 10 Mg Tablet 10 MG ORAL DAILY, TAB Nateglinide* (Starlix*) 60 Mg Tablet 60 MG ORAL THREE TIMES A DAY, TAB Nateglinide* (Starlix*) 60 Mg Tablet 60 MG ORAL THREE TIMES A DAY, TAB Nitroglycerin (Nitroglycerin) 0.4 Mg Tab.subl 0.4 MG SL, TAB Omeprazole (Omeprazole) 40 Mg Capsule.dr 40 MG ORAL DAILY, CAP Ondansetron (Zofran) 4 Mg Tablet 4 MG ORAL Q6H PRN for Nausea & Vomiting, TAB Pantoprazole (Pantoprazole) 20 Mg Tablet.dr 40 MG ORAL DAILY, #10 TAB 0 Refills Polyethylene Glycol 3350* (Miralax*) 17 Gm Powd.pack 17 GM ORAL DAILY PRN for Constipation, PACKET Pravastatin Sod* (Pravastatin Sod*) 20 Mg Tablet 10 MG ORAL BEDTIME, TAB Risperidone* (Risperdal*) 1 Mg Tablet 1 MG PO QHS, TAB Tamsulosin Hcl (Tamsulosin Hcl*) 0.4 Mg Cap.er.24h 0.4 MG ORAL BEDTIME for 30 Days, CAP Tamsulosin Hcl (Tamsulosin Hcl*) 0.4 Mg Cap.er.24h 0.4 MG ORAL BEDTIME, CAP Temazepam (Temazepam*) 15 Mg Capsule 15 MG ORAL BEDTIME PRN for Per rx protocol, #30 CAP 0 Refills Valproic Acid (Valproic Acid) 250 Mg Capsule 125 MG PO Q12HR, CAP Zolpidem Tartrate* (Ambien*) 5 Mg Tablet 5 MG ORAL BEDTIME PRN for Insomnia, TAB Discharge Discharge Disposition Patient was discharged to SNF/Subacute Facility(03) with hospice services Discharge Diagnoses: Xander (Reece)Diamante NP Oct 24, 2017 12:31
--- NOTE | 2017-10-25 11:00 | Discharge Summary 2 SIG ---
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 The patient was initially obtunded and was unable to answer any questions. Paramedics were unable to start IV and glucagon was given in the field. Hospice evaluation was pending for the next day due to advanced metastatic disease. Vital signs revealed yane tachycardia - 105, blood pressure -95/58, pulse oximetry- 96% on two liters of oxygen, afebrile. Mild leukocytosis -11.9, troponin -0.793, sodium -149, BUN -31, creatinine -1.3. EKG revealed sinus tachycardia, but no acute ischemic changes. Chest x-ray revealed right-sided atelectasis. Repeated blood sugar in ED- 53, 1 ampule of dextrose was given. The patient was hydrated. Blood sugar improved. Urinalysis revealed pyuria and +1 leukocyte esterase, but negative for nitrite, and only few bacteria. Elevated AST- 70 and ALT -82, elevated alkaline phosphatase- 160. The patient was admitted with acute encephalopathy, elevated troponin, possible non STEMI, colon CA metastasized to mesenteric lymph nodes, carcinomatosis, diabetes out of control. HOSPITAL COURSE: The patient was admitted to medical/surgical floor. The patient was started on IV fluids, initially kept NPO. Second troponin down to 0.603. Elevated troponin was likely due to acute renal failure. No chest pain, no shortness of breath, no other cardiac complaint. The patient had a poor overall prognosis due to advanced metastatic inoperable colon cancer, with DNR/DNI status. The patient was treated ] conservatively. Surgeon closely followed the patient. The patient had metastatic bladder cancer with multiple tumor implants in abdomen and carcinomatosis. Metastatic bladder cancer was diagnosed in 2013 after cystoscopy for hematuria. The patient had inoperable advanced large colon tumor. The patient with recurrent episodes of small bowel obstruction, resolved with bowel rest and NG tube decompression. Surgeon concluded that no acute surgical interventions were necessary at this time. The patient was started on the diet, able to tolerate. Surgeon followed up with serial exams to monitor for any change. Per surgeon, the patient had a very poor prognosis with advanced cancer and need to be as comfortable as possible. He recommended hospice care. The patient was on IV fluids. Renal parameters were closely monitored. Upon discharge, BUN -43 and creatinine- 1.6. LFTs were trending down. The patient received few intermittent boluses of D5 water. Sodium still slightly elevated. Renal parameters and electrolytes were closely monitored. Nephrotoxics were avoided. Acute renal failure was likely secondary to dehydration and hypovolemia. Gastrointestinal specialist seen and evaluated the patient and recommended end of life care under hospice management. Video swallow evaluation revealed evidence of aspiration. Speech therapist recommended diet for quality of life with strict aspiration /reflux precautions. Diet was provided as tolerated. Nutritional recommendation were implemented. Pain management was addressed. Bowel regimen was instituted. Supplemental oxygen and pulmonary toilet provided as needed. Chest x-ray was negative for any acute cardiopulmonary pathology. Stool for Clostridium difficile was negative. Blood culture were negative. The patient was initially on antibiotics, which were subsequently discontinued Blood sugar was managed with sliding scale of insulin and was stable after initial episode of hypoglycemia Psychiatrist seen and evaluated the patient and optimized psychiatric medication regimen. Started the patient on low dose of antipsychotic. Aricept was continued. Wound care was provided as per wound care nurse recommendations for multiple DTI present on admission. The patient was stable for discharge to halfway facility with hospice services. FINAL DIAGNOSES: 1. Acute metabolic encephalopathy likely secondary to hypoglycemia and advanced carcinoma. 2. Elevated troponin. 3. Possible non-ST elevation myocardial infarction. 4. Hypertension. 5. Acute renal failure, likely prerenal secondary to hypovolemia and dehydration. 6. Hypoglycemia, resolved. 7. Diabetes mellitus type 2, out of control. 8. Hyponatremia. 9. 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 10. Carcinomatosis. 11. Severe protein-calorie malnutrition. 12. Alzheimer dementia. 13. Multiple deep tissue injuries, present on admission. 14. Hypercholesterolemia. 15. Benign prostatic hypertrophy. DISCHARGE MEDICATIONS: See medication reconciliation list. DISCHARGE INSTRUCTIONS: The patient was discharged to halfway facility with hospice care. Arian Givens M.D. Diamante Terrell N.P. (Vanchtein) DR: Aura JOB#: [id number] CC: RAUL
== END 2017-10-22 14:36 | DRG 637 ==
LOC: EDBD 20:25 → EMR 21:13 → EDBEDREQ 21:38 → UNDOADMIN 22:37 → 2E 22:37 → UNDOADMIN 10-15 00:44 → 2E 10-15 00:44 → ICU 10-15 01:23 → 2W 10-15 15:20 → 4E 10-19 12:53
DX: E11.649 Type 2 diabetes mellitus with hypoglycemia without coma (principal); G93.49 Other encephalopathy; I21.4 Non-ST elevation (NSTEMI) myocardial infarction; E43 Unspecified severe protein-calorie malnutrition; N17.9 Acute kidney failure, unspecified; C77.2 Secondary and unspecified malignant neoplasm of intra-abdominal lymph nodes; C80.0 Disseminated malignant neoplasm, unspecified; C18.9 Malignant neoplasm of colon, unspecified; N39.0 Urinary tract infection, site not specified; C61 Malignant neoplasm of prostate; G30.9 Alzheimer's disease, unspecified; F02.80 Dementia in other diseases classified elsewhere, unspecified severity, without behavioral disturbance, psychotic disturbance, mood disturbance, and anxiety; Z88.6 Allergy status to analgesic agent; Z88.8 Allergy status to other drugs, medicaments and biological substances; Z79.4 Long term (current) use of insulin; I10 Essential (primary) hypertension; Z66 Do not resuscitate; N40.0 Benign prostatic hyperplasia without lower urinary tract symptoms; F29 Unspecified psychosis not due to a substance or known physiological condition; E78.00 Pure hypercholesterolemia, unspecified
CPT/HCPCS: 36415; 71010; 74000; 74230; 80048; 80053; 81003; 82150; 82550; 82553; 82962; 83605; 83690; 83735; 83880; 84100; 84484; 85025; 85610; 85651; 85730; 86140; 87040; 87081; 87324; 93005; 94760; J1815